=== PATIENT | female | born 1960 | race Caucasian/White ===

== ENCOUNTER → 2018-04-17 11:04 | Outpatient (CLI) | payer OTHER, SELFPAY ==
--- NOTE | 2018-04-17 | DI.MG.S_ITS ---
BILATERAL DIGITAL SCREENING MAMMOGRAM 3D/2D WITH CAD: 04/17/2018 CLINICAL: Routine screening. Family history of breast cancer. Comparison is made to exams dated: 03/29/2016 mammogram, 02/22/2014 mammogram, and 02/20/2009 mammogram - [facility]. The tissue of both breasts is heterogeneously dense. This may lower the sensitivity of mammography. Current study was also evaluated with a Computer Aided Detection (CAD) system. No significant masses, calcifications, or other findings are seen in either breast. There has been no significant interval change. IMPRESSION: NEGATIVE There is no mammographic evidence of malignancy. A 1 year screening mammogram is recommended. This exam was interpreted at Station ID: [id number]. NOTE: For mammograms, a report in lay terms will be sent to the patient. Approximately 15% of breast malignancies will not be visualized mammographically. In the management of a palpable breast mass, a negative mammogram must not discourage biopsy of a clinically suspicious lesion. Electronically Signed By: Anders rosales/rosalee:04/17/2018 18:34:04 copy to: Justin Tavera letter sent: Normal Exam ACR BI-RADS Category 1: Negative [id number]
== END ==
PROVIDERS: Family Provider Family Medicine; PCP Family Medicine; Visit Provider Family Medicine
DX: Z12.31 Encounter for screening mammogram for malignant neoplasm of breast (principal); Z80.3 Family history of malignant neoplasm of breast
CPT/HCPCS: 77063; 77067

== ENCOUNTER → 2019-02-12 08:51 | Outpatient (CLI) | payer OTHER, SELFPAY ==
--- NOTE | 2019-02-12 | DI.US.S_ITS ---
LIMITED ULTRASOUND OF RIGHT BREAST AND AXILLA: 02/12/2019 CLINICAL: Palpable right axilla lump. Retroareolar mass seen on mammography. Comparison is made to exams dated: 02/12/2019 mammogram, 04/17/2018 mammogram, 03/29/2016 mammogram, 02/22/2014 mammogram, 02/20/2009 mammogram, and 04/08/2007 mammogram - [facility]. Color flow and real-time ultrasound of the right breast retroareolar and axilla regions were performed. [place] scale images of the real-time examination were reviewed. There is a 1.7 cm x 1.4 cm x 1.2 cm irregular hypoechoic mass with indistinct margin in the right breast central to the nipple retroareolar depth near 6:00 position relative to the nipple. This demonstrates internal calcifications and internal vacularity on Doppler ultrasound. There are multiple abnormal right axillary lymph nodes demonstrating cortical thickening and effacement of the fatty ki. The largest right axillary lymph node measures 2.7 cm x 1.8 cm x 2.5 cm with cortical thickening up to 1.2 cm, and internal calcifications. This largest axillary lymph node correlates with the site of patient's reported focal palpable abnormality. IMPRESSION: HIGHLY SUGGESTIVE OF MALIGNANCY 1) 1.7 cm x 1.4 cm x 1.2 cm irregular calcified vascular hypoechoic mass with indistinct margin in the right breast central to the nipple retroareolar depth near 6:00 position relative to the nipple. This is highly suggestive of malignancy and an ultrasound guided biopsy is recommended. 2) Right axillary lymphadenopathy with the largest right axillary lymph node measuring 2.7 cm x 1.8 cm x 2.5 cm with cortical thickening up to 1.2 cm. This correlates with the site of patient's reported focal palpable abnormality. This is highly suggestive of malignancy and an ultrasound guided biopsy is recommended. These results and recommendations were discussed with the patient at the time of the exam by the [facility] Radiologist Dr. Willian Salmon in person. This exam was interpreted at Station ID: [id number]. Electronically Signed By: Anders Morataya M.D. ecl/:02/12/2019 10:32:09 copy to: Justin Tavera letter sent: Biopsy Required Ultrasound BI-RADS: 5 Highly suggestive of malignancy
--- NOTE | 2019-02-12 | DI.MG.S_ITS ---
BILATERAL DIGITAL DIAGNOSTIC MAMMOGRAM 3D/2D: 02/12/2019 CLINICAL: Right axillary mass and pain. Comparison is made to exams dated: 04/17/2018 mammogram, 03/29/2016 mammogram, and 02/22/2014 mammogram - [facility]. The tissue of both breasts is heterogeneously dense. This may lower the sensitivity of mammography. There is a triangular marker overlying the skin of the right axilla at the site of the patient's reported palpable abnormality. There are multiple axillary lymph nodes which appear enlarged and demonstrate adajcent punctate calcifications adjacent the marker. These are new from prior comparison exams. There is an irregular indistinct focal asymmetry with associated pleomorphic calcifications in the right breast central to the nipple retroareolar depth. This is new from prior comparison exams. IMPRESSION: INCOMPLETE: NEEDS ADDITIONAL IMAGING EVALUATION 1) Multiple enlarged axillary lymph nodes with adjacent punctate calcifications, near the marker indicating the site of patient's palpable concern. These are new from prior comparison exams. Targeted diagnostic ultrasound recommended for further evaluation, which will be performed immediately following this exam. 2) Irregular indistinct focal asymmetry with associated pleomorphic calcifications in the right breast central to the nipple retroareolar depth. This is new from prior comparison exams. Targeted diagnostic ultrasound recommended for further evaluation, which will be performed immediately following this exam. This exam was interpreted at Station ID: [id number]. NOTE: For mammograms, a report in lay terms will be sent to the patient. Approximately 15% of breast malignancies will not be visualized mammographically. In the management of a palpable breast mass, a negative mammogram must not discourage biopsy of a clinically suspicious lesion. Electronically Signed By: Anders Morataya M.D. ecl/:02/12/2019 10:22:54 copy to: Justin Tavera [facility] BI-RADS Category 0: Incomplete 3340F
== END ==
PROVIDERS: PCP Family Medicine; Visit Provider Nurse Practitioner Family
DX: R92.8 Other abnormal and inconclusive findings on diagnostic imaging of breast (principal); R92.1 Mammographic calcification found on diagnostic imaging of breast; N63.15 Unspecified lump in the right breast, overlapping quadrants; N64.4 Mastodynia; R59.0 Localized enlarged lymph nodes; N64.89 Other specified disorders of breast
CPT/HCPCS: 76642; 77066; G0279

== ENCOUNTER 2019-02-15 23:14 | Emergency (ER) | payer OTHER, SELFPAY ==
[2019-02-15 23:28] VITALS: BP 148/77; PULSE 79; RESP 16; TEMP 36.9; O2SAT 97; BMI 23.2
--- NOTE | 2019-02-15 23:54 | PC.NURSE ---
Pt has an area just below elbow going up her upper arm that is red,warm and swollen.
--- NOTE | 2019-02-16 00:29 | DI.RAD.S_ITS ---
PROCEDURE: XR CHEST 1V INDICATIONS: suspected sepsis TECHNIQUE: One view of the chest was acquired. COMPARISON: None. FINDINGS: Surgical changes and devices: None. Lungs and pleura: Lungs are clear. No pleural effusions or pneumothorax. Mediastinum: Mediastinal contours appear normal. Heart size is normal. Bones and chest wall: No suspicious bony lesions. Overlying soft tissues appear unremarkable. IMPRESSION: No acute cardiopulmonary disease. Dictated by: Ar Dawson M.D. on 02/16/2019 at 9:11 Approved by: Ar Dawson M.D. on 02/16/2019 at 9:12
--- NOTE | 2019-02-16 00:32 | DI.CT.S_ITS ---
PROCEDURE: CT CHEST W CON INDICATIONS: breast mass, right arm swelling TECHNIQUE: After the administration of intravenous contrast, 5 mm thick sections acquired from the pulmonary apices to the posterior costophrenic angles. 1 mm axial lung, 5 mm thick coronal and sagittal reformats and 7 mm axial MIP were acquired. For radiation dose reduction, the following was used: automated exposure control, adjustment of mA and/or kV according to patient size. COMPARISON: [facility], , BREAST RT LIMITED, 02/12/2019, 10:02. [facility], MM DIAGNOSTIC MAMMO BI, 02/12/2019, 9:21. [facility], MM SCREENING MAMMO BI, 04/17/2018, 11:51. FINDINGS: Image quality: Excellent. Lungs and pleura: No acute air space opacities. There is a splenium and nodule in the left upper lobe just in front of the left major fissure (series 7 image 22). No pleural effusions or pneumothorax. Central and peripheral airways are patent and normal in caliber. Mediastinum: Heart size is normal. No pericardial effusion. No mediastinal or hilar adenopathy by size criteria. Thoracic aorta and central pulmonary arteries are normal in size. Esophagus is normal in caliber. No hiatal hernia. Bones and chest wall: There is a 1.4 cm enhancing mass in the retroareolar area of the right breast. There are axillary lymphadenopathy bilaterally. The largest lymph node in the right axilla measures 2.3 cm. Mildly enlarged left axillary lymph node measures up to 1 cm in short axis. No suspicious bony lesions. No vertebral body compression fractures. Thyroid gland is normal. Note is made of prominent right jugular vein and subclavian vein. Abdomen: This is 3.1 x 2.9 cm enhancing mass in the anterior right hepatic lobe. Upper abdominal bowel loops are normal in caliber. IMPRESSION: 1. A 1.4 cm mass in the retroareolar area of the right breast, highly suspicious for breast cancer. 2. Right axillary lymphadenopathy consistent with metastases. Mildly enlarged left axillary lymph nodes are also noted, which could represent reactive lymph nodes or metastasis. 3. A 3 mm nodule in the left upper lobe. 4. A 3.1 x 2.9 cm enhancing mass in the anterior right hepatic lobe. Differential diagnoses include focal nodular hypoplasia, hepatoma and metastasis. Liver protocol MRI suggested for followup. 5. Prominent right jugular vein and subclavian vein. Fleischner Society criteria for SOLID lung nodule followup. Nodule size (mm)Low-risk patientHigh-risk patient?4No follow-up neededFollow-up at 12 mo; if no change, no further follow-up>[id number] CT at 12 mo; if no change, no further follow-up needed.Initial follow-up CT at 6-12 mo, then 18-24 mo if no change. >6-8Initial follow-up CT at 6-12 mo, then 18-24 mo if no change. Initial follow-up CT at 3-6 mo, then 9-12 mo and 24 mo if no change. >8Follow-up CT at 3, 9, 24 mo. Or PET and/or biopsy.Same as for low-risk pts. Fleischner Society criteria for SUB-SOLID lung nodule followup. Solitary pure ground-glass nodules5 mm or lessNo followup needed. >5 mm3 mo follow-up CT to confirm persistence. Then annual CT for 3 years. Part-solid nodules3 mo follow-up CT to confirm persistence. If persistent with solid component <5 mm, annual CT for at least 3 years. If solid component is 5 mm or more, biopsy or surgical resection. Consider PET-CT for lesions > 10 mm. Multiple sub-solid nodulesPure ground glass nodules [address] at 2 and 4 years. Pure ground glass nodules >5 mm without dominant lesion. [address] to confirm persistence, then annual followup CT for at least 3 years. Dominant nodule(s) with part-solid or solid component. [address] to confirm persistence. If persistent, consider biopsy or surgical resection, rachael if lesions have >5 mm solid component. Dictated by: Ar Dawson M.D. on 02/16/2019 at 7:54 Approved by: Ar Dawson M.D. on 02/16/2019 at 8:12
[2019-02-16 00:39] LABS: Add Manual Diff / Slide Review NO; Basophils Absolute Auto 100 /uL (0-100); Basophils Percent Auto 1.1 % (0-2); Eosinophils Absolute Auto 400 /uL (0-450); Eosinophils Percent Auto 4.4 % (2-4); Hematocrit 42.4 % (36-46); Hemoglobin 14.5 g/dL (12.0-16.0); Lymphocytes Absolute Auto 2600 /uL (1100-4500); Lymphocytes Percent Auto 28.1 % (25-40); Mean Corpuscular HGB Conc 34.2 % (30-36); Mean Corpuscular Hemoglobin 31.1 PG (26-34); Mean Corpuscular Volume 90.7 fL (80-100); Monocytes Absolute Auto 700 /uL (0-900); Monocytes Percent Auto 7.3 % (3-14); Neutrophils Absolute Auto 5500 /uL (1500-7000); Neutrophils Percent Auto 59.1 % (50-75); Platelet Count 263 X10^3/uL (150-400); Prothrombin Time 11.1 SECONDS (10.1-12.7); Red Blood Cell Count 4.68 X10^6/uL (4.0-5.2); Red Cell Distribution Width 14.2 % (11.6-14.8); White Blood Cell Count 9.4 X10^3/uL (4.5-11.0)
[2019-02-16 00:42] LABS: PTT Partial Thromboplastin Tim 37 SECONDS (26.4-36.2)
[2019-02-16 00:44] LABS: Lactate (Lactic Acid) 0.9 mmol/L (0.7-2.1)
[2019-02-16 00:49] LABS: Alanine Aminotransferase 11 IU/L (9-52); Albumin 4.3 g/dL (3.5-5.0); Albumin Globulin Ratio 1.3 (1.0-2.8); Alkaline Phosphatase 67 U/L (38-126); Aspartate Aminotransferase 31 IU/L (14-36); BUN Creatinine Ratio 25.7 (6-22); Bilirubin Total 0.4 mg/dL (0.2-1.3); Blood Urea Nitrogen 18 mg/dL (7-17); Calcium 9.3 mg/dL (8.4-10.2); Carbon Dioxide 24 mmol/L (22-32); Chloride 108 mmol/L (98-107); Estimated Glomerular Filt Rate > 60.0 mL/min (>60); Globulin 3.3 g/dL (1.7-4.1); Glucose 136 mg/dL (80-110); HEMOLYSIS < 15 (0-50); Lipase 68 U/L (23-300); Potassium 3.3 mmol/L (3.4-5.1); Sodium 140 mmol/L (137-145); Total Protein 7.6 g/dL (6.3-8.2)
[2019-02-16] MEDS: SODIUM CHLORIDE 0.9% 1,000 ML 1000 ML IV (00:57)
[2019-02-16 01:05] LABS: Procalcitonin < 0.05 ng/mL (<0.5)
--- NOTE | 2019-02-16 01:22 | ED.EXTPRO ---
HPI - Extremity Problem General Chief complaint: Extremity Problem,Nontraumatic Stated complaint: right arm really sore/red line going down arm Time Seen by Provider: 02/16/19 00:10 Source: patient Mode of arrival: Family Vehicle Limitations: no limitations History of Present Illness HPI Narrative: Patient is 59-year-old female who presents with erythema streaking on her right arm. She is currently being worked up for a mass in her breast. She felt a lump underneath her in her axilla area. She had mammogram done on 02/12/2019 which did reveal multiple enlarged axillary lymph nodes with punctate calcifications. His she also had an ultrasound which showed similar. Today she started noticing increased pain in her axilla area and she had streaking of redness all the way down her arm. She denies any fevers or sweats no unintentional significant weight loss. She denies any chest pain or shortness of breath. She does have a history of smoking. MD Complaint: extremity pain and extremity swelling Quality: aching Related Data Allergies Allergy/AdvReac Type Severity Reaction Status Date / Time No Known Drug Allergies Allergy Verified 02/16/19 00:28 Review of Systems Review of Systems ROS Unobtainable: All systems reviewed & are unremarkable except as noted in HPI and below Constitutional Constitutional: Denies chills, Denies fever(s), Denies lethargy and Denies weakness Eyes Eyes: Denies change in vision, Denies eye discharge, Denies irritation and Denies loss of vision ENT Ears, Nose, Mouth, and Throat: Denies change in voice, Denies neck pain and Denies sore throat Cardiovascular Cardiovascular: Denies chest pain, Denies irregular heart rhythm, Denies lightheadedness, Denies palpitations, Denies dyspnea, Denies dyspnea on exertion and Denies orthopnea Respiratory Respiratory: Denies cough, Denies dyspnea, Denies dyspnea on exertion and Denies wheezing Genitourinary Genitourinary: Denies hematuria, Denies flank pain, Denies urinary incontinence and Denies urinary urgency Musculoskeletal Musculoskeletal: Reports as per HPI and Denies neck pain Integumentary/Breasts Skin/Breast: Reports as per HPI Neurologic Neurologic: Denies loss of vision and Denies weakness Endocrine Endocrine: Denies palpitations Allergic/Immunologic Allergic/Immunologic: Denies wheezing Patient History Medical History Hypothyroid (Acute) Social History Smoking Status: Current every day smoker tobacco type: cigarettes alcohol intake frequency: holidays/special occasions only Substance Use Type: does not use Exam Initial Vital Signs Initial Vital Signs: Vital Signs Temperature 98.5 F 02/15/19 23:28 Pulse Rate 79 02/15/19 23:28 Respiratory Rate 16 02/15/19 23:28 Blood Pressure 148/77 H 02/15/19 23:28 Pulse Oximetry 97 02/15/19 23:28 GENERAL: Well-appearing, well-nourished and in no acute distress. HEENT: Head atraumatic,EOMI, pupils reactive, face symmetric, moist mucous membranes CARDIOVASCULAR: Regular rate and rhythm without murmurs, rubs or gallops. RESPIRATORY: Breath sounds equal bilaterally, no wheezes rales or rhonchi. ABDOMEN: Soft, nontender. Normoactive bowel sounds all 4 quadrants. No guarding or rebound. EXTREMITIES: Normal range of motion, no clubbing or edema. Neurovascularly intact NEUROLOGICAL: Alert and oriented x4.Normal gait and speech. Cranial nerves II through XII grossly intact. SKIN: Significant redness starting in axilla and going all way down arrest. It is palpable and inflamed and seems to follow vein. Mild mass and palpable area and axilla no abscess no induration no gross pus Course Orders Ordered: ED Orders 02/16/19 00:05 Complete Blood Count AUTO DIFF Stat Comprehensive Metabolic Panel Stat Lactate (Lactic Acid) Stat Lipase Stat Partial Thromboplastin Time Stat Procalcitonin Stat Prothrombin Time INR Stat Thyroid Stimulating Hormone Stat 02/16/19 00:29 XR chest 1V Stat RT Consult Eval and Treat Now 02/16/19 00:32 CT chest w con Stat 02/16/19 00:55 Blood Culture Stat 02/16/19 01:57 US periph venous up extrem rt Stat Discontinued Medications Sodium Chloride (Normal Saline 0.9%) 1,000 mls @ 1,000 mls/hr IV BOLUS ONE Stop: 02/16/19 01:27 Last Infusion: 02/16/19 04:06 Dose: 0 mls/hr Documented by: Admin: 02/16/19 00:57 Dose: 1,000 mls/hr Documented by: BHAVANI Ketorolac Tromethamine (Toradol) 30 mg IV NOW ONE Stop: 02/16/19 03:42 Last Admin: 02/16/19 03:56 Dose: 30 mg Documented by: GRICELDA Vital Signs Vital signs: Vital Signs - 8 hr 02/15/19 23:28 02/16/19 01:50 02/16/19 03:00 Temperature 98.5 F Pulse Rate 79 67 56 L Respiratory Rate 16 16 18 Blood Pressure 148/77 H Blood Pressure [Left Arm] 128/87 143/80 H Pulse Oximetry 97 97 97 02/16/19 04:21 Temperature Pulse Rate 86 Respiratory Rate 16 Blood Pressure 120/68 Blood Pressure [Left Arm] Pulse Oximetry 96 MDM - Extremity (Nontraumatic) Lab Data Attestation: I reviewed the patient's lab results. Result diagrams: 02/16/19 00:05 02/16/19 00:05 Labs: Lab Results 02/16/19 02/16/19 02/16/19 Range/Units 00:05 00:05 00:05 WBC 9.4 (4.5-11.0) X10^3/uL RBC 4.68 (4.0-5.2) X10^6/uL Hgb 14.5 (12.0-16.0) g/dL Hct 42.4 (36-46) % MCV 90.7 (80-100) fL MCH 31.1 (26-34) PG MCHC 34.2 (30-36) % RDW 14.2 (11.6-14.8) % Plt Count 263 (150-400) X10^3/uL Neut % (Auto) 59.1 (50-75) % Lymph % (Auto) 28.1 (25-40) % [place] % (Auto) 7.3 (3-14) % Eos % (Auto) 4.4 H (2-4) % Baso % (Auto) 1.1 (0-2) % Neut # (Auto) 5500 (6998-6695) /uL Lymph # (Auto) 2600 (0350-8760) /uL [place] # (Auto) 700 (0-900) /uL Eos # (Auto) 400 (0-450) /uL Baso # (Auto) 100 (0-100) /uL PT 11.1 (10.1-12.7) SECONDS INR 1.0 (0.9-1.3) APTT 37 H (26.4-36.2) SECONDS Sodium (137-145) mmol/L Potassium (3.4-5.1) mmol/L Chloride (98-107) mmol/L Carbon Dioxide (22-32) mmol/L BUN (7-17) mg/dL Creatinine (0.52-1.04) mg/dL Estimated GFR (>60) mL/min BUN/Creatinine Ratio (6-22) Glucose (80-110) mg/dL Lactate (0.7-2.1) mmol/L Calcium (8.4-10.2) mg/dL Total Bilirubin (0.2-1.3) mg/dL AST (14-36) IU/L ALT (9-52) IU/L Alkaline Phosphatase (38-126) U/L Total Protein (6.3-8.2) g/dL Albumin (3.5-5.0) g/dL Globulin (1.7-4.1) g/dL Albumin/Globulin Ratio (1.0-2.8) Lipase (23-300) U/L Procalcitonin < 0.05 (<0.5) ng/mL TSH (0.47-4.68) uIU/mL 02/16/19 02/16/19 02/16/19 Range/Units 00:05 00:05 00:05 WBC (4.5-11.0) X10^3/uL RBC (4.0-5.2) X10^6/uL Hgb (12.0-16.0) g/dL Hct (36-46) % MCV (80-100) fL MCH (26-34) PG MCHC (30-36) % RDW (11.6-14.8) % Plt Count (150-400) X10^3/uL Neut % (Auto) (50-75) % Lymph % (Auto) (25-40) % [place] % (Auto) (3-14) % Eos % (Auto) (2-4) % Baso % (Auto) (0-2) % Neut # (Auto) (3337-5989) /uL Lymph # (Auto) (7505-4055) /uL [place] # (Auto) (0-900) /uL Eos # (Auto) (0-450) /uL Baso # (Auto) (0-100) /uL PT (10.1-12.7) SECONDS INR (0.9-1.3) APTT (26.4-36.2) SECONDS Sodium 140 (137-145) mmol/L Potassium 3.3 L (3.4-5.1) mmol/L Chloride 108 H (98-107) mmol/L Carbon Dioxide 24 (22-32) mmol/L BUN 18 H (7-17) mg/dL Creatinine 0.70 (0.52-1.04) mg/dL Estimated GFR > 60.0 (>60) mL/min BUN/Creatinine Ratio 25.7 H (6-22) Glucose 136 H (80-110) mg/dL Lactate 0.9 (0.7-2.1) mmol/L Calcium 9.3 (8.4-10.2) mg/dL Total Bilirubin 0.4 (0.2-1.3) mg/dL AST 31 (14-36) IU/L ALT 11 (9-52) IU/L Alkaline Phosphatase 67 (38-126) U/L Total Protein 7.6 (6.3-8.2) g/dL Albumin 4.3 (3.5-5.0) g/dL Globulin 3.3 (1.7-4.1) g/dL Albumin/Globulin Ratio 1.3 (1.0-2.8) Lipase 68 (23-300) U/L Procalcitonin (<0.5) ng/mL TSH 2.13 (0.47-4.68) uIU/mL Imaging Data Chest x-ray: Attestation: I personally reviewed and interpreted this imaging study as follows: My impression: no acute process CT scan - chest: Radiologist's impression: Preliminary report: Probable 1.1 cm right subareolar breast mass recommended breast workup. Bilateral axillary adenopathy most prominent in the right. Dilated right axillary and subclavian veins, recommended vascular ultrasound to assess for thrombus. 3 cm enhancing lesion right anterior lobe of liver finding is nonspecific Venous US: Radiologist's impression: Preliminary report of right upper extremity: Negative for deep vein thrombosis MDM Narrative Medical decision making narrative: Patient's arm is erythematous she is afebrile no leukocytosis negative procalcitonin her lactate. She does not have infectious like symptoms unclear cellulitis versus thrombophlebitis. Patient does not want to stay in the hospital. I discussed case with Dr. Tavera her PCP who is happy to see her in the office tomorrow and recommend anti-inflammatory. Discharge Plan Departure Patient Disposition: Home Clinical Impression: Thrombophlebitis Discharge Date/Time: 02/16/19 04:21 Instructions: DI for Superficial Thrombophlebitis Activity Restrictions/Additional Instructions: *You have been diagnosed with thrombophlebitis *What to do: Recommend anti-inflammatory medication. *Continue to take medications as directed Ibuprofen 800 mg every 8 hours with food *Follow up with your primary care provider today02/16/19. I have spoken with Dr. Tavera was happy to see you in the office *Return to ER if you should have fever, increasing pain, swelling or any new, worsening or concerning symptoms Referrals: Justin Tavera MD [Primary Care Provider] -
[2019-02-16 01:50] VITALS: BP 128/87; PULSE 67; RESP 16; O2SAT 97
--- NOTE | 2019-02-16 01:57 | DI.US.S_ITS ---
PROCEDURE: US PERIPH VENOUS UP EXTREM RT INDICATIONS: REDNESS; DILATED VEINS ON CT TECHNIQUE: Real-time imaging, as well as color and pulse Doppler interrogation, was performed of the right upper extremity deep veins from the inferior neck to the antecubital fossa. COMPARISON: [facility], CT, CT CHEST W CON, 02/16/2019, 0:58. FINDINGS: The internal jugular vein, visualized portions of the subclavian vein, axillary, and brachial veins are free of intraluminal thrombus. Where physically possible, the veins are normally compressible. Color and pulse Doppler demonstrate normal intraluminal flow, with expected phasicity and pulsatility. Additional scanning of the cephalic and basilic veins of the superficial system demonstrate normal compressibility, without thrombus. IMPRESSION: No deep venous thrombosis in the right upper extremity. No significant discrepancy with the pottery striper radiology preliminary report. Dictated by: Ar Dawson M.D. on 02/16/2019 at 9:24 Approved by: Ar Dawson M.D. on 02/16/2019 at 9:24
[2019-02-16 02:07] LABS: Thyroid Stimulating Hormone 2.13 uIU/mL (0.47-4.68)
[2019-02-16 03:00] VITALS: BP 143/80; PULSE 56; RESP 18; O2SAT 97
[2019-02-16] MEDS: KETOROLAC 60 MG/2 ML VIAL 30 MG IV (03:56)
[2019-02-16 04:21] VITALS: BP 120/68; PULSE 86; RESP 16; O2SAT 96
== END 2019-02-16 04:21 | disposition home or self-care (01) ==
PROVIDERS: Emergency Provider Emergency Medicine; PCP Family Medicine
DX: I80.8 Phlebitis and thrombophlebitis of other sites (principal)
CPT/HCPCS: 36415; 71045; 71260; 80053; 83605; 83690; 84145; 84443; 85025; 85610; 85730; 87040; 93971; 96361; 96374; 99283; 99284; J1885; Q9967

== ENCOUNTER → 2019-02-27 12:52 | Outpatient (CLI) | payer OTHER, SELFPAY ==
--- NOTE | 2019-02-27 | DI.US.S_ITS ---
ULTRASOUND GUIDED BIOPSY RIGHT BREAST WITH MARKING DEVICE INSERTED AND POST DIGITAL MAMMOGRAPHIC IMAGIN02/27/2019 CLINICAL: Right axillary node biopsy. PATIENT CONSENT: Risks (minor bleeding, infection, vasovagal reaction and repeat procedure), benefits and alternatives were explained to the patient and written informed consent was obtained. Correlation is made to exams dated: 02/27/2019 mammogram, 02/12/2019 ultrasound, 02/12/2019 mammogram, 04/17/2018 mammogram, and 02/27/2019 ultrasound biopsy - [facility]. An ultrasound guided biopsy using real-time ultrasound was performed for the palpable circumscribed oval lymph node with calcifications located in the right axillary tail. This was described on the previous mammography and ultrasound reports. The skin was prepped in the usual manner. Local anesthetic was administered to the access site. A skin jenny was made in the breast. The abnormality was approached from the lateral aspect. An 18 gauge Temno biopsy needle was placed adjacent to the abnormality through an introducer device under ultrasound guidance. Once the needle was documented to be in the correct location, four specimens were obtained. The patient received additional local anesthetic during the procedure. A Celero clip was inserted into the biopsy cavity. A skin adhesive was applied to the access site. Post procedure digital mammographic imaging demonstrates the location device at the targeted area. The specimens were sent to the laboratory for pathological analysis. IMPRESSION: ULTRASOUND GUIDED BIOPSY MALIGNANT Ultrasound guided biopsy of the lymph node in the right axillary tail was successful with no apparent post procedure complications. 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 Pathology results are concordant with imaging findings. Surgical and oncologic consultation is recommended. This exam was interpreted at Station ID: [id number]. Farhad Salmon M.D. [facility] [place]/:03/07/2019 09:39:35
--- NOTE | 2019-02-27 | DI.MG.S_ITS ---
UNILATERAL RIGHT DIGITAL DIAGNOSTIC MAMMOGRAM POST-EXCISIONAL BIOPSY: 02/27/2019 CLINICAL: Right breast abnormal mammogram. Post clip. Comparison is made to exams dated: 02/12/2019 mammogram, 04/17/2018 mammogram, 02/27/2019 ultrasound biopsy, 02/27/2019 ultrasound biopsy, and 02/12/2019 [facility], [place]. The tissue of right breast is heterogeneously dense. This may lower the sensitivity of mammography. There is a marker clip in the appropriate position in the right breast at 6 o'clock retroareolar. This marker clip placement is at the biopsy site. This correlates with ultrasound findings. There also is a marker clip in the appropriate position in the right breast axillary tail mass seen on the mediolateral oblique view only. This marker clip placement is at the biopsy site. This correlates with ultrasound findings. IMPRESSION: POST PROCEDURE MAMMOGRAM FOR MARKER PLACEMENT Expected location of the post biospy marker clips in the right breast retroareolar and right axillary lymph node. Exam findings were conveyed to the patient by Dr. Farhad Williamson. This exam was interpreted at Station ID: [id number]. NOTE: For mammograms, a report in lay terms will be sent to the patient. Approximately 15% of breast malignancies will not be visualized mammographically. In the management of a palpable breast mass, a negative mammogram must not discourage biopsy of a clinically suspicious lesion. Electronically Signed By: Farhad Williamson M.D. slc/:02/27/2019 15:41:55 ACR BI-RADS Category Post-procedure mammogram for marker placement
--- NOTE | 2019-02-27 | PATH_ITS ---
[facility] Accession Number: [id number] . 01 Material submitted: . PART A: axilla - RIGHT AXILLA PALPABLE PART B: breast - RIGHT BREAST RETRONIPPLE . 01 Diagnosis: A. Right Axilla Palpable, Biopsy: High-grade invasive carcinoma involving fibroconnective tissue with associated lymphoid aggregates; see comment. . B. Right Breast, Retronipple, Biopsy: Invasive (ductal) carcinoma, grade 3/3, ([place] combined histologic grade, total score 8/9), with the following features: 1. Tubular differentiation: Little or none. (3/3) 2. Nuclear pleomorphism: High. (3/3) 3. Mitotic grade: Intermediate. (2/3). 4. Size of invasive carcinoma: Present on 2 cores, single largest dimension at least 9 mm on this sample. 5. Ductal carcinoma in situ: Not definitively identified. 6. Calcifications: Absent. 7. Lymphovascular space invasion: Present. 8. Prognostic markers: a. Estrogen receptor status: Positive (1% tumor cells staining; staining intensity: Weak). b. Progesterone receptor status: Negative (<1% tumor cells staining; staining intensity: Weak). c. HER-2 status: Positive for protein overexpression by immunohistochemistry (3+). [facility] 03/05/2019 0920 Local . 01 Comment: In the right palpable axilla (part A), invasive carcinoma is present in association with fibroconnective tissue. Detached fragments of lymphoid aggregates are present. Radiographic correlation is necessary to determine whether this represents metastasis to a lymph node. . Dr. Tavera is notified of the preliminary findings on this case on 03/02/2019 at 4:00 pm. . 01 Electronically signed: . Cheyenne Arzola MD, Pathologist NPI- [id number] . 01 Gross description: . This is a two part case. Each container is labeled with the patient's information. . A. Received in a formalin-filled container labeled right axilla palpable and consists of four weinberg cylindrical needle cores, 0.4 cm up to 1.2 cm, each with an average diameter of 0.1 cm. The cores are filtered through a mesh bag, inked blue and entirely submitted in A1. B. Received in a formalin-filled container labeled right breast retronipple cores and consists of four weinberg hemorrhagic cylindrical needle cores, 1.0 cm up to 1.6 cm with diameters ranging from 0.2 cm up to 0.3 cm. The cores are inked orange and entirely submitted within B1 through B2, along with smaller associated tissue fragments (two cores per cassette). . Per containers, presumed formalin time is 1402 for A and 1433 for B, both on 02/27/2019. Gross time is 12:30 p.m. on 02/28/2019. ([id number]) /[facility] 02/28/2019 1706 Local . 01 Microscopic: . B2. D2-40, CD34, p63, and smooth muscle myosin immunostains with appropriately staining external controls, are performed on block B2 in order to assess for lymphovascular space invasion versus ductal carcinoma in situ. Several nests of atypical epithelioid cell clusters are present within spaces highlighted by D2-40 and CD34, with negative smooth muscle myosin and negative p63, in support of lymphovascular space invasion. Although focal faint reactivity for p63 and smooth muscle myosin is seen, there is not definitive evidence for ductal carcinoma in situ. . The invasive carcinoma invades stroma of the nipple areolar complex; it is high-grade, demonstrates areas of single cells and filing, and is evaluated with E-cadherin and Beta-catenin; the carcinoma retains its membranous staining pattern, in support of ductal phenotype. . Predictive marker immunohistochemical studies are performed on block B2 with the invasive carcinoma showing the following results: . Estrogen receptor (SP1): Positive (1%, Weak intensity). Progesterone receptor (1E2): Negative (<1%, Weak intensity). Her2 (4B5): Positive for overexpression (3+) by immunohistochmistry. . Internal controls for [place] and [place] are positive. Cold ischemic time is <5 minutes. The scoring criteria for breast biomarkers by immunohistochemistry is based on the ASCO/CAP guidelines (Caleb AC et al, J Clin Oncol: 2018 Oct 10;36(20):0279-5741 and Theodore ME et al, Arch Pathol Lab Med: 2009;134(6):907-22). Deparaffinized sections of formalin fixed tissue (along with appropriate positive controls) are incubated with the above antibody(s). Using the automated [place] stainer, tissue is incubated with the designated antibody which is then localized by a non-biotin, dual polymer detection system. The external controls are reviewed for appropriate reactivity and found to be adequate. Results on the target cell population are indicated above. These tests have not been validated on decalcified tissue. This test was developed and its performance characteristics determined by [employer]. It has not been cleared or approved by the U.S. Food and Drug Administration. The FDA has determined that such clearance or approval is not necessary. This test is used for clinical purposes. It should not be regarded as investigational or for research. . 01 Pathologist provided ICD-10: C50.111 . 01 CPT . 050406, 053879, W79210, D98414, 915854, 670883, 364899 Performed at: 01 [facility] [address], [place], [place] [id number] MD Doug Mckeon MD Phone: [phone]
--- NOTE | 2019-02-27 | DI.US.S_ITS ---
MULTIPLE ULTRASOUND GUIDED BIOPSIES RIGHT BREAST USING VACUUM DEVICE WITH MARKING DEVICES INSERTED AND POST DIGITAL MAMMOGRAPHIC IMAGIN02/27/2019 CLINICAL: Right breast mass. PATIENT CONSENT: Risks (minor bleeding, infection, vasovagal reaction and repeat procedure), benefits and alternatives were explained to the patient and written informed consent was obtained. Correlation is made to exams dated: 02/27/2019 mammogram, 02/12/2019 ultrasound, 02/12/2019 mammogram, and 04/17/2018 mammogram - [facility]. An ultrasound guided biopsy using real-time ultrasound was performed for the abnormality located in the right breast central to the nipple in the retroareolar region. The skin was prepped in the usual manner. A biopsy needle was placed adjacent to the abnormality under ultrasound guidance. Once the needle was documented to be in the correct location, a specimen was obtained using an automated biopsy gun. A Visioin clip was inserted into the biopsy cavity. The specimen was sent to the laboratory for pathological analysis. A second ultrasound guided biopsy using real-time ultrasound was performed for the spiculated irregular shaped solid mass with calcifications located in the right breast central to the nipple in the retroareolar region. This was described on the previous mammography and ultrasound reports. The skin was prepped in the usual manner. Local anesthetic was administered to the access site. A skin jenny was made in the breast. The abnormality was approached from the lateral aspect. A 13 gauge biopsy needle was placed adjacent to the abnormality under ultrasound guidance. Once the needle was documented to be in the correct location, four specimens were obtained using the Mammotome biopsy system. The patient received additional local anesthetic during the procedure. A Visioin clip was inserted into the biopsy cavity. A sterile dressing was applied to the access site. Post procedure digital mammographic imaging demonstrates the location device at the targeted area. The specimens were sent to the laboratory for pathological analysis. IMPRESSION: ULTRASOUND GUIDED BIOPSY MALIGNANT Ultrasound guided biopsy of the solid mass in the right breast central to the nipple in the retroareolar region was successful. Pathology indicates malignant invasive ductal carcinoma (ID). Pathology results are concordant with imaging findings. A surgical/oncologic consultation is recommended. This exam was interpreted at Station ID: [id number]. Farhad Salmon M.D. [facility] [place]/:03/07/2019 09:41:17
== END ==
PROVIDERS: PCP Family Medicine; Visit Provider Family Medicine
DX: C50.111 Malignant neoplasm of central portion of right female breast (principal); C77.3 Secondary and unspecified malignant neoplasm of axilla and upper limb lymph nodes; Z17.0 Estrogen receptor positive status [ER+]
CPT/HCPCS: 19083; 38505; 76942; 77065

== ENCOUNTER → 2019-03-21 11:11 | Outpatient (CLI) | payer OTHER, SELFPAY ==
--- NOTE | 2019-03-21 11:16 | DI.CT.S_ITS ---
PROCEDURE: CT ABDOMEN PELVIS W CON INDICATIONS: breast cancer TECHNIQUE: After the administration of oral and intravenous contrast, 5 mm thick sections acquired from the diaphragms to the symphysis. 5 mm thick coronal and sagittal reformats were performed. For radiation dose reduction, the following was used: automated exposure control, adjustment of mA and/or kV according to patient size. COMPARISON: [facility], CT, CT CHEST W CON, 02/16/2019, 0:58. FINDINGS: Image quality: Excellent. ABDOMEN: Lung bases: Lung bases are clear except for mild linear scarring posterior right lung base. There also is stable appearance of a partially visualized solid mass within the retroareolar breast parenchyma on the right, previously documented on CT scanning . This is seen at the first image that includes the lower chest for this abdomen/pelvis CT scanning. Heart size is normal. Solid organs: Liver is normal in size and generally normal in enhancement, but there is a stable appearing previously present mass lesion at the right anterior hepatic segment. Gallbladder is normal. Biliary system is non-dilated. Pancreas enhances normally. Spleen is normal in size and enhancement. No adrenal nodules. Kidneys are normal in size and enhancement, without hydronephrosis. Peritoneum and bowel: Stomach, small bowel, and colon loops are normal in caliber and wall thickness. No free fluid or air. Nodes and vessels: No retroperitoneal or mesenteric adenopathy. Aorta and inferior vena cava are normal in caliber. Miscellaneous: No ventral hernias. PELVIS: Genitourinary: Bladder wall thickness is normal. Miscellaneous: No inguinal hernias or adenopathy. Bones: No suspicious bony lesions. No vertebral body compression fractures. IMPRESSION: Hepatic metastatic disease is the likely cause for the hyperenhancing stable size right anterior hepatic mass, and through the remainder of the abdomen and pelvis no additional metastatic disease is found. Right subareolar breast mass previously seen 02/16/[address] scanning is partially included at the upper margin of this study and has not enlarged in the area visualized. Dictated by: Gabo Ruggiero M.D. on 03/21/2019 at 16:41 Approved by: Gabo Ruggiero M.D. on 03/21/2019 at 16:50
--- NOTE | 2019-03-21 11:16 | DI.NM.S_ITS ---
PROCEDURE: NM BONE SCAN WHOLE BODY RADIOPHARMACEUTICAL: 19.4 mCi Tc-99m MDP IV. INDICATIONS: breast cancer TECHNIQUE: Delayed whole-body scintigrams were obtained approximately 3-4 hours after intravenous injection of radiotracer. Anterior and posterior views were acquired from vertex to feet. Additional left and right oblique views of the ribs and skull were obtained. COMPARISON: [facility], CT, CT ABDOMEN PELVIS W CON, 03/21/2019, 13:15. FINDINGS: At the posterior right paramedian occipital parietal junction of the calvarium there is a small rounded focus of elevated isotope deposition, and no comparison prior study includes this area. The finding is suspicious for metastatic disease in the setting of history of breast carcinoma additionally, at the proximal aspect of the right 11th rib and knee lateral aspect of the right 10th rib there is abnormal isotope uptake focally, also suspicious for representing osseous metastatic disease. Each of these areas is included on prior recent CT scan in from same day, but no definite osteolytic or blastic lesion in those areas is found. 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 These foci involving the chest cannot be identified as abnormal on CT scanning same day. The calvarial abnormality on the right has not been been included on any prior examination available for review. Dictated by: Gabo Ruggiero M.D. on 03/21/2019 at 16:27 Approved by: Gabo Ruggiero M.D. on 03/21/2019 at 16:32
== END ==
PROVIDERS: PCP Family Medicine; Visit Provider Internal Medicine Hematology & Oncology
DX: C50.911 Malignant neoplasm of unspecified site of right female breast (principal); R16.0 Hepatomegaly, not elsewhere classified; M89.9 Disorder of bone, unspecified
CPT/HCPCS: 74177; 78306; A9503; Q9967

== ENCOUNTER → 2019-03-29 14:50 | Outpatient (CLI) | payer OTHER, SELFPAY ==
--- NOTE | 2019-03-29 14:51 | DI.ECHO.S_ITS ---
[facility] +---------+ : : [address] : [place] : : : : [id number] : : : : Phone: [phone]+ Echocardiogram Report + + :Name: GERALDINE BANUELOS Study Date: 03/29/2019 Height: 63 in : :[employer] Weight: 130 lb : : Gender: Female BSA: 1.6 m2 : :: 1960 Age: 59 yrs BP: 138/82 mmHg: :Reason For Study: Pre Chemo : : Performed By: [facility] Staff : :Referring: FERNANDO GOSS : + + Interpretation Summary The left ventricle is normal in size. The ejection fraction is estimated to be 50-55%. The right ventricle is normal in size and function. No significant valvular pathology seen. Procedure: A two-dimensional transthoracic echocardiogram with color flow and Doppler was performed. The study quality was technically adequate. There is no prior echocardiogram noted for this patient. The patient was in sinus bradycardia with heart rates between 45-57 bpm during the exam. Left Ventricle: The left ventricle is normal in size. There is normal left ventricular wall thickness. There is no thrombus. The ejection fraction is estimated to be 50-55%. There are no focal wall motion abnormalities. MV E/A: 1.0 Med Peak E' Giovani: 5.9 cm/sec E/E' med: 10.9. Right Ventricle: The right ventricle is normal in size and function. Atria: The left atrium is mildly dilated. Right atrial size is normal. The interatrial septum is intact with no evidence for an atrial septal defect. Mitral Valve: The mitral valve leaflets are slightly calcified. There is mild mitral regurgitation. Aortic Valve: The aortic valve is trileaflet. The aortic valve opens well. There is no aortic valve stenosis. No aortic regurgitation is present. Tricuspid Valve: The tricuspid valve is normal. There is mild tricuspid regurgitation. Pulmonary artery pressures cannot be estimated because of the lack of a measurable TR jet velocity. Pulmonic Valve: The pulmonic valve is not well visualized. There is trace pulmonic regurgitation. Great Vessels: The aortic root is normal size. The dimensions of the ascending aorta are normal. The pulmonary artery is normal size. The inferior vena cava was not visualized. Pericardium/ Pleura There is no pericardial effusion. There is no pleural effusion. MMode/2D Measurements & Calculations LVIDd: 4.4 cm LVOT diam: 2.0 cm LVIDs: 2.9 cm Ao root diam: 3.0 cm FS: 33.1 % Aortic Jxn: 2.4 cm EPSS: 0.60 cm IVSd: 0.86 cm LVPWd: 0.84 cm LV spaulding. diameter/BSA (cm/m^2): 2.7 LV sys. diameter/BSA (cm/m^2): 1.8 LA A2 area: 19.8 cm2 RA long axis: 3.7 cm LA A4 area: 18.1 cm2 RA area: 12.7 cm2 LA length (vol): 4.6 cm RA vol: 37.2 ml LA vol: 65.7 ml RA : 23.1 ml/m2 LA vol index: 40.8 ml/m2 TAPSE: 2.3 cm Doppler Measurements & Calculations Ao V2 max: 111.3 cm/sec LVOT Max Giovani: 101.3 cm/sec Ao V2 mean: 69.3 cm/sec LV V1 max P.1 mmHg Ao max P.0 mmHg LV V1 VTI: 24.2 cm Ao mean P.3 mmHg GENIA(I,D): 3.3 cm2 Ao V2 VTI: 23.4 cm GENIA(V,D): 2.9 cm2 sev ratio: 1.0 GENIA indexed to BSA (cm^2/m^2): 2.1 MV E max giovani: 64.3 cm/sec TR max giovani: 156.2 cm/sec MV A max giovani: 64.3 cm/sec TR max P.8 mmHg MV E/A: 1.0 PA V2 max: 43.1 cm/sec Med Peak E' Giovani: 5.9 cm/sec PA V2 mean: 31.6 cm/sec E/E' med: 10.9 PA mean P.46 mmHg Lat Peak E' Giovani: 6.2 cm/sec PA Accel Time: 0.11 sec E/E' lat: 10.4 E/e' average: 10.7 MV dec time: 0.25 sec SV(LVOT): 77.4 ml Reading Physician:06:07 PM
== END ==
PROVIDERS: Family Provider Family Medicine; PCP Family Medicine; Visit Provider Internal Medicine Hematology & Oncology
DX: Z01.818 Encounter for other preprocedural examination (principal); C50.911 Malignant neoplasm of unspecified site of right female breast; I08.1 Rheumatic disorders of both mitral and tricuspid valves
CPT/HCPCS: 77080; 93306

== ENCOUNTER → 2019-04-05 11:13 | Outpatient (CLI) | payer OTHER, SELFPAY ==
--- NOTE | 2019-04-05 11:16 | DI.CT.S_ITS ---
PROCEDURE: CT HEAD/BRAIN WO CON INDICATIONS: right breast cancer, abnormal bone scan of right occitus TECHNIQUE: Noncontrast 4.5 mm thick angled axial sections acquired from the foramen magnum to the vertex, with coronal and sagittal reformats. For radiation dose reduction, the following was used: automated exposure control, adjustment of mA and/or kV according to patient size. COMPARISON: [place], [place], [place] BONE SCAN WHOLE BODY, 03/21/2019, 15:13. FINDINGS: Image quality: Excellent. CSF spaces: Basal cisterns are patent. No extra-axial fluid collections. The ventricles are symmetric in size and shape. Brain: No intracranial bleeds or masses. Nolasco-white interface is normal. There is intracranial internal carotid artery atherosclerosis. Skull and face: There is a lytic lesion in the right parietal bone. Calvarium and visualized facial bones appear intact. Sinuses: Visualized sinuses and mastoids are clear. IMPRESSION: 1. A lytic lesion in the right parietal bone correlating with increased uptake on bone scan, suspicious for metastasis. 2. No acute intracranial abnormalities. Dictated by: Ar Dawson M.D. on 04/05/2019 at 13:58 Approved by: Ar Dawson M.D. on 04/05/2019 at 14:03
--- NOTE | 2019-04-05 11:16 | DI.CT.S_ITS ---
PROCEDURE: CT ABDOMEN WO/W CON INDICATIONS: breast cancer, liver lesion on CT scan, not PET positive TECHNIQUE: 4 phase scanning was performed. Non-contrast 5 mm axial sections acquired from the diaphragm to the iliac crests. Following the administration of intravenous contrast, 5 mm thick arterial-phase, portal venous-phase, and 5-minute delayed phase images were acquired through the liver. 5 mm thick coronal and sagittal reformats were performed. For radiation dose reduction, the following was used: automated exposure control, adjustment of mA and/or kV according to patient size. COMPARISON: [facility], [place], [place] PET CT FUSION SKULL 2 THIGH, 03/28/2019, 14:55. [facility], CT, CT ABDOMEN PELVIS W CON, 03/21/2019, 13:15. FINDINGS: Image quality: Excellent. Lung bases: Lung bases are clear. Heart size is normal. Liver: There is a 2.9 x 3.0 cm mass in the lateral segment of the left hepatic lobe, which demonstrates subtle hyperdensity on precontrast images. The mass demonstrates hyperenhancement on arterial phase images compared to the liver parenchyma, and isointensity on portal venous phase and delayed phase images. On the comparison CT PET, there is no hypermetabolism within the mass. 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 Other solid organs: Gallbladder is normal. Biliary system is non dilated. Pancreas is normal in morphology. Spleen is normal in size and enhancement. No adrenal nodules. Both kidneys demonstrate normal size and enhancement. Bilateral renal calculi. No hydronephrosis. There is a 2.1 x 2.8 cm cyst in the inferior pole the left kidney. Nodes and vessels: No retroperitoneal or mesenteric adenopathy by size criteria. Aorta and inferior vena cava are normal in size. Bowel and peritoneum: Unenhanced bowel loops are normal in caliber. No free fluid or air. Bones: No suspicious bony lesions. No vertebral body compression fractures. Degenerative changes in lumbar spine. Miscellaneous: No ventral hernias. IMPRESSION: 1. A 2.9 x 3.0 cm liver mass is seen within the left hepatic lobe. The CT characteristics suggest an atypical hemangioma. On the comparison FDG PET, the mass demonstrate no hypermetabolism. In this patient with breast cancer, ultrasound would helpful for further evaluation. 2. Nephrolithiasis bilaterally. No hydronephrosis. 3. A 2.1 x 2.8 cm cyst in the inferior pole of the left kidney. Dictated by: Ar Dawson M.D. on 04/05/2019 at 15:51 Approved by: Ar Dawson M.D. on 04/05/2019 at 18:19
[2019-04-05 11:44] LABS: Add Manual Diff / Slide Review NO; Basophils Absolute Auto 200 /uL (0-100); Basophils Percent Auto 3.2 % (0-2); Eosinophils Absolute Auto 400 /uL (0-450); Eosinophils Percent Auto 5.7 % (2-4); Hematocrit 44.4 % (36-46); Hemoglobin 15.1 g/dL (12.0-16.0); Lymphocytes Absolute Auto 2500 /uL (1100-4500); Lymphocytes Percent Auto 36.1 % (25-40); Mean Corpuscular HGB Conc 33.9 % (30-36); Mean Corpuscular Hemoglobin 30.8 PG (26-34); Mean Corpuscular Volume 90.8 fL (80-100); Monocytes Absolute Auto 600 /uL (0-900); Monocytes Percent Auto 8.3 % (3-14); Neutrophils Absolute Auto 3200 /uL (1500-7000); Neutrophils Percent Auto 46.7 % (50-75); Platelet Count 285 X10^3/uL (150-400); Red Blood Cell Count 4.89 X10^6/uL (4.0-5.2); Red Cell Distribution Width 14.6 % (11.6-14.8); White Blood Cell Count 6.8 X10^3/uL (4.5-11.0)
[2019-04-05 11:54] LABS: Alanine Aminotransferase 15 IU/L (<35); Albumin 4.4 g/dL (3.5-5.0); Albumin Globulin Ratio 1.5 (1.0-2.8); Alkaline Phosphatase 67 U/L (38-126); Aspartate Aminotransferase 27 IU/L (14-36); BUN Creatinine Ratio 22.2 (6-22); Bilirubin Total 0.5 mg/dL (0.2-1.3); Blood Urea Nitrogen 20 mg/dL (7-17); Calcium 9.4 mg/dL (8.4-10.2); Carbon Dioxide 27 mmol/L (22-32); Chloride 106 mmol/L (98-107); Estimated Glomerular Filt Rate > 60.0 mL/min (>60); Glucose 95 mg/dL (80-110); HEMOLYSIS < 15 (0-50); Sodium 140 mmol/L (137-145); Total Protein 7.4 g/dL (6.3-8.2)
== END ==
PROVIDERS: Family Provider Family Medicine; PCP Family Medicine; Visit Provider Internal Medicine Hematology & Oncology
DX: C50.911 Malignant neoplasm of unspecified site of right female breast (principal); R94.8 Abnormal results of function studies of other organs and systems; M89.9 Disorder of bone, unspecified; K76.9 Liver disease, unspecified; I65.21 Occlusion and stenosis of right carotid artery; N28.1 Cyst of kidney, acquired; N20.0 Calculus of kidney; M47.816 Spondylosis without myelopathy or radiculopathy, lumbar region
CPT/HCPCS: 36415; 70450; 74170; 80053; 85025; Q9967

== ENCOUNTER 2019-04-09 10:55 | Day surgery (SDC) | payer OTHER, SELFPAY ==
[2019-04-04 10:44] VITALS: BMI 22.9
[2019-04-09] VITALS (7 sets, daily range): BP systolic 109–140; BP diastolic 63–85; PULSE 55–64; RESP 11–18; TEMP 35.7–36.7; O2SAT 95–100; BMI 22.9
[2019-04-09] MEDS: LACTATED RINGERS 1,000 ML 42 ML IV (11:33)
--- NOTE | 2019-04-09 12:08 | PM.HP.1 ---
History of Present Illness History of Present Illness Date Patient Seen: 04/09/19 Time Patient Seen: 12:08 Chief complaint: [id number] Narrative: Patient is woman with breast cancer metastatic it at least to her lymph nodes and possibly to ribs or the occiput who presents for Port-A-Cath placement. She has HER2 Vonnie positive and there is a plan to give her pre operative chemotherapy. Patient History Medical History Arthritis (Acute) Bowel obstruction (Acute) Breast cancer (Acute) Current every day smoker (Acute) Eczema (Acute) Hypothyroidism (Acute) Sinus drainage (Acute) Surgical History H/O: hysterectomy (Acute 1985) History of breast biopsy (Acute) History of colonoscopy (Acute 2017) History of tonsillectomy (Acute) Hx of oral surgery (Acute 02/24/19) Family & Social History Family History Father Leukemia Family/Other Breast cancer Social History: household members family Tobacco & Substance use: Smoking Status Current every day smoker alcohol intake current alcohol intake frequency holiday/special occasion Substance Use Type does not use Meds Home Medications and Allergies Home Medications Medication Instructions Recorded Confirmed Type clobetasol 1 applic TOPICAL DAILY 03/08/19 04/09/19 History hydrocortisone 1 applic TOPICAL BID 03/08/19 04/09/19 History levothyroxine 50 mcg PO DAILY 03/08/19 04/09/19 History Allergies Allergy/AdvReac Type Severity Reaction Status Date / Time No Known Drug Allergies Allergy Verified 04/09/19 11:32 Review of Systems Review of Systems Narrative: No chest pains some chronicity of lung symptoms. She found the palpable lump in her breast. No seizures or blackouts. She is a bit anxious. Exam Vital Signs (past 8 hours): - 04/09/19 11:15 Temperature 98.0 F Pulse Rate 60 Respiratory Rate 16 Blood Pressure 131/74 Pulse Oximetry 97 Oxygen Delivery Method Room Air Narrative Exam Narrative: Cooperative very thin woman in no apparent distress. Her eyes are nonicteric. Lungs are clear to auscultation without rales or rhonchi. Heart regular rate and rhythm without murmur gallop. No rashes on the chest wall and no bony abnormalities of the clavicle. Alert and oriented x3. Speech rate and content are appropriate. Assessment & Plan Assessment & Plan narrative: Patient's breast cancers on the right. There is a plan for chemo operation radiation therefore will place the catheter on the left side so that it does not limit any options of surgical treatment on the right involve side. I have discussed this with the patient including risks of bleeding, infection, pneumothorax DVT arm swelling pulmonary embolism. She appears to understand wishes to proceed
--- NOTE | 2019-04-09 12:25 | PM.PREOP ---
Pre-operative Note Interval Note History & Physical reviewed/Exam performed by Physician: Yes Changes to H&P: No
--- NOTE | 2019-04-09 12:26 | PM.OP.1 ---
Operative Date/Time/Diagnoses Date of procedure: 04/09/19 Time of procedure: 12:00 Pre-op diagnosis: Intermittent draining of a perianal abscess per his history Post-op diagnosis: same (No detectable chronic abscess found in area indicated by patient) Procedure & Clinicians Procedure: Anoscopy exam under anesthesia and exploration. Same procedure as scheduled: Yes Indications: Chronic intermittent drainage for the last 2 years per patient history with tenderness intermittently in the left side of his anus Surgeon: Chandra Rodriguez Click Yes if Unassisted: Yes Anesthesia Type: General Operative Notes Findings: No obvious chronic infectious process Closure Type: non-primary Specimen(s): none sent Prosthetic devices, grafts, tissues, transplants, or devices: None Estimated Blood Loss (mL): 5 Blood products transfused: none Procedure in detail: The patient is placed dominick-knife prone on the operating room table after undergoing general endotracheal anesthesia. He was prepped and draped in the usual fashion. Digital exam of the entire perianal buttock and skin was entirely normal I really could not feel any induration whatsoever. I inserted a finger and again could not feel any induration at all. Because I just seen in the office and recalled the location of the problem I made a small incision in the intersphincteric groove and dissected under direct vision down and could identify no evidence of a chronic inflammatory process whatsoever I inserted a probe and gently probed directly in into the posterior midline and could not identify any internal opening in any of these areas either. After careful search IA packed the incision in the intersphincteric groove with a dry gauze and applied gauze to the remainder of the anus and completed the procedure. Patient appeared to tolerate the procedure well. Complications: none Post-operative Condition: stable Disposition: PACU
[2019-04-09] MEDS: CEFAZOLIN 1 GM/50 ML FROZ.PIGGY IV (12:40)
--- NOTE | 2019-04-09 12:55 | SUR.OPER ---
Supine on padded OR bed, head on pillow, right arm padded and tucked at side, legs uncrossed, safety belt at thigh, tape over blanket over lower legs .
[2019-04-09] MEDS: LIDOCAINE 1% 30 ML INJ (13:04)
[2019-04-09] MEDS: HEPARIN 5,000 UNIT, SODIUM CHLORIDE 0.9% 50 ML IV (13:07)
--- NOTE | 2019-04-09 13:33 | PM.OP.1 ---
Operative Date/Time/Diagnoses Date of procedure: 04/09/19 Time of procedure: 13:33 Pre-op diagnosis: Right-sided breast cancer with metastatic disease Post-op diagnosis: same Procedure & Clinicians Procedure: Placement of left subclavian Port-A-Cath Same procedure as scheduled: Yes Indications: Patient about to receive neoadjuvant chemotherapy Surgeon: Chandra Rodriguez Click Yes if Unassisted: Yes Anesthesia Type: General Operative Notes Findings: Tip of the catheter in the distal SVC. Closure Type: primary Specimen(s): none sent Prosthetic devices, grafts, tissues, transplants, or devices: Low-profile Port-A-Cath Applied: catheter Estimated Blood Loss (mL): 10 Blood products transfused: none Procedure in detail: Patient is placed supine on the operating room table and underwent general LMA anesthesia. Roll was placed between her shoulders and she was prepped and draped in the usual fashion. Local anesthetic was infiltrated field block fashion beneath the left clavicle. Transverse incision was made and carried down into the subcu. Pocket was created inferior to the incision and a needle inserted on 1st attempt into the subclavian vein. Guidewire was passed the needle removed. The guidewire appeared to be going in appropriate direction. The port was connected to the catheter and placed in the pocket. The catheter length was and tapered to what appeared to be in appropriate length. The dilator and introducer were passed over the guidewire under fluoroscopic visualization. The guidewire and dilator removed leaving the introducer in place. The catheter was passed through the introducer and the introducer was peeled away leaving the catheter tip in the distal SVC. The port was aspirated and then flushed with heparinized saline. The port was secured to the chest wall with 2 0 silk suture. The subcu was closed with interrupted 3 0 Vicryl. The skin was closed with a running 4 0 Vicryl subcuticular stitch and Steri-Strips. Dressing was applied the patient was awakened extubated taken recovery area in good condition. There was no evidence of pneumothorax on postprocedure film Complications: none Post-operative Condition: stable Disposition: PACU
--- NOTE | 2019-04-09 13:42 | DI.RAD.S_ITS ---
PROCEDURE: XR CHEST 1V INDICATIONS: PORT A CATH PLACEMENT TECHNIQUE: One view of the chest was acquired. COMPARISON: [facility], CR, XR CHEST 1V, 02/16/2019, 0:33. FINDINGS: Surgical changes and devices: None. Lungs and pleura: Lungs are clear. No pleural effusions or pneumothorax. Mediastinum: Mediastinal contours appear normal. Heart size is normal. Bones and chest wall: No suspicious bony lesions. Overlying soft tissues appear unremarkable. IMPRESSION: Port-A-Cath from left sided approach extends into the distal SVC, no pneumothorax. Dictated by: Gabo Ruggiero M.D. on 04/09/2019 at 14:14 Approved by: Gabo Ruggiero M.D. on 04/09/2019 at 14:14
--- NOTE | 2019-04-09 14:44 | SUR.PHASEII ---
dressed when ready and left when ready in stable condition.
== END 2019-04-09 14:44 | disposition home or self-care (01) ==
PROVIDERS: PCP Family Medicine; Visit Provider Specialist
PROC: (CPT 36561; principal; 2019-04-09 12:15)
DX: C50.911 Malignant neoplasm of unspecified site of right female breast (principal); Z45.2 Encounter for adjustment and management of vascular access device; F17.210 Nicotine dependence, cigarettes, uncomplicated; E03.9 Hypothyroidism, unspecified
CPT/HCPCS: 36561; 71045; 76000; C1788; J1100; J1644; J2250; J2405; J2704; J3010

== ENCOUNTER → 2019-04-20 13:01 | Outpatient (CLI) | payer OTHER, SELFPAY ==
--- NOTE | 2019-04-20 13:06 | DI.MRI.S_ITS ---
BREAST MRI OF BOTH BREASTS: 04/20/2019 CLINICAL: Malignant neoplasm right breast. TECHNIQUE: The patient was placed prone in a dedicated breast imaging coil. Precontrast axial STIR and 3D FLASH without fat saturation sequences were obtained. Both before and after bolus injection of contrast, sequential 1-minute axial 3D FLASH with fat saturation sequences for 3 time points, with subtraction images and maximum intensity projections (MIP's) generated. Delayed sagittal FLASH images with fat saturation were also obtained. Computer-aided detection, including computer algorithm analysis of MRI image data for lesion detection and characterization, pharmacokinetic analysis, with further physician review for interpretation, was performed. Comparison is made to exams dated: 02/27/2019 ultrasound biopsy, 02/27/2019 ultrasound biopsy, 02/27/2019 mammogram, 02/12/2019 mammogram, and 04/17/2018 mammogram - [facility]. FINDINGS: Image quality: Excellent. There is minimal background parenchymal enhancement. There is heterogeneous fibroglandular breast tissue in the bilateral breasts. Right breast: There is an irregular enhancing mass with spiculated margins noted in the subareolar right breast which immediately abuts the undersurface of the right nipple measuring approximately 1.4 x 1.5 cm in transverse dimension and 1.8 cm in craniocaudal dimension. This is relatively stable in size compared to measurements from previous ultrasound. There is internal susceptibility artifact compatible with biopsy marker. This is consistent with biopsy-proven malignancy. There is Type III /washout delayed enhancement kinetics. There is no abnormal skin thickening or skin enhancement adjacent to the mass. No abnormal nipple enhancement. There is no other suspicious mass lesions identified in the right breast. No non-mass enhancement. Multiple abnormally enlarged right axillary lymph nodes with eccentric and abnormal thickening of the cortices are identified. The largest measures approximately 2.3 x 1.3 cm in transverse dimension and contains an internal biopsy marker. This is compatible with biopsy-proven metastatic disease to the right axilla. No right sided internal mammary chain adenopathy. Left breast: No suspicious mass, architectural distortion, or non-mass enhancement. No left axillary or internal mammary chain adenopathy. No areas of abnormal enhancement. No skin or nipple abnormalities identified. Miscellaneous: Visualized anterior chest and upper abdominal structures appear unremarkable. Normal bone marrow signal intensity. IMPRESSION: KNOWN BIOPSY PROVEN MALIGNANCY 1. Irregular right subareolar mass compatible with biopsy-proven malignancy with associated biopsy proven right axillary metastatic disease. 2. Left breast without MRI evidence for malignancy. This exam was interpreted at Station ID: [id number]. Electronically Signed By: Willian Salmon M.D. aty/:04/20/2019 17:11:28 ACR BI-RADS Category 6: Known biopsy proven malignancy [id number]
--- NOTE | 2019-04-20 15:39 | PC.NURSE ---
Accessed port using sterile technique for MRI, blood return noted and flushed. De-accessed port post imaging, flushed with heparin, gauze and tegaderm in place, CDI. Pt tolerated well.
== END ==
PROVIDERS: PCP Family Medicine; Visit Provider Internal Medicine Hematology & Oncology
DX: C50.011 Malignant neoplasm of nipple and areola, right female breast (principal); C77.3 Secondary and unspecified malignant neoplasm of axilla and upper limb lymph nodes
CPT/HCPCS: 77049

== ENCOUNTER → 2019-05-07 12:11 | Outpatient (CLI) | payer OTHER, SELFPAY ==
--- NOTE | 2019-05-07 12:12 | DI.US.S_ITS ---
PROCEDURE: US ABDOMEN LIMITED INDICATIONS: breast cancer, liver lesion on CT scan TECHNIQUE: Real-time focused scanning was performed of the abdomen, with image documentation. COMPARISON: [facility], CT, CT ABDOMEN PELVIS W CON, 03/21/2019, 13:15. [facility], CT, CT ABDOMEN WO/W CON, 04/05/2019, 12:15. [facility], MR, MR BREAST BI WO/W CON, 04/20/2019, 13:38. FINDINGS: The liver no mass seen by recent CT scanning is not identifiable by current ultrasound scanning. Please note that this mass has been clearly visible by CT scanning, and also on review of the breast MRI scanning can be seen in the same area of the anterior liver on that MR study with reference to the prior CT scanning. IMPRESSION: The documented mass lesion within the liver can be seen definitively by both CT scanning and MR scanning (breast MR study). It cannot be clearly visualized by ultrasound. Dictated by: Gabo Ruggiero M.D. on 05/07/2019 at 13:24 Approved by: Gabo Ruggiero M.D. on 05/07/2019 at 13:28
== END ==
PROVIDERS: PCP Family Medicine; Visit Provider Internal Medicine Hematology & Oncology
DX: C50.911 Malignant neoplasm of unspecified site of right female breast (principal); K76.9 Liver disease, unspecified
CPT/HCPCS: 76705

== ENCOUNTER 2019-07-08 06:49 | Emergency (ER) | payer OTHER, SELFPAY ==
[2019-07-08 06:55] VITALS: BP 139/61; PULSE 80; RESP 18; TEMP 36.4; O2SAT 95; BMI 25.7
--- NOTE | 2019-07-08 07:36 | DI.RAD.S_ITS ---
PROCEDURE: XR FINGER RT MIN 2V INDICATIONS: cellulitis: ? FB middle radial phalanx R mid finger TECHNIQUE: AP hand, 2 views of the 3rd finger(s) acquired. COMPARISON: None. FINDINGS: Bones: No fractures or dislocations. No suspicious bony lesions. Mild, age-appropriate bony degenerative changes are seen. Soft tissues: No radiopaque foreign bodies are seen. No suspicious soft tissue calcifications. IMPRESSION: No radiopaque foreign bodies are seen. Dictated by: Morales Chamorro M.D. on 07/08/2019 at 7:04 Approved by: Morales Chamorro M.D. on 07/08/2019 at 7:05
--- NOTE | 2019-07-08 07:42 | ED.EXTPRO ---
HPI - Extremity Problem General Chief complaint: Extremity Problem,Nontraumatic Stated complaint: red line going up right arm from hand Time Seen by Provider: 07/08/19 07:03 Source: patient Mode of arrival: Ambulatory History of Present Illness HPI Narrative: CC: Mildly painful right arm with a red streak up her arm from her fingers and hand. HPI: The patient is a 59-year-old female with a history of breast cancer that was diagnosed in February 2019. She started chemotherapy in March. She has been receiving chemotherapy every 3 weeks. On of this past week she received her 5th treatment. During the night the patient had difficulty sleeping kept waking up in developing some discomfort in her right arm. She decided to check her arm out and noticed that she had a red streak streaking up her arm from her hand. She stated that she had a lesion on her right middle finger. She does not know how she injured her caught her right middle finger. She admits to being a smoker but does not drink alcohol or use any drugs. She denies a history of diabetes mellitus hypertension COPD or asthma. She has had no fever chills sweats headache shortness of breath cough chest pain palpitations dizziness lightheadedness abdominal pain nausea vomiting diarrhea or any urinary symptoms. Her oncologist is Dr. Coppola who provides treatment through the [facility]. Related Data Home Medications Medication Instructions Recorded Confirmed clobetasol 1 applic TOPICAL DAILY 03/08/19 05/03/19 hydrocortisone 1 applic TOPICAL BID 03/08/19 05/03/19 levothyroxine 50 mcg PO DAILY 03/08/19 05/03/19 ondansetron 8 mg PO Q8H PRN 04/16/19 05/03/19 citalopram 10 mg PO DAILY 06/14/19 06/14/19 loratadine [Claritin] 10 mg PO DAILY 07/05/19 07/05/19 Previous Rx's Medication Instructions Recorded dexamethasone [Decadron] 8 mg PO BID #72 tab 05/03/19 hydrocodone-acetaminophen [[place]] 1 tab PO Q6H PRN #30 tab 06/14/19 lorazepam [Ativan] 0.5 mg PO Q6H PRN #60 tab 06/14/19 cephalexin [Keflex] 500 mg PO QID #28 cap 07/08/19 ibuprofen 600 mg PO QID #20 tab 07/08/19 sulfamethoxazole-trimethoprim 1 tab PO Q12H #14 tab 07/08/19 [Bactrim DS] Allergies Allergy/AdvReac Type Severity Reaction Status Date / Time No Known Drug Allergies Allergy Verified 04/26/19 16:11 Review of Systems Review of Systems Narrative: Her review of systems were all negative except for those mentioned in the history of present illness. Patient History Medical History Arthritis (Acute) Bowel obstruction (Acute) Breast cancer (Acute) Current every day smoker (Acute) Eczema (Acute) Hypothyroidism (Acute) Sinus drainage (Acute) Surgical History H/O: hysterectomy (Acute 1985) History of breast biopsy (Acute) History of colonoscopy (Acute 2017) History of tonsillectomy (Acute) Hx of oral surgery (Acute 02/24/19) Family History Father Leukemia Family/Other Breast cancer Social History household members: family Smoking Status: Current every day smoker alcohol intake: current substance use type: does not use Smoking Status: Current every day smoker tobacco type: cigarettes alcohol intake frequency: holidays/special occasions only Substance Use Type: does not use Exam Narrative Exam Narrative: PHYSICAL EXAM: CONSTITUTIONAL: Awake, Alert, Oriented, Coherent, Cooperative in NAD. Does not appear toxic or ill. HEAD: AT/NC EENT: PERRL, FROM of eyes, no discharge, n Oral mucosa is moist and pink, posterior pharynx is without erythema or exudate. NECK: Supple, no obvious JVD, Trachea is midline without stridor, no palpable LN. SPINE: No gross deformity, no palpable tenderness of the cervical, thoracic, lumbar or sacral spine. No CVA tenderness. THORAX: No deformity, retractions, chest wall tenderness, the patient has a IV port access in her left chest LUNGS: Clear with symmetrical breath sounds without respiratory distress HEART: Normal heart tones, regular rhythm and rate without murmur. ABDOMEN: Soft, non-tender, normal bowel sounds without guarding, rebound, rigidity or palpable mass LYMPHATIC: The patient has a red streak up her right arm extending from her hand and middle finger consistent with lymphangitis EXTREMITIES: No edema, cyanosis, deformity . The patient has some mild erythema in the right antecubital fossa as well as the dorsum of her right hand. The radial aspect of the middle phalanx of the right middle finger is erythematous and has a small linear abrasion laceration that is scabbed over in slightly elevated. The 5th phalanxes erythematous mildly swollen and tender. This appears to be the source of her infection and lymphangitis. SKIN: No rash, bruising, petechiae or purpura. NEURO: Awake, alert, oriented, conversive, cranial nerves II-XII are symmetrical and normal, moves all 4 extremities and is ambulatory Initial Vital Signs Initial Vital Signs: Vital Signs Temperature 97.6 F 07/08/19 06:55 Pulse Rate 80 07/08/19 06:55 Respiratory Rate 18 07/08/19 06:55 Blood Pressure 139/61 07/08/19 06:55 Pulse Oximetry 95 07/08/19 06:55 Course Course Course Narrative: 08: The patient's laboratory chemistries including white blood count and CBC remain pending. This has been ordered to assess her immunosuppression since she received chemotherapy recently 0940: We have tried calling Dr. Coppola. We have tried calling his answering service. We have called to answering services and have been on hold for over 20 minutes and unable to contact to discuss the patient with Dr. Coppola. At this time 5 days after his last dose of chemotherapy the patient is not imminent though suppressed or leukopenic. The patient will be discharged home to be seen in follow-up by Dr. Coppola's office or service tomorrow. She will be prescribed Keflex 500 mg Q 6 hours and Bactrim double strength 1 tablet b.i.d.. If she develops fever worsening pain she needs to return to the emergency department. Orders Ordered: ED Orders 07/08/19 07:36 XR finger RT min 2V Stat 07/08/19 08:20 Complete Blood Count AUTO DIFF Stat Comprehensive Metabolic Panel Stat Discontinued Medications Heparin Sodium (Porcine) (Heparin Flush (Port)) 500 unit IV PRN PRN PRN Reason: Flush Last Admin: 07/08/19 10:42 Dose: 500 unit Documented by: SOCORRO Cefazolin Sodium/Dextrose (Ancef) 2 gm in 100 mls @ 200 mls/hr IV NOW ONE Stop: 07/08/19 08:44 Last Infusion: 07/08/19 09:35 Dose: 0 mls/hr Documented by: Admin: 07/08/19 08:49 Dose: 200 mls/hr Documented by: SOCORRO Ketorolac Tromethamine (Toradol) 30 mg IV NOW ONE Stop: 07/08/19 07:24 Last Admin: 07/08/19 08:48 Dose: 30 mg Documented by: SOCORRO Trimethoprim/Sulfamethoxazole (Bactrim Ds) 1 tab PO NOW ONE Stop: 07/08/19 09:46 Last Admin: 07/08/19 10:41 Dose: 1 tab Documented by: SOCORRO Vital Signs Vital signs: Vital Signs - 8 hr 07/08/19 08:53 07/08/19 10:45 Pulse Rate 63 77 Respiratory Rate 18 Blood Pressure [Left Arm] 126/75 116/57 L Pulse Oximetry 99 98 MDM - Extremity (Nontraumatic) Lab Data Result diagrams: 07/08/19 08:20 07/08/19 08:20 Labs: Lab Results 07/08/19 07/08/19 Range/Units 08:20 08:20 WBC 5.3 (4.5-11.0) X10^3/uL RBC 3.59 L (4.0-5.2) X10^6/uL Hgb 11.8 L (12.0-16.0) g/dL Hct 35.3 L (36-46) % MCV 98.5 (80-100) fL MCH 33.0 (26-34) PG MCHC 33.5 (30-36) % RDW 20.6 H (11.6-14.8) % Plt Count 234 (150-400) X10^3/uL Neut % (Auto) 73.4 (50-75) % Lymph % (Auto) 24.2 L (25-40) % [place] % (Auto) 0.9 L (3-14) % Eos % (Auto) 0.5 L (2-4) % Baso % (Auto) 1.0 (0-2) % Neut # (Auto) 3900 (3185-0944) /uL Lymph # (Auto) 1300 (6021-3966) /uL [place] # (Auto) 0 (0-900) /uL Eos # (Auto) 0 (0-450) /uL Baso # (Auto) 100 (0-100) /uL Nucleated RBCs Cancelled Hypersegmented Neuts Cancelled Hypogranular Neuts Cancelled Reactive Lymphocytes Cancelled Smudge Cells Cancelled Other Cell Type Cancelled Toxic Granulation Cancelled Toxic Vacuolation Cancelled Dohle Bodies Cancelled Halie Rods Cancelled WBC Morphology Comment Cancelled Platelet Estimate Cancelled Clumped Platelets Cancelled Plt Morphology Comment Cancelled RBC Morphology Cancelled Dimorphic RBCs Cancelled Polychromasia Cancelled Hypochromasia Cancelled Poikilocytosis Cancelled Basophilic Stippling Cancelled Anisocytosis Cancelled Microcytosis Cancelled Macrocytosis Cancelled Spherocytes Cancelled Pappenheimer Bodies Cancelled Sickle Cells Cancelled Target Cells Cancelled Tear Drop Cells Cancelled Ovalocytes Cancelled Stomatocytes Cancelled Helmet Cells Cancelled Gilbert-Dawson Bodies Cancelled [place] Rings Cancelled Joe Cells Cancelled Acanthocytes (Spur) Cancelled Rouleaux Cancelled Schistocytes Cancelled Sodium 137 (137-145) mmol/L Potassium 3.7 (3.4-5.1) mmol/L Chloride 108 H (98-107) mmol/L Carbon Dioxide 26 (22-32) mmol/L BUN 22 H (7-17) mg/dL Creatinine 0.59 (0.52-1.04) mg/dL Estimated GFR > 60.0 (>60) mL/min BUN/Creatinine Ratio 37.3 H (6-22) Glucose 79 L (80-110) mg/dL Calcium 8.3 L (8.4-10.2) mg/dL Total Bilirubin 0.4 (0.2-1.3) mg/dL AST 42 H (14-36) IU/L ALT 36 H (<35) IU/L Alkaline Phosphatase 46 (38-126) U/L Total Protein 6.2 L (6.3-8.2) g/dL Albumin 3.4 L (3.5-5.0) g/dL Globulin 2.8 (1.7-4.1) g/dL Albumin/Globulin Ratio 1.2 (1.0-2.8) Discharge Plan Departure Patient Disposition: Home Clinical Impression: H/O malignant neoplasm of breast, Cellulitis of finger, right, Acute lymphangitis Abrasion of finger, right Qualifiers: Encounter type: initial encounter Qualified Code(s): S60.419A - Abrasion of unspecified finger, initial encounter Discharge Date/Time: 07/08/19 10:57 Instructions: DI for Cellulitis -- Adult, DI for Lymphangitis-Adult Activity Restrictions/Additional Instructions: 1. Tomorrow follow-up with or his office staff to check her infection and lymphangitis 2. Use ibuprofen 600 mg every 6 hours as needed for pain and discomfort. 3. Take the antibiotics as ordered: Keflex 500 mg 4 times a day and Bactrim double strength 1 tablet twice a day. 4. Return to the emergency department if you develop fever, difficulty in breathing, worsening pain and discomfort in your arm and hand. Prescriptions: New sulfamethoxazole-trimethoprim [Bactrim DS] 800-160 mg tablet 1 tab PO Q12H Qty: 14 RF: 0 cephalexin [Keflex] 500 mg capsule 500 mg PO QID Qty: 28 RF: 0 ibuprofen 600 mg tablet 600 mg PO QID Qty: 20 RF: 0 No Action levothyroxine 50 mcg Tablet 50 mcg PO DAILY RF: 0 hydrocortisone 2.5 % Cream 1 applic TOPICAL BID RF: 0 clobetasol 0.05 % Cream 1 applic TOPICAL DAILY RF: 0 ondansetron 8 mg Tablet,Disintegrating 8 mg PO Q8H PRN (Reason: nauseau) RF: 0 dexamethasone [Decadron] 4 mg Tablet 8 mg PO BID Qty: 72 RF: 0 citalopram 10 mg Tablet 10 mg PO DAILY RF: 0 hydrocodone-acetaminophen [[place]] 5-325 mg Tablet 1 tab PO Q6H PRN (Reason: pain control) Qty: 30 RF: 0 lorazepam [Ativan] 0.5 mg Tablet 0.5 mg PO Q6H PRN (Reason: nausea, chemo) Qty: 60 RF: 0 loratadine [Claritin] 10 mg Tablet 10 mg PO DAILY RF: 0 Referrals: Justin Tavera MD [Primary Care Provider] - Torsten Coppola MD [Physician] - (call and follow up tomorrow in his office )
[2019-07-08 08:29] LABS: Add Manual Diff / Slide Review NO; Basophils Absolute Auto 100 /uL (0-100); Eosinophils Absolute Auto 0 /uL (0-450); Eosinophils Percent Auto 0.5 % (2-4); Hematocrit 35.3 % (36-46); Hemoglobin 11.8 g/dL (12.0-16.0); Lymphocytes Absolute Auto 1300 /uL (1100-4500); Lymphocytes Percent Auto 24.2 % (25-40); Mean Corpuscular HGB Conc 33.5 % (30-36); Mean Corpuscular Volume 98.5 fL (80-100); Monocytes Absolute Auto 0 /uL (0-900); Monocytes Percent Auto 0.9 % (3-14); Neutrophils Absolute Auto 3900 /uL (1500-7000); Neutrophils Percent Auto 73.4 % (50-75); Platelet Count 234 X10^3/uL (150-400); Red Blood Cell Count 3.59 X10^6/uL (4.0-5.2); Red Cell Distribution Width 20.6 % (11.6-14.8); White Blood Cell Count 5.3 X10^3/uL (4.5-11.0)
[2019-07-08 08:40] LABS: Alanine Aminotransferase 36 IU/L (<35); Albumin 3.4 g/dL (3.5-5.0); Albumin Globulin Ratio 1.2 (1.0-2.8); Alkaline Phosphatase 46 U/L (38-126); Aspartate Aminotransferase 42 IU/L (14-36); BUN Creatinine Ratio 37.3 (6-22); Bilirubin Total 0.4 mg/dL (0.2-1.3); Blood Urea Nitrogen 22 mg/dL (7-17); Calcium 8.3 mg/dL (8.4-10.2); Carbon Dioxide 26 mmol/L (22-32); Chloride 108 mmol/L (98-107); Estimated Glomerular Filt Rate > 60.0 mL/min (>60); Globulin 2.8 g/dL (1.7-4.1); Glucose 79 mg/dL (80-110); HEMOLYSIS < 15 (0-50); Potassium 3.7 mmol/L (3.4-5.1); Sodium 137 mmol/L (137-145); Total Protein 6.2 g/dL (6.3-8.2)
[2019-07-08] MEDS: KETOROLAC 60 MG/2 ML VIAL 30 MG IV (08:48)
[2019-07-08] MEDS: CEFAZOLIN 2 GM/100 ML FROZ.PIGGY IV (08:49)
[2019-07-08 08:53] VITALS: BP 126/75; PULSE 63; RESP 18; O2SAT 99
--- NOTE | 2019-07-08 10:33 | PC.NURSE ---
right arm is red with a streak extending down her arm and into her knuckles
[2019-07-08] MEDS: TRIMETH/SULFA 160/800 (DS) TABLET 1 TAB PO (10:41)
[2019-07-08 10:45] VITALS: BP 116/57; PULSE 77; O2SAT 98
== END 2019-07-08 10:57 | disposition home or self-care (01) ==
PROVIDERS: Emergency Provider Emergency Medicine; PCP Family Medicine
DX: L03.011 Cellulitis of right finger (principal); L03.91 Acute lymphangitis, unspecified; S60.419A Abrasion of unspecified finger, initial encounter; C50.911 Malignant neoplasm of unspecified site of right female breast
CPT/HCPCS: 36415; 73140; 80053; 85025; 96365; 96375; 99284; J0690; J1642; J1885

== ENCOUNTER → 2019-08-09 09:07 | Outpatient (CLI) | payer OTHER, SELFPAY ==
--- NOTE | 2019-08-09 09:09 | DI.MRI.S_ITS ---
BREAST MRI OF BOTH BREASTS- WITH CAD: 08/09/2019 CLINICAL: Breast cancer. Comparison is made to exams dated: 04/20/2019 breast MRI, 02/27/2019 mammogram, 02/12/2019 mammogram, 04/17/2018 mammogram, and 03/29/2016 mammogram - [facility]. Interpretation of this MRI was correlated with available mammograms, ultrasounds, and previous MRI scans. Informed consent was obtained from the patient. 20 cc of ProHance (Gadoteridol) nonionic contrast was injected. Axial T1, T2, sagittal T1, and pre and post contrast T1 images were obtained with a dedicated breast coil. Post processing was performed including computer aided calculations of any tumor volumes and dimensions. There is minimal background parenchymal enhancement. Right breast: There is interval decrease in size of the subareolar mass corresponding to patient's biopsy proven malignancy. There has been interval resolution of abnormal enhancement within the mass. A focus of magnetic susceptibility artifact corresponding to the biopsy marker is redemonstrated. There is persistent mild skin thickening in the anterior right breast without associated enhancement. Elsewhere in the right breast, no discrete mass or suspicious enhancement to suggest additional foci of disease. Left breast: No discrete mass or suspicious enhancement to suggest malignancy in the left breast. Miscellaneous: There is marked interval decrease in size of 3 right axillary lymph node seen on the prior study. A resources representative residual node in the right axilla measures up to 0.6 cm in short axis compared to 1.2 cm previously. There are a few persistent nonspecific lymph nodes in the left axilla measuring up to 0.5 cm which appear similar in size compared to the prior study. The findings are likely reactive. There is an indistinct mass partially visualized within the anterior right hepatic lobe with adjacent ill-defined enhancement. IMPRESSION: KNOWN BIOPSY PROVEN MALIGNANCY 1. Interval decrease in size of the right subareolar mass or for a solution of abnormal enhancement. Findings are consistent with response to therapy of patient's known biopsy proven cancer. 2. Marked decrease in size of right axillary lymphadenopathy consistent with response to therapy of amish metastatic disease. 3. Anterior right hepatic lobe mass with indistinct enhancement redemonstrated. The finding is nonspecific but given its persistence following therapy and absence of abnormal uptake on the prior PET/CT study, metasatatic disease is considered less likely. This exam was interpreted at Station ID: [id number]. Electronically Signed By: Doug Montes M.D. ddp/:08/09/2019 16:28:36 ACR BI-RADS Category 6: Known biopsy proven malignancy [id number]
== END ==
PROVIDERS: PCP Family Medicine; Referring Provider Internal Medicine Hematology & Oncology; Visit Provider Internal Medicine Hematology & Oncology
DX: C50.011 Malignant neoplasm of nipple and areola, right female breast (principal); C77.3 Secondary and unspecified malignant neoplasm of axilla and upper limb lymph nodes; R16.0 Hepatomegaly, not elsewhere classified
CPT/HCPCS: 77049; A9579

== ENCOUNTER → 2019-08-30 10:06 | Outpatient (CLI) | payer OTHER, SELFPAY ==
[2019-08-31 02:34] LABS: COVID19 Sendout Not Detected (Not Detect)
== END ==
PROVIDERS: PCP Family Medicine; Visit Provider Family Medicine
DX: Z01.818 Encounter for other preprocedural examination (principal)
CPT/HCPCS: 87635

== ENCOUNTER 2019-09-03 06:46 | Day surgery (SDC) | payer OTHER, MEDICAID, SELFPAY ==
[2019-09-03] VITALS (13 sets, daily range): BP systolic 95–148; BP diastolic 52–86; PULSE 70–85; RESP 12–19; TEMP 36.6–37.7; O2SAT 92–98; BMI 22.9
--- NOTE | 2019-09-03 | PATH_ITS ---
[facility] Accession Number: [id number] . 01 Material submitted: . PART A: breast - RIGHT BREAST, STITCH AT TAIL OF LOPEZ PART B: lymph node - RIGHT AXILLARY CONTENT PART C: breast - LEFT BREAST, STITCH GOMEZ TAIL OF LOPEZ . 01 Diagnosis: A. Right Breast, Stitch at Tail of Lopez, Skin-Sparing Modified Radical Mastectomy: 1. No residual invasive carcinoma is present in the breast after presurgical therapy. 2. Tumor size: No tumor identified. 3. Ductal carcinoma in situ: Absent. 4. Calcifications: Present in association with benign breast tissue. 5. Lymphatic space invasion: Not identified. 6. Resection margins: Negative. 7. Prognostic markers performed on prior biopsy ([facility] case #[id number], 02/28/2019) and reported as follows: a. Estrogen receptor status: Positive (1%, Weak). b. Progesterone receptor status: Negative (less than 1%, Weak). c. HER-2 status: Positive (3+, by IHC). 8. Regional lymph node status (all lymph nodes identified from part B, see below): a. Eleven lymph nodes, negative for carcinoma (0/11). b. Two lymph nodes with fibrous scarring consistent with treatment effect, one of which shows changes consistent prior biopsy site. 9. Additional findings: a. Skin with focal fibrosis/scarring, mild inflammation and histiocytic reaction; no evidence of ulceration. b. Nipple with small epidermal inclusion cyst; no evidence of Paget disease. c. Skeletal muscle and/or chest wall are not present. d. Background breast with focal fibroadenomatoid change, focal columnar cell change/columnar cell hyperplasia, focal usual ductal hyperplasia, microcysts, and a microscopic incidental intraductal papilloma. e. One biopsy clip is identified within breast parenchyma. 10. Pathologic stage: ypT0 ypN0 . B. Right Axillary Content, Dissection: a. Eleven lymph nodes, negative for carcinoma (0/11). b. Two lymph nodes with fibrous scarring consistent with treatment effect, one of which shows changes consistent prior biopsy site. . C. Left Breast, Stitch Gomez Tail of Lopez, Skin-Sparing Mastectomy: Benign breast tissue with mild stromal fibrosis/hyalinization, focal usual ductal hyperplasia, and focal apocrine metaplasia. Microcalcifications associated with benign breast tissue. Negative for atypia, carcinoma in situ, and invasive malignancy. V 09/07/2019 1345 Local . 01 Comment: Within the right breast, a thorough examination and adequate sampling of a putative tumor bed area are performed. Associated stromal changes (hemosiderin-laden macrophages and fibrosis/hyalinization) are present and are consistent with treatment effect. No residual carcinoma is identified. . For the calculation of Residual Cancer [place], the following paramaters are included as follows: (1) Primary Tumor Bed - Primary Tumor Bed Area: 19 mm X 18 mm (measured on glass slide) - Overall Cancer Cellularity (as percentage of area): 0% - Percentage of Cancer That Is in situ Disease: 0% (2) Lymph Nodes - Number of Positive Lymph Nodes: 0 - Diameter of Largest Metastasis: 0 mm . 01 Electronically signed: Tavon Arzola MD, Pathologist NPI- [id number] . 01 Gross description: . (A) Received: In formalin, labeled right breast, stitch at tail of Lopez. Specimen: Right skin-sparing modified radical mastectomy. Weight: 202 grams. Measurement: 3.5 cm anterior to posterior, 14.5 cm medial to lateral, and 12.5 cm superior to inferior. Skin Ellipse: Present, weinberg-pink, smooth and shiny, 7.2 x 2.5 cm. Nipple/Areola: 1.3 x 1.0 cm diameter everted nipple within a 3.0 x 2.3 cm diameter areola. There is an apparent 2.5 cm linear scar located 0.9 cm to the nipple and 0.4 cm from the nearest inferior skin margin. Axillary Tail: Attached, nonoriented, measures 3.5 x 3.2 x 1.0 cm; this was dissected and no clip or lymph nodes were identified. Margins: The specimen is oriented by surgeon with a suture at the tail of Lopez. The posterior surface is covered by fascia and is inked black. The anterior soft tissue margins are unremarkable, adjacent to the skin, are inked blue for anterior superior and green for anterior inferior. Slices: Serially sectioned lateral to medial into 27 slices. Lesion: No discrete nodules, masses, or lesions are identified. A putative tumor bed area consisting of fibrous tissue measures approximately 2.7 x 2.1 cm. Other: The breast parenchyma is diffusely fibrofatty. A biopsy clip is identified within slice 19 within fibrous tissue. No lymph nodes or clips are identified in the axillary tail. Fixation: Total fixation time is calculated to be approximately 53 hours 30 minutes. Sections: A1: Nipple, bisected and entirely submitted. A2: Skin with and without scar, manufacturer's service representative. A3: Slice 10, fibrous tissue, manufacturer's service representative. A4: Slice 11, fibrous tissue, manufacturer's service representative. A5-A6: Slice 12, fibrous tissue, manufacturer's service representative. A7-A10: Slice 13, fibrous tissue, manufacturer's service representative. A11: Slice 14, fibrous tissue, manufacturer's service representative. A12: Slice 15, fibrous tissue, manufacturer's service representative. A13: Slice 16, fibrous tissue, manufacturer's service representative. A14: Slice 17, fibrous tissue, manufacturer's service representative. A15-A17: Slice 18, fibrous tissue, slice adjacent/directly lateral to slice with biopsy clip. A18-A20: Slice 19, location of biopsy clip, densely fibrous tissue, manufacturer's service representative. A21-A23: Slice 20, tissue adjacent/directly medial to slice containing biopsy clip, fibrous tissue, manufacturer's service representative. A24-A26: Slice 21, fibrous tissue, manufacturer's service representative. A27-A28: Slice 22, fibrous tissue, manufacturer's service representative. A29-A30: Slice 23, fibrous tissue, manufacturer's service representative. Note: After serially sectioning, the specimen was reviewed by Dr. Tian Hartmann. (:[id number]) Additional sections: A31: Slice 16, manufacturer's service representative. A32: Slice 17, manufacturer's service representative. A33: Slice 18, manufacturer's service representative. A34: Slice 19, manufacturer's service representative. (:[id number]) Dr. Arzola reviewed this case on 09/07/2019. . (B) Received in formalin, labeled right axillary content, are multiple pieces of weinberg-yellow rubbery adipose tissue (9.5 x 6.0 x 1.8 cm in aggregate) containing multiple possible lymph nodes (0.1 cm-1.5 x 1.2 x 0.5 cm). Multiple intact lymph nodes are submitted in cassettes B1-B3, and two bisected lymph nodes are submitted separately in cassettes B4 and B5. ([id number]) . (C) Received: In formalin, labeled left breast, stitch gomez tail of Lopez. Specimen: Left skin-sparing prophylactic mastectomy. Weight: 130 grams. Measurement: 3.0 cm anterior to posterior, 11 cm medial to lateral, and 14.5 cm superior to inferior. Skin Ellipse: Present, weinberg-white, smooth and shiny, measuring 4.7 x 3.0 cm. Nipple/Areola: 1.5 x 0.8 cm diameter everted nipple within a 2.7 x 2.2 cm diameter areola. No scar is identified. Axillary Tail: The axillary tail does not appear to be attached and the suture indicating the tail of Lopez is for orientation purposes only. Margins: The specimen is oriented by surgeon with a suture marking the tail of Lopez. The posterior surface is covered by fascia and is inked black. The anterior soft tissue margins are unremarkable, adjacent to the skin, are inked blue for anterior superior and green for anterior inferior. Slices: Serially sectioned medial to lateral into 20 slices. Lesions: No lesions are identified. Other: The breast parenchyma is diffusely fibrofatty. Fixation: The specimen was placed in formalin on 09/03/2019 with no time given. Total fixation time is calculated to be approximately 53 hours 30 minutes. Sections: C1: Nipple, bisected and entirely submitted. C2: Skin, manufacturer's service representative. C3, C4: Upper outer quadrant. C5, C6: Upper inner quadrant. C7, C8: Lower outer quadrant. C9, C10: Lower inner quadrant. (JM:[id number]) (MT:[id number]) /MRV 09/07/2019 1319 Local . 01 Pathologist provided ICD-10: C50.911 . 01 CPT . 975516, 317141, 907386 Performed at: [address], [place], [place] [id number] MD Doug Mckeon MD Phone: [phone]
[2019-09-03] MEDS: LACTATED RINGERS 1,000 ML 42 ML IV ×2 (07:40→10:32)
--- NOTE | 2019-09-03 07:47 | PM.PREOP ---
Pre-operative Note COVID-19 COVID-19 status: Negative Result date/Date tested (Pos, Neg/Pending): 09/01/19 Interval Note History & Physical reviewed/Exam performed by Physician: Yes Changes to H&P: Yes H&P completed within 30 days and has changed as indicated here:: BRCA testing was negative. Even so patient would desire left mastectomy. I have talked her about that. She does have a strong family history and therefore I think it reasonable to proceed. I told her that if the 1st operation on the right side goes well that we will take the left side afterward. There is a small risk to the Port-A-Cath on the left which is still necessary postop. I discussed the risks of bleeding infection permanent numbness to her chest wall numbness or pain on the inside of her arm injury to nerves that control muscles, fluid collections and skin slough. She appears to understand wishes to proceed.
[2019-09-03] MEDS: CEFAZOLIN 2 GM/100 ML FROZ.PIGGY IV ×2 (08:03→12:12)
--- NOTE | 2019-09-03 08:31 | SUR.OPER ---
Supine on padded OR bed, head on pillow, arms secured on padded arm boards at <90 degrees abduction, legs uncrossed, safety belt at thigh, tape over blanket over lower legs.
--- NOTE | 2019-09-03 13:00 | PM.OP.1 ---
Operative Date/Time/Diagnoses Date of procedure: 09/03/19 Time of procedure: 13:28 Pre-op diagnosis: Right-sided breast cancer in a patient with a long family history of breast cancer Post-op diagnosis: same Procedure & Clinicians Procedure: Right-sided modified radical mastectomy. Left-sided simple mastectomy. Same procedure as scheduled: Yes Indications: Patient with a strong family history breast cancer who has undergone neoadjuvant chemotherapy. She is here for surgical treatment of her right-sided cancer and she desired removal of the left side due to her family history and her concern over recurrences in that side. Surgeon: Chandra Rodriguez Click Yes if Unassisted: Yes Anesthesia Type: General Operative Notes Findings: Breast and axillary contents remove separately on the right. Please see details below. Area where the Port-A-Cath was on the left was carefully avoided. Closure Type: primary Specimen(s): other (Bilateral breasts and right axillary contents) Applied: drain(s) (Nineteen [place] Jonathan drains 1 on each side) Estimated Blood Loss (mL): 200 Blood products transfused: none Procedure in detail: The patient was placed supine on the operating room table and underwent general LMA anesthesia. She was prepped and draped in the usual fashion. Elliptical incision was made transversely to encompass the nipple on the right. The incision was carried down through the skin and subcutaneous to the level the breast tissue. Flaps were raised superiorly to the clavicle medially to midline inferiorly to rectus in the inframammary fold lateral to the latissimus I scored the fascia along the inferior and superior medial edges. The began to peel the breast away Ng occluding the fascia of pectoralis major with the specimen. I then entered the axilla and identified the axillary vein. The soft tissues were swept away inferior to it carefully preserving the nerve to the serratus and the latissimus. Clips were placed on some vessels and tied others which was clipped. I dissected out what appeared to be intercostal brachial nerve and in doing so it caused me to separate the axillary contents from the specimen. I took the breast off the chest wall and submitted it. The axillary contents were then dissected out and removed and placed in a separate container. There was 1 point where I appeared to dissect a sclerosis nerve and I dissected the remaining portion and submitted it with the axillary contents. Hemostasis was achieved in meticulous fashion. A drain was placed inferior and lateral to the mastectomy site and placed into the axilla and under the flap. The subcu was closed with interrupted 3 0 Vicryl. The skin was closed running 4 0 Vicryl subcuticular stitch and Steri-Strips. The drain was secured with a 3 0 nylon. Attention was turned to the opposite side. An elliptical incision was made around the nipple areolar complex. Flaps were raised superiorly to just inferior to the Port-A-Cath location. This essentially encompassed all of the superior breast tissue. It was raised medially to the midline inferiorly to the in from mammary fold and rectus and lateral to latissimus. The breast was taken off the chest wall leaving the fascia for the most part intact on the muscle since this was a prophylactic procedure. Meticulous hemostasis was achieved. The subcu was closed with interrupted 3 0 Vicryl. Skin was closed running 4 0 Vicryl subcuticular stitch. Steri-Strips and Mastisol were then placed on both sides. Dressing was applied and Tegaderm was used to secured to the chest wall. An Álvaro was placed over that. Of note, a different instruments gown and gloves were used for each procedure. Complications: none Post-operative Condition: stable Disposition: PACU
--- NOTE | 2019-09-03 13:42 | SUR.PHASEI ---
Report given and patient taken upstairs to room 225 in stable condition with all belongings.
--- NOTE | 2019-09-03 14:08 | PC.NURSE ---
Addendum entered by Rubén Camarena R.N. 09/03/19 14:56: Patient able to ambulate with standby assistance to bathroom and void, missed hat (unmeasured). Patient tolerating clear liquids and reported increased pain now to right chest area incision. medicated with tylenol and oxycodone as ordered prn (see MAR). Educated on IS use and given IS, patient wants to wait until pain medication has helped more before trying, but reports understanding of need to us to prevent post op complications. Left at bedside. Call light remains within reach, bed alarm active for safety. Original Note: patient arrived from PACU at 1335, oriented to room and call light. VSS. Denies pain at this time, sleepy but awakes easily and holds conversation. Bilateral chest/breast bulb drains in place, compressed and intact. Dressing to chest gauze with tegaderm in place remains CDI with KALIA bandage in place over. Call light within reach, and patient agrees to call for assistance.
[2019-09-03] MEDS: LACTATED RINGERS 1,000 ML 100 ML IV (14:19)
[2019-09-03] MEDS: ACETAMINOPHEN 325 MG TABLET 650 MG PO ×2 (14:23→21:19)
[2019-09-03] MEDS: OXYCODONE IR 10 MG TABLET PO ×2 (14:23→21:19)
[2019-09-03] MEDS: MORPHINE 4 MG/ML INJ IV (18:47)
[2019-09-03] MEDS: ONDANSETRON 4 MG ODT 8 MG PO (18:48)
[2019-09-03] MEDS: GABAPENTIN 300 MG CAPSULE PO (21:19)
--- NOTE | 2019-09-03 21:31 | PC.NURSE ---
2130 - Pt awake. Reports good rest following Morphine administration from breakthrough pain. Reports nausea as currently controlled. Able to ambulate to bathroom. Drsg, wrap to chest, CDI. Reinforced safety and call light use. Call light in reach.
[2019-09-04] VITALS: BP 121/64; PULSE 69; RESP 18; TEMP 36.4; O2SAT 95
[2019-09-04] MEDS: LACTATED RINGERS 1,000 ML 100 ML IV (00:03)
[2019-09-04] MEDS: ONDANSETRON 4 MG ODT 8 MG PO ×2 (02:29→12:57)
[2019-09-04] MEDS: OXYCODONE IR 10 MG TABLET PO ×3 (02:32→12:57)
[2019-09-04 05:21] VITALS: BP 106/66; PULSE 76; RESP 16; TEMP 36.5; O2SAT 96
[2019-09-04] MEDS: LEVOTHYROXINE 50 MCG TABLET PO (05:44)
--- NOTE | 2019-09-04 08:11 | P.DS_ITS ---
History of Present Illness History of Present Illness Date Patient Seen: 09/04/19 Time Patient Seen: 08:11 Chief complaint: [id number] *OPB* Narrative: The patient is a woman brought in for surgical treatment of her breast cancer. She underwent neoadjuvant chemotherapy due to the nature of her tumor and the fact there was spread into the axillary lymph nodes Discharge Providers Provider Discharge Date: 09/04/19 Primary care physician: Justin Tavera MD Consults: 09/03/19 07:28 Consult to Respiratory Therapy Evaluate & Treat Comment: Physician Instructions: Evaluate and treat 09/03/19 13:34 Consult to Discharge Planning Routine Comment: 09/03/19 14:48 Consult to Dietitian, Adult Routine Comment: Reason For Exam: mini nutrition assessment protocol Discharge provider: Chandra Rodriguez MD Summary Hospital Course Discharge Diagnosis: 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 Due to the lymph node involvement on the right she had a right modified radical mastectomy. On the left she had a simple mastectomy due to her strong family history of breast cancer and her desire to reduce her risk of subsequent cancer in the opposite side. Her postoperative course was smooth. Her drainage was serous at the time of discharge. She is to follow up in the office. She was given instructions to care for drain and to exercise her shoulders. Status at Discharge Cognitive/behavioral status at discharge: oriented Functional status at discharge: independent ambulation Overall status at discharge: patient is progressing back to baseline Exam Vital Signs (past 8 hours): - 09/04/19 05:21 Temperature 97.7 F Pulse Rate 76 Respiratory Rate 16 Blood Pressure 106/66 Pulse Oximetry 96 Oxygen Delivery Method Room Air Oxygen Flow Rate 0 Discharge Plan Discharge Plan Patient Disposition: Home Discharge Med Rec/Prescriptions Prescriptions: New hydrocodone-acetaminophen [[place]] 7.5-325 mg tablet 1 tab PO Q4-6H PRN (Reason: painful procedure) Qty: 14 RF: 0 Continued levothyroxine 50 mcg Tablet 50 mcg PO DAILY RF: 0 citalopram 10 mg Tablet 10 mg PO DAILY RF: 0 loratadine [Claritin] 10 mg Tablet 10 mg PO DAILY RF: 0 Discontinued clobetasol 0.05 % Cream 1 applic TOPICAL DAILY RF: 0 ondansetron 8 mg Tablet,Disintegrating 8 mg PO Q8H PRN (Reason: nauseau) RF: 0 lorazepam [Ativan] 0.5 mg Tablet 0.5 mg PO Q6H PRN (Reason: nausea, chemo) Qty: 60 RF: 0 Follow up/Referrals: Chandra Rodriguez MD [Physician] - 09/11/19 10:30 am (If you need to reach a doctor please call our office. If it is closed please listen to the entire message and at the end you will be connected with the page starting sheet tank operator who will page the doctor on-call.) Discharge Orders: Discharge (Order); Ordered 09/04/19 Ordered By: Chandra Rodriguez Provider Discharge Instructions Diet: Diet as Tolerated Activity: Exercise shoulders as instructed by her at doctor. Other treatments: Empty and record the drainage at least twice a day. When it is less than 30 cc over 24 hours let our office know. Skin/Wound/Dressing Care Dressing: You may remove the dressings on and shower. Please keep gauze around the drain sites after you shower. Do not use a pool or tub. Do not remove the tape under the gauze. Let it fall off on its own. Discharge Data Primary Care Provider: Justin Tavera Attending Provider: Chandra Rodriguez
[2019-09-04 08:20] VITALS: BP 122/59; PULSE 66; RESP 16; TEMP 37.1; O2SAT 94
[2019-09-04] MEDS: GABAPENTIN 300 MG CAPSULE PO (09:03)
[2019-09-04] MEDS: CITALOPRAM 10 MG TABLET PO (09:03)
[2019-09-04] MEDS: LORATADINE 10 MG TABLET PO (09:03)
--- NOTE | 2019-09-04 10:43 | CM.DANOTE ---
Discharge Planning/Care Management DCP: assessment: case received, EMR reviewed, dc order noted. Conferred with EMY Mcneil who reported pt was doing well and she would be doing drain teach prior to d/c. Met now with pt and introduced self and role. Pt is a 59 year old female who admitted yesterday for a scheduled surgery: R modified mastectomy and L simple mastectomy as part of her ongoing oncology treatment plan. Surgeon: Dr. Rodriguez Payer: listed as [facility] and [facility]. Admission Counselor team is helping her sort this out. Oncology team: at oncology center. [facility] stockroom worker Gayle Damon is updated re pt's d/c for today and will be calling her at home to offer support. Pt reports she has applied for SSI and this will start October 16. Pt's daughter Ruth will be picking her up today and will stay with her to help. Her other children are all very close by and supportive and will be in and out checking on me a lot. Pt says she has worked for years at [employer] and it is odd to be the one now who needs help. Pt says she does feel comfortable with her d/c plan for today. Her next step she says will be radiation treatments for 8 weeks. CM Discharge Assessment Start: 09/04/19 10:40 Freq: Status: Active Protocol: Document 09/04/19 10:40 ITV (Rec: 09/04/19 10:43 ITV [id number]) Discharge Planning Assessment Advance Directives? No History Provided By Patient,Medical Record Prior Living Arrangements House Household Members none Comment pt has 4 adult children who all live within 6 minutes of her house and she feels very well supported by them. Independent with ADL's Yes Is patient alert and oriented? Yes Review Status In Process Pre-Anesthesia Assessment Start: 08/20/19 09:53 Freq: Status: Active Protocol: Document 08/20/19 09:53 CAB (Rec: 08/20/19 10:09 CAB [id number]) Pre-Anesthesia Assessment PAC Comment Unable to reach pt by phone for PAC assess, chart review only Patient Information Reviewed Via Chart Review Comment COVID-19 not detected 07/12/19 Seen Specialist in Last 12 Months Yes Specialist Seen General surgeon,Oncologist Primary Language [employer] Consultant Required No Barriers to Learning None Other Aids No Hx Anesthesia Reactions No Hx Family Anesthesia Reaction No Hx Malignant Hyperthermia No Hx Blood Transfusion Reaction No Anesthesia Review Requested No Poly Operator No alcohol intake current alcohol intake frequency holidays/special occasions only Smoking Status Current every day smoker Substance Use Type does not use Pain Present Pain Reported History of Falling (Recent or History of No ) Patient is completely paralyzed or No completely immobile Mental Status Oriented to own ability Is patient on oxygen? No Does patient have GALARZA/SOB No Hx Sleep Apnea No CPAP/BIPAP use not prescribed Currently Taking a Beta Vicenta No Hx Chest Pain No Hx SOB No Hx Syncope or Dizziness No Anti-Coagulant Therapy No Has a Head Of Commission Department No Cardiac Testing No: Echo @ 03/29/19-Pre Chemo EF 50-55% Hx Pacemaker/ICD No Pacemaker Rep Required? No Cardiac Clearance Received Not Applicable Urinary Catheter Present No Hx Urinary Self Catheterization No Diabetes No Patient No Lactating No Presence of External or Internal Medical Yes: Port-a-cath Devices Have you had any close contact with Unknown, chart review only someone diagnosed with COVID-19? Evaluation/Screening for possible COVID- No 19 infection completed? Marital Status Unknown Lives With family Patient Discharge Plan Description Return Home Advance Directives? No
[2019-09-04 11:50] VITALS: BP 108/49; PULSE 74; RESP 16; TEMP 36.7; O2SAT 93
[2019-09-04] MEDS: ACETAMINOPHEN 325 MG TABLET 650 MG PO (12:58)
--- NOTE | 2019-09-04 13:41 | DIET.PN ---
Dietary Progress Note Assessment: Ms. Ruiz is a 59 yof brought in for surgical treatment of her breast cancer. She underwent neoadjuvant chemotherapy and bilateral mastectomies. She reports improved appetite over the last several days. She is cheerful with no issues to report regarding feeding/appetite issues. She reports weight fluctuations related to chemotherapy and steroids stating her usual body weight is 120's however she was at 145# at one point. HT: 160.02cm WT: 62.2kg UBW: 55kg (per pt report) BMI:24.3 Labs: na MNA: 9 Bao: 19 Nutrition Diagnosis: Inadequate energy intake r/t increased nutrient needs, decreased ability to consume sufficient energy aeb lack of interest in food/poor appetite/change in taste due to chemotherapy treatment. Interventions: 1. Provided education on high pro; calorie dense nutrition therapy for weight maintenance. 2. Recommended ONS ensure enlive or high protein smoothie if unable to tolerate normal nutrition. 3. Recommended patient incorporate physical activity into daily routine once permitted to do so. Diet Order: General EER: 1700 misty @28cal/kg ; 80g pro @ 1.3g/kg Monitoring/Evaluations: weight, PO's, need for ONS
--- NOTE | 2019-09-04 13:55 | PC.NURSE ---
Discharge: Tolerated general diet without issue. Pain well-managed with PO meds. D/C home per this morning's order. IV dc'd intact. Emptied both drains and went over drain teaching with patient and daughter. Given appropriate supplies, including gauze and tape for around the drain sites after she showers. Reviewed all of Dr Rodriguez's instructions thoroughly w/ patient and daughter. Given education info on mastectomy, drain care, Vicodin and constipation. Reviewed wound care info. Instructed to call MD office for doctor contact center professional if questions come up after hours, or with any s/s/sx infection or concern as discussed. All personal belongings sent with patient. Verbalized understanding of all d/c instructions and stated no further questions. Wheeled out to private vehicle by this bond underwriter.
== END 2019-09-04 13:59 | disposition home or self-care (01) ==
LOC: OR 06:48 → AC 13:21
PROVIDERS: PCP Family Medicine; Referring Provider Internal Medicine Hematology & Oncology; Visit Provider Specialist
PROC: 0HTV0ZZ Resection of Bilateral Breast, Open Approach (ICD-10-PCS; CPT 19307; principal; 2019-09-03 07:45)
DX: C50.911 Malignant neoplasm of unspecified site of right female breast (principal); C77.9 Secondary and unspecified malignant neoplasm of lymph node, unspecified; E03.9 Hypothyroidism, unspecified; F32.9 Major depressive disorder, single episode, unspecified; F17.210 Nicotine dependence, cigarettes, uncomplicated
CPT/HCPCS: 19307; 19303; J0690; J1100; J1170; J2250; J2270; J2405; J2704; J3010

== ENCOUNTER 2019-09-18 13:34 | Inpatient (IN) | payer OTHER, MEDICAID, SELFPAY ==
[2019-09-13 13:12] VITALS: BMI 22.9
[2019-09-18 13:41] VITALS: BMI 22.4
[2019-09-18 14:00] VITALS: BP 144/84; PULSE 88; RESP 18; TEMP 36.4; O2SAT 97
[2019-09-18] MEDS: LACTATED RINGERS 1,000 ML 42 ML IV (14:37)
--- NOTE | 2019-09-18 15:28 | PC.NURSE ---
Admit Note Pt arrived to room 225 at 1340, ambulated to room, steady on feet. Oriented to room and call light/bed/tv controls. Declines to lock up any valuables. Portacath accessed without issues and labs drawn and sent. Call light within reach.
[2019-09-18 15:33] LABS: Add Manual Diff / Slide Review NO; Basophils Absolute Auto 100 /uL (0-100); Basophils Percent Auto 0.8 % (0-2); Eosinophils Absolute Auto 300 /uL (0-450); Hematocrit 35.2 % (36-46); Hemoglobin 11.9 g/dL (12.0-16.0); Lymphocytes Absolute Auto 2100 /uL (1100-4500); Lymphocytes Percent Auto 25.2 % (25-40); Mean Corpuscular HGB Conc 33.7 % (30-36); Mean Corpuscular Hemoglobin 32.9 PG (26-34); Mean Corpuscular Volume 97.6 fL (80-100); Monocytes Absolute Auto 700 /uL (0-900); Monocytes Percent Auto 8.1 % (3-14); Neutrophils Absolute Auto 5300 /uL (1500-7000); Neutrophils Percent Auto 61.9 % (50-75); Platelet Count 386 X10^3/uL (150-400); Red Blood Cell Count 3.61 X10^6/uL (4.0-5.2); Red Cell Distribution Width 15.1 % (11.6-14.8); White Blood Cell Count 8.5 X10^3/uL (4.5-11.0)
[2019-09-18 15:47] LABS: BUN Creatinine Ratio 24.7 (6-22); Blood Urea Nitrogen 18 mg/dL (7-17); Calcium 9.1 mg/dL (8.4-10.2); Carbon Dioxide 28 mmol/L (22-32); Chloride 104 mmol/L (98-107); Estimated Glomerular Filt Rate > 60.0 mL/min (>60); Glucose 88 mg/dL (80-110); HEMOLYSIS < 15 (0-50); Potassium 4.1 mmol/L (3.4-5.1); Sodium 137 mmol/L (137-145)
[2019-09-18 15:50] VITALS: BP 136/90; PULSE 73; RESP 17; TEMP 36.9; O2SAT 96
[2019-09-18] MEDS: CEFAZOLIN 1 GM/50 ML FROZ.PIGGY IV (16:18)
--- NOTE | 2019-09-18 17:59 | PM.HP.1 ---
History of Present Illness History of Present Illness Date Patient Seen: 09/18/19 Time Patient Seen: 16:00 Chief complaint: Right Breast Cellulitis Narrative: The patient is a woman who had a bilateral mastectomy on 09/03/2019. She had drains placed in each side. The left was removed with the right was still draining significantly when she developed cellulitis around the site of the drain insertion. The drain was removed because of that and she was placed on oral antibiotics. There was improvement in her pain and the site where the drain inserted but the remainder of the chest wall became tender red and swollen and she was running a fever until yesterday. She contacted the surgeon on-call late last night I called early this morning saw her in the office. She has an obvious infection in her right chest wall and she is brought in for IV antibiotics and drain placement on her chest wall. Patient History Medical History Arthritis (Acute) Bowel obstruction (Acute) Breast cancer (Acute) Current every day smoker (Acute) Eczema (Acute) Hypothyroidism (Acute) Sinus drainage (Acute) Surgical History H/O: hysterectomy (Acute 1985) History of breast biopsy (Acute) History of colonoscopy (Acute 2017) History of tonsillectomy (Acute) Hx of oral surgery (Acute 02/24/19) S/P mastectomy, bilateral (Acute) Family & Social History Family History Father Leukemia Family/Other Breast cancer Social History: household members none Prior Living Arrangements House Safety & Behavioral: Feels Safe in Current Yes Environment Been Physically Hurt or No Threatened By a Person Suicidal Ideation Description None Suicide Plan Description No Plan Tobacco & Substance use: Tobacco type cigarettes Smoking Status Current every day smoker Smoking packs per day 1 alcohol intake current alcohol intake frequency holiday/special occasion Substance Use Type does not use Meds Home Medications and Allergies Home Medications Medication Instructions Recorded Confirmed Type levothyroxine 50 mcg PO DAILY 03/08/19 09/18/19 History citalopram 10 mg PO DAILY 06/14/19 09/18/19 History loratadine [Claritin] 10 mg PO DAILY 07/05/19 09/18/19 History cephalexin 500 mg capsule 500 mg PO QID #30 cap 09/13/19 09/18/19 Rx docusate sodium 100 mg PO BID 09/18/19 09/18/19 History hydrocodone-acetaminophen [[place]] 1 tab PO Q4H PRN 09/18/19 09/18/19 History lactobacillus comb no.10 20,000 mmu cells PO DAILY 09/18/19 09/18/19 History [Probiotic] lorazepam 0.5 mg PO DAILY PRN 09/18/19 09/18/19 History Allergies Allergy/AdvReac Type Severity Reaction Status Date / Time chlorhexidine Allergy Mild Rash Verified 09/13/19 13:53 Review of Systems Review of Systems Narrative: Patient denies any cough or cold. No chest pain. No black or bloody bowel movements. No seizures or blackouts. She has increased pain when she extends her right arm above her head. Exam Vital Signs (past 8 hours): - 09/18/19 14:00 09/18/19 15:50 Temperature 97.5 F L 98.4 F Pulse Rate 88 73 Respiratory Rate 18 17 Blood Pressure 144/84 H 136/90 Pulse Oximetry 97 96 Oxygen Flow Rate 0 Narrative Exam Narrative: Cooperative thin woman in no apparent distress. Her eyes are nonicteric. Lungs are clear to auscultation. No rales or rhonchi. Heart regular rate and rhythm without murmur gallop. Left side of her chest wall looks fine. Everything is well healed. On the right there is an obviously would collection with mild inflammation of the overlying skin. The drain and sedation insert has cleared completely. There is no cellulitis and it is closed. She has mild what appears to be wound separation under a Steri-Strips lateral aspect of her transverse the incision for the mastectomy. Objective Labs Result Diagrams: 09/18/19 15:23 09/18/19 15:23 Labs: Laboratory Results - last 24 hr 09/18/19 09/18/19 15:23 15:23 WBC 8.5 RBC 3.61 L Hgb 11.9 L Hct 35.2 L MCV 97.6 MCH 32.9 MCHC 33.7 RDW 15.1 H Plt Count 386 Neut % (Auto) 61.9 Lymph % (Auto) 25.2 Toombs % (Auto) 8.1 Eos % (Auto) 4.0 Baso % (Auto) 0.8 Neut # (Auto) 5300 Lymph # (Auto) 2100 [place] # (Auto) 700 Eos # (Auto) 300 Baso # (Auto) 100 Sodium 137 Potassium 4.1 Chloride 104 Carbon Dioxide 28 BUN 18 H Creatinine 0.73 Estimated GFR > 60.0 BUN/Creatinine Ratio 24.7 H Glucose 88 Calcium 9.1 Assessment & Plan Assessment & Plan narrative: Infection of her chest wall in the mastectomy site. I prepped the skin with antiseptic and inserted a 22 gauge needle and obtained cloudy fluid. At this point I decided to open the wound rather than just place a drain. I removed lateral Steri-Strips and cut the running suture line of Vicryl and opened into an obvious pocket of pus. I drained it and irrigated it copiously and packed it with gauze. Cultures were sent for aerobe pick and anaerobic organisms. Will begin broad-spectrum antibiotics with Ancef and vancomycin pending culture results. Skin floor as the most likely source. Will continue her thyroid medication and continue to treat her hypothyroidism. This is a chronic condition for the patient. Will continue her allergy medicine/and histamine. Will prescribed lorazepam for anxiety which she takes as needed at home. Quality VTE Deep Vein Thrombosis/Pulmonary Embolism Present on Admission: No
[2019-09-18] MEDS: HYDROCODONE/ACET 5/325 TABLET 1 TAB PO ×2 (18:46→23:11)
[2019-09-18] MEDS: VANCOMYCIN 1,000 MG/200 ML PIGGYBACK 200 MG IV (18:46)
[2019-09-18 19:55] VITALS: BP 118/69; PULSE 84; RESP 17; TEMP 36.8; O2SAT 97
[2019-09-18 21:14] VITALS: O2SAT 97
--- NOTE | 2019-09-18 21:38 | PC.NURSE ---
1800 Received report on pt, A/Ox3, IV fluids infusing LR @42 mL/hr, Left chest portacath, bilateral mastectomy, right side had purulent drainage. Admitted to hospital for IV ABX.
[2019-09-18 23:00] VITALS: BP 115/58; PULSE 75; RESP 16; TEMP 36.9; O2SAT 98
[2019-09-19] MEDS: CEFAZOLIN 1 GM/50 ML FROZ.PIGGY IV ×4 (00:17→23:58)
--- NOTE | 2019-09-19 00:20 | PC.NURSE ---
Special Events Assistant Note: 0015: Resting in bed with HOB elevated 35 degrees. Pt states the pain medicine helped resolve her pain. Vital signs stable. Portacath needle intact, with dressing cdi and no redness, drainage or swelling at site. Dressing over rt mastectomy incision remains clean and dry on surface. Dressing over lt mastectomy incision cdi. Pt asking for something to help her sleep.
[2019-09-19] MEDS: LORazepam 0.5 MG TABLET PO ×2 (00:34→22:00)
[2019-09-19 05:00] VITALS: BP 123/61; PULSE 70; RESP 16; TEMP 36.2; O2SAT 95
[2019-09-19] MEDS: LEVOTHYROXINE 50 MCG TABLET PO (06:44)
[2019-09-19] MEDS: VANCOMYCIN 1,000 MG/200 ML PIGGYBACK 200 MG IV ×2 (06:46→18:50)
[2019-09-19 09:00] VITALS: BP 108/61; PULSE 71; RESP 18; TEMP 36.9; O2SAT 97
--- NOTE | 2019-09-19 09:03 | PC.NURSE ---
Patient in bed beginning of the shift sleeping. Left chest mendel cath intact, no s/sx of infection. IV Cefazoline infused per orders at 0800. Patient woke up around 0815 ate 80% of her breakfast with HOB elevated. Lungs CTA, Abdomen soft and non tender BT present x4. Right chest dressing CDI. Patient denies any pain or any discomfort. Call light within reach with bed low, advised patient to use call light if she needs any help. Patient verbalized understanding.
[2019-09-19 11:00] VITALS: BP 101/57; PULSE 76; RESP 18; TEMP 36.7; O2SAT 97
--- NOTE | 2019-09-19 11:52 | DIET.PN ---
Dietary Progress Note Assessment: 59y F admitted for R breast cellulitis s/p double mastectomy on 09/03/2019 for new dx breast ca. Pt referred to nutrition for being at risk for malnutrition. Pt reports difficulty c POs over past 6mo r/t nausea and taste changes secondary to chemotherapy tx. Pt felt her appetite and tastes were coming back until this infection began where fever and fatigue again reduced POs. Pt reports UBW 58.5kg through adult life, had some weight gain in past 6mo related to steroid tx. Pt consumed 80% breakfast this am of [place] toast. Pt loves beans, vegetables, not big fruit eater. Milkshakes were a food which she tolerated during chemo, and pt has been drinking 2 Ensure ONS/d at home. Pt's daughter purchases Ensures and provides some meals. HT: 160cm WT: 57.4kg UBW: 58.5kg BMI: 22.4 MNA: 10 @ risk for malnutrition Bao: 22 Nutrition Diagnosis: inadequate protein energy intake r/t poor appetite secondary to breast tissue infection in context of recent double mastectomy for br ca aeb pt 1kg below UBW, pt reporting irregular, low POs for past 6mo supplementing c 2 Ensures/d c associated taste changes from chemo. Interventions: 1. To support adequate PRO intake for healing and to preserve LBM, recc ONS Ensure bid and high PRO chocolate milkshake c dinner for HS snack. Diet Order: General EER: 1700kcal, 70g PRO (1.2g/kg per healing) Monitoring/Evaluations: ONS tolerance, POs
--- NOTE | 2019-09-19 12:26 | CM.DANOTE ---
DCP: Case received, EMR reviewed and met with patient. Introduced self and role. Was able to meet with patient to obtain information regarding baseline activity level, health history, and living situation. DCP assessment completed with information currently available. Patient is a 59 year old female who admitted yesterday afternoon to the care of the surgical team. PCP: Dr. Tavera. Payer: confirmed: [facility]. Patient came to the hospital via family vehicle, admitted by Dr. Duran. She had seen him in his office, secondary to her right breast drain noting some tenderness and redness. She was diagnosed with cellulitis. Patient had her drain removed to her right breast. Patient has history of bilateral mastectomy, and was here on 09/02. At the time, she went home with two drains. The one to the left had been removed, and then, she began having difficulties with the right. Met with patient. She is pleasant, alert and oriented. Patient mentioned that she had completed her chemo already,and had lost her hair. Stated that she is expecting to have radiation soon. She has always been active. She used to work at the [employer], and performed other jobs as well. She has 4 children, and was twice. She is originally from [place], and moved here in 1992. She has a daughter, and other family members that live near her, and stated, her daughter, pao, has been very supportive. Patient is now on IV antibiotics with culture pending. Prior to hospitalization, she had been on oral. Patient indicated that surgeon anticipates that she will be here for a few more days. P: DCP to continue to follow closely, and see if patient will be able to go home with oral antibiotics versus IV. Luna Helton RN/Sap Pi Developer.
[2019-09-19 16:14] VITALS: BP 119/66; PULSE 66; RESP 17; TEMP 36.4; O2SAT 97
[2019-09-19] MEDS: LACTATED RINGERS 1,000 ML 42 ML IV (17:53)
[2019-09-19 19:41] VITALS: BP 121/71; PULSE 71; RESP 20; TEMP 36.4
[2019-09-19] MEDS: HYDROCODONE/ACET 5/325 TABLET 1 TAB PO (22:01)
[2019-09-19 23:55] VITALS: BP 129/69; PULSE 66; RESP 16; TEMP 36.2; O2SAT 99
[2019-09-20] MEDS: LEVOTHYROXINE 50 MCG TABLET PO (06:22)
[2019-09-20 07:00] VITALS: BP 119/72; PULSE 54; RESP 18; TEMP 36.6; O2SAT 96
[2019-09-20 07:04] LABS: Vancomycin Trough 11.2 ug/mL (10-20)
[2019-09-20] MEDS: HYDROCODONE/ACET 5/325 TABLET 1 TAB PO ×3 (08:55→22:19)
[2019-09-20] MEDS: LORazepam 0.5 MG TABLET PO (08:55)
[2019-09-20] MEDS: VANCOMYCIN TROUGH 1 REQUEST MISC (08:57)
[2019-09-20] MEDS: VANCOMYCIN 1,000 MG/200 ML PIGGYBACK 200 MG IV ×2 (08:58→19:01)
[2019-09-20] MEDS: CEFAZOLIN 1 GM/50 ML FROZ.PIGGY IV ×2 (09:22→17:04)
[2019-09-20 12:00] VITALS: BP 104/77; PULSE 73; RESP 18; TEMP 36.4; O2SAT 97
--- NOTE | 2019-09-20 14:25 | PC.NURSE ---
DRESSING CHANGED TO RIGHT BREAST AREA- PT TOLERATED WELL-
[2019-09-20 17:53] VITALS: BP 110/75; PULSE 61; RESP 20; TEMP 36.5; O2SAT 97
--- NOTE | 2019-09-20 19:26 | PM.PNPO.1 ---
Subjective Subjective Date Patient Seen: 09/20/19 Time Patient Seen: 19:26 Interval history: The patient is feeling better. No pain except when she extends or arm. Exam Vital Signs (past 8 hours): - 09/20/19 12:00 09/20/19 17:53 Temperature 97.6 F 97.7 F Pulse Rate 73 61 Respiratory Rate 18 20 Blood Pressure 104/77 110/75 Pulse Oximetry 97 97 Oxygen Delivery Method Room Air Oxygen Flow Rate 0 Narrative Exam Narrative: Looks well. No cellulitis of her chest wall or axilla. Wound actually looks pretty clean. Drainage is decreased. Objective Labs Result Diagrams: 09/18/19 15:23 09/18/19 15:23 Labs: Laboratory Results - last 24 hr 09/20/19 06:30 Vancomycin Trough 11.2 Assessment & Plan Post-op Postoperative Postoperative status narrative: Doing well post drainage. Postoperative plan narrative: Awaiting the sensitivities on the staff. She is on isolation for now. Will add a multiple vitamin to her meds and have Physical therapy see her regarding movement of her right arm and shoulder. Possible discharge tomorrow. She does have help with any dressing changes she might need. Quality VTE Deep Vein Thrombosis/Pulmonary Embolism Present on Admission: No
[2019-09-20 21:22] VITALS: BP 111/70; PULSE 66; RESP 18; TEMP 36.4
[2019-09-20] MEDS: LACTATED RINGERS 1,000 ML 42 ML IV (21:45)
[2019-09-20 23:15] VITALS: BP 136/84; PULSE 60; RESP 18; TEMP 36.3; O2SAT 97
[2019-09-21] MEDS: CEFAZOLIN 1 GM/50 ML FROZ.PIGGY IV ×3 (00:07→15:52)
[2019-09-21] MEDS: LORazepam 0.5 MG TABLET PO (00:12)
[2019-09-21 04:43] VITALS: BP 110/55; PULSE 56; RESP 18; TEMP 36.9; O2SAT 97
[2019-09-21] MEDS: LEVOTHYROXINE 50 MCG TABLET PO (06:09)
[2019-09-21] MEDS: VANCOMYCIN 1,000 MG/200 ML PIGGYBACK 200 MG IV (06:51)
[2019-09-21 07:00] VITALS: BP 116/60; PULSE 60; RESP 16; TEMP 36.4; O2SAT 97
[2019-09-21] MEDS: HYDROCODONE/ACET 5/325 TABLET 1 TAB PO (08:44)
--- NOTE | 2019-09-21 11:23 | PT.IIE ---
Current Diagnoses Infection following a procedure, other surgical site, initial encounter (09/18/19) Surgical History (Last Reviewed 09/18/19 @ 18:02 by Chandra Rodriguez MD) H/O: hysterectomy (Acute 1985) History of breast biopsy (Acute) History of colonoscopy (Acute 2017) History of tonsillectomy (Acute) Hx of oral surgery (Acute 02/24/19) S/P mastectomy, bilateral (Acute) Medical History (Last Reviewed 09/18/19 @ 18:02 by Chandra Rodriguez MD) Arthritis (Acute) Bowel obstruction (Acute) Breast cancer (Acute) Current every day smoker (Acute) Eczema (Acute) Hypothyroidism (Acute) Sinus drainage (Acute) Physical Therapy Inpatient Evaluation/Re-Eval M1 PT/OT-IP Prior Functional Status Start: 09/21/19 13:20 Freq: NEEDED Status: Active Protocol: Document 09/21/19 11:23 AB (Rec: 09/21/19 13:34 [id number]) Medical Review Prior Functional Status Medical History Reviewed Yes Communication able to make needs known Mobility and Gait pt stated that she is independent with all mobilities and ambulation without AD Social History Household Members none Living Arrangements House Number of Floors (Floors) Two Floors Number of Stairs To Enter/Railing? pt stays on main level of the house has 2 steps to enter with R rail ascending Home Environment Standard Height Toilet,Walk in Shower,Tub/Shower Home Equipment Grab Bars In Shower M2 PT-IP Current Condition Start: 09/21/19 13:20 Freq: NEEDED Status: Active Protocol: Document 09/21/19 11:23 AB (Rec: 09/21/19 13:34 [id number]) Physical Therapy Current Condition Current Condition Evaluation Date 09/21/19 Treatment Diagnosis R breast cellulitis; pain on R shoulder w/ decrease ROM Onset Date 09/18/19 M3 PT-IP Subjective Start: 09/21/19 13:20 Freq: NEEDED Status: Active Protocol: Document 09/21/19 11:23 AB (Rec: 09/21/19 13:34 [id number]) Subjective Physical Therapy Visit Type Type Initial Evaluation Visit Start Time 11:23 Visit Stop Time 12:10 Total Visit Minutes 47 Number of INTERNET DEVELOPER Visits 0 Therapy Pain Assessment Pain When Pain Assessed At Rest Pain Present Pain Present Pain Reported Location Right chest Intensity 4 Scale Used increases with R shoulder movement Description Sharp Pain Management Techniques Modification of Treatment,Re- positioning,Timing of Activity with Medications M4 PT-IP Mobility and Gait Start: 09/21/19 13:20 Freq: NEEDED Status: Active Protocol: Document 09/21/19 11:23 AB (Rec: 09/21/19 13:34 AB [id number]) PT-Bed Mobility Assessment Supine to Sit Supine to Sit Independent Sit to Supine Sit to Supine Independent Scooting Scooting to Edge of Bed Independent PT-Transfer Assessment Sit to and From Stand Sit to and from Stand Independent Equipment Transfer Assistive Device None Orthotic/Prosthetic Devices or Brace: No Transfers Transfer Destination Toilet Transfer Technique ambulated without AD Transfer Ability Level of Assist Independent Gait Assessment Gait Gait Assistance Required: Independent Distance (Feet) 40 Able to Maintain Weight Bearing Status Yes During Gait Assistive Devices Assistive Device None Stair Climbing Assessment Evaluation Level of Assist On Stairs Standby Assistance Devices Stair Climbing Assistive Devices None Technique/Endurance Stair Climbing Direction Ascend and Descend Stair Climbing Technique Step to Step Number of Steps Climbed 1 Query Text: Stair Climbing Set # Repetitions (reps) 2 Comments Stair Climbing Comments up/down step stool without AD SBA PT-Balance Assessment Sitting Balance and Reactions Static Sitting Balance Ability Normal Dynamic Sitting Balance Ability Normal Standing Balance and Reactions Static Standing Balance Ability Good Dynamic Standing Balance Ability Good Device Used no AD M5 PT-IP Objective Assessments Start: 09/21/19 13:20 Freq: NEEDED Status: Active Protocol: Document 09/21/19 11:23 AB (Rec: 09/21/19 13:34 [id number]) Orientation Orientation/Cognition Level of Alertness Alert Orientation Name,Age,Birthday,Month,Date, Year,Day of Week,Place, Situation Language Function Ability No Deficits Noted Safety Awareness Understands Safety Issues Memory Description No Deficits Noted Gross Range of Motion Upper Extremity ROM Assessment Right Impaired Impairments R Shoulder flexion AROM: 0- 100 abduction AROM: 0-70 deg scaption AROM: 0-120 ER/IR: WFL Lower Extremity ROM Assessment Within Functional Limits Strength Lower Extremity Strength Assessment Within Functional Limits Coordination Assessment Gross Coordination Gross Coordination WNL Sensation Assessment Sensation Gross Sensation WNL Muscle Tone Muscle Tone WNL Yes M6 PT-IP Treatment Start: 09/21/19 13:20 Freq: NEEDED Status: Active Protocol: Document 09/21/19 11:23 AB (Rec: 09/21/19 13:34 [id number]) Physical Therapy Treatment Exercises Exercises Shoulder Pendulums,Shoulder Flexion Education Education Provided Precautions,Safety Other Treatments Other Treatment Performed R shoulder exercises conducted and provided HEP. M7 PT-IP Assessment and Plan Start: 09/21/19 13:20 Freq: NEEDED Status: Active Protocol: Document 09/21/19 11:23 AB (Rec: 09/21/19 13:34 [id number]) PT Summary Assessment and Plan Potential Rehabilitation Potential Excellent Status of Condition at Evaluation Stable Summary Impairments Pain,ROM,Strength Assessment Summary PT eval received for R shoulder ROM. Pt s/p mastectomy 09/03/19 and developed R breast cellulitis and c/o limited range and pain with shoulder movement. Pt completed R shoulder exercises and HEP copy provided. Pt able to perform exercises and has no further questions. reviewed precautions with pt and also recommendation for outpt PT intervention upon d/c . pt understood and agreed. No further PT intervention indicated at this time. Goals Other Goals to be able to perform R UE exercises independently Days to Meet Goals 1 Frequency of Treatment Frequency Of Treatment Discharge Treatment Plan Physical Therapy Treatment Plan Therapeutic Exercise,Post Op Education,Manual Therapy Recommendations To Nursing Amount of Assist Needed Independent Discharge Recommendations PT Discharge Recommendations Home,Outpatient PT Transportation Needs at Discharge Private Vehicle
[2019-09-21 12:50] VITALS: BP 121/73; PULSE 65; RESP 18; TEMP 36.6; O2SAT 97
--- NOTE | 2019-09-21 14:59 | PM.DDS.1 ---
Discharge Summary History of Illness Narrative: The patient is a woman who had a bilateral mastectomy on 09/03/2019. She had drains placed in each side. The left was removed with the right was still draining significantly when she developed cellulitis around the site of the drain insertion. The drain was removed because of that and she was placed on oral antibiotics. There was improvement in her pain and the site where the drain inserted but the remainder of the chest wall became tender red and swollen and she was running a fever until yesterday. She contacted the surgeon on-call late last night I called early this morning saw her in the office. She has an obvious infection in her right chest wall and she is brought in for IV antibiotics and drain placement on her chest wall. Hospital Course Date of Admission: 09/18/19 13:34 Primary care provider: Justin Tavera MD Consults: 09/18/19 14:10 Consult to Dietitian, Adult Routine Comment: Reason For Exam: assessed at risk Consult to Respiratory Therapy Evaluate & Treat Comment: Physician Instructions: Evaluate and treat 09/18/19 14:24 Consult to Discharge Planning Routine Comment: 09/20/19 13:02 Consult to Discharge Planning Routine Comment: will need wound care when d/c ed.Expect d/c in 2d 09/20/19 19:29 Consult to Physical Therapy Evaluate & Treat Comment: post mastectomy. improve arm/shoulder movement Physician Instructions: Evaluate and Treat Discharge Diagnosis: Acute Wound abscess post mastectomy. Organisms Staph aureus (non MRSA) History of Right-sided Breast cancer with metastatic disease to the lymph nodes post neoadjuvant chemotherapy and mastectomy acute Hypothyroidism chronic Objective Labs Result Diagrams: 09/18/19 15:23 09/18/19 15:23
--- NOTE | 2019-09-21 15:05 | PM.DS.1 ---
History of Present Illness History of Present Illness Chief complaint: Right Breast Cellulitis Narrative: The patient is a woman who had a bilateral mastectomy on 09/03/2019. She had drains placed in each side. The left was removed with the right was still draining significantly when she developed cellulitis around the site of the drain insertion. The drain was removed because of that and she was placed on oral antibiotics. There was improvement in her pain and the site where the drain inserted but the remainder of the chest wall became tender red and swollen and she was running a fever until yesterday. She contacted the surgeon on-call late last night I called early this morning saw her in the office. She has an obvious infection in her right chest wall and she is brought in for IV antibiotics and drain placement on her chest wall. Discharge Providers Provider Date of admission: 09/18/19 13:34 Discharge Date: 09/21/19 Primary care physician: Justin Tavera MD Consults: 09/18/19 14:10 Consult to Dietitian, Adult Routine Comment: Reason For Exam: assessed at risk Consult to Respiratory Therapy Evaluate & Treat Comment: Physician Instructions: Evaluate and treat 09/18/19 14:24 Consult to Discharge Planning Routine Comment: 09/20/19 13:02 Consult to Discharge Planning Routine Comment: will need wound care when d/c ed.Expect d/c in 2d 09/20/19 19:29 Consult to Physical Therapy Evaluate & Treat Comment: post mastectomy. improve arm/shoulder movement Physician Instructions: Evaluate and Treat Discharge provider: Chandra Rodriguez MD Summary Hospital Course Discharge Diagnosis: Acute Wound abscess post mastectomy. Organisms Staph aureus (non MRSA) History of Right-sided Breast cancer with metastatic disease to the lymph nodes post neoadjuvant chemotherapy and mastectomy acute Hypothyroidism chronic Limited use of her right shoulder acute secondary to operation and postoperative infection. Anemia mild subacute. Hospital Course: The patient was admitted and an abscess drained at the bedside. It was irrigated and packed. She was begun on Ancef and vancomycin. Cultures ultimately grew a routine staff non MRSA. With sensitive to oxacillin. She was placed on Ancef alone and she is discharged on oral Keflex to follow up in the office this Tuesday. Her daughter will be instructed on wound care prior discharge. She may shower daily after removing the packing and then repack the wound. Status at Discharge Cognitive/behavioral status at discharge: oriented Functional status at discharge: independent ambulation Overall status at discharge: patient is back to baseline Exam Vital Signs (past 8 hours): - 09/21/19 12:50 Temperature 97.9 F Pulse Rate 65 Respiratory Rate 18 Blood Pressure 121/73 Pulse Oximetry 97 Oxygen Delivery Method Room Air Oxygen Flow Rate 0 Objective Labs Result Diagrams: 09/18/19 15:23 09/18/19 15:23 Discharge Plan Discharge Plan Patient Disposition: Home Discharge comment: There are 2 prescriptions for you at [facility]. One is antibiotics and 1 is saline solution to rinse out the wound a little and 2 placed on the gauze. Discharge orders & Medications Prescriptions: New cephalexin [Keflex] 500 mg capsule 500 mg PO QID Qty: 14 RF: 0 sodium chloride 0.9 % solution See Rx Instructions .ROUTE .COMPLEX PRN (Reason: wound care) Qty: 500 RF: 0 Continued cephalexin [Keflex] 500 mg capsule 500 mg PO QID Qty: 30 RF: 0 levothyroxine 50 mcg Tablet 50 mcg PO DAILY RF: 0 citalopram 10 mg Tablet 10 mg PO DAILY RF: 0 loratadine [Claritin] 10 mg Tablet 10 mg PO DAILY RF: 0 docusate sodium 100 mg Capsule 100 mg PO BID RF: 0 Probiotic 20 billion cell Capsule 20,000 mmu cells PO DAILY RF: 0 hydrocodone-acetaminophen [[place]] 7.5-325 mg tablet 1 tab PO Q4H PRN (Reason: post surgical pain) RF: 0 lorazepam 0.5 mg Tablet 0.5 mg PO DAILY PRN (Reason: Anxiety) RF: 0 Follow up/Referrals: Justin Tavera MD [Primary Care Provider] - Discharge Health Status Multidrug resistant organism: No MDRO Diet/Activity/Treatments Diet: Diet as Tolerated Activity: As tolerated. Skin/Wound/Dressing Care Dressing: Saline wet to dry dressing daily. Remove packing, shower, pat dry, and then replace gauze. Discharge Data Primary Care Provider: Justin Tavera Quality VTE Deep Vein Thrombosis/Pulmonary Embolism Present on Admission: No
--- NOTE | 2019-09-21 16:44 | PC.NURSE ---
Pt states she understands her medications and dressing change instructions. She is going home by private car, with her daughter. Her port was de accessed and her wound dressing changed. She is A and O x 4, independent, denies N, and excessive pain.
== END 2019-09-21 16:56 | disposition home or self-care (01) | DRG 863 ==
PROVIDERS: Admitting Provider Specialist; PCP Family Medicine; Referring Provider Specialist; Visit Provider Specialist
DX: T81.41XA Infection following a procedure, superficial incisional surgical site, initial encounter (principal); L03.313 Cellulitis of chest wall; E03.9 Hypothyroidism, unspecified; F17.210 Nicotine dependence, cigarettes, uncomplicated; B95.61 Methicillin susceptible Staphylococcus aureus infection as the cause of diseases classified elsewhere; C50.911 Malignant neoplasm of unspecified site of right female breast
CPT/HCPCS: 36415; 36591; 80048; 80202; 85025; 87070; 87075; 87077; 87147; 87186; 87205; 94760; 97110; 97161; J1642

== ENCOUNTER → 2020-02-27 08:05 | Outpatient (CLI) | payer OTHER, MEDICAID, SELFPAY ==
[2019-09-24 08:51] VITALS: BMI 22.4
--- NOTE | 2020-02-27 08:10 | DI.ECHO.S_ITS ---
[place] [facility]---------+ [facility] +---------+ : : [address] : [place] [address] : : : : [id number] : : : : Phone: [phone]+ Echocardiogram Report + + :Name: GERALDINE BANUELOS Study Date: 02/27/2020 Height: 63 in : :[facility] Weight: 133 lb : : Gender: Female BSA: 1.6 m2 : :: 1960 Age: 60 yrs BP: 138/83 mmHg: :Reason For Study: MONITORING DURING THE X FOR BREAST CANCER : :Ordering Physician: WOLFGANG, : :FERNANDO Performed By: Marion Buitrago : :Referring: FERNANDO GOSS : + + Interpretation Summary The ejection fraction is estimated to be 55-60%. Left ventricular global longitudinal strain average is 22.5%. There is mild mitral regurgitation. Procedure: A two-dimensional transthoracic echocardiogram with color flow and Doppler was performed. The study quality was technically adequate. Comparison is made with the echocardiogram of 03/29/2019. The patient was in sinus rhythm with heart rates between 59-67 bpm during the exam. Left Ventricle: The left ventricle is normal in size and wall thickness. The ejection fraction is estimated to be 55-60%. Left ventricular global longitudinal strain average is 22.5%. Left ventricular wall motion is normal. Right Ventricle: The right ventricle is normal in size and function. Atria: The left atrium is borderline dilated. Right atrial size is normal. There is no Doppler evidence for an interatrial shunt. Mitral Valve: The mitral valve is normal in structure and function. There is mild mitral regurgitation. Aortic Valve: The aortic valve is trileaflet. The aortic valve opens well. There is no aortic valve stenosis. No aortic regurgitation is present. Tricuspid Valve: The tricuspid valve is normal in structure and function. The right ventricular systolic pressure is estimated to be at least 20 mmHg based on an estimated right atrial pressure of 3 mm Hg. There is mild tricuspid regurgitation. Pulmonic Valve: The pulmonic valve is not well seen, but is grossly normal. There is no pulmonic valvular regurgitation. Great Vessels: The aortic root is normal size. The dimensions of the ascending aorta are normal. The inferior vena cava appeared normal. Pericardium/ Pleura There is no pericardial effusion. There is no pleural effusion. MMode/2D Measurements & Calculations LVIDd: 4.5 cm LVOT diam: 2.0 cm LVIDs: 3.4 cm Ao root diam: 3.0 cm FS: 25.0 % asc Aorta Diam: 2.8 cm EPSS: 0.71 cm Ao Arch Diam (Prox Trans): 2.4 cm IVSd: 0.84 cm LVPWd: 0.86 cm LV spaulding. diameter/BSA (cm/m^2): 2.8 LV sys. diameter/BSA (cm/m^2): 2.1 LA A2 area: 17.6 cm2 RA long axis: 4.2 cm LA A4 area: 16.3 cm2 RA area: 16.1 cm2 LA length (vol): 4.4 cm RA vol: 52.7 ml LA vol: 55.0 ml RA : 32.4 ml/m2 LA vol index: 33.8 ml/m2 IVC diam: 2.0 cm RVD1 (basal): 3.4 cm TAPSE: 1.8 cm Doppler Measurements & Calculations Ao V2 max: 133.0 cm/sec LVOT Max Giovani: 120.3 cm/sec Ao V2 mean: 90.5 cm/sec LV V1 max P.8 mmHg Ao max P.1 mmHg LV V1 VTI: 25.1 cm Ao mean P.7 mmHg GENIA(I,D): 2.7 cm2 Ao V2 VTI: 29.4 cm GENIA(V,D): 2.9 cm2 sev ratio: 0.85 GENIA indexed to BSA (cm^2/m^2): 1.7 MV E max giovani: 61.1 cm/sec TR max giovani: 208.4 cm/sec MV A max giovani: 61.1 cm/sec TR max P.4 mmHg MV E/A: 1.0 PA V2 max: 58.7 cm/sec Med Peak E' Giovani: 4.8 cm/sec PA V2 mean: 37.5 cm/sec E/E' med: 12.6 PA mean P.66 mmHg Lat Peak E' Giovani: 9.7 cm/sec PA pr(Accel): 25.9 mmHg E/E' lat: 6.3 E/e' average: 9.5 MV dec time: 0.17 sec SV([facility]): 79.3 ml Reading Physician:01:11 PM
== END ==
PROVIDERS: PCP Family Medicine; Referring Provider Internal Medicine Hematology & Oncology; Visit Provider Internal Medicine Hematology & Oncology
DX: I08.1 Rheumatic disorders of both mitral and tricuspid valves (principal); C50.911 Malignant neoplasm of unspecified site of right female breast
CPT/HCPCS: 93306

== ENCOUNTER → 2020-04-09 10:14 | Outpatient (CLI) | payer OTHER, MEDICAID, SELFPAY ==
[2019-09-24 08:51] VITALS: BMI 22.4
--- NOTE | 2020-04-09 10:16 | DI.US.S_ITS ---
ULTRASOUND OF RIGHT AXILLA: 04/09/2020 CLINICAL: Palpable right axillary lump and diffuse axilla pain. Comparison is made to exams dated: 08/09/2019 breast MRI, 04/20/2019 breast MRI, 02/27/2019 ultrasound biopsy, 02/27/2019 ultrasound biopsy, 02/27/2019 mammogram, and 02/12/2019 [facility]. Color flow and real-time ultrasound of the right axilla were performed on the areas of interest. There is an oval subcutaneous mass with a circumscribed margin in the right axillary tail. This oval mass is hypoechoic with a well-defined boundary. This correlates as palpated. Color flow imaging demonstrates that there is no vascularity present. IMPRESSION: PROBABLY BENIGN The oval mass resembles a sebaceous cyst or an infectious or inflammatory process. Findings are probably benign. A follow-up ultrasound in 3 months is recommended. A follow-up ultrasound in 3 months is recommended to demonstrate resolution. This exam was interpreted at Station ID: [id number]. Electronically Signed By: Doug vigil/:04/09/2020 11:07:39 letter sent: Followup Recommended Ultrasound BI-RADS: 3 Probably benign
== END ==
PROVIDERS: PCP Student in an Organized Health Care Education/Training Program; Referring Provider Internal Medicine Hematology & Oncology; Visit Provider Internal Medicine Hematology & Oncology
DX: C50.011 Malignant neoplasm of nipple and areola, right female breast; N64.4 Mastodynia; N63.31 Unspecified lump in axillary tail of the right breast; Z17.0 Estrogen receptor positive status [ER+]
CPT/HCPCS: 76882

== ENCOUNTER → 2020-06-25 10:19 | Outpatient (CLI) | payer OTHER, MEDICAID, SELFPAY ==
[2019-09-24 08:51] VITALS: BMI 22.4
--- NOTE | 2020-06-25 10:20 | DI.US.S_ITS ---
ULTRASOUND OF RIGHT AXILLA: 06/25/2020 CLINICAL: Right axillary pain. Comparison is made to exams dated: 04/09/2020 ultrasound, 08/09/2019 breast MRI, 04/20/2019 breast MRI, 02/27/2019 ultrasound biopsy, 02/27/2019 ultrasound biopsy, and 02/27/2019 mammogram [facility]. Color flow ultrasound of the right axilla was performed. Nolasco scale images of the real-time examination were reviewed. There is a stable 0.2 cm x 0.3 cm x 0.4 cm oval complicated cyst in the right axillary tail. This oval complicated cyst is in the immediate subdermal tissue, is hypoechoic with a well-defined boundary. This correlates as palpated. Color flow imaging demonstrates that there is no vascularity present. IMPRESSION: PROBABLY BENIGN The stable 0.4 cm complicated cyst resembles a sebaceous cyst and is probably benign. A follow-up right ultrasound in 6 months is recommended to demonstrate stability. Findings and recommendations were conveyed to the patient at time of exam. This exam was interpreted at Station ID: [id number]. Electronically Signed By: Jessica ochoa/:06/25/2020 11:32:33 letter sent: Followup Recommended Ultrasound BI-RADS: 3 Probably benign
== END ==
PROVIDERS: Family Provider Student in an Organized Health Care Education/Training Program; PCP Student in an Organized Health Care Education/Training Program; Referring Provider Internal Medicine Hematology & Oncology; Visit Provider Internal Medicine Hematology & Oncology
DX: C50.911 Malignant neoplasm of unspecified site of right female breast (principal); N60.01 Solitary cyst of right breast; M79.621 Pain in right upper arm; M79.89 Other specified soft tissue disorders
CPT/HCPCS: 76882

== ENCOUNTER → 2020-06-26 08:02 | Outpatient (CLI) | payer OTHER, MEDICAID, SELFPAY ==
[2019-09-24 08:51] VITALS: BMI 22.4
--- NOTE | 2020-06-26 08:06 | DI.ECHO.S_ITS ---
[place] +---------+ [facility] +---------+ : : [address] : [place] [address] : : : : [id number] : : : : Phone: [phone]---------+ Echocardiogram Report + + :Name: GERALDINE BANUELOS Study Date: 06/26/2020 Height: 62 in : :[facility] ReadingLocation: Weight: 135 lb: : Gender: Female BSA: 1.6 m2 : :: 1960 Age: 60 yrs : :Reason For Study: BREAST CANCER, HERCEPTIN : :Ordering Physician: WOLFGANG, : :FERNANDO Performed By: Marion Buitrago : :Referring: FERNANDO GOSS : + + Interpretation Summary 1) Normal left ventricular thickness and size with normal systolic function (EF 55-60%). 2) Left ventricular global longitudinal strain average is -20.4%. 3) Normal right ventricular size and function. 4) No significant valvular abnormalities. 5) Compared to the Echo done 02/27/2020, left ventricular global longitudinal strain average has changed from -22% to -20.4% (suggesting slight drop in LV function but still within normal limits). Procedure: A two-dimensional transthoracic echocardiogram with color flow and Doppler was performed. The study quality was technically adequate. Best from apical and subcostal views. Comparison is made with the echocardiogram of 02/27/2020. The patient was in sinus rhythm with heart rates between 60-70 bpm during the exam. Left Ventricle: The left ventricle is normal in size and wall thickness. Left ventricular global longitudinal strain average is -20.4%. Previous global average strain of -22.5 on 02/27/2020. The ejection fraction is estimated to be 55-60%. Diastolic parameters suggest probable normal left ventricular diastolic function and normal filling pressures. Right Ventricle: The right ventricle is normal in size and function. Atria: The left atrial size is normal. Right atrial size is normal. There is no Doppler evidence for an interatrial shunt. Mitral Valve: The mitral valve is normal in structure and function. There is mild mitral regurgitation. Aortic Valve: The aortic valve is trileaflet. The aortic valve opens well. There is no aortic valve stenosis. No aortic regurgitation is present. Tricuspid Valve: The tricuspid valve is normal in structure and function. Pulmonary artery pressures cannot be estimated because of the lack of a measurable TR jet velocity but the IVC suggests a CVP of around 8 mmHg. There is mild tricuspid regurgitation. Pulmonic Valve: The pulmonic valve is not well visualized. Great Vessels: The aortic root is normal size. The dimensions of the ascending aorta are normal. The IVC is dilated (diameter is greater than 2.1 cm) yet it collapses greater than 50% with a sniff. This suggests a right atrial pressure of 8 mm Hg. Pericardium/ Pleura There is no pericardial effusion. There is no pleural effusion. MMode/2D Measurements & Calculations LVIDd: 4.5 cm LVOT diam: 2.0 cm LVIDs: 3.3 cm Ao root diam: 3.0 cm FS: 26.6 % asc Aorta Diam: 3.0 cm IVSd: 0.87 cm Ao Arch Diam (Prox Trans): 2.3 cm LVPWd: 0.78 cm LV spaulding. diameter/BSA (cm/m^2): 2.8 LV sys. diameter/BSA (cm/m^2): 2.1 LA A2 area: 18.9 cm2 RA long axis: 4.6 cm LA A4 area: 16.0 cm2 RA area: 16.0 cm2 LA length (vol): 4.8 cm RA vol: 46.9 ml LA vol: 52.8 ml RA : 29.0 ml/m2 LA vol index: 32.7 ml/m2 IVC diam: 2.1 cm RVD1 (basal): 2.7 cm TAPSE: 1.9 cm Doppler Measurements & Calculations Ao V2 max: 124.5 cm/sec LVOT Max Giovani: 113.5 cm/sec Ao V2 mean: 82.0 cm/sec LV V1 max P.2 mmHg Ao max P.2 mmHg LV V1 VTI: 22.6 cm Ao mean P.0 mmHg GENIA(I,D): 2.7 cm2 Ao V2 VTI: 26.8 cm GENIA(V,D): 2.9 cm2 sev ratio: 0.84 GENIA indexed to BSA (cm^2/m^2): 1.7 MV E max giovani: 71.0 cm/sec PA V2 max: 53.9 cm/sec MV A max giovani: 51.6 cm/sec PA V2 mean: 37.0 cm/sec MV E/A: 1.4 PA mean P.63 mmHg Med Peak E' Giovani: 7.4 cm/sec PA pr(Accel): 19.1 mmHg E/E' med: 9.6 Lat Peak E' Giovani: 9.9 cm/sec E/E' lat: 7.1 E/e' average: 8.4 MV dec time: 0.23 sec [facility] 72.4 ml Reading Physician:02:19 PM
== END ==
PROVIDERS: Family Provider Student in an Organized Health Care Education/Training Program; PCP Student in an Organized Health Care Education/Training Program; Referring Provider Student in an Organized Health Care Education/Training Program; Visit Provider Internal Medicine Hematology & Oncology
DX: I08.1 Rheumatic disorders of both mitral and tricuspid valves (principal); C50.911 Malignant neoplasm of unspecified site of right female breast; Z92.21 Personal history of antineoplastic chemotherapy
CPT/HCPCS: 93306

== ENCOUNTER → 2020-07-17 09:05 | Outpatient (CLI) | payer OTHER, MEDICAID, SELFPAY ==
[2019-09-24 08:51] VITALS: BMI 22.4
--- NOTE | 2020-07-17 10:34 | DI.CT.S_ITS ---
PROCEDURE: CT ABDOMEN PELVIS W CON INDICATIONS: Generalized intra-abdominal and pelvic swelling TECHNIQUE: After the administration of oral and intravenous contrast, 5 mm thick sections acquired from the diaphragms to the symphysis. 5 mm thick coronal and sagittal reformats were performed. For radiation dose reduction, the following was used: automated exposure control, adjustment of mA and/or kV according to patient size. COMPARISON: [place], [place], [place] CT FUSION SKULL 2 THIGH, 11/21/2019, 16:09. [facility], CT, CT ABDOMEN WO/W CON, 04/05/2019, 12:15. [place], [place], [place] CT FUSION SKULL 2 THIGH, 03/28/2019, 14:55. [facility], CT, CT CHEST W CON, 02/16/2019, 0:58. [facility], CT, CT ABDOMEN PELVIS W CON, 03/21/2019, 13:15. FINDINGS: Image quality: Excellent. ABDOMEN: Lung bases: Lung bases are clear. Heart size is normal. Solid organs: Liver is normal in size and enhancement it except at the margin of the anterior right hepatic lobe and the anterior left medial hepatic segment, a chronic area of increased enhancement has been identified over multiple prior studies without PET-CT scan abnormality in this region that would indicate presence of malignancy as the underlying cause. 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 Gallbladder appears normal. Biliary system is non-dilated. Pancreas enhances normally. Spleen is normal in size and enhancement. No adrenal nodules. Kidneys are normal in size and enhancement, without hydronephrosis. Peritoneum and bowel: Stomach, small bowel, and colon loops are normal in caliber and wall thickness. No free fluid or air. Nodes and vessels: No retroperitoneal or mesenteric adenopathy. Aorta and inferior vena cava are normal in caliber. Miscellaneous: No ventral hernias. PELVIS: Genitourinary: Bladder wall thickness is normal. Miscellaneous: No inguinal hernias or adenopathy. Bones: No suspicious bony lesions. No vertebral body compression fractures. IMPRESSION: Stable appearing 3.4 cm diameter hyperenhancing focus within the anterior liver near the border of the right and left hepatic lobes. 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 No adenopathy is seen, no osseous metastatic disease is found. Dictated by: Gabo Ruggiero M.D. on 07/17/2020 at 13:19 Approved by: Gabo Ruggiero M.D. on 07/17/2020 at 13:23
== END ==
PROVIDERS: Family Provider Student in an Organized Health Care Education/Training Program; PCP Student in an Organized Health Care Education/Training Program; Referring Provider Student in an Organized Health Care Education/Training Program; Visit Provider Student in an Organized Health Care Education/Training Program
DX: R19.07 Generalized intra-abdominal and pelvic swelling, mass and lump (principal)
CPT/HCPCS: 74177

== ENCOUNTER 2020-11-27 23:37 | Emergency (ER) | payer OTHER, MEDICAID, SELFPAY ==
[2020-07-29 16:39] VITALS: BMI 22.4
[2020-11-27 23:40] VITALS: BP 125/70; PULSE 72; RESP 18; TEMP 37.2; O2SAT 97
[2020-11-28 00:03] LABS: Add Manual Diff / Slide Review NO; Basophils Absolute Auto 100 /uL (0-100); Basophils Percent Auto 0.5 % (0-2); Eosinophils Absolute Auto 0 /uL (0-450); Hematocrit 44.8 % (36-46); Hemoglobin 15.2 g/dL (12.0-16.0); Lymphocytes Absolute Auto 1500 /uL (1100-4500); Lymphocytes Percent Auto 9.9 % (25-40); Mean Corpuscular HGB Conc 33.9 % (30-36); Mean Corpuscular Hemoglobin 31.2 PG (26-34); Mean Corpuscular Volume 92.1 fL (80-100); Monocytes Absolute Auto 1300 /uL (0-900); Monocytes Percent Auto 8.4 % (3-14); Neutrophils Absolute Auto 12500 /uL (1500-7000); Neutrophils Percent Auto 81.2 % (50-75); Platelet Count 220 X10^3/uL (150-400); Red Blood Cell Count 4.86 X10^6/uL (4.0-5.2); Red Cell Distribution Width 14.7 % (11.6-14.8); White Blood Cell Count 15.5 X10^3/uL (4.5-11.0)
[2020-11-28 00:14] LABS: Alanine Aminotransferase 15 IU/L (<35); Albumin 4.3 g/dL (3.5-5.0); Albumin Globulin Ratio 1.2 (1.0-2.8); Alkaline Phosphatase 72 U/L (38-126); Aspartate Aminotransferase 30 IU/L (14-36); BUN Creatinine Ratio 14.5 (6-22); Bilirubin Total 0.6 mg/dL (0.2-1.3); Blood Urea Nitrogen 19 mg/dL (7-17); Calcium 9.8 mg/dL (8.4-10.2); Carbon Dioxide 23 mmol/L (22-32); Chloride 108 mmol/L (98-107); Estimated Glomerular Filt Rate 41.1 mL/min (>60); Globulin 3.5 g/dL (1.7-4.1); Glucose 131 mg/dL (80-110); HEMOLYSIS < 15 (0-50); Lipase 44 U/L (23-300); Sodium 141 mmol/L (137-145); Total Protein 7.8 g/dL (6.3-8.2)
--- NOTE | 2020-11-28 00:34 | DI.CT.S_ITS ---
PROCEDURE: CT ABDOMEN PELVIS W CON INDICATIONS: Left lower quadrant abdominal pain TECHNIQUE: After the administration of oral and IV contrast, axial sections were acquired from the lung bases to the pubic symphysis. Coronal and sagittal reformats were performed. For radiation dose reduction, the following was used: automated exposure control, adjustment of mA and/or kV according to patient size. COMPARISON: [facility], [place], [place] PET CT FUSION SKULL 2 THIGH, 03/28/2019, 14:55. [facility], [place], CT ABDOMEN PELVIS W CON, 03/21/2019, 13:15. [facility], CT, CT ABDOMEN PELVIS W CON, 07/17/2020, 10:02. FINDINGS: Image quality: Excellent. Lung bases: Unremarkable. Heart: No significant findings. ABDOMEN: Liver: Segment 4A/8 enhancing lesion measures approximately 2.8 x 2.7 cm, (2/14), previously 2.9 x 2.8 cm, and more remotely 2.9 x 2.7 cm on 03/21/2019. There may be an additional enhancing focus in the left lobe of the liver segment 3 measuring 0.7 cm, (2/23), previously 0.5 cm. Not felt to be significantly changed. Gallbladder: Not significantly distended. No calcified gallstones. Biliary ducts: Unremarkable. Pancreas: Unremarkable. Spleen: Small splenule. Adrenal Glands: No nodule. Kidneys and Ureters: Obstructing calculus in the proximal left ureter measuring 0.6 x 0.5 cm, (2/35). There is moderate left hydroureteronephrosis. Mild stranding surrounding the left kidney. Left renal simple cyst. No additional left Kidney stones identified. There are nonobstructing punctate right kidney stones x3. No hydronephrosis on the right. Right renal cortical hypodensity which is too small to further characterize but likely a benign cyst. Stomach and Bowel: Stomach, small bowel loops, and colon are unremarkable. Normal appendix. Peritoneum: No abnormal intraperitoneal fluid. No free air. Ventral Wall: No hernia. Abdominal Nodes: No retroperitoneal or mesenteric adenopathy by size criteria. Vessels: Aorta and inferior vena cava are normal in size. Mild calcified plaque. PELVIS: Pelvic Organs: Unremarkable. Bladder: No bladder stones. Pelvic Nodes: No enlarged lymph nodes. Miscellaneous: No inguinal hernias are seen. Bones: Minimal undulation of the right posterior lateral 10th rib, (2/15), unchanged. Multilevel DDD. T11 Schmorl's node, similar. Small intramuscular lipoma anterior to the right hip. IMPRESSION: 1. Obstructing calculus in the proximal left ureter measuring 0.6 x 0.5 cm. Moderate left hydroureteronephrosis. 2. Additional small nonobstructing right kidney stones. 3. Enhancing lesions in the liver are not significantly changed in size since at least 03/21/2019. No significant discrepancy with the overnight preliminary interpretation. Additional details provided. Dictated by: Farhad Williamson M.D. on 11/28/2020 at 9:22 Approved by: Farhad Williamson M.D. on 11/28/2020 at 9:44
--- NOTE | 2020-11-28 00:34 | ED_ITS ---
HPI - General Adult General Chief complaint: Abdominal Pain Stated complaint: STATES SINUS INFECTION/NAUSEA/L SIDE PAIN Time Seen by Provider: 11/27/20 23:51 Source: patient Mode of arrival: Ambulatory Limitations: no limitations History of Present Illness HPI narrative: Patient is a 60-year-old female who is here for evaluation of left-sided abdominal discomfort that is been going on for the past couple days and also concerns for potential sinus infection. She states she has had discomfort on the right side of her face for the past couple days as well. Discomfort with touching her right cheek and also pain in her mouth and in her right ear. She has not tried anything for the symptoms. She is not on any decongestants. She is also here for evaluation of left-sided abdominal discomfort. No urinary symptoms. No change in bowel habits. No vaginal bleeding. Has had some nausea but no vomiting. No rashes over the area. Has not tried anything for the symptoms prior to arrival. Related Data Home Medications Medication Instructions Recorded Confirmed levothyroxine 50 mcg tablet 50 mcg PO DAILY 03/08/19 11/03/20 lactobacillus comb no.10 20 20,000 mmu cells PO DAILY 09/18/19 11/03/20 billion cell capsule (Probiotic) dexamethasone 4 mg tablet 4 mg PO BID 08/01/20 11/03/20 Previous Rx's Medication Instructions Recorded hydrocodone 7.5 mg-acetaminophen 1 tab PO Q4H PRN #60 tab 09/24/19 325 mg tablet ([place]) lorazepam 0.5 mg tablet 0.5 mg PO DAILY PRN #30 tab 04/07/20 omeprazole 20 mg capsule,delayed 20 mg PO DAILY #30 cap 04/21/20 release gabapentin 300 mg capsule 300 mg PO BID #60 cap 06/02/20 citalopram 20 mg tablet 20 mg PO DAILY #30 tab 07/14/20 hydrocodone 5 mg-acetaminophen 325 1 tab PO Q4-6H PRN #7 tab 11/28/20 mg tablet ondansetron 4 mg disintegrating 4 mg PO Q6H PRN #10 tab 11/28/20 tablet Allergies Allergy/AdvReac Type Severity Reaction Status Date / Time chlorhexidine Allergy Mild Rash Verified 08/01/20 13:38 Review of Systems Constitutional Constitutional: Reports system reviewed and no additional complaints, except as documented ENT Ears, Nose, Mouth, and Throat: Reports as per HPI Cardiovascular Cardiovascular: Reports system reviewed and no additional complaints, except as documented Respiratory Respiratory: Reports system reviewed and no additional complaints, except as documented Gastrointestinal Gastrointestinal: Reports as per HPI Genitourinary Genitourinary: Reports system reviewed and no additional complaints, except as documented Musculoskeletal Musculoskeletal: Reports system reviewed and no additional complaints, except as documented Integumentary/Breasts Skin/Breast: Reports system reviewed and no additional complaints, except as documented Neurologic Neurologic: Reports system reviewed and no additional complaints, except as documented Hematologic/Lymphatic On Anticoagulants: No Allergic/Immunologic Allergic/Immunologic: Reports system reviewed and no additional complaints, except as documented Patient History Medical History Arthritis Bowel obstruction Breast cancer Current every day smoker Eczema Hypothyroidism Sinus drainage Surgical History H/O: hysterectomy (1985) History of breast biopsy History of colonoscopy (2017) History of tonsillectomy Hx of oral surgery (02/24/19) S/P mastectomy, bilateral Family History Father Leukemia Family/Other Breast cancer Mother Uterine cancer Grandmother Diabetes mellitus Daughter Diabetes mellitus Sister Breast cancer Social History household members: none Smoking Status: Current every day smoker alcohol intake: current substance use type: does not use Smoking Status: Current every day smoker tobacco type: cigarettes alcohol intake frequency: holidays/special occasions only Substance Use Type: does not use Exam Initial Vital Signs Initial Vital Signs: Vital Signs Temperature 98.9 F 11/27/20 23:40 Pulse Rate 72 11/27/20 23:40 Respiratory Rate 18 11/27/20 23:40 Blood Pressure 125/70 11/27/20 23:40 Pulse Oximetry 97 11/27/20 23:40 Const General: cooperative, healthy appearing and comfortable HENMT Head: normal to inspection and normocephalic Ears: TM's normal bilaterally Nose: external nose normal Face and sinus: tenderness on the right maxilla Eyes General: appearance normal, both eyes and all related structures Resp Effort & Inspection: normal respiratory effort Auscultation: clear to auscultation bilaterally Cardio Rate: regular rate Rhythm: regular rhythm GI Inspection: normal to inspection Palpation: soft and tender (Left-sided abdomen) Skin General: no rashes or lesions noted Neuro General: patient alert, patient awake, patient oriented x3 and moves all extremities Extrem General: normal to inspection and capillary refill normal Psych Appearance: grossly normal and well kempt Course Orders Ordered: ED Orders 11/27/20 23:55 Complete Blood Count AUTO DIFF Stat Comprehensive Metabolic Panel Stat Lipase Stat 11/28/20 00:22 COVID19 -Nasal swab/Pre-Proc Stat 11/28/20 00:34 CT abdomen pelvis w con Stat Discontinued Medications Hydrocodone Bitart/Acetaminophen (Hydrocodone/Acet 5/325 Prepack) 1 bottle MISC SEEINSTR ONE Stop: 11/28/20 03:21 Last Admin: 11/28/20 03:40 Dose: 1 bottle Documented by: REBECCA Sodium Chloride (Normal Saline 0.9%) 1,000 mls @ 1,000 mls/hr IV BOLUS ONE Stop: 11/28/20 01:33 Last Infusion: 11/28/20 02:01 Dose: 0 mls/hr Documented by: Admin: 11/28/20 00:51 Dose: 1,000 mls/hr Documented by: REBECCA Ketorolac Tromethamine (Ketorolac 30 Mg/Ml Vial) 30 mg IV NOW ONE Stop: 11/28/20 02:31 Last Admin: 11/28/20 02:37 Dose: 30 mg Documented by: JAD Ondansetron HCl (Ondansetron 4 Mg Odt Prepack) 1 bottle MISC SEEINSTR ONE Stop: 11/28/20 03:21 Last Admin: 11/28/20 03:40 Dose: 1 bottle Documented by: REBECCA Vital Signs Vital signs: Vital Signs - 8 hr 11/27/20 23:40 11/28/20 03:40 Temperature 98.9 F Pulse Rate 72 63 Respiratory Rate 18 Blood Pressure 125/70 124/72 Pulse Oximetry 97 94 Medical Decision Making Lab Data Lab results reviewed: Yes I reviewed the patient's lab results. Result diagrams: 11/27/20 23:55 11/27/20 23:55 Labs: Lab Results 11/27/20 11/27/20 11/27/20 Range/Units 23:55 23:55 23:55 WBC 15.5 H (4.5-11.0) X10^3/uL RBC 4.86 (4.0-5.2) X10^6/uL Hgb 15.2 (12.0-16.0) g/dL Hct 44.8 (36-46) % MCV 92.1 (80-100) fL MCH 31.2 (26-34) PG MCHC 33.9 (30-36) % RDW 14.7 (11.6-14.8) % Plt Count 220 (150-400) X10^3/uL Neut % (Auto) 81.2 H (50-75) % Lymph % (Auto) 9.9 L (25-40) % [place] % (Auto) 8.4 (3-14) % Eos % (Auto) 0.0 L (2-4) % Baso % (Auto) 0.5 (0-2) % Neut # (Auto) 23029 H (1663-3349) /uL Lymph # (Auto) 1500 (6016-3686) /uL [place] # (Auto) 1300 H (0-900) /uL Eos # (Auto) 0 (0-450) /uL Baso # (Auto) 100 (0-100) /uL Sodium 141 (137-145) mmol/L Potassium 4.0 (3.4-5.1) mmol/L Chloride 108 H (98-107) mmol/L Carbon Dioxide 23 (22-32) mmol/L BUN 19 H (7-17) mg/dL Creatinine 1.31 H (0.52-1.04) mg/dL Estimated GFR 41.1 L (>60) mL/min BUN/Creatinine Ratio 14.5 (6-22) Glucose 131 H (80-110) mg/dL Calcium 9.8 (8.4-10.2) mg/dL Total Bilirubin 0.6 (0.2-1.3) mg/dL AST 30 (14-36) IU/L ALT 15 (<35) IU/L Alkaline Phosphatase 72 (38-126) U/L Total Protein 7.8 (6.3-8.2) g/dL Albumin 4.3 (3.5-5.0) g/dL Globulin 3.5 (1.7-4.1) g/dL Albumin/Globulin Ratio 1.2 (1.0-2.8) Lipase 44 (23-300) U/L SARS-CoV-2 (PCR) Negative (Negative) Urine Dip Bedside Urine Glucose Negative Bedside Urine Bilirubin - Negative Bedside Urine Ketone - Negative Urine Specific [place] 1.015 Bedside Urine Occult Blood +++ Bedside Urine pH 6.0 Bedside Urine Protein - Negative Bedside Urine Urobilinogen - Negative Bedside Urine Nitrite - Negative Bedside Urine Leukocytes - Negative Esterase Point of care testing: Urine Dip Bedside Urine Glucose Negative Bedside Urine Bilirubin - Negative Bedside Urine Ketone - Negative Urine Specific [place] 1.015 Bedside Urine Occult Blood +++ Bedside Urine pH 6.0 Bedside Urine Protein - Negative Bedside Urine Urobilinogen - Negative Bedside Urine Nitrite - Negative Bedside Urine Leukocytes - Negative Esterase Imaging Data CT scan - abdomen/pelvis: Radiologist's Impression: Partially obstructing 7 mm calculus in the left ureteropelvic junction MDM Narrative Medical decision making narrative: Patient does have CT scan findings consistent with a 7 mm left-sided ureteral stone. This does explain the abdominal symptoms that brought her into the emergency department today. Her urinalysis has blood but no other signs of infection. She does have a slight elevation in her creatinine and decrease in her GFR today however on the CT scan it does not show any signs of hydronephrosis nor signs of pyelonephritis. She does have a leukocytosis. Unsure the exact etiology of this. Could be stress reaction given the discomfort that she is having with the stone. This also could be the result of a sinus infection. She is having tenderness over the right maxillary sinus. The rest of her HEENT exam is unremarkable. She has not been on any decongestants nor antihistamines. There is no indication for antibiotics today. Had a discussion with her regarding her symptoms and the finding of the CT scan. She was given follow-up information for Urology. She was sent home with symptom treatment. Was given strict return precautions. She expressed understanding and agreement. Discharge Plan Departure Patient Disposition: Home Clinical Impression: Left ureteral calculus Instructions: DI for Kidney Stones Activity Restrictions/Additional Instructions: The CT scan today does show a 7 mm stone in the left ureter. It is almost into the bladder. Your urine did not show any signs of an infection. Use the pain medicine and nausea medicine as needed. I recommend that when the office is open later today you contact the urologist at the number provided below. The size of the stone that was found today could potentially require intervention by Urology. To the emergency department for any new or worsening symptoms like discussed Prescriptions: New ondansetron 4 mg tablet,disintegrating 4 mg PO Q6H PRN (Reason: nausea and vomiting) Qty: 10 RF: 0 hydrocodone-acetaminophen 5-325 mg tablet 1 tab PO Q4-6H PRN (Reason: pain) Qty: 7 RF: 0 No Action dexamethasone 4 mg tablet 4 mg PO BID RF: 0 levothyroxine 50 mcg Tablet 50 mcg PO DAILY RF: 0 hydrocodone-acetaminophen [[place]] 7.5-325 mg tablet 1 tab PO Q4H PRN (Reason: post surgical pain) Qty: 60 RF: 0 lorazepam 0.5 mg Tablet 0.5 mg PO DAILY PRN (Reason: Anxiety) Qty: 30 RF: 0 omeprazole 20 mg Capsule,Delayed Release(Dr/Ec) 20 mg PO DAILY Qty: 30 RF: 0 gabapentin 300 mg Capsule 300 mg PO BID Qty: 60 RF: 1 citalopram 20 mg Tablet 20 mg PO DAILY Qty: 30 RF: 11 Probiotic 20 billion cell Capsule 20,000 mmu cells PO DAILY RF: 0 Referrals: Angelica Best MD [Primary Care Provider] - Femi Lake MD [Physician] -
[2020-11-28 00:41] LABS: COVID19 -Nasal RAPID Negative (Negative)
[2020-11-28] MEDS: SODIUM CHLORIDE 0.9% 1,000 ML 1000 ML IV (00:51)
[2020-11-28] MEDS: KETOROLAC 30 MG/ML VIAL IV (02:37)
[2020-11-28 03:40] VITALS: BP 124/72; PULSE 63; O2SAT 94
[2020-11-28] MEDS: ONDANSETRON 4 MG ODT PREPACK 1 BOTTLE MISC (03:40)
[2020-11-28] MEDS: HYDROCODONE/ACET 5/325 PREPACK 1 BOTTLE MISC (03:40)
== END 2020-11-28 03:51 | disposition home or self-care (01) ==
PROVIDERS: Emergency Provider Emergency Medicine; Family Provider Student in an Organized Health Care Education/Training Program; PCP Student in an Organized Health Care Education/Training Program
DX: N20.1 Calculus of ureter (principal); R79.89 Other specified abnormal findings of blood chemistry; R51.9 Headache, unspecified; Z20.822 Contact with and (suspected) exposure to COVID-19
CPT/HCPCS: 36415; 74177; 80053; 81003; 83690; 85025; 87635; 96361; 96374; 99284; C9803; J1885; Q9967

== ENCOUNTER → 2020-12-15 12:58 | Outpatient (CLI) | payer OTHER, MEDICAID, SELFPAY ==
[2020-07-29 16:39] VITALS: BMI 22.4
--- NOTE | 2020-12-15 13:01 | DI.ECHO.S_ITS ---
[facility] +---------+ : : [address] : [place] : : : : [id number] : : : : Phone: [phone]---------+ Echocardiogram Report + + :Name: GERALDINE BANUELOS Study Date: 12/15/2020 Height: 63 in : :[facility] ReadingLocation: Weight: 138 lb : : Gender: Female BSA: 1.7 m2 : :: 1960 Age: 60 yrs BP: 121/85 mmHg: :Reason For Study: CARDIOTOXIC CHEMOTHERAPY : :Ordering Physician: WOLFGANG, : :FERNANDO Performed By: Marion Buitrago : :Referring: FERNANDO GOSS : + + Interpretation Summary The ejection fraction is estimated to be 60-65%. Left ventricular global longitudinal strain average is -22.4%. Left ventricular wall motion is normal. There is mild mitral regurgitation. There is trace aortic regurgitation. Procedure: A two-dimensional transthoracic echocardiogram with color flow and Doppler was performed. The study quality was technically adequate. There is no prior echocardiogram noted for this patient. The patient was in sinus bradycardia with heart rates between 50-60 bpm during the exam. Left Ventricle: The left ventricle is normal in size and wall thickness. The ejection fraction is estimated to be 60-65%. Left ventricular global longitudinal strain average is -22.4%. Previous global longitudinal strain average was -20.4% on 06/26/2020. Left ventricular wall motion is normal. Right Ventricle: The right ventricle is normal in size and function. Atria: The left atrial size is normal. Right atrial size is normal. There is no Doppler evidence for an interatrial shunt. Mitral Valve: The mitral valve is normal in structure and function. There is mild mitral regurgitation. Aortic Valve: The aortic valve is trileaflet. The aortic valve opens well. There is no aortic valve stenosis. There is trace aortic regurgitation. Tricuspid Valve: The tricuspid valve is normal in structure and function. There is trace tricuspid regurgitation. Pulmonary artery pressures cannot be estimated because of the lack of a measurable TR jet velocity but the IVC suggests a CVP of around 3 mmHg. Pulmonic Valve: The pulmonic valve leaflets are thin and pliable; valve motion is normal. There is trace pulmonic regurgitation. Great Vessels: The aortic root is normal size. The dimensions of the ascending aorta are normal. The IVC is of normal diameter and collapses greater than 50% with a sniff. This suggests a low right atrial pressure of 3 mm Hg. Pericardium/ Pleura There is no pericardial effusion. There is no pleural effusion. MMode/2D Measurements & Calculations LVIDd: 4.4 cm LVOT diam: 2.0 cm LVIDs: 3.0 cm Ao root diam: 3.1 cm FS: 32.6 % asc Aorta Diam: 2.9 cm EPSS: 1.2 cm Ao Arch Diam (Prox Trans): 3.0 cm IVSd: 0.84 cm LVPWd: 0.79 cm LV spaulding. diameter/BSA (cm/m^2): 2.7 LV sys. diameter/BSA (cm/m^2): 1.8 LA A2 area: 11.8 cm2 RA long axis: 4.4 cm LA A4 area: 13.2 cm2 RA area: 13.5 cm2 LA length (vol): 4.6 cm RA vol: 35.1 ml LA vol: 28.7 ml RA : 21.3 ml/m2 LA vol index: 17.4 ml/m2 IVC diam: 1.7 cm RVD1 (basal): 2.8 cm TAPSE: 1.6 cm Doppler Measurements & Calculations Ao V2 max: 120.9 cm/sec LVOT Max Giovani: 108.5 cm/sec Ao V2 mean: 75.0 cm/sec LV V1 max P.7 mmHg Ao max P.8 mmHg LV V1 VTI: 20.2 cm Ao mean P.6 mmHg GENIA(I,D): 2.8 cm2 Ao V2 VTI: 21.7 cm GENIA(V,D): 2.7 cm2 sev ratio: 0.93 GENIA indexed to BSA (cm^2/m^2): 1.7 MV E max giovani: 46.4 cm/sec PA V2 max: 70.3 cm/sec MV A max giovani: 58.5 cm/sec PA V2 mean: 44.8 cm/sec MV E/A: 0.79 PA mean P.96 mmHg Med Peak E' Giovani: 7.5 cm/sec PA pr(Accel): 10.5 mmHg E/E' med: 6.2 Lat Peak E' Giovani: 9.4 cm/sec E/E' lat: 4.9 E/e' average: 5.6 MV dec time: 0.35 sec SVLVOT): 61.1 ml Reading Physician:03:30 PM
--- NOTE | 2020-12-15 13:01 | DI.MRI.S_ITS ---
BREAST MRI OF BOTH BREASTS- POST MASTECTOMY: 12/15/2020 CLINICAL: Follow up breast cancer. INDICATIONS: breast cancer TECHNIQUE: The patient was placed prone in a dedicated breast imaging coil. Precontrast axial STIR and 3D FLASH without fat saturation sequences were obtained. Both before and after bolus injection of contrast, sequential 1-minute axial 3D FLASH with fat saturation sequences for 3 time points, with subtraction images and maximum intensity projections (MIP's) generated. Delayed sagittal FLASH images with fat saturation were also obtained. 20 cc ProHance gadolinium based IV contrast was administered without complication. Computer-aided detection, including computer algorithm analysis of MRI image data for lesion detection and characterization, pharmacokinetic analysis, with further physician review for interpretation, was performed. COMPARISON: [facility], US, US AXILLARY ONLY RT, 06/25/2020, 11:06. [facility], MR, MR BREAST BI WO/W CON, 08/09/2019, 9:37. FINDINGS: Image quality: Adequate. There is motion artifact on a few sequences.. Right breast: Surgically absent. No suspicious chest wall enhancement. Left breast: Surgically absent. No suspicious chest wall enhancement. Miscellaneous: No right axillary lymph nodes are visible. Micro metallic artifact of prior axillary dissection is seen. There are a few left axillary lymph nodes, the largest measuring five and 6 mm in short axis. There is minor enhancement along the right anterior pleural surface suggesting radiation fibrosis. palpable abnormality IMPRESSION: NEGATIVE 1. Status post bilateral mastectomy and right axillary dissection. 2. No evidence of residual or recurrent disease. 3. Benign appearing left axillary lymph nodes. 4. Expected right pleural enhancement consistent with radiation change. BIRADS one, negative COMMENT: The imaging literature indicates that a negative contrast breast MRI examination has a high sensitivity and a moderate specificity for detecting and excluding invasive carcinomas to a detection threshold of 3-5 mm; nonetheless, appropriate clinical and mammographic follow-up are recommended. MRI is not sensitive for detecting DCIS (ductal carcinoma in situ) and may not detect large invasive neoplasms that show only minimal enhancement such as mucinous carcinoma. If there are suspicious calcifications or clinically worrisome palpable masses, then biopsy should still be considered. Invasive neoplasms can be hidden by co-existent and benign enhancement caused by mastitis, hormone therapy effects, radiation therapy, , and recent biopsy or surgery. False positive examinations can occur in a number of circumstances, including breasts that have recently been subject to invasive procedures and those that contain atypical ductal hyperplasia, hormonally stimulated glandular tissue, fat necrosis, or radial scars. This exam was interpreted at Station ID: [id number]. Electronically Signed By: Jessica ochoa/:12/15/2020 16:37:13 Entry: - 12/16/2020 05:48:23 ACR BI-RADS Category 1: Negative [id number]
== END ==
PROVIDERS: Family Provider Student in an Organized Health Care Education/Training Program; PCP Student in an Organized Health Care Education/Training Program; Referring Provider Internal Medicine Hematology & Oncology; Visit Provider Internal Medicine Hematology & Oncology
DX: C50.911 Malignant neoplasm of unspecified site of right female breast (principal); I34.0 Nonrheumatic mitral (valve) insufficiency; Z92.21 Personal history of antineoplastic chemotherapy; Z90.13 Acquired absence of bilateral breasts and nipples
CPT/HCPCS: 77049; 93306; A9579

== ENCOUNTER → 2021-01-27 07:45 | Outpatient (CLI) | payer OTHER, MEDICAID, SELFPAY ==
[2020-07-29 16:39] VITALS: BMI 22.4
--- NOTE | 2021-01-27 07:46 | DI.MRI.S_ITS ---
PROCEDURE: MR HEAD/BRAIN WO/W CON INDICATIONS: Change in mental status, breast cancer TECHNIQUE: Noncontrast axial T1 spin echo, axial T2 fast spin echo, sagittal and axial FLAIR, coronal T2 fast spin echo, axial gradient echo, axial diffusion and ADC through the brain. After the administration of contrast, axial and coronal 3D VIBE or T1 spin echo with fat saturation through the brain. COMPARISON: [facility], CT, CT HEAD/BRAIN WO CON, 04/05/2019, 12:15. FINDINGS: These images demonstrate multiple enhancing brain intraparenchymal masses, highly consistent for metastatic disease in this patient with a history of breast cancer. The largest mass in the right frontal lobe measuring approximately 5.1 x 3.6 x 4.4 centimeters AP LR CC dimension. There is another mass in the left frontal lobe which measures approximately 2.7 x 2.3 x 2.3 centimeters AP LR C dimension. This mass is mostly intraparenchymal however there is extension into the extra-axial space along the superior and lateral aspects, with p.o. All/subarachnoid as well as probable probable dural involvement. In the anterior left temporal lobe there is a small enhancing mass measuring 1.1 centimeters. All of the masses are associated with adjacent vasogenic edema, which is generally proportional to the size of the mass. The vasogenic edema is most pronounced in the right frontal lobe, producing right to left midline/subfalcine shift in addition to complete effacement of the right frontal horn lateral ventricle and near complete effacement of the left frontal horn lateral ventricle. Third ventricle is slit like and almost entirely effaced due to mass effect from the vasogenic edema on the right basal ganglia structures. Mild right uncal herniation with trace effacement of the right ambient and perimesencephalic cisterns. There is a small amount of susceptibility artifact within the enhancing regions of the frontal lobe metastases likely representing punctate hemorrhages. There is no restricted diffusion to indicate recent ischemia. Mild chronic microvascular ischemic changes are present. The major intracranial vascular flow-related signal voids are maintained. IMPRESSION: Three enhancing intraparenchymal masses consistent with metastatic lesions in this patient with a history of breast cancer. All lesions associated with adjacent vasogenic edema, severe in the right frontal lobe mass , producing subfalcine and uncal herniation with near complete effacement of 3rd ventricle. Emergent neuro surgical consultation recommended. Findings were discussed with Dr. Cornelius at 9:10 a.m. on 01/27/2021. Dictated by: Israel Holloway M.D. on 01/27/2021 at 9:06 Approved by: Israel Holloway M.D. on 01/27/2021 at 9:17
== END ==
PROVIDERS: Family Provider Student in an Organized Health Care Education/Training Program; PCP Student in an Organized Health Care Education/Training Program; Referring Provider Internal Medicine Hematology & Oncology; Visit Provider Internal Medicine Hematology & Oncology
DX: C50.911 Malignant neoplasm of unspecified site of right female breast (principal); R41.82 Altered mental status, unspecified; G93.9 Disorder of brain, unspecified; G93.6 Cerebral edema
CPT/HCPCS: 70553

== ENCOUNTER 2021-01-27 09:38 | Emergency (ER) | payer OTHER, MEDICAID, SELFPAY ==
[2020-07-29 16:39] VITALS: BMI 22.4
[2021-01-27] VITALS (10 sets, daily range): BP systolic 125–158; BP diastolic 63–75; PULSE 47–53; RESP 18; O2SAT 95–97; BMI 24.3
--- NOTE | 2021-01-27 09:59 | ED.NEUROSD ---
HPI - Neuro Symptoms/Deficit General Chief Complaint: Neuro Symptoms/Deficit Stated Complaint: MRI results suggest an issue Time Seen by Provider: 01/27/21 09:41 Source: patient and family Mode of arrival: Ambulatory Limitations: altered mental status History of Present Illness HPI Narrative: 61-year-old female smoker with history of breast cancer most recently treated by chemotherapy earlier in the year presents from diagnostic imaging for evaluation of abnormal findings on her brain MRI. For the past week or so she has become increasingly confused and has had issues with balance, speech and frontal headaches. She had an outpatient MRI ordered this morning and radiologist sent her here after finding enhancing intraparenchymal masses consistent with metastatic lesions. On Anticoagulants: No Related Data Home Medications Medication Instructions Recorded Confirmed levothyroxine 50 mcg tablet 50 mcg PO DAILY 03/08/19 11/03/20 lactobacillus comb no.10 20 20,000 mmu cells PO DAILY 09/18/19 11/03/20 billion cell capsule (Probiotic) dexamethasone 4 mg tablet 4 mg PO BID 08/01/20 11/03/20 Previous Rx's Medication Instructions Recorded hydrocodone 7.5 mg-acetaminophen 1 tab PO Q4H PRN #60 tab 09/24/19 325 mg tablet ([place]) omeprazole 20 mg capsule,delayed 20 mg PO DAILY #30 cap 04/21/20 release citalopram 20 mg tablet 20 mg PO DAILY #30 tab 07/14/20 hydrocodone 5 mg-acetaminophen 325 1 tab PO Q4-6H PRN #7 tab 11/28/20 mg tablet lorazepam 0.5 mg tablet 0.5 mg PO DAILY PRN #30 tab 01/19/21 gabapentin 300 mg capsule 300 mg PO BID #60 cap 01/22/21 Allergies Allergy/AdvReac Type Severity Reaction Status Date / Time chlorhexidine Allergy Mild Rash Verified 08/01/20 13:38 Review of Systems Review of Systems Narrative: GENERAL: Denies chills, fatigue, malaise, fever, sweats. HEENT: Denies sinus pain, ear pain, sore throat, difficulty swallowing, dizziness. RESPIRATORY: Denies dyspnea, cough, wheezing, hemoptysis, sputum. CARDIOVASCULAR: Denies chest pain, palpitations, orthopnea, edema, GASTROINTESTINAL: Denies nausea, vomiting, abdominal pain, diarrhea, constipation, melena. : Denies dysuria, frequency, incontinence, hematuria, urinary retention. MUSCULOSKELETAL: denies weakness, joint pain, or bony pain SKIN: Denies rash, skin lesions, or other NEUROLOGIC: See HPI PSYCHIATRIC: No concerning psychosocial issues. 12 point review of systems is negative except for those stated above Hematologic/Lymphatic On Anticoagulants: No Patient History Medical History (Updated 01/27/21 @ 10:58 by Abisai Medley DO) Arthritis Bowel obstruction Breast cancer Current every day smoker Eczema Hypothyroidism Sinus drainage Surgical History H/O: hysterectomy (1985) History of breast biopsy History of colonoscopy (2017) History of tonsillectomy Hx of oral surgery (02/24/19) S/P mastectomy, bilateral Family History Father Leukemia Family/Other Breast cancer Mother Uterine cancer Grandmother Diabetes mellitus Daughter Diabetes mellitus Sister Breast cancer Social History household members: none Smoking Status: Current every day smoker alcohol intake: current substance use type: does not use Smoking Status: Current every day smoker tobacco type: cigarettes alcohol intake frequency: holidays/special occasions only Substance Use Type: does not use Exam Narrative Exam Narrative: GENERAL: [61] year old patient appears stated age. Well-developed patient, in mild distress. Flat affect, GCS 15 HEAD: Atraumatic. Normocephalic. EYES: Pupils equal round and reactive. Extraocular motions intact. No scleral icterus. No injection or drainage. ENT: Nose without bleeding, purulent drainage. Throat without erythema, tonsillar hypertrophy or exudate. Airway patent. NECK: Trachea midline. Non tender CARDIOVASCULAR: Regular rate and rhythm without murmurs, gallops, or rubs. RESPIRATORY: Clear to auscultation. Breath sounds equal bilaterally. No wheezes, rales, or rhonchi. GASTROINTESTINAL: Abdomen soft, non-tender, nondistended. EXTREMITIES: No edema or joint tenderness. BACK: Nontender without deformity or crepitance. No flank tenderness. NEURO: AOx3. SKIN: No rash or erythema of visible areas Initial Vital Signs Initial Vital Signs: Vital Signs Pulse Rate 49 L 01/27/21 09:48 Pulse Oximetry 97 01/27/21 09:48 Course Orders Ordered: Discontinued Medications Dexamethasone (Dexamethasone 10 Mg/Ml Vial) 8 mg IV NOW ONE Stop: 01/27/21 10:30 Last Admin: 01/27/21 11:04 Dose: 8 mg Documented by: CLOVIS Consultations Consultation #1: call to Dr. Coppola (Med Onc) recommends Decadron 8mg IVP, call to [facility] [place] Consultation #2: call to [facility] regarding transfer given masses with swelling and early herniation. Dr. Contreras accepts in ED. ALNW activated. Images have been pushed, face sheet sent. ALNW necessity form sent Vital Signs Vital signs: Vital Signs - 8 hr 01/27/21 11:30 01/27/21 11:31 01/27/21 11:52 Pulse Rate 53 L 53 L 51 L Blood Pressure 135/63 145/66 H Pulse Oximetry 97 96 96 01/27/21 12:00 Pulse Rate 53 L Blood Pressure 152/63 H Pulse Oximetry 95 MDM - Neuro Symptoms/Deficit Lab Data Result diagrams: 01/27/21 10:15 01/27/21 10:15 Labs: Lab Results 01/27/21 01/27/21 01/27/21 Range/Units 10:15 10:15 10:15 WBC 9.6 (4.5-11.0) X10^3/uL RBC 4.31 (4.0-5.2) X10^6/uL Hgb 13.0 (12.0-16.0) g/dL Hct 39.9 (36-46) % MCV 92.6 (80-100) fL MCH 30.3 (26-34) PG MCHC 32.7 (30-36) % RDW 15.0 H (11.6-14.8) % Plt Count 216 (150-400) X10^3/uL Neut % (Auto) 72.8 (50-75) % Lymph % (Auto) 15.3 L (25-40) % [place] % (Auto) 7.9 (3-14) % Eos % (Auto) 3.1 (2-4) % Baso % (Auto) 0.9 (0-2) % Neut # (Auto) 7000 (9317-8981) /uL Lymph # (Auto) 1500 (3916-5987) /uL [place] # (Auto) 800 (0-900) /uL Eos # (Auto) 300 (0-450) /uL Baso # (Auto) 100 (0-100) /uL Sodium 141 (137-145) mmol/L Potassium 4.1 (3.4-5.1) mmol/L Chloride 108 H (98-107) mmol/L Carbon Dioxide 30 (22-32) mmol/L BUN 18 H (7-17) mg/dL Creatinine 0.76 (0.52-1.04) mg/dL Estimated GFR > 60.0 (>60) mL/min BUN/Creatinine Ratio 23.7 H (6-22) Glucose 92 (80-110) mg/dL Calcium 9.1 (8.4-10.2) mg/dL Magnesium 1.8 (1.6-2.3) mg/dL Total Bilirubin 0.4 (0.2-1.3) mg/dL AST 33 (14-36) IU/L ALT 19 (<35) IU/L Alkaline Phosphatase 57 (38-126) U/L Total Protein 6.7 (6.3-8.2) g/dL Albumin 3.8 (3.5-5.0) g/dL Globulin 2.9 (1.7-4.1) g/dL Albumin/Globulin Ratio 1.3 (1.0-2.8) SARS-CoV-2 (PCR) Negative (Negative) Imaging Data Brain MRI: Radiologist's Impression: Chelo Ruiz??61??F??1960 ? Allergy/Adv: chlorhexidine Close Brain MRI (Addendum) Israel Holloway - 01/27/21 Echocardiogram Ultrasound (Signed) Tapan Roche - 12/15/20 Breast MRI (Signed) Jessica Livingston - 12/15/20 Abdomen/Pelvis CT (Signed) Farhad Williamson - 11/28/20 Abdomen/Pelvis CT (Signed) Gabo Ruggiero - 07/17/20 Echocardiogram Ultrasound (Signed) David Zurita - 06/26/20 Axilla US (Signed) Jessica Livingston - 06/25/20 Axilla US (Signed) Doug Montes - 04/09/20 Echocardiogram Ultrasound (Signed) Tapan Roche - 02/27/20 PET, Tumor Imaging Skull-Mid Thigh (Signed) Vinnie Dawson - 11/21/19 Breast MRI (Signed) Doug Montes - 08/09/19 Finger X-Ray (Signed) Asia Chamorroe - 07/08/19 Abdomen Ultrasound (Signed) Gabo Ruggiero - 05/07/19 Breast MRI (Signed) Willian Salmon - 04/20/19 Chest X-Ray (Signed) Gabo Ruggiero - 04/09/[address] (Signed) Vinnie Dawson - 04/05/[address] (Signed) Vinnie Dawson - 04/05/19 Echocardiogram Ultrasound (Signed) Yuko Tucker - 03/29/19 Bone Densitometry 03/29/19 DEXA Result 03/29/19 PET, Tumor Imaging Skull-Mid Thigh (Addendum) Vinnie Dawson - 03/28/19 Bone Scan Nuclear Medicine (Signed) Gabo Ruggiero - 03/21/19 Abdomen/Pelvis CT (Signed) Gabo Ruggiero - 03/21/19 Mammogram Diagnostic (Signed) Call,Farhad - 02/27/19 Breast Biopsy Ultrasound (Signed) Call,Farhad - 02/27/19 Breast Axilla Core Biopsy US (Signed) Call,Farhad - 02/27/19 Peripheral Vascular Ultrasound (Signed) Vinnie Dawson - 02/16/[address] (Signed) Vinnie Dawson - 02/16/19 Chest X-Ray (Signed) Vinnie Dawson - 02/16/19 Breast Ultrasound (Signed) Anders Morataya - 02/12/19 Launch?[place] [address] Magnetic Resonance Report Addendum Patient: Chelo Ruiz MR#: [id number] : 1960 Acct:[id number] Age/Sex: 61 / F Date of Service: 01/27/21 Loc: MRI Accession Number: [id number] ?? Procedure: MR head/brain wo/w con Ordering Provider: Torsten Coppola MD ADDENDUMThis report includes an Addendum and supersedes previous reports for this exam. ? ? ? PROCEDURE:? MR HEAD/BRAIN WO/W CON ? INDICATIONS:? Change in mental status, breast cancer ? TECHNIQUE:? Noncontrast axial T1 spin echo, axial T2 fast spin echo, sagittal and axial FLAIR, coronal T2 fast spin echo, axial gradient echo, axial diffusion and ADC through the brain.? After the administration of contrast, axial and coronal 3D VIBE or T1 spin echo with fat saturation through the brain.? ? COMPARISON:? [facility], CT, CT HEAD/BRAIN WO CON, 04/05/2019, 12:15. ? FINDINGS:? These images demonstrate multiple enhancing brain intraparenchymal masses, highly consistent for metastatic disease in this patient with a history of breast cancer. ? The largest mass in the right frontal lobe measuring approximately 5.1 x 3.6 x 4.4 centimeters AP LR CC dimension. ? There is another mass in the left frontal lobe which measures approximately 2.7 x 2.3 x 2.3 centimeters AP LR C dimension.? This mass is mostly intraparenchymal however there is extension into the extra-axial space along the superior and lateral aspects, with p.o. All/subarachnoid as well as probable probable dural involvement. ? In the anterior left temporal lobe there is a small enhancing mass measuring 1.1 centimeters. ? All of the masses are associated with adjacent vasogenic edema, which is generally proportional to the size of the mass.? The vasogenic edema is most pronounced in the right frontal lobe, producing right to left midline/subfalcine shift in addition to complete effacement of the right frontal horn lateral ventricle and near complete effacement of the left frontal horn lateral ventricle.? Third ventricle is slit like and almost entirely effaced due to mass effect from the vasogenic edema on the right basal ganglia structures. ? Mild right uncal herniation with trace effacement of the right ambient and perimesencephalic cisterns. ? There is a small amount of susceptibility artifact within the enhancing regions of the frontal lobe metastases likely representing punctate hemorrhages. ? There is no restricted diffusion to indicate recent ischemia.? Mild chronic microvascular ischemic changes are present.? The major intracranial vascular flow-related signal voids are maintained. ? IMPRESSION: ? Three enhancing intraparenchymal masses consistent with metastatic lesions in this patient with a history of breast cancer.? All lesions associated with adjacent vasogenic edema, severe in the right frontal lobe mass , producing subfalcine and uncal herniation with near complete effacement of 3rd ventricle.? Emergent neuro surgical consultation recommended.? Findings were discussed with Dr. Cornelius at 9:10 a.m. on 01/27/2021.? ? ? Dictated by: Israel Holloway M.D. on 01/27/2021 at 9:06 ? ? Approved by: Israel Holloway M.D. on 01/27/2021 at 9:17 ? ? ? ADDENDUM: ? Findings are also personally communicated to Dr. Coppola at the time of the study.? The patient was immediately transferred to the emergency department for further workup and treatment.? Findings were personally telephoned and discussed with in the emergency department at the time of the study on 01/27/21. ? ? ? Dictated by: Norberto Etienne M.D. on 01/27/2021 at 9:35 ? ? Approved by: Norberto Etienne M.D. on 01/27/2021 at 9:38 ? Addendum Dictated By: Norberto Etienne MD Addendum Signed By: Addendum Cosigned By: DD/ /12/937 TD/TT: 01/27/2109/12/937 PROCEDURE:? MR HEAD/BRAIN WO/W CON ? INDICATIONS:? Change in mental status, breast cancer ? TECHNIQUE:? Noncontrast axial T1 spin echo, axial T2 fast spin echo, sagittal and axial FLAIR, coronal T2 fast spin echo, axial gradient echo, axial diffusion and ADC through the brain.? After the administration of contrast, axial and coronal 3D VIBE or T1 spin echo with fat saturation through the brain.? ? COMPARISON:? [facility], CT, CT HEAD/BRAIN WO CON, 04/05/2019, 12:15. ? FINDINGS:? These images demonstrate multiple enhancing brain intraparenchymal masses, highly consistent for metastatic disease in this patient with a history of breast cancer. ? The largest mass in the right frontal lobe measuring approximately 5.1 x 3.6 x 4.4 centimeters AP LR CC dimension. ? There is another mass in the left frontal lobe which measures approximately 2.7 x 2.3 x 2.3 centimeters AP LR C dimension.? This mass is mostly intraparenchymal however there is extension into the extra-axial space along the superior and lateral aspects, with p.o. All/subarachnoid as well as probable probable dural involvement. ? In the anterior left temporal lobe there is a small enhancing mass measuring 1.1 centimeters. ? All of the masses are associated with adjacent vasogenic edema, which is generally proportional to the size of the mass.? The vasogenic edema is most pronounced in the right frontal lobe, producing right to left midline/subfalcine shift in addition to complete effacement of the right frontal horn lateral ventricle and near complete effacement of the left frontal horn lateral ventricle.? Third ventricle is slit like and almost entirely effaced due to mass effect from the vasogenic edema on the right basal ganglia structures. ? Mild right uncal herniation with trace effacement of the right ambient and perimesencephalic cisterns. ? There is a small amount of susceptibility artifact within the enhancing regions of the frontal lobe metastases likely representing punctate hemorrhages. ? There is no restricted diffusion to indicate recent ischemia.? Mild chronic microvascular ischemic changes are present.? The major intracranial vascular flow-related signal voids are maintained. ? IMPRESSION: ? Three enhancing intraparenchymal masses consistent with metastatic lesions in this patient with a history of breast cancer.? All lesions associated with adjacent vasogenic edema, severe in the right frontal lobe mass , producing subfalcine and uncal herniation with near complete effacement of 3rd ventricle.? Emergent neuro surgical consultation recommended.? Findings were discussed with Dr. Cornelius at 9:10 a.m. on 01/27/2021.? ? ? Dictated by: Israel Holloway M.D. on 01/27/2021 at 9:06 ? ? Approved by: Israel Holloway M.D. on 01/27/2021 at 9:17 ? Critical Care Time Critical Care Time Critical Care Time: Yes Total Critical Care Time: 30 Attestation: The high probability of a clinically significant, sudden or life threatening deterioration of the [Neuro] system(s) required my full and direct attention, intervention and personal management. The aggregate critical care time was [30] minutes. This time is in addition to time spent performing reported procedures but includes the following: [x] Data Review and interpretation [x] Patient assessment and monitoring of vital signs [x] Documentation [x] Medication orders and management Discharge Plan Departure Patient Disposition: [facility] Clinical Impression: Frontal mass of brain, Herniation of the brain Prescriptions: No Action dexamethasone 4 mg tablet 4 mg PO BID RF: 0 hydrocodone-acetaminophen 5-325 mg tablet 1 tab PO Q4-6H PRN (Reason: pain) Qty: 7 RF: 0 levothyroxine 50 mcg Tablet 50 mcg PO DAILY RF: 0 hydrocodone-acetaminophen [[place]] 7.5-325 mg tablet 1 tab PO Q4H PRN (Reason: post surgical pain) Qty: 60 RF: 0 omeprazole 20 mg Capsule,Delayed Release(Dr/Ec) 20 mg PO DAILY Qty: 30 RF: 0 citalopram 20 mg Tablet 20 mg PO DAILY Qty: 30 RF: 11 lorazepam 0.5 mg Tablet 0.5 mg PO DAILY PRN (Reason: Anxiety) Qty: 30 RF: 0 gabapentin 300 mg Capsule 300 mg PO BID Qty: 60 RF: 1 Probiotic 20 billion cell Capsule 20,000 mmu cells PO DAILY RF: 0 Referrals: Angelica Best MD [Primary Care Provider] -
[2021-01-27 10:26] LABS: Add Manual Diff / Slide Review NO; Basophils Absolute Auto 100 /uL (0-100); Basophils Percent Auto 0.9 % (0-2); Eosinophils Absolute Auto 300 /uL (0-450); Eosinophils Percent Auto 3.1 % (2-4); Hematocrit 39.9 % (36-46); Lymphocytes Absolute Auto 1500 /uL (1100-4500); Lymphocytes Percent Auto 15.3 % (25-40); Mean Corpuscular HGB Conc 32.7 % (30-36); Mean Corpuscular Hemoglobin 30.3 PG (26-34); Mean Corpuscular Volume 92.6 fL (80-100); Monocytes Absolute Auto 800 /uL (0-900); Monocytes Percent Auto 7.9 % (3-14); Neutrophils Absolute Auto 7000 /uL (1500-7000); Neutrophils Percent Auto 72.8 % (50-75); Platelet Count 216 X10^3/uL (150-400); Red Blood Cell Count 4.31 X10^6/uL (4.0-5.2); White Blood Cell Count 9.6 X10^3/uL (4.5-11.0)
[2021-01-27 10:43] LABS: Alanine Aminotransferase 19 IU/L (<35); Albumin 3.8 g/dL (3.5-5.0); Albumin Globulin Ratio 1.3 (1.0-2.8); Alkaline Phosphatase 57 U/L (38-126); Aspartate Aminotransferase 33 IU/L (14-36); BUN Creatinine Ratio 23.7 (6-22); Bilirubin Total 0.4 mg/dL (0.2-1.3); Blood Urea Nitrogen 18 mg/dL (7-17); Calcium 9.1 mg/dL (8.4-10.2); Carbon Dioxide 30 mmol/L (22-32); Chloride 108 mmol/L (98-107); Estimated Glomerular Filt Rate > 60.0 mL/min (>60); Globulin 2.9 g/dL (1.7-4.1); Glucose 92 mg/dL (80-110); HEMOLYSIS < 15 (0-50); Magnesium 1.8 mg/dL (1.6-2.3); Potassium 4.1 mmol/L (3.4-5.1); Sodium 141 mmol/L (137-145); Total Protein 6.7 g/dL (6.3-8.2)
[2021-01-27] MEDS: DEXAMETHASONE 10 MG/ML VIAL 8 MG IV (11:04)
[2021-01-27 11:22] LABS: COVID19 - ADMIT (NP swab/PCR) Negative (Negative)
== END 2021-01-27 12:25 | disposition short-term general hospital (02) ==
PROVIDERS: Emergency Provider Emergency Medicine; Family Provider Student in an Organized Health Care Education/Training Program; PCP Student in an Organized Health Care Education/Training Program
DX: G93.5 Compression of brain (principal); G93.89 Other specified disorders of brain; R41.82 Altered mental status, unspecified; C50.911 Malignant neoplasm of unspecified site of right female breast; Z20.822 Contact with and (suspected) exposure to COVID-19
CPT/HCPCS: 36415; 70553; 80053; 83735; 85025; 87635; 96374; 99284; C9803; J1100

== ENCOUNTER → 2021-02-17 15:45 | Outpatient (CLI) | payer OTHER, MEDICAID, SELFPAY ==
[2020-07-29 16:39] VITALS: BMI 22.4
--- NOTE | 2021-02-17 15:47 | DI.MRI.S_ITS ---
PROCEDURE: MR HEAD/BRAIN WO/W CON INDICATIONS: Metastatic breast cancer TECHNIQUE: Noncontrast axial T1 spin echo, axial T2 fast spin echo, sagittal and axial FLAIR, coronal T2 fast spin echo, axial gradient echo, axial diffusion and ADC through the brain. After the administration of contrast, axial and coronal T1 spin echo with fat saturation through the brain. COMPARISON: [facility], CT, CT HEAD/BRAIN WO CON, 04/05/2019, 12:15. [facility], MR, MR HEAD/BRAIN WO/W CON, 01/27/2021, 8:10. FINDINGS: Image quality: Excellent. CSF spaces: Basal cisterns are patent. Ventricles are normal in size and shape. Brain: Several rim enhancing masses are seen. Within the right frontal lobe, there is a mass now seen measuring 2.3 x 1 9 cm. There is mild surrounding edema. This mass has been partially resected since the prior examination and is improved, but not resolved. Within the region of the left frontal lobe, there is an extra-axial mass seen, with a broad dural tail that measures 2.8 x 2.4 cm in greatest axial dimension. This mass demonstrates relatively prominent surrounding edema. This mass is similar to the prior examination. Within the lateral left temporal lobe, there is an additional mass seen measuring 13 x 11 mm in greatest axial dimension, with moderate surrounding edema. This mass is also similar to the prior examination. A small amount extra-axial fluid can be seen overlying the right frontal lobe, which is attributed to a normal amount of postoperative fluid. No midline shift. There is cerebral volume loss for age. There is periventricular white matter chronic small vessel ischemic change. The brainstem appears normal. Diffusion-weighted images demonstrate no acute ischemic insults. No chronic ischemic insults. Normal intravascular flow voids are present. Skull and face: Right-sided craniotomy changes are seen. Calvarial marrow is normal in signal. Orbits appear normal. Sinuses: Sinuses and mastoids appear clear. A left-sided sharon bullosa is incidentally noted. IMPRESSION: Interval partial resection of the previously seen right frontal lobe mass, with a residual focus of enhancing tumor that measures 2.3 x 1.9 cm in greatest axial dimension. The previously seen mass effect and midline shift have resolved. There is a stable extra-axial mass involving the left frontal lobe, with moderate adjacent edema. A stable left lateral temporal lobe lesion is also seen. Dictated by: Morales Chamorro M.D. on 02/17/2021 at 16:44 Approved by: Morales Chamorro M.D. on 02/17/2021 at 16:50
== END ==
PROVIDERS: Family Provider Student in an Organized Health Care Education/Training Program; PCP Student in an Organized Health Care Education/Training Program; Referring Provider Internal Medicine Hematology & Oncology; Visit Provider Internal Medicine Hematology & Oncology
DX: C50.011 Malignant neoplasm of nipple and areola, right female breast (principal); C79.31 Secondary malignant neoplasm of brain; C77.3 Secondary and unspecified malignant neoplasm of axilla and upper limb lymph nodes; G93.6 Cerebral edema
CPT/HCPCS: 70553; A9579

== ENCOUNTER → 2021-05-26 09:09 | Outpatient (CLI) | payer OTHER, MEDICAID, SELFPAY ==
[2020-07-29 16:39] VITALS: BMI 22.4
--- NOTE | 2021-05-26 09:11 | DI.MRI.S_ITS ---
PROCEDURE: MR HEAD/BRAIN WO/W CON INDICATIONS: metastatic breast cancer TECHNIQUE: Noncontrast axial T1 spin echo, axial T2 fast spin echo, sagittal and axial FLAIR, coronal T2 fast spin echo, axial gradient echo, axial diffusion and ADC through the brain. After the administration of contrast, axial and coronal 3D VIBE or T1 spin echo with fat saturation through the brain. COMPARISON: [facility], MR, MR HEAD/BRAIN WO/W CON, 02/17/2021, 16:04. FINDINGS: Cerebrum, Cerebellum and Brainstem: Within the right full lobe, there is a ring-enhancing lesion now measuring 1.6 by 1.2 cm, previously 2.3 x 1.9 cm. Mild associated vasogenic edema. Persistent dural thickening and enhancement over the anterior right frontal lobe measures up to 4 mm in thickness extends into the interhemispheric fissure. Within the left frontal lobe, there is an extra-axial dural-based mass lesion measuring 1.2 x 1.9 cm, previously 2.8 x 2.4 cm. Dural thickening and enhancement associated with this lesion measures up to 3 mm. Vigorous surrounding vasogenic edema present, improved from the prior exam. Third left temporal parenchymal enhancing nodule measures 0.9 x 0.8 cm, previously 1.3 x 1.1 cm. Persistent but improved surrounding vasogenic edema noted. Otherwise, no evidence of parenchymal hemorrhage or midline shift. Diffusion sequence unremarkable without acute infarct. Mild atrophy and multifocal white matter chronic ischemic change noted. Ventricles: Appropriate in size and position. No hydrocephalus. Skull Base: The bony sella, pituitary gland and infundibulum are unremarkable. Clivus and craniovertebral relationships are appropriate. Visualized portions of the seventh and eighth cranial nerve complexes and internal auditory canals are within normal limits. Scalp and Calvarium: Right frontal craniotomy secured by 2 round plates. Remainder of the calvarium unremarkable. Paranasal Sinuses: Visualized sinuses are clear. Mastoids: Unremarkable as visualized. No mastoid effusion present. Orbits: The orbits, globes and ocular muscles are unremarkable. IMPRESSION: Three intracranial metastatic lesions all show improvement in size and surrounding vasogenic edema. No acute infarct, hemorrhage or midline shift. Approved by: Chaparro Schafer M.D. on 05/26/2021 at 13:51
--- NOTE | 2021-05-26 09:11 | DI.CT.S_ITS ---
PROCEDURE: CT CHEST ABD PEL W CON INDICATIONS: metastatic breast cancer TECHNIQUE: After the administration of oral and intravenous contrast, axial sections acquired from the supraclavicular neck to the pubic symphysis. Coronal and sagittal reformats were performed. For radiation dose reduction, the following was used: automated exposure control, adjustment of mA and/or kV according to patient size. COMPARISON:[place], [place] PET CT FUSION SKULL 2 THIGH, 11/21/2019, 16:09. [facility], MR, MR HEAD/BRAIN WO/W CON, 02/17/2021, 16:04. [place], [place], CT PET CT FUSION SKULL 2 THIGH, 02/18/2021, 10:31. [facility], CT, CT ABDOMEN PELVIS W CON, 11/28/2020, 0:50. [facility], CT, CT ABDOMEN PELVIS W CON, 07/17/2020, 10:02. FINDINGS: Image quality: Excellent. CHEST: Lower Neck: No enlarged lymph nodes. Thyroid: Within normal limits. Axillae: No enlarged lymph nodes. Chest Wall: Bilateral mastectomies. No recurrent mass in chest wall. Lungs and Airways: There are small nodules or nodular infiltrates in upper lobes bilaterally. Mild subpleural septal thickening in anterior right upper lobe. Pleura: No pneumothorax or pleural effusions. Heart: Heart size is normal. No pericardial effusion. Thoracic Vessels: The aorta and pulmonary arteries demonstrate normal size. Mediastinum and Martha: No enlarged lymph nodes. Esophagus: No wall thickening. No small hiatal hernia. ABDOMEN: Liver: Unremarkable. Gallbladder: Unremarkable. Biliary ducts: Unremarkable. Pancreas: Unremarkable. Spleen: Normal in size. There is a small splenule adjacent to the inferior aspect of the spleen. Adrenal Glands: Unremarkable. Kidneys and Ureters: Normal size and enhancement. There is a 2.6 x 3.4 cm cyst in left kidney. No hydronephrosis. Stomach and Bowel: Stomach, small bowel loops, and colon are normal in caliber. Mild wall thickening in descending and sigmoid colon Peritoneum: No abnormal intraperitoneal fluid. No free air. Ventral Wall: No hernia. Abdominal Nodes: No retroperitoneal or mesenteric adenopathy by size criteria. Vessels: Aorta and inferior vena cava are normal in size. PELVIS: Pelvic Organs: Unremarkable. Bladder: Unremarkable. Pelvic Nodes: No enlarged lymph nodes. Miscellaneous: No inguinal hernias are seen. Bones: Scoliosis. Degenerative changes in thoracic and lumbar spine IMPRESSION: 1. No recurrent or metastatic disease in thorax, abdomen or pelvis. 2. Small nodules or nodular infiltrates in upper lobes bilaterally, most likely infectious or inflammatory etiology. 3. Subpleural septal thickening in anterior right upper lobe, most likely sequelae of prior post radiation change. Dictated by: Ar Dawson M.D. on 05/26/2021 at 11:56 Approved by: Ar Dawson M.D. on 05/26/2021 at 12:48
== END ==
PROVIDERS: Family Provider Student in an Organized Health Care Education/Training Program; PCP Student in an Organized Health Care Education/Training Program; Referring Provider Internal Medicine Hematology & Oncology; Visit Provider Internal Medicine Hematology & Oncology
DX: C50.011 Malignant neoplasm of nipple and areola, right female breast (principal); C79.31 Secondary malignant neoplasm of brain; R91.8 Other nonspecific abnormal finding of lung field; G93.6 Cerebral edema; Z17.0 Estrogen receptor positive status [ER+]
CPT/HCPCS: 70553; 71260; 74177; A9579; Q9967

== ENCOUNTER → 2021-06-05 09:37 | Outpatient (CLI) | payer OTHER, MEDICAID, SELFPAY ==
[2020-07-29 16:39] VITALS: BMI 22.4
--- NOTE | 2021-06-05 09:39 | DI.US.S_ITS ---
PROCEDURE: US SOFT TISSUE HEAD AND NECK INDICATIONS: large swollen area on left side of neck TECHNIQUE: Real-time scanning was performed of the neck region of interest, with image documentation. COMPARISON: None. FINDINGS: 4.4 x 1.2 x 1.4 cm soft tissue mass present within the left lateral posterior neck corresponding to the palpable abnormality. Mild amount of internal vascularity present. IMPRESSION: Nonspecific complex, predominantly solid mass corresponding to the palpable abnormality. Underlying neoplasm cannot be excluded. If indicated, contrast enhance soft tissue neck CT scan could be performed or alternatively sonographically directed percutaneous biopsy. Dictated by: Damaso FAULKNER Interpreted: Israel Holloway MD on 06/05/2021 at 14:40 Transcribed by: TAE on 06/05/2021 at 14:42 Approved by: Israel Holloway M.D. on 06/05/2021 at 16:48
== END ==
PROVIDERS: Family Provider Student in an Organized Health Care Education/Training Program; PCP Student in an Organized Health Care Education/Training Program; Referring Provider Internal Medicine Hematology & Oncology; Visit Provider Internal Medicine Hematology & Oncology
DX: C50.011 Malignant neoplasm of nipple and areola, right female breast (principal); C79.31 Secondary malignant neoplasm of brain; M79.89 Other specified soft tissue disorders; Z90.13 Acquired absence of bilateral breasts and nipples
CPT/HCPCS: 76536

== ENCOUNTER → 2021-06-18 12:59 | Outpatient (CLI) | payer OTHER, MEDICAID, SELFPAY ==
[2020-07-29 16:39] VITALS: BMI 22.4
--- NOTE | 2021-06-18 13:01 | DI.CT.S_ITS ---
PROCEDURE: CT SOFT TISSUE NECK W CON INDICATIONS: mass in neck TECHNIQUE: After the administration of intravenous contrast, 3.0 mm axial sections acquired from the sella to the aortic arch. Additional oblique axial 3.0 mm sections acquired through the pharynx. 3 mm thick coronal and sagittal reformats were generated. For radiation dose reduction, the following was used: automated exposure control. COMPARISON: [facility], US, US SOFT TISSUE HEAD AND NECK, 06/05/2021, 10:14. [facility], MR, MR HEAD/BRAIN WO/W CON, 05/26/2021, 9:24. FINDINGS: Image quality: Excellent. Lymph nodes: No enlarged lymph nodes seen throughout the neck. Vessels: Visualized vasculature appears patent. Neck spaces: The oropharynx, nasopharynx, and pharynx demonstrate no mucosal lesions. The vocal cords, false vocal cords, pyriform sinuses, epiglottis, vallecula, and tongue base all appear normal. Extramucosal spaces appear unremarkable. No abnormal mass, abnormal fluid collections, soft tissue inflammation or abnormal postcontrast enhancement identified deep to metallic BB localizer placed over the anterior, superior and medial margin of the left trapezius muscle. Glands: The parotid and submandibular glands appear normal. Thyroid gland is normal. Miscellaneous: Partially visualized enhancing mass in the right frontal lobe is not significantly changed compared to prior MRI. Visualized orbits appear normal. Lung apices appear clear. Port-A-Cath noted in the left chest wall. Superficial soft tissues appear normal. Bones: Partially visualized postsurgical changes compatible with prior right pterional craniotomy. No suspicious bony lesions. Spine degenerative disc disease and facet arthropathy. Visualized sinuses and mastoids appear unremarkable. IMPRESSION: 1. No discrete mass identified in the region of localizer placed over reported clinically palpable mass at the anterior, superior medial margin of the left trapezius muscle. No abnormal mass identified by CT imaging that would correspond to sonographic abnormality. Recommend MRI of the neck with and without contrast for additional evaluation. 2. No lymphadenopathy based on size criteria. 3. No mucosal-based mass. Dictated by: Gely Horton MD, PhD on 06/18/2021 at 16:29 Approved by: Gely Horton MD, PhD on 06/18/2021 at 16:39
== END ==
PROVIDERS: Family Provider Student in an Organized Health Care Education/Training Program; PCP Student in an Organized Health Care Education/Training Program; Referring Provider Internal Medicine Hematology & Oncology; Visit Provider Internal Medicine Hematology & Oncology
DX: C50.911 Malignant neoplasm of unspecified site of right female breast (principal); R22.1 Localized swelling, mass and lump, neck
CPT/HCPCS: 70491; Q9967

== ENCOUNTER → 2021-06-30 17:28 | Outpatient (CLI) | payer OTHER, MEDICAID, SELFPAY ==
[2020-07-29 16:39] VITALS: BMI 22.4
--- NOTE | 2021-06-30 17:35 | DI.MRI.S_ITS ---
PROCEDURE: MR ORBITS FACE NECK WO/W CON INDICATIONS: left supraclavicular soft tissue mass with mild tenderness TECHNIQUE: Sagittal/axial/coronal T1 spin echo and STIR. After the administration of contrast, axial/coronal/sagittal T1 fast spin echo with fat saturation through the neck. COMPARISON: [facility], NM, NM PET CT FUSION SKULL 2 THIGH, 02/18/2021, 10:31. [facility], US, US SOFT TISSUE HEAD AND NECK, 06/05/2021, 10:14. [facility], CT, CT SOFT TISSUE NECK W CON, 06/18/2021, 13:09. FINDINGS: Image quality: Excellent. Lymph nodes: No enlarged nodes are seen throughout the neck. Vessels: Visualized vasculature appears normal, with normal flow voids and enhancement. Neck spaces: The oropharynx, nasopharynx and pharynx are unremarkable, without mucosal lesions seen. Vocal cords, false vocal cords, pyriform sinuses, epiglottis, vallecula, and tongue base all appear normal. Extramucosal spaces of the neck also appear unremarkable. No abnormal mass or postcontrast enhancement identified in the region of marker placed over clinically palpable lesion in the left supraclavicular fossa . Glands: The parotid and submandibular glands appear normal. Thyroid gland is within normal limits. Miscellaneous: Visualized brain and orbits appear normal. Lung apices appear clear. Superficial soft tissues appear normal. Visualized sinuses and mastoids appear clear. Port-A-Cath noted in the left chest wall. Bones: Marrow has normal overall signal. Spine degenerative disc disease and facet arthropathy. IMPRESSION: 1. No abnormal mass or suspicious postcontrast enhancement identified deep to localizer placed over clinically palpable mass in the medial margin of the left supraclavicular fossa. Decision to biopsy clinically palpable lesion should be based on clinical assessment. 2. No lymphadenopathy based on size criteria. 3. No mucosal based mass. Dictated by: Gely Horton MD, PhD on 07/01/2021 at 10:58 Approved by: Gely Horton MD, PhD on 07/01/2021 at 11:13
== END ==
PROVIDERS: Family Provider Student in an Organized Health Care Education/Training Program; PCP Student in an Organized Health Care Education/Training Program; Referring Provider Internal Medicine Hematology & Oncology; Visit Provider Internal Medicine Hematology & Oncology
DX: C50.911 Malignant neoplasm of unspecified site of right female breast (principal); R22.1 Localized swelling, mass and lump, neck
CPT/HCPCS: 70543; A9579

== ENCOUNTER → 2021-07-30 11:11 | Outpatient (CLI) | payer OTHER, MEDICAID, SELFPAY ==
[2020-07-29 16:39] VITALS: BMI 22.4
--- NOTE | 2021-07-30 11:19 | DI.CT.S_ITS ---
PROCEDURE: CT SINUS SCREEN WO CON INDICATIONS: Chronic pansinusitis TECHNIQUE: Noncontrast 3.0 mm axial images acquired from the frontal sinuses to the mid-sella, with coronal and sagittal reformats. For radiation dose reduction, the following was used: automated exposure control, adjustment of mA and/or kV according to patient size. COMPARISON: None. FINDINGS: Image quality: Excellent. Sinuses: Mild scattered mucosal thickening is present within the frontal sinuses as well as ethmoid air cells and left sphenoid sinus. No fluid levels, mucous retention cysts or polyps. Ostiomeatal Complexes: Ostiomeatal complexes are patent. Mild mucosal thickening is noted on the left. Miscellaneous: Visualized intra-orbital contents are normal. There is a left sharon bullosa without paradoxical turbinate curvature. Minimal rightward nasal septal deviation. IMPRESSION: Minimal scattered mucosal thickening as above. Ostiomeatal complexes are patent with mild mucosal thickening on the left. Dictated by: Romina Villanueva M.D. on 07/30/2021 at 16:02 Approved by: Romina Villanueva M.D. on 07/30/2021 at 16:37
== END ==
PROVIDERS: Family Provider Student in an Organized Health Care Education/Training Program; PCP Student in an Organized Health Care Education/Training Program; Referring Provider Otolaryngology; Visit Provider Otolaryngology
DX: C50.919 Malignant neoplasm of unspecified site of unspecified female breast (principal); J32.4 Chronic pansinusitis; J34.89 Other specified disorders of nose and nasal sinuses
CPT/HCPCS: 70486

== ENCOUNTER → 2021-08-17 14:07 | Outpatient (CLI) | payer OTHER, MEDICAID, SELFPAY ==
[2020-07-29 16:39] VITALS: BMI 22.4
--- NOTE | 2021-08-17 14:08 | DI.MRI.S_ITS ---
PROCEDURE: MR HEAD/BRAIN WO/W CON INDICATIONS: breast cancer with brain metastasis. TECHNIQUE: Noncontrast axial T1 spin echo, axial T2 fast spin echo, sagittal and axial FLAIR, coronal T2 fast spin echo, axial gradient echo, axial diffusion and ADC through the brain. After the administration of contrast, axial and coronal 3D VIBE or T1 spin echo with fat saturation through the brain. COMPARISON: , CT, CT SINUS SCREEN WO CON, 07/30/2021, 11:18. , MR, MR ORBITS FACE NECK WO/W CON, 06/30/2021, 17:56. , CT, CT SOFT TISSUE NECK W CON, 06/18/2021, 13:09. , US, US SOFT TISSUE HEAD AND NECK, 06/05/2021, 10:14. , CT, CT CHEST ABD PEL W CON, 05/26/2021, 11:03. , MR, MR HEAD/BRAIN WO/W CON, 05/26/2021, 9:24. FINDINGS: Image quality: Excellent. CSF Spaces: Basal cisterns are patent. No extra-axial fluid collections. Ventricles are normal in size and shape. Brain: As identified on prior exam, there is a rim enhancing right frontal lobe lesion seen on series 13, image 94. It measures 1.2 x 0.8 cm compared to 1.6 x 1.2 cm. There is associated vasogenic edema and dural thickening. Vasogenic edema has increased measuring 4.7 cm x 3.5 cm compared to 3.7 cm x 2.2 cm. Dural thickening has decreased in size measuring approximately 3 mm compared to 4 mm. Within the left frontal lobe on series 13, image 115, there is an extra-axial dural-based mass measuring 3.1 x 1.8 cm compared to 1.9 x 1.3 cm. There is persistent appearance of dural thickening and enhancement measuring approximately 1-2 mm compared to 3 mm on prior exam. Vasogenic edema is also present, which has markedly increased compared to prior exam measuring approximately a 6.7 x 4.0 cm compared to 4.5 x 2.2 cm.. A left temporal lesion is present on series 13, image 66 measuring 1.4 x 1.4 cm compared to 1.0 x 0.8 cm. Vasogenic edema is also present, appearing slightly more prominent measuring approximately 0.9 x 0.9 cm compared to 0.4 x 0.3 cm. No new areas of abnormal enhancement are identified. Skull and face: Right frontal craniotomy changes are noted. Orbits appear normal. Sinuses: Sinuses and mastoids appear clear. IMPRESSION: Left frontal enhancing lesion increased in size as well as vasogenic edema compared to prior exam concerning for disease progression. Right frontal enhancing lesion slightly decreased in size. However, there is increased vasogenic edema. While this could be treatment related, close interval follow-up is recommended as cannot exclude early appearance of progression prior to increased size of mass lesion. Left temporal lesion is present increased in size as well as vasogenic edema, concerning for disease progression. Dictated by: Romina Villanueva M.D. on 08/17/2021 at 16:13 Approved by: Romina Villanueva M.D. on 08/17/2021 at 16:22
== END ==
PROVIDERS: Family Provider Student in an Organized Health Care Education/Training Program; PCP Student in an Organized Health Care Education/Training Program; Referring Provider Internal Medicine Hematology & Oncology; Visit Provider Internal Medicine Hematology & Oncology
DX: C50.911 Malignant neoplasm of unspecified site of right female breast (principal); C79.31 Secondary malignant neoplasm of brain; G93.6 Cerebral edema
CPT/HCPCS: 70553; A9579

== ENCOUNTER → 2021-12-15 11:21 | Outpatient (CLI) | payer MEDICARE, MEDICAID, SELFPAY ==
[2020-07-29 16:39] VITALS: BMI 22.4
== END ==
PROVIDERS: Family Provider Family Medicine; PCP Family Medicine; Referring Provider Internal Medicine Hematology & Oncology; Visit Provider Family Medicine
DX: S01.00XA Unspecified open wound of scalp, initial encounter (principal); L13.1 Subcorneal pustular dermatitis; C50.919 Malignant neoplasm of unspecified site of unspecified female breast; C79.31 Secondary malignant neoplasm of brain; L08.89 Other specified local infections of the skin and subcutaneous tissue; Z92.3 Personal history of irradiation
CPT/HCPCS: 87070; 87075; 87077; 87147; 87186; 87205; 97597; 97598; 99204; 99213

== ENCOUNTER → 2021-12-26 10:34 | Outpatient (CLI) | payer MEDICARE, MEDICAID, SELFPAY ==
[2020-07-29 16:39] VITALS: BMI 22.4
--- NOTE | 2021-12-26 10:36 | DI.MRI.S_ITS ---
PROCEDURE: MR HEAD/BRAIN WO/W CON INDICATIONS: 61-year-old female with metastatic breast cancer TECHNIQUE: Noncontrast axial T1 spin echo, axial T2 fast spin echo, sagittal and axial FLAIR, coronal T2 fast spin echo, axial gradient echo, axial diffusion and ADC through the brain. After the administration of contrast, axial and coronal and sagittal 3D VIBE or T1 spin echo with fat saturation through the brain. COMPARISON: [facility], MR, MR BRAIN WITH/WITHOUT CONTRAST, 01/29/2021, 22:11. [facility], MR, MR BRAIN WITH/WITHOUT CONTRAST, 11/20/2021, 15:48. [facility], MR, MR HEAD/BRAIN WO/W CON, 08/17/2021, 14:13. FINDINGS: Image quality: Excellent. CSF Spaces: Basal cisterns are patent. No extra-axial fluid collections. Ventricles are normal in size and shape. Brain: Within the right frontal lobe, there is a ring-enhancing metastatic lesion with surrounding vasogenic edema measuring 1.5 x 1.7 cm, previously 1.7 x 1.4 cm. Second left frontal lesion is predominantly extra-axial but also associated with left frontal edema measures 2.1 x 1.0 x 2.7 cm, previously 2.1 x 1.1 cm by similar measurements excluding dural involvement. Additionally, there is dural thickening over the right frontal lobe measuring up to 3.5 mm, similar prior exam. Left temporal lesion now measures 1.1 cm, similar prior Moderate atrophy and multifocal white matter chronic ischemic change noted. Diffusion sequence is normal. Skull and face: Right frontal craniotomy remains unchanged. Right posterior parietal 5 mm enhancing nodule in the diploic space probably reflects a venous Huerta, stable from priors Sinuses: Fluid in the right mastoid may be inflammatory or postinflammatory. IMPRESSION: 1. Stable intracranial metastatic lesions. Right frontal and left temporal parenchymal lesions as well as left frontal extra-axial lesion with surrounding vasogenic edema all remain stable in size and mass effect compared to the most recent prior exam 11/20/2021 Approved by: Chaparro Schafer M.D. on 12/29/2021 at 10:25
== END ==
PROVIDERS: Family Provider Family Medicine; PCP Family Medicine; Referring Provider Internal Medicine Hematology & Oncology; Visit Provider Internal Medicine Hematology & Oncology
DX: C79.31 Secondary malignant neoplasm of brain (principal); C50.911 Malignant neoplasm of unspecified site of right female breast
CPT/HCPCS: 70553; A9579

== ENCOUNTER → 2021-12-29 09:41 | Outpatient (CLI) | payer MEDICARE, MEDICAID, SELFPAY ==
[2020-07-29 16:39] VITALS: BMI 22.4
== END ==
PROVIDERS: Family Provider Family Medicine; PCP Family Medicine; Referring Provider Family Medicine; Visit Provider Family Medicine
DX: S01.00XA Unspecified open wound of scalp, initial encounter (principal); L13.1 Subcorneal pustular dermatitis; C50.919 Malignant neoplasm of unspecified site of unspecified female breast; C79.31 Secondary malignant neoplasm of brain; B95.61 Methicillin susceptible Staphylococcus aureus infection as the cause of diseases classified elsewhere; Z92.3 Personal history of irradiation
CPT/HCPCS: 97597; 99214

== ENCOUNTER → 2022-01-07 14:55 | Outpatient (CLI) | payer MEDICARE, MEDICAID, SELFPAY ==
[2020-07-29 16:39] VITALS: BMI 22.4
--- NOTE | 2022-01-07 14:58 | DI.ECHO.S_ITS ---
[place] [facility]---------+ [facility] +---------+ : : [address] : : : : [id number] : : : : Phone: [phone]+ Echocardiogram Report + + :Name: GERALDINE BANUELOS Study Date: 01/07/2022 Height: 63 in : :[facility] ReadingLocation: Weight: 138 lb : : Gender: Female BSA: 1.7 m2 : :: 1960 Age: 61 yrs BP: 116/83 mmHg: :Reason For Study: HERCEPTIN USE : :Ordering Physician: WOLFGANG, : :FERNANDO Performed By: Marion Buitrago : :Referring: FERNANDO GOSS : + + Interpretation Summary The left ventricle is normal in size and wall thickness. The ejection fraction is estimated to be 55-60%. Left ventricular global longitudinal strain average is -18.9%. 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 There are no focal wall motion abnormalities. Diastolic parameters suggest probable normal left ventricular diastolic function and normal filling pressures. The right ventricle is normal size. Right ventricular systolic function is at the lower limits of normal. The right ventricular systolic pressure is estimated to be at least 27 mmHg based on an estimated right atrial pressure of 8 mm Hg. The left atrial size is normal. Right atrial size is normal. There is no significant valvular heart disease. The aortic root is normal size. Procedure: A two-dimensional transthoracic echocardiogram with color flow and Doppler was performed. The study quality was technically adequate. Comparison is made with the echocardiogram of 12/15/2020. The patient was in sinus rhythm with heart rates between 66-78 bpm during the exam. Left Ventricle: The left ventricle is normal in size and wall thickness. The ejection fraction is estimated to be 55-60%. Left ventricular global longitudinal strain average is -18.9%. 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 There are no focal wall motion abnormalities. Diastolic parameters suggest probable normal left ventricular diastolic function and normal filling pressures. Right Ventricle: The right ventricle is normal size. Right ventricular systolic function is at the lower limits of normal. Atria: The left atrial size is normal. Right atrial size is normal. There is no Doppler evidence for an interatrial shunt. Mitral Valve: The mitral valve leaflets appear borderline thickened, but open well. There is trace mitral regurgitation. Aortic Valve: The aortic valve is trileaflet. The aortic valve opens well. There is no aortic valve stenosis. No aortic regurgitation is present. Tricuspid Valve: The tricuspid valve is normal in structure and function. There is mild tricuspid regurgitation. The right ventricular systolic pressure is estimated to be at least 27 mmHg based on an estimated right atrial pressure of 8 mm Hg. Pulmonic Valve: The pulmonic valve is not well visualized. There is no pulmonic valvular regurgitation. There is no significant valvular heart disease. Great Vessels: The aortic root is normal size. The dimensions of the ascending aorta are normal. The IVC is dilated (diameter is greater than 2.1 cm) yet it collapses greater than 50% with a sniff. This suggests a right atrial pressure of 8 mm Hg. Pericardium/ Pleura There is no pericardial effusion. There is no pleural effusion. MMode/2D Measurements & Calculations LVIDd: 4.3 cm LVOT diam: 2.0 cm LVIDs: 3.0 cm Ao root diam: 2.9 cm FS: 30.4 % asc Aorta Diam: 2.9 cm IVSd: 0.75 cm Ao Arch Diam (Prox Trans): 2.3 cm LVPWd: 0.75 cm LV spaulding. diameter/BSA (cm/m^2): 2.6 LV sys. diameter/BSA (cm/m^2): 1.8 LA A2 area: 16.3 cm2 RA long axis: 4.6 cm LA A4 area: 13.5 cm2 RA area: 13.8 cm2 LA length (vol): 4.7 cm RA vol: 35.1 ml LA vol: 39.5 ml RA : 21.3 ml/m2 LA vol index: 23.9 ml/m2 IVC diam: 2.1 cm RVD1 (basal): 3.0 cm RVD2 (mid): 2.5 cm TAPSE: 1.6 cm Doppler Measurements & Calculations Ao V2 max: 120.4 cm/sec LVOT Max Giovani: 78.0 cm/sec Ao V2 mean: 81.7 cm/sec LV V1 max P.4 mmHg Ao max P.8 mmHg LV V1 VTI: 15.7 cm Ao mean P.0 mmHg GENIA(I,D): 2.1 cm2 Ao V2 VTI: 23.3 cm GENIA(V,D): 2.0 cm2 sev ratio: 0.67 GENIA indexed to BSA (cm^2/m^2): 1.2 MV E max giovani: 55.0 cm/sec TR max giovani: 223.1 cm/sec MV A max giovani: 53.4 cm/sec TR max P.9 mmHg MV E/A: 1.0 PA V2 max: 76.2 cm/sec Med Peak E' Giovani: 6.8 cm/sec PA V2 mean: 54.8 cm/sec E/E' med: 8.1 PA mean P.3 mmHg Lat Peak E' Giovani: 8.6 cm/sec PA pr(Accel): 17.3 mmHg E/E' lat: 6.4 E/e' average: 7.2 MV dec time: 0.31 sec SV(LVOT): 47.9 ml Reading Physician:08:34 AM
== END ==
PROVIDERS: Family Provider Family Medicine; PCP Family Medicine; Referring Provider Internal Medicine Hematology & Oncology; Visit Provider Internal Medicine Hematology & Oncology
DX: C50.911 Malignant neoplasm of unspecified site of right female breast (principal); Z92.21 Personal history of antineoplastic chemotherapy
CPT/HCPCS: 93306; 93356

== ENCOUNTER → 2022-01-12 10:55 | Outpatient (CLI) | payer MEDICARE, MEDICAID, SELFPAY ==
[2020-07-29 16:39] VITALS: BMI 22.4
== END ==
PROVIDERS: Family Provider Family Medicine; PCP Family Medicine; Referring Provider Family Medicine; Visit Provider Family Medicine
DX: L13.1 Subcorneal pustular dermatitis (principal); Z92.3 Personal history of irradiation; C50.919 Malignant neoplasm of unspecified site of unspecified female breast; C79.31 Secondary malignant neoplasm of brain
CPT/HCPCS: 99212

== ENCOUNTER → 2022-02-01 15:31 | Outpatient (CLI) | payer MEDICARE, MEDICAID, SELFPAY ==
[2020-07-29 16:39] VITALS: BMI 22.4
--- NOTE | 2022-02-01 15:33 | DI.CT.S_ITS ---
PROCEDURE: CT HEAD/BRAIN WO CON INDICATIONS: VENEGAS x1 week; r/o bleed TECHNIQUE: Noncontrast 4.5 mm thick angled axial sections acquired from the foramen magnum to the vertex, with coronal and sagittal reformats. For radiation dose reduction, the following was used: automated exposure control, adjustment of mA and/or kV according to patient size. COMPARISON: [facility], MR, MR HEAD/BRAIN WO/W CON, 12/26/2021, 11:16. [facility], MR, MR BRAIN WITH/WITHOUT CONTRAST, 11/20/2021, 15:48. [facility], CT, CT HEAD WITHOUT CONTRAST, 01/30/2021, 3:34. FINDINGS: Right frontal lobe metastatic lesion seen on the previous examination is redemonstrated. This is not significantly changed in size, currently measuring 2.0 x 1.8 centimeters maximum axial dimension, similar to the prior study when measured using a similar technique. A small focus of high density within the mass could represent intralesional hemorrhage. Vasogenic edema surrounding the lesion has slightly increased. There are numerous areas of increased subarachnoid density suspicious for possible hemorrhage, for example in the left parietal and temporal regions on series 2, images 14 and 15. Partially calcified metastatic lesion in the left frontal lobe with adjacent vasogenic edema is redemonstrated. There is no midline shift or significant mass effect upon the ventricular system. The basilar cisterns remain patent. No herniation identified. No significant orbital abnormality. Clear paranasal sinuses and mastoid air cells. IMPRESSION: Small volume left parietotemporal subarachnoid hemorrhage. Small focus of increased density in the right frontal lobe metastasis is suspicious for intralesional hemorrhage. Enhancing frontal lobe metastatic lesions are not significantly changed in size. Adjacent vasogenic edema has slightly increased in the right frontal lobe. Results discussed with Dr. Torsten Coppola at 1600 on 02/01/2022. Dictated by: Israel Holloway M.D. on 02/01/2022 at 16:05 Approved by: Israel Holloway M.D. on 02/04/2022 at 15:21
== END ==
PROVIDERS: Family Provider Family Medicine; PCP Family Medicine; Referring Provider Internal Medicine Hematology & Oncology; Visit Provider Internal Medicine Hematology & Oncology
DX: R51.9 Headache, unspecified (principal); C79.31 Secondary malignant neoplasm of brain; C50.011 Malignant neoplasm of nipple and areola, right female breast
CPT/HCPCS: 70450

== ENCOUNTER → 2022-02-03 15:17 | Outpatient (CLI) | payer MEDICARE, MEDICAID, SELFPAY ==
[2020-07-29 16:39] VITALS: BMI 22.4
--- NOTE | 2022-02-03 16:04 | DI.MRI.S_ITS ---
PROCEDURE: MR HEAD/BRAIN WO/W CON INDICATIONS: VENEGAS x1 week; h/o brain mets TECHNIQUE: Noncontrast axial T1 spin echo, axial T2 fast spin echo, sagittal and axial FLAIR, coronal T2 fast spin echo, axial gradient echo, axial diffusion and ADC through the brain. After the administration of contrast, axial and coronal and sagittal 3D VIBE or T1 spin echo with fat saturation through the brain. COMPARISON: [facility], , MR HEAD/BRAIN WO/W CON, 12/26/2021, 11:16. FINDINGS: Image quality: Excellent. CSF Spaces: Basal cisterns are patent. No extra-axial fluid collections. Ventricles are normal in size and shape. Brain: Right frontal mass lesion shows increasing size and enhancement, now measuring 2.3 x 1.5 cm, previously 1.7 x 1.5 cm. Old blood products within the lesion noted, stable. Left frontal extra-axial mass lesion has also enlarged at 2.0 x 1.3 cm, previously is 1.5 x 0.8 cm in similar location. Dural based thickening noted. Both lesions show associated vasogenic edema, similar prior. Left temporal 1.1 cm lesion is similar to the prior. Otherwise, no acute infarct or acute hemorrhage. No midline shift Skull and face: Right frontal craniotomy stable. Right posterior parietal enhancing nodule is also stable Sinuses: Persistent but improved right mastoid fluid noted IMPRESSION: Bifrontal metastatic masses have slightly increased in size compared to the prior. Associated vasogenic edema stable. No midline shift Approved by: Chaparro Schafer M.D. on 02/03/2022 at 17:49
== END ==
PROVIDERS: Family Provider Family Medicine; PCP Family Medicine; Referring Provider Internal Medicine Hematology & Oncology; Visit Provider Internal Medicine Hematology & Oncology
DX: C50.011 Malignant neoplasm of nipple and areola, right female breast (principal); C79.31 Secondary malignant neoplasm of brain; R51.9 Headache, unspecified; G93.89 Other specified disorders of brain; G93.6 Cerebral edema; Z17.0 Estrogen receptor positive status [ER+]
CPT/HCPCS: 70553; A9579

== ENCOUNTER → 2022-03-11 11:48 | Outpatient (CLI) | payer MEDICARE, MEDICAID, SELFPAY ==
[2020-07-29 16:39] VITALS: BMI 22.4
--- NOTE | 2022-03-11 11:49 | DI.MRI.S_ITS ---
PROCEDURE: MR HEAD/BRAIN WO/W CON INDICATIONS: metastatic breast cancer TECHNIQUE: Noncontrast axial T1 spin echo, axial T2 fast spin echo, sagittal and axial FLAIR, coronal T2 fast spin echo, axial gradient echo, axial diffusion and ADC through the brain. After the administration of contrast, axial and coronal and sagittal T1 spin echo with fat saturation through the brain. COMPARISON: [facility], MR, MR HEAD/BRAIN WO/W CON, 08/17/2021, 14:13. [facility], MR, MR HEAD/BRAIN WO/W CON, 02/03/2022, 15:54. [facility], MR, MR HEAD/BRAIN WO/W CON, 12/26/2021, 11:16. [facility], MR, MR BRAIN WITH/WITHOUT CONTRAST, 11/20/2021, 15:48. FINDINGS: Image quality: Excellent. CSF spaces: Basal cisterns are patent. No extra-axial fluid collections. Ventricles are normal in size and shape. Brain: Within the anterior right frontal lobe, there is a lobulated enhancing mass seen that measures 2.5 by 2.4 cm in greatest axial dimension (previously measuring 2.3 x 1.5 cm). There is moderate surrounding edema seen. Hemosiderin deposition can be seen associated with this mass. Extra-axial adjacent to the left frontal lobe, there is a mass seen, with a broad attachment to the dura that measures 3.4 by 1.9 cm in greatest axial dimension (previously measuring 2 x 1.3 cm), with moderate surrounding vasogenic edema. Along the lateral aspect of the left temporal lobe, there is an additional enhancing mass that measures 1.3 x 1.4 cm in greatest axial dimension (previously measuring 1.1 cm), with mild to moderate surrounding edema. No definite new masses are seen. No midline shift. There is cerebral volume loss for age. There is periventricular white matter chronic small vessel ischemic change. The brainstem appears normal. Diffusion-weighted images demonstrate no acute ischemic insults. No chronic ischemic insults. Normal intravascular flow voids are present. Skull and face: Right frontal craniotomy changes are seen. Calvarial marrow is normal in signal. Orbits appear normal. Sinuses: The paranasal sinuses are unremarkable. There is [id number] right mastoid air cell fluid seen, which is similar to the prior. IMPRESSION: 3 intracranial masses are seen, each of which are mildly enlarged compared to the 02/03/2022 MRI examination. Each of these lesions demonstrates surrounding vasogenic edema. Additional findings: Right frontal craniotomy [id number] right mastoid air cell fluid Dictated by: Morales Chamorro M.D. on 03/11/2022 at 12:38 Approved by: Morales Chamorro M.D. on 03/11/2022 at 12:42
== END ==
PROVIDERS: Family Provider Family Medicine; PCP Family Medicine; Referring Provider Internal Medicine Hematology & Oncology; Visit Provider Internal Medicine Hematology & Oncology
DX: C79.31 Secondary malignant neoplasm of brain; C50.011 Malignant neoplasm of nipple and areola, right female breast; G93.6 Cerebral edema; Z17.0 Estrogen receptor positive status [ER+]
CPT/HCPCS: 70553

== ENCOUNTER → 2022-04-06 10:26 | Outpatient (CLI) | payer MEDICARE, MEDICAID, SELFPAY ==
[2020-07-29 16:39] VITALS: BMI 22.4
--- NOTE | 2022-04-06 10:28 | DI.MRI.S_ITS ---
PROCEDURE: MR HEAD/BRAIN WO/W CON INDICATIONS: breast ca brain met TECHNIQUE: Noncontrast axial T1 spin echo, axial T2 fast spin echo, sagittal and axial FLAIR, coronal T2 fast spin echo, axial gradient echo, axial diffusion and ADC through the brain. After the administration of contrast, axial and coronal and sagittal 3D VIBE or T1 spin echo with fat saturation through the brain. COMPARISON: [facility], CT, CT HEAD/BRAIN WO CON, 02/01/2022, 15:57. [facility], MR, MR HEAD/BRAIN WO/W CON, 03/11/2022, 12:02. FINDINGS: Image quality: Excellent. CSF Spaces: Basal cisterns are patent. No extra-axial fluid collections. Ventricles are normal in size and shape. Brain: Dural placed metastatic mass lesions again noted. Right frontal inferior mass measures 2.7 by 2.7 cm, previously 2.0 x 2.3 cm. Left frontal anterior mass measures 2.1 x 2.9 cm, previously 1.8 by 2.8 cm. Left temporal dural-based mass now measures 1.5 cm, previously 1.3 cm. Surrounding vasogenic edema is also slightly increased. No midline shift present. No evidence of acute infarct hemorrhage. The brainstem appears normal. Normal intravascular flow voids are present. Skull and face: Right pterional craniotomy with associated round plates and cranioplasty mesh. Sinuses: Sinuses and mastoids appear clear. IMPRESSION: Enlarging dural-based metastatic mass lesions show increasing vasogenic edema without midline shift Approved by: Chaparro Schafer M.D. on 04/06/2022 at 17:12
--- NOTE | 2022-04-06 10:28 | DI.CT.S_ITS ---
PROCEDURE: CT CHEST ABD PEL W CON INDICATIONS: breast ca met TECHNIQUE: After the administration of oral and intravenous contrast, axial sections acquired from the supraclavicular neck to the pubic symphysis. Coronal and sagittal reformats were performed. For radiation dose reduction, the following was used: automated exposure control, adjustment of mA and/or kV according to patient size. COMPARISON: [facility], CT, CT CHEST ABD PEL W CON, 05/26/2021, 11:03. FINDINGS: Image quality: Excellent. CHEST: Lower Neck: No enlarged lymph nodes. Thyroid: Within normal limits. Axillae: No enlarged lymph nodes. Chest Wall: Left chest wall Port-A-Cath tip is in SVC. Lungs and Airways: Moderate centrilobular emphysema is again seen. Patient's known tiny bilateral upper lobe nodules near apices are all unchanged in size and appearance. Reference nodule in posterior lateral right apex measures 3 mm in size series 5, image 65 and anterolateral left upper lobe series 5, image 66. No new pulmonary nodule is seen. Central and peripheral airway is patent. Scattered scarring/atelectasis in periphery of bilateral lower lung rose are seen. Pleura: No pneumothorax or pleural effusions. Heart: Heart size is normal. No pericardial effusion. Thoracic Vessels: The aorta and pulmonary arteries demonstrate normal size. Mediastinum and Martha: No enlarged lymph nodes. Esophagus: No wall thickening. No hiatal hernia. ABDOMEN: Liver: Unremarkable. Gallbladder: Within normal limits. Biliary ducts: Unremarkable. Pancreas: Unremarkable. Spleen: Unremarkable. Adrenal Glands: Unremarkable. Kidneys and Ureters: Normal size and enhancement. Nonobstructing stone in midpole of right kidney is seen measures 5 mm in size. Left renal cyst is again seen unchanged from prior study. No hydronephrosis or hydroureter. Stomach and Bowel: Stomach, small bowel loops, and colon are unremarkable. No abscess collection. Peritoneum: No abnormal intraperitoneal fluid. No free air. Ventral Wall: No hernia. Abdominal Nodes: No retroperitoneal or mesenteric adenopathy by size criteria. Vessels: Aorta and inferior vena cava are normal in size. PELVIS: Pelvic Organs: Unremarkable. Bladder: Unremarkable. Pelvic Nodes: No enlarged lymph nodes. Miscellaneous: No inguinal hernias are seen. 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 No acute vertebral body compression fractures. No suspicious bony lesions. IMPRESSION: 1. Stable bilateral upper lobe tiny nodules unchanged from prior studies. No new pulmonary nodule is seen. 2. Biapical scarring. Scarring/atelectasis also seen in bilateral lower lung rose. No pleural effusion or pneumothorax. Airway is patent. 3. No evidence of recurrent or metastatic disease is seen in chest, abdomen or pelvis. Dictated by: Jemal Mclean M.D. on 04/06/2022 at 16:41 Approved by: Jemal Mclean M.D. on 04/06/2022 at 16:58
== END ==
PROVIDERS: Family Provider Family Medicine; PCP Family Medicine; Referring Provider Internal Medicine Hematology & Oncology; Visit Provider Internal Medicine Hematology & Oncology
DX: C50.911 Malignant neoplasm of unspecified site of right female breast (principal); C79.31 Secondary malignant neoplasm of brain; G93.6 Cerebral edema; R51.9 Headache, unspecified; H53.2 Diplopia; R91.8 Other nonspecific abnormal finding of lung field
CPT/HCPCS: 70553; 71260; 74177; A9579; Q9967

== ENCOUNTER 2022-04-14 15:05 | Emergency (ER) | payer MEDICARE, MEDICAID, SELFPAY ==
[2020-07-29 16:39] VITALS: BMI 22.4
[2022-04-14] VITALS (7 sets, daily range): BP systolic 109–122; BP diastolic 62–71; PULSE 57–65; RESP 13–23; TEMP 36.4; O2SAT 96–99; BMI 24.4
--- NOTE | 2022-04-14 16:11 | DI.RAD.S_ITS ---
PROCEDURE: XR CHEST 1V INDICATIONS: suspected sepsis TECHNIQUE: One view of the chest was acquired. COMPARISON: [facility], CT, CT CHEST ABD PEL W CON, 04/06/2022, 12:46. [facility], CR, XR CHEST 1V, 04/09/2019, 13:43. [facility], CR, XR CHEST 1V, 02/16/2019, 0:33. FINDINGS: Surgical changes and devices: Right axillary clips. Left-sided port with the catheter tip at the lower 3rd of the SVC. Lungs and pleura: Lungs appear clear. No consolidation. Emphysematous change. No pleural effusions or pneumothorax. Mediastinum: Mediastinal contours appear normal. Heart size is normal. Bones and chest wall: No suspicious bony lesions. Overlying soft tissues appear unremarkable. IMPRESSION: No acute cardiopulmonary abnormality. Dictated by: Farhad Williamson M.D. on 04/14/2022 at 16:32 Approved by: Farhad Williamson M.D. on 04/14/2022 at 16:34
--- NOTE | 2022-04-14 16:13 | DI.CT.S_ITS ---
PROCEDURE: CT HEAD/BRAIN WO CON INDICATIONS: Weakness TECHNIQUE: Noncontrast 4.5 mm thick angled axial sections acquired from the foramen magnum to the vertex, with coronal and sagittal reformats. For radiation dose reduction, the following was used: automated exposure control, adjustment of mA and/or kV according to patient size. COMPARISON: [facility], CT, CT HEAD/BRAIN WO CON, 02/01/2022, 15:57. [facility], MR, MR HEAD/BRAIN WO/W CON, 04/06/2022, 10:48. FINDINGS: Image quality: Excellent. CSF spaces: Basal cisterns are patent. No extra-axial fluid collections. There is no hydrocephalus. There is mass effect on the frontal horn of the lateral ventricles bilaterally, left greater than right. There is minimal midline shift. At the current time, the suprasellar cistern and ambient cisterns are patent. Brain: There is extensive bilateral frontal vasogenic edema and vasogenic edema in the left temporal lobe. Multiple dural-based malignant lesions are identified, better seen on the recent MRI. These include a dense partially calcified inferior right frontal lesion which measures 2.8 x 3.0 cm on current image 13/2, as well as a calcified dural-based anterior left frontal mass on current image 20/2 measuring 3.3 x 1.8 cm, as well as a hyperdense dural based anterior left temporal lesion on image 11/2 measuring 1.2 x 1.4 cm. Skull and face: Calvarium and visualized facial bones appear intact, without suspicious lesions. Sinuses: Visualized sinuses and mastoids are clear. IMPRESSION: 1. Extensive multifocal dural-based malignancy, with extensive vasogenic edema and mass effect on the ventricular system. Comment: Consider repeat brain MRI with without contrast to identify whether not there has been interval progression since the recent MRI. Dictated by: Miguelito Artis M.D. on 04/14/2022 at 16:30 Approved by: Miguelito Artis M.D. on 04/14/2022 at 16:36
[2022-04-14 16:29] LABS: INR 1.1 (0.9-1.3); Prothrombin Time 12.5 SECONDS (10.1-12.7)
[2022-04-14 16:31] LABS: PTT Partial Thromboplastin Tim 36 SECONDS (26-36)
[2022-04-14 16:35] LABS: Alanine Aminotransferase 26 IU/L (<35); Albumin 4.3 g/dL (3.5-5.0); Albumin Globulin Ratio 1.3 (1.0-2.8); Alkaline Phosphatase 64 U/L (38-126); Aspartate Aminotransferase 37 IU/L (14-36); BUN Creatinine Ratio 23.4 (6-22); Bilirubin Total 0.9 mg/dL (0.2-1.3); Blood Urea Nitrogen 18 mg/dL (7-17); Calcium 9.5 mg/dL (8.4-10.2); Carbon Dioxide 26 mmol/L (22-32); Chloride 107 mmol/L (98-107); Estimated Glomerular Filt Rate > 60 mL/min (>60); Globulin 3.3 g/dL (1.7-4.1); Glucose 91 mg/dL (80-110); HEMOLYSIS 15 (0-50); Lipase 31 U/L (23-300); Sodium 142 mmol/L (137-145); Total Protein 7.6 g/dL (6.3-8.2)
[2022-04-14 16:36] LABS: Lactate (Lactic Acid) 0.9 mmol/L (0.7-2.1)
--- NOTE | 2022-04-14 16:36 | ED_ITS ---
HPI - Neuro Symptoms/Deficit General Chief Complaint: Neuro Symptoms/Deficit Stated Complaint: LOSS OF BALANCE/DR. 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 She has had ongoing chemo radiation and surgery. However the last 2 weeks she is had increasing falls and today she fell again. No injury from her falls. She lives with family who reports a decline. She had outpatient MRI of the brain and CT chest abdomen pelvis done last week by Oncology. There does show to be enlarging brain masses. Patient denies any fever or chills. No chest pain dizziness or lightheadedness. She has had significant decreased intake over the last couple of days. She was previously on Decadron but not on Decadron now. Not on any anticoagulation. On Anticoagulants: No Related Data Home Medications Medication Instructions Recorded Confirmed levothyroxine 50 mcg tablet 50 mcg PO DAILY 03/08/19 02/11/22 citalopram 10 mg tablet 10 mg PO DAILY 02/12/21 02/11/22 levetiracetam 1,000 mg tablet 1,000 mg PO BID 02/12/21 02/11/22 (Keppra) sennosides 8.6 mg capsule (senna) 8.6 mg PO BID 02/12/21 02/11/22 loperamide 2 mg capsule 2 mg PO QID PRN Diarrhea 04/16/21 02/11/22 multivitamin 1 tab PO DAILY 04/16/21 02/11/22 vitamin B complex 1 cap DAILY 04/16/21 02/11/22 elderberry fruit 200 mg capsule 200 mg PO DAILY 01/21/22 02/11/22 vitamin B12 1 mg-folic acid 0.8 mg 1 tab PO DAILY 01/21/22 02/11/22 tablet Previous Rx's Medication Instructions Recorded citalopram 20 mg tablet 20 mg PO DAILY #30 tabs 07/14/20 gabapentin 300 mg capsule 300 mg PO BID #60 caps 01/22/21 lorazepam 0.5 mg tablet (Ativan) 0.5 mg PO Q6HR PRN Nausea And 03/05/21 Vomiting #60 tabs capecitabine 500 mg tablet 1,000 mg PO BID #84 tabs 08/31/21 memantine 5 mg tablet 10 mg PO BID whole brain radiation 10/15/21 #120 tabs tucatinib 150 mg tablet (Tukysa) 300 mg PO Q12H #120 tabs 10/29/21 dexamethasone 2 mg tablet 2 mg PO BID brain metastasis #30 02/04/22 tabs oxycodone-acetaminophen 5 mg-325 1 tab PO Q4H PRN cancer pain #60 02/04/22 mg tablet tabs dexamethasone 4 mg tablet 4 mg PO BID #30 tabs 04/14/22 Allergies Allergy/AdvReac Type Severity Reaction Status Date / Time chlorhexidine Allergy Mild Rash Verified 04/14/22 15:39 Review of Systems Review of Systems ROS Unobtainable: All systems reviewed & are unremarkable except as noted in HPI and below Hematologic/Lymphatic On Anticoagulants: No Patient History Medical History Arthritis Bowel obstruction Breast cancer Current every day smoker Eczema Hypothyroidism Sinus drainage Surgical History H/O: hysterectomy (1985) History of breast biopsy History of colonoscopy (2017) History of tonsillectomy Hx of oral surgery (02/24/19) S/P mastectomy, bilateral Family History Father Leukemia Family/Other Breast cancer Mother Uterine cancer Grandmother Diabetes mellitus Daughter Diabetes mellitus Sister Breast cancer Social History household members: none Smoking Status: Current every day smoker alcohol intake: current substance use type: does not use Smoking Status: Current every day smoker tobacco type: cigarettes alcohol intake frequency: holidays/special occasions only Substance Use Type: does not use Exam Initial Vital Signs Initial Vital Signs: Vital Signs Temperature 97.6 F 04/14/22 15:39 Pulse Rate 65 04/14/22 15:39 Respiratory Rate 18 04/14/22 15:39 Blood Pressure 109/67 04/14/22 15:39 Pulse Oximetry 96 04/14/22 15:39 Oxygen Delivery Method 04/14/22 15:39 GENERAL: [Alert thin 62-year-old female chronically HEENT: Head atraumatic,EOMI, pupils reactive, face symmetric, moist mucous membranes CARDIOVASCULAR: Regular rate and rhythm without murmurs, rubs or gallops. RESPIRATORY: Breath sounds equal bilaterally, no wheezes rales or rhonchi. ABDOMEN: Soft, nontender. Normoactive bowel sounds all 4 quadrants. No guarding or rebound. EXTREMITIES: Normal range of motion, no clubbing or edema. 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 Course Orders Ordered: ED Orders 04/14/22 15:55 Blood Culture Stat Complete Blood Count AUTO DIFF Stat Comprehensive Metabolic Panel Stat Lactate (Lactic Acid) Stat Lipase Stat Partial Thromboplastin Time Stat Procalcitonin Stat Prothrombin Time INR Stat 04/14/22 16:09 Covid-19 + FLU A/B + RSV - PCR Stat 04/14/22 16:11 XR chest 1V Stat EKG-12 Lead Stat RT Consult Eval and Treat NOW 04/14/22 16:13 CT head/brain wo con Stat Discontinued Medications Dexamethasone (Dexamethasone 10 Mg/Ml Vial) 10 mg IV NOW ONE Stop: 04/14/22 16:54 Last Admin: 04/14/22 17:08 Dose: 10 mg Documented By: VALENCIA Sodium Chloride (Normal Saline 0.9%) 1,000 mls @ 1,000 mls/hr IV BOLUS ONE Stop: 04/14/22 17:10 Last Infusion: 04/14/22 18:18 Dose: 0 mls/hr Documented By: Admin: 04/14/22 17:08 Dose: 1,000 mls/hr Documented By: VALENCIA Ondansetron HCl (Ondansetron 4 Mg/2 Ml Inj) 4 mg IV NOW PRN PRN Reason: Nausea And Vomiting Ondansetron HCl (Ondansetron 4 Mg Odt) 4 mg SL NOW PRN PRN Reason: Nausea And Vomiting Vital Signs Vital signs: Vital Signs - 8 hr 04/14/22 15:39 04/14/22 16:28 04/14/22 16:29 Temperature 97.6 F Pulse Rate 65 60 Respiratory Rate 18 15 Blood Pressure 109/67 122/67 Pulse Oximetry 96 Oxygen Delivery Method Room Air 04/14/22 16:29 04/14/22 16:30 04/14/22 16:30 Temperature Pulse Rate 57 L 59 L Respiratory Rate 17 13 Blood Pressure 117/62 Pulse Oximetry 98 98 Oxygen Delivery Method 04/14/22 17:00 04/14/22 17:00 04/14/22 17:30 Temperature Pulse Rate 58 L Respiratory Rate 20 Blood Pressure 120/66 109/71 Pulse Oximetry 98 Oxygen Delivery Method 04/14/22 17:30 04/14/22 18:00 04/14/22 18:00 Temperature Pulse Rate 57 L 61 Respiratory Rate 23 16 Blood Pressure 122/62 Pulse Oximetry 99 98 Oxygen Delivery Method MDM - Neuro Symptoms/Deficit Lab Data Result diagrams: 04/14/22 15:55 04/14/22 15:55 Labs: Lab Results 04/14/22 04/14/22 04/14/22 Range/Units 15:55 15:55 15:55 WBC 6.1 (4.5-11.0) X10^3/uL RBC 4.74 (4.0-5.2) X10^6/uL Hgb 15.2 (12.0-16.0) g/dL Hct 44.7 (36-46) % MCV 94.4 (80-100) fL MCH 32.1 (26-34) PG MCHC 34.0 (30-36) % RDW 14.7 (11.6-14.8) % Plt Count 212 (150-400) X10^3/uL Neut % (Auto) 65.5 (50-75) % Lymph % (Auto) 18.5 L (25-40) % [place] % (Auto) 10.6 (3-14) % Eos % (Auto) 4.2 H (2-4) % Baso % (Auto) 1.2 (0-2) % Neut # (Auto) 4000 (9592-6420) /uL Lymph # (Auto) 1100 (1992-4196) /uL [place] # (Auto) 600 (0-900) /uL Eos # (Auto) 300 (0-450) /uL Baso # (Auto) 100 (0-100) /uL PT 12.5 (10.1-12.7) SECONDS INR 1.1 (0.9-1.3) APTT 36 (26-36) SECONDS Sodium 142 (137-145) mmol/L Potassium 4.0 (3.4-5.1) mmol/L Chloride 107 (98-107) mmol/L Carbon Dioxide 26 (22-32) mmol/L BUN 18 H (7-17) mg/dL Creatinine 0.77 (0.52-1.04) mg/dL Estimated GFR > 60 (>60) mL/min BUN/Creatinine Ratio 23.4 H (6-22) Glucose 91 (80-110) mg/dL Lactate (0.7-2.1) mmol/L Calcium 9.5 (8.4-10.2) mg/dL Total Bilirubin 0.9 (0.2-1.3) mg/dL AST 37 H (14-36) IU/L ALT 26 (<35) IU/L Alkaline Phosphatase 64 (38-126) U/L Total Protein 7.6 (6.3-8.2) g/dL Albumin 4.3 (3.5-5.0) g/dL Globulin 3.3 (1.7-4.1) g/dL Albumin/Globulin Ratio 1.3 (1.0-2.8) Lipase 31 (23-300) U/L Procalcitonin 0.05 (<0.5) ng/mL SARS-CoV-2 (PCR) (Negative) Influenza A (RT-PCR) (NEGATIVE) Influenza B (RT-PCR) (NEGATIVE) RSV (PCR) (Negative) 04/14/22 04/14/22 Range/Units 15:55 16:09 WBC (4.5-11.0) X10^3/uL RBC (4.0-5.2) X10^6/uL Hgb (12.0-16.0) g/dL Hct (36-46) % MCV (80-100) fL MCH (26-34) PG MCHC (30-36) % RDW (11.6-14.8) % Plt Count (150-400) X10^3/uL Neut % (Auto) (50-75) % Lymph % (Auto) (25-40) % [place] % (Auto) (3-14) % Eos % (Auto) (2-4) % Baso % (Auto) (0-2) % Neut # (Auto) (6929-7945) /uL Lymph # (Auto) (6255-1068) /uL [place] # (Auto) (0-900) /uL Eos # (Auto) (0-450) /uL Baso # (Auto) (0-100) /uL PT (10.1-12.7) SECONDS INR (0.9-1.3) APTT (26-36) SECONDS Sodium (137-145) mmol/L Potassium (3.4-5.1) mmol/L Chloride (98-107) mmol/L Carbon Dioxide (22-32) mmol/L BUN (7-17) mg/dL Creatinine (0.52-1.04) mg/dL Estimated GFR (>60) mL/min BUN/Creatinine Ratio (6-22) Glucose (80-110) mg/dL Lactate 0.9 (0.7-2.1) mmol/L Calcium (8.4-10.2) mg/dL Total Bilirubin (0.2-1.3) mg/dL AST (14-36) IU/L ALT (<35) IU/L Alkaline Phosphatase (38-126) U/L Total Protein (6.3-8.2) g/dL Albumin (3.5-5.0) g/dL Globulin (1.7-4.1) g/dL Albumin/Globulin Ratio (1.0-2.8) Lipase (23-300) U/L Procalcitonin (<0.5) ng/mL SARS-CoV-2 (PCR) Negative (Negative) Influenza A (RT-PCR) Flu a negative (NEGATIVE) Influenza B (RT-PCR) Flu b negative (NEGATIVE) RSV (PCR) Negative (Negative) Imaging Data CT scan - head: Radiologist's Impression: CT Scan Report Signed Patient: Chelo Ruiz MR#: [id number] : 1960 Acct:[id number] Age/Sex: 62 / F Date of Service: 04/14/22 Loc: ED Accession Number: [id number] ?? Procedure: CT head/brain wo con Ordering Provider: Vicki Allen D.O. PROCEDURE:? CT HEAD/BRAIN WO CON ? INDICATIONS:? Weakness ? TECHNIQUE:? Noncontrast 4.5 mm thick angled axial sections acquired from the foramen magnum to the vertex, with coronal and sagittal reformats.? For radiation dose reduction, the following was used:? automated exposure control, adjustment of mA and/or kV according to patient size.? ? COMPARISON:? [facility], CT, CT HEAD/BRAIN WO CON, 02/01/2022, 15:57.? [facility], MR, MR HEAD/BRAIN WO/W CON, 04/06/2022, 10:48. ? FINDINGS:? Image quality:? Excellent.? ? CSF spaces:? Basal cisterns are patent.? No extra-axial fluid collections.? There is no hydrocephalus.? There is mass effect on the frontal horn of the lateral ventricles bilaterally, left greater than right.? There is minimal midline shift.? At the current time, the suprasellar cistern and ambient cisterns are patent. ? Brain:? There is extensive bilateral frontal vasogenic edema and vasogenic edema in the left temporal lobe.? Multiple dural-based malignant lesions are identified, better seen on the recent MRI.? These include a dense partially calcified inferior right frontal lesion which measures 2.8 x 3.0 cm on current image 13/2, as well as a calcified dural-based anterior left frontal mass on current image 20/2 measuring 3.3 x 1.8 cm, as well as a hyperdense dural based anterior left temporal lesion on image 11/2 measuring 1.2 x 1.4 cm. ? Skull and face:? Calvarium and visualized facial bones appear intact, without suspicious lesions.? ? Sinuses:? Visualized sinuses and mastoids are clear.? ? IMPRESSION:? ? 1. Extensive multifocal dural-based malignancy, with extensive vasogenic edema a nd mass effect on the ventricular system. ? Comment:? Consider repeat brain MRI with without contrast to identify whether not there has been interval progression since the recent MRI. ? ? Dictated by: Miguelito Artis M.D. on 04/14/2022 at 16:30 ? ? Approved by: Miguelito Artis M.D. on 04/14/2022 at 16:36 ? Chest x-ray: Radiologist's Impression: Signed Patient: Chelo Ruiz MR#: [id number] : 1960 Acct:[id number] Age/Sex: 62 / F Date of Service: 04/14/22 Loc: ED Accession Number: [id number] ?? Procedure: XR chest 1V Ordering Provider: Vicki Allen D.O. PROCEDURE:? XR CHEST 1V ? INDICATIONS:? suspected sepsis ? TECHNIQUE:? One view of the chest was acquired.? ? COMPARISON:? [facility], CT, CT CHEST ABD PEL W CON, 04/06/2022, 12:46.? [facility], CR, XR CHEST 1V, 04/09/2019, 13:43.? [facility], CR, XR CHEST 1V, 02/16/2019, 0:33. ? FINDINGS:? ? Surgical changes and devices:? Right axillary clips.? Left-sided port with the catheter tip at the lower 3rd of the SVC. ? Lungs and pleura:? Lungs appear clear.? No consolidation.? Emphysematous change.? No pleural effusions or pneumothorax.? ? Mediastinum:? Mediastinal contours appear normal.? Heart size is normal.? ? Bones and chest wall:? No suspicious bony lesions.? Overlying soft tissues appear unremarkable.? ? IMPRESSION:? No acute cardiopulmonary abnormality. ? ? ? Dictated by: Farhad Williamson M.D. on 04/14/2022 at 16:32 ? ? Approved by: Farhad Williamson M.D. on 04/14/2022 at 16:34 ? ECG Data Interpretation: Normal sinus rhythm rate 60 NM interval 138 QRS [address] changes mild artifact noted MDM Narrative Medical decision making narrative: Patient has enlarging masses despite ongoing chemotherapy. CT does show vasogenic edema with mass effect this is likely causing her falls. There is no evidence of infection. Discussion with Dr. Serrano her oncologist who states that there is another chemotherapy to try. He would like to meet with patient and have a full discussion about options. They actually have an appointment to see him tomorrow. There was discussion of possible hospitalization observation and he would see her in the hospital. However after further discussion with patient and family patient would like to go home. I think that this is reasonable. She did get 10 mg dexamethasone here in the ED to help with the vasogenic edema and a prescription for dexamethasone. She is taking Keppra for seizure prophylaxis as well. Discharge Plan Departure Patient Disposition: Home Clinical Impression: Breast cancer metastasized to brain Instructions: Brain Tumor and Brain Cancer -- Adult Activity Restrictions/Additional Instructions: At this time we will put you on dexamethasone to help the swelling in your brain. Please see Dr. Serrano tomorrow as scheduled. Please continue to take all her medication including her seizure medication. End of life [place] is a great website with lots of information that you may find helpful Dexamethasone 4 mg twice a day [facility] to [facility] Return to ER if you should have any new or worsening problems Prescriptions: New dexamethasone 4 mg tablet 4 mg PO BID Qty: 30 0RF No Action levothyroxine 50 mcg Tablet 50 mcg PO DAILY citalopram 20 mg Tablet 20 mg PO DAILY Qty: 30 11RF gabapentin 300 mg Capsule 300 mg PO BID Qty: 60 1RF citalopram 10 mg Tablet 10 mg PO DAILY senna 8.6 mg Capsule 8.6 mg PO BID levetiracetam [Keppra] 1,000 mg Tablet 1,000 mg PO BID lorazepam [Ativan] 0.5 mg Tablet 0.5 mg PO Q6HR PRN (Reason: Nausea And Vomiting) Qty: 60 0RF Rx Instructions: Take one tablet (0.5mg) every six hours as needed for nausea/vomiting. multivitamin Tablet 1 tab PO DAILY loperamide [Imodium] 2 mg Capsule 2 mg PO QID PRN (Reason: Diarrhea) vitamin B complex Capsule 1 cap DAILY capecitabine 500 mg Tablet 1,000 mg PO BID Qty: 84 1RF Rx Instructions: for 14 days per 21-day cycle; must administer with water 30 minutes after a meal memantine 5 mg Tablet 10 mg PO BID Qty: 120 5RF Tukysa 150 mg Tablet 300 mg PO Q12H Qty: 120 11RF Elderberry 200 mg Capsule 200 mg PO DAILY vitamin N31-[id number] acid 1-0.8 mg Tablet 1 tab PO DAILY dexamethasone 2 mg Tablet 2 mg PO BID Qty: 30 1RF oxycodone-acetaminophen 5-325 mg Tablet 1 tab PO Q4H PRN (Reason: cancer pain) Qty: 60 0RF Referrals: Vahe Mota MD [Primary Care Provider] - Torsten Coppola MD [Physician] - Visit Report Forms: Patient Portal/API
[2022-04-14 16:51] LABS: Procalcitonin 0.05 ng/mL (<0.5)
[2022-04-14 16:55] LABS: Add Manual Diff / Slide Review NO; Basophils Absolute Auto 100 /uL (0-100); Basophils Percent Auto 1.2 % (0-2); Eosinophils Absolute Auto 300 /uL (0-450); Eosinophils Percent Auto 4.2 % (2-4); Hematocrit 44.7 % (36-46); Hemoglobin 15.2 g/dL (12.0-16.0); Lymphocytes Absolute Auto 1100 /uL (1100-4500); Lymphocytes Percent Auto 18.5 % (25-40); Mean Corpuscular Hemoglobin 32.1 PG (26-34); Mean Corpuscular Volume 94.4 fL (80-100); Monocytes Absolute Auto 600 /uL (0-900); Monocytes Percent Auto 10.6 % (3-14); Neutrophils Absolute Auto 4000 /uL (1500-7000); Neutrophils Percent Auto 65.5 % (50-75); Platelet Count 212 X10^3/uL (150-400); Red Blood Cell Count 4.74 X10^6/uL (4.0-5.2); Red Cell Distribution Width 14.7 % (11.6-14.8); White Blood Cell Count 6.1 X10^3/uL (4.5-11.0)
[2022-04-14 16:57] LABS: Influenza A - CEPHEID Flu A NEGATIVE (NEGATIVE); Influenza B - CEPHEID Flu B NEGATIVE (NEGATIVE); Respiratory Syncytial Virus Negative (Negative)
[2022-04-14] MEDS: SODIUM CHLORIDE 0.9% 1,000 ML 1000 ML IV (17:08)
[2022-04-14] MEDS: DEXAMETHASONE 10 MG/ML VIAL IV (17:08)
[2022-04-14 17:11] LABS: COVID-19 CEPHEID 4-PLEX PCR Negative (Negative)
== END 2022-04-14 18:42 | disposition home or self-care (01) ==
PROVIDERS: Emergency Provider Emergency Medicine; Family Provider Family Medicine; PCP Family Medicine
DX: C50.911 Malignant neoplasm of unspecified site of right female breast (principal); C79.31 Secondary malignant neoplasm of brain; Z79.899 Other long term (current) drug therapy; Z20.822 Contact with and (suspected) exposure to COVID-19
CPT/HCPCS: 0241U; 36415; 70450; 71045; 80053; 83605; 83690; 84145; 85025; 85610; 85730; 87040; 93005; 96361; 96374; 99284; J1100

== ENCOUNTER → 2022-04-23 13:44 | Outpatient (CLI) | payer MEDICARE, MEDICAID, SELFPAY ==
[2020-07-29 16:39] VITALS: BMI 22.4
--- NOTE | 2022-04-23 13:50 | DI.ECHO.S_ITS ---
Interpretation Summary The ejection fraction is estimated to be 55-60%. Left ventricular global longitudinal strain average is -21.9%. Diastolic parameters suggest probable normal left ventricular diastolic function and normal filling pressures. The right ventricle is normal in size and function. Mild biatrial enlargement. There is mild tricuspid regurgitation. The right ventricular systolic pressure is estimated to be at least 24 mmHg based on an estimated right atrial pressure of 3 mm Hg. Compared to the prior study dated 01/07/2022, the average global longitudinal strain has normalized. Procedure: A two-dimensional transthoracic echocardiogram with color flow and Doppler was performed in limited views only to assess left ventricular function. The study quality was technically adequate. Comparison is made with the echocardiogram of 01/07/2022. The patient was in sinus bradycardia with heart rates between 46-50 bpm during the exam. Left Ventricle: The left ventricle is normal in size and wall thickness. The ejection fraction is estimated to be 55-60%. Left ventricular global longitudinal strain average is -21.9%. Original Global Longitudinal Strain on 02/27/2020 of -22.5%. Previous Global Longitudinal Strain on 01/07/2022 of - 18.9%. Diastolic parameters suggest probable normal left ventricular diastolic function and normal filling pressures. Right Ventricle: The right ventricle is normal in size and function. Atria: The left atrium is mildly dilated. The right atrium is mildly dilated. Mitral Valve: The mitral valve is normal. Aortic Valve: The aortic valve opens well. Tricuspid Valve: The tricuspid valve is normal in structure and function. There is mild tricuspid regurgitation. The right ventricular systolic pressure is estimated to be at least 24 mmHg based on an estimated right atrial pressure of 3 mm Hg. Great Vessels: The IVC is of normal diameter and collapses greater than 50% with a sniff. This suggests a low right atrial pressure of 3 mm Hg. Pericardium/ Pleura There is no pericardial effusion. There is no pleural effusion. MMode/2D Measurements & Calculations LVIDd: 4.6 cm LA A2 area: 21.1 cm2 LVIDs: 3.6 cm LA A4 area: 20.0 cm2 FS: 22.7 % LA length (vol): 5.4 cm EPSS: 0.98 cm LA vol: 66.3 ml IVSd: 0.73 cm LA vol index: 40.9 ml/m2 LVPWd: 0.91 cm LV spaulding. diameter/BSA (cm/m^2): 2.9 LV sys. diameter/BSA (cm/m^2): 2.2 RA long axis: 5.0 cm RVD1 (basal): 3.5 cm RA area: 18.2 cm2 RVD2 (mid): 2.7 cm RA vol: 56.2 ml TAPSE: 2.0 cm RA : 34.7 ml/m2 IVC diam: 1.6 cm Doppler Measurements & Calculations MV E max giovani: 68.5 cm/sec TR max giovani: 227.0 cm/sec MV A max giovani: 60.9 cm/sec TR max P.6 mmHg MV E/A: 1.1 Med Peak E' Giovani: 6.6 cm/sec E/E' med: 10.4 Lat Peak E' Giovani: 9.5 cm/sec E/E' lat: 7.2 E/e' average: 8.8 MV dec time: 0.25 sec Reading Physician:03:26 PM
== END ==
PROVIDERS: Family Provider Family Medicine; PCP Family Medicine; Referring Provider Internal Medicine Hematology & Oncology; Visit Provider Internal Medicine Hematology & Oncology
DX: I42.7 Cardiomyopathy due to drug and external agent (principal); C79.31 Secondary malignant neoplasm of brain; I07.1 Rheumatic tricuspid insufficiency; C50.011 Malignant neoplasm of nipple and areola, right female breast
CPT/HCPCS: 93307; 93356

== ENCOUNTER → 2022-05-03 12:58 | Outpatient (RCR) | payer OTHER, MEDICAID, SELFPAY ==
[2020-07-29 16:39] VITALS: BMI 22.4
--- NOTE | 2020-07-31 12:12 | PT.OPPOC ---
Physical, Occupational & Speech Therapy At [facility] Current Diagnoses Malignant neoplasm of unspecified site of right female breast (08/05/20) Visit Care Team Role Provider Type Angelica Best MD Family Provider Physician Primary Care Provider Specialty: Family Practice Address: [address] [place] [address], [facility] [place], [address] Email: [email or web address] Coppola MD Attending Provider Physician Referring Provider Specialty: Oncology Address: [address] [place] [address], [id number] Email: Plan Of Care PT-OP-T Assessment and Plan Start: 07/28/20 08:06 Freq: Status: Active Protocol: Document 07/31/20 11:15 SAK (Rec: 08/05/20 11:11 SAK [id number]) Physical Therapy Assessment Rehab Potential Rehabilitation Potential Good Evaluation Complexity Number of Personal Factors/Comorbidities 1-2 Number of Body Systems Impaired 3 Clinical Presentation at Evaluation Evolving Impairments Impairments Activity Tolerance,Posture,ROM ,Soft Tissue Mobility Goals Four Impairment decreased scar mobility Alf Goal (LTG) Normal scar mobility of bilateral mastectomy scars. LTG Duration 11/03/20 Three Impairment postural dysfunction s/p mastectomies Short Term Goal (STG) Patient to be instructed in neutral postural alignment with postural exercises to help align her body for improved right shoulder function STG Duration 08/23/20 Alf Goal (LTG) Patient to demonstrate improved postural alignment and ability to self-correct with minimal cues LTG Duration 11/03/20 Two Impairment Difficulty reaching overhead, behind her back, or across her body right UE Short Term Goal (STG) Patient to be independent in HEP for purposes of improving right UE ROM STG Duration 08/23/20 Insulation Blanket Maker Goal (LTG) Patient to demonstrate full active use of her right UE including reaching overhead, behind her back, and across her body LTG Duration 11/03/20 One Impairment Quickdash UE disability index score 46% Short Term Goal (STG) Decrease score to no greater than 30% STG Duration 09/06/20 Alf Goal (LTG) Decrease score to no greater than 10% as measure of improved right UE function LTG Duration 11/03/20 Assessment Summary Assessment Patient presents with right shoulder pain and limited ROM s/p modfied radical mastectomy 09/03/19. Patient reports gradual decrease in her ROM over the past few months. Reports very low activity level due to fatigue from chemo, hasn't resumed any sort of exercise program. Has soft tissue tightness throughout mastectomy scars right greater than left, decreased rib mobility, tightness subaxillary tissue right. Additionally postural dysfunction with forward head and rounded shoulders, increased thoracic kyphosis. Circumferential measurements are negative for significant difference bilateral UE's so does not appear to have lymphedema. Physical Therapy Plan Frequency and Duration Frequency of Treatment 2x/Week Duration of Treatment 12 weeks Plan of Care Start Date 07/31/20 Plan of Care End Date 11/03/20 Therapeutic Interventions Therapeutic Interventions Aquatic Therapy,Home Exercise Program,Joint Mobilizations, Lymphedema Management,Manual Therapy,Patient/Caregiver Education,Self-Care/Home Management,Soft Tissue Mobilization,Taping, Therapeutic Activities, Therapeutic Exercises Next Visit Focus/Plan Next Note Type Treatment Note Next Visit Plan Review HEP, progress with gentle ROM ex to include pulleys, postural correction exercises. Manual techniques to improve shoulder ROM. Plan of Care Dates Plan of Care Start Date 07/31/20 Plan of Care End Date 11/03/20 Electronically Signed by: Audrey Cook, PT 08/05/20 [id number] Please Sign and Return: I have reviewed this Plan of Care and certify that the skilled therapy services above are required to meet the patient?s needs. Physician Signature Date Printed Name and Credentials Clinical Instructor Signature Printed Name and Credentials
--- NOTE | 2020-07-31 12:12 | PT.OIE ---
Current Diagnoses Malignant neoplasm of unspecified site of right female breast (08/05/20) Past Medical History (Last Reviewed 08/02/20 @ 11:29 by Chandra Rodriguez MD) Arthritis Bowel obstruction Breast cancer Current every day smoker Eczema Hypothyroidism Sinus drainage Past Surgical History (Last Reviewed 08/02/20 @ 11:29 by Chandra Rodriguez MD) H/O: hysterectomy (1985) History of breast biopsy History of colonoscopy (2017) History of tonsillectomy Hx of oral surgery (02/24/19) S/P mastectomy, bilateral Visit Care Team Role Provider Type Angelica Best MD Family Provider Physician Primary Care Provider Specialty: Family Practice Address: [address] [place] [address], [facility] [place], [address] Email: [email or web address] Tortsen Coppola MD Attending Provider Physician Referring Provider Specialty: Oncology Address: [address] [place] [address], [id number] Email: Physical Therapy Initial Evaluation PT-OP-A Visit Information Start: 07/28/20 08:06 Freq: Status: Active Protocol: Document 07/31/20 11:15 [facility]AK (Rec: 08/05/20 10:54 [facility] [id number]) Out-Patient Physical Therapy Visit Information Visit Information Visit Type Initial Evaluation Visit Start Time 11:15 Visit Stop Time 12:00 Total Visit Minutes 45 Visit Number 1 Evaluation Information Evaluation Date 07/31/20 Precautions Precautions breast cancer, osteopenia and osteoporosis PT-OP-B Current Condition Start: 07/28/20 08:06 Freq: Status: Active Protocol: Document 07/31/20 11:15 SAK (Rec: 07/31/20 12:23 [facility] [id number]) Current Condition History of Current Condition Onset Date 09/03/19 Current Complaints decreased range of motion and tingling right UE. History of Current Condition modified radical mastectomy right, simple left mastectomy left 09/03/19. Hospitalized after due to infection in drain and into breast. End of November radiation x 5 weeks. Continues with chemotherapy at this time. Sees Dr. Duran tomorrow to look at lump in groin , has been on antibiotics; states lump decreased in size but persists . Finished the prescribed antibiotics. In March had full use of right UE, now limited motion and use plus constant tingling. Can't wear a bra with prosthesis because heavy and uncomfortable, has tender spots under arm and possibly swelling. 4 more sessions of chemo scheduled. States before diagnosis of cancer was noting weakness in arm. Has puppy 56 lbs, having difficulty in caring for him, he pulls so she isn't able to walk him. Prior Treatments and Tests On 09/03/2019, patient underwent right sided modified radical mastectomy and left sided simple mastectomy Treatment Goals Patient/Caregiver Goals Regain full use of her right UE Prior Functional Status Baseline Function- ADL's Independent Baseline Function- Mobility Independent Baseline Function- Recreation/Hobbies no limitations Current Functional Impairments (Reported) Functional Limitations- ADL's limited ability to reach overhead, behind her back, and across her body with her right UE PT-OP-C Subjective Start: 07/28/20 08:06 Freq: Status: Active Protocol: Document 07/31/20 11:15 [facility] (Rec: 08/05/20 10:54 [facility] [id number]) Patient Questionnaires Quick Dash- Upper Extremity Quick Dash UE Score 47 OP-PT Pain Assessment Pain Assessment Grid Paper Pain Assessment Grid Completed Yes Location Right chest Intensity 6 Description Aching,Burning,Pressure, Pulling,Tingling Frequency Frequent Pain Aggravating Factors ADL's,Activity Pain Alleviating Factors Inactivity PT-OP-F Manual Assessment Start: 07/28/20 08:06 Freq: Status: Active Protocol: Document 07/31/20 11:15 [facility] (Rec: 08/05/20 10:54 [facility] [id number]) Manual Assessments Soft Tissue Assessment Soft Tissue Mobility Assessment well healed mastectomy scars with moderate decreased mobility right scar and subaxillary tissue. Fair mobility left scar. Joint Mobility Assessment Joint Mobility Assessment decreased inferior and posterior glide bilateral shoulders right greater than left PT-OP-H Neuro Start: 07/28/20 08:06 Freq: Status: Active Protocol: Document 07/31/20 11:15 [facility] (Rec: 08/05/20 10:54 [facility] [id number]) Sensation Evaluation Gross Sensation Gross Sensation Right UE Impaired Sensation Description Tingling PT-OP-J Posture/Palpation/Skin Start: 07/28/20 08:06 Freq: Status: Active Protocol: Document 07/31/20 11:15 [facility]AK (Rec: 08/05/20 10:54 [facility] [id number]) Posture Evaluation Position Sitting Head/C-Spine Posture Forward Head T-Spine Posture Increased Kyphosis Shoulder Posture (L) Rounded,(R) Rounded Scapula Posture (L) Protracted,(R) Protracted Arm Posture (L) Internally Rotated,(R) Internally Rotated Palpation Assessment Location One Palpation Location mastectomy scars Palpation Details decreased mobility right greater than left PT-OP-K Range of Motion Start: 07/28/20 08:06 Freq: Status: Active Protocol: Document 07/31/20 11:15 [facility]AK (Rec: 08/05/20 11:11 [facility] [id number]) Cervical Spine Range of Motion Cervical Spine Active Comments WNL Shoulder Goniometric Range of Motion Shoulder Right Shoulder ROM WFL No Testing Position Sitting Flexion 145 Extension 15 Abduction 135 Horizontal Abduction 75 Horizontal Adduction 20 External Rotation at 45 degrees 45 Abduction Internal Rotation Behind Back (text) L5 Left Testing Position Sitting Flexion 155 Extension 15 Abduction 150 Horizontal Abduction 80 Horizontal Adduction 15 External Rotation at 45 degrees 55 Abduction Internal Rotation Behind Back (text) T8 PT-OP-M Strength Start: 07/28/20 08:06 Freq: Status: Active Protocol: Document 07/31/20 11:15 [facility] (Rec: 08/05/20 11:11 [facility] [id number]) Shoulder Strength Shoulder Manual Muscle Testing Right Flexion 4- Good- Extension 4- Good- Abduction (C5) 4- Good- Adduction 4- Good- External Rotation 4- Good- Internal Rotation 4- Good- Horizontal Abduction 4- Good- Horizontal Adduction 4- Good- Left Flexion 4 Good Extension 4 Good Abduction (C5) 4 Good Adduction 4 Good External Rotation 4 Good Internal Rotation 4 Good Horizontal Abduction 4 Good Horizontal Adduction 4 Good PT-OP-N Lymphedema Start: 07/28/20 08:06 Freq: Status: Active Protocol: Document 07/31/20 11:15 [facility] (Rec: 08/05/20 11:11 [facility] [id number]) Lymphedema Measurements Comments Lymphedema Comments no signs or symptoms of lymphedema via observation or measurement. PT-OP-Q Treatments Start: 07/28/20 08:06 Freq: Status: Active Protocol: Document 07/31/20 11:15 [facility] (Rec: 08/05/20 11:11 [facility] [id number]) Self-Care/Home Management Treatment Education Patient Education Home Exercise Program,Posture Other Education issued written HEP PT-OP-T Assessment and Plan Start: 07/28/20 08:06 Freq: Status: Active Protocol: Document 07/31/20 11:15 [facility] (Rec: 08/05/20 11:11 [facility] [id number]) Physical Therapy Assessment Rehab Potential Rehabilitation Potential Good Evaluation Complexity Number of Personal Factors/Comorbidities 1-2 Number of Body Systems Impaired 3 Clinical Presentation at Evaluation Evolving Impairments Impairments Activity Tolerance,Posture,ROM ,Soft Tissue Mobility Goals Four Impairment decreased scar mobility Rn Internal Medicine Goal (LTG) Normal scar mobility of bilateral mastectomy scars. LTG Duration 11/03/20 Three Impairment postural dysfunction s/p mastectomies Short Term Goal (STG) Patient to be instructed in neutral postural alignment with postural exercises to help align her body for improved right shoulder function STG Duration 08/23/20 Rn Internal Medicine Goal (LTG) Patient to demonstrate improved postural alignment and ability to self-correct with minimal cues LTG Duration 11/03/20 Two Impairment Difficulty reaching overhead, behind her back, or across her body right UE Short Term Goal (STG) Patient to be independent in HEP for purposes of improving right UE ROM STG Duration 08/23/20 Alf Goal (LTG) Patient to demonstrate full active use of her right UE including reaching overhead, behind her back, and across her body LTG Duration 11/03/20 One Impairment Quickdash UE disability index score 46% Short Term Goal (STG) Decrease score to no greater than 30% STG Duration 09/06/20 Alf Goal (LTG) Decrease score to no greater than 10% as measure of improved right UE function LTG Duration 11/03/20 Assessment Summary Assessment Patient presents with right shoulder pain and limited ROM s/p modfied radical mastectomy 09/03/19. Patient reports gradual decrease in her ROM over the past few months. Reports very low activity level due to fatigue from chemo, hasn't resumed any sort of exercise program. Has soft tissue tightness throughout mastectomy scars right greater than left, decreased rib mobility, tightness subaxillary tissue right. Additionally postural dysfunction with forward head and rounded shoulders, increased thoracic kyphosis. Circumferential measurements are negative for significant difference bilateral UE's so does not appear to have lymphedema. Physical Therapy Plan Frequency and Duration Frequency of Treatment 2x/Week Duration of Treatment 12 weeks Plan of Care Start Date 07/31/20 Plan of Care End Date 11/03/20 Therapeutic Interventions Therapeutic Interventions Aquatic Therapy,Home Exercise Program,Joint Mobilizations, Lymphedema Management,Manual Therapy,Patient/Caregiver Education,Self-Care/Home Management,Soft Tissue Mobilization,Taping, Therapeutic Activities, Therapeutic Exercises Next Visit Focus/Plan Next Note Type Treatment Note Next Visit Plan Review HEP, progress with gentle ROM ex to include pulleys, postural correction exercises. Manual techniques to improve shoulder ROM.
--- NOTE | 2020-08-05 12:22 | PT.OTN ---
Current Diagnoses Malignant neoplasm of unspecified site of right female breast (08/05/20) Physical Therapy Treatment Note PT-OP-A Visit Information Start: 07/28/20 08:06 Freq: Status: Active Protocol: Document 08/05/20 12:13 [facility]AK (Rec: 08/05/20 12:22 [facility] [id number]) Out-Patient Physical Therapy Visit Information Visit Information Visit Type Treatment Note Visit Note Patient reports shoulder sore, has been doing exercises. Hoping to start regular exercise program, but continues to sleep most of the day due to chemo treatment. Visit Start Time 11:15 Visit Stop Time 12:00 Total Visit Minutes 45 Visit Number 2 Evaluation Information Evaluation Date 07/31/20 Precautions Precautions breast cancer, osteopenia and osteoporosis PT-OP-B Current Condition Start: 07/28/20 08:06 Freq: Status: Active Protocol: Document 08/05/20 12:13 [facility] (Rec: 08/05/20 12:22 [facility] [id number]) Current Condition History of Current Condition Onset Date 09/03/19 Current Complaints decreased range of motion and tingling right UE. History of Current Condition modified radical mastectomy right, simple left mastectomy left 09/03/19. Hospitalized after due to infection in drain and into breast. End of November radiation x 5 weeks. Continues with chemotherapy at this time. Sees Dr. Duran tomorrow to look at lump in groin , has been on antibiotics; states lump decreased in size but persists . Finished the prescribed antibiotics. In March had full use of right UE, now limited motion and use plus constant tingling. Can't wear a bra with prosthesis because heavy and uncomfortable, has tender spots under arm and possibly swelling. 4 more sessions of chemo scheduled. States before diagnosis of cancer was noting weakness in arm. Has puppy 56 lbs, having difficulty in caring for him, he pulls so she isn't able to walk him. Prior Treatments and Tests On 09/03/2019, patient underwent right sided modified radical mastectomy and left sided simple mastectomy PT-OP-C Subjective Start: 07/28/20 08:06 Freq: Status: Active Protocol: Document 07/31/20 11:15 [facility]AK (Rec: 08/05/20 10:54 [facility] [id number]) Patient Questionnaires Quick Dash- Upper Extremity Quick Dash UE Score 47 OP-PT Pain Assessment Pain Assessment Grid Paper Pain Assessment Grid Completed Yes Location Right chest Intensity 6 Description Aching,Burning,Pressure, Pulling,Tingling Frequency Frequent Pain Aggravating Factors ADL's,Activity Pain Alleviating Factors Inactivity PT-OP-F Manual Assessment Start: 07/28/20 08:06 Freq: Status: Active Protocol: Document 07/31/20 11:15 [facility] (Rec: 08/05/20 10:54 [facility] [id number]) Manual Assessments Soft Tissue Assessment Soft Tissue Mobility Assessment well healed mastectomy scars with moderate decreased mobility right scar and subaxillary tissue. Fair mobility left scar. Joint Mobility Assessment Joint Mobility Assessment decreased inferior and posterior glide bilateral shoulders right greater than left PT-OP-H Neuro Start: 07/28/20 08:06 Freq: Status: Active Protocol: Document 07/31/20 11:15 [facility] (Rec: 08/05/20 10:54 [facility] [id number]) Sensation Evaluation Gross Sensation Gross Sensation Right UE Impaired Sensation Description Tingling PT-OP-J Posture/Palpation/Skin Start: 07/28/20 08:06 Freq: Status: Active Protocol: Document 07/31/20 11:15 [facility] (Rec: 08/05/20 10:54 [facility] [id number]) Posture Evaluation Position Sitting Head/C-Spine Posture Forward Head T-Spine Posture Increased Kyphosis Shoulder Posture (L) Rounded,(R) Rounded Scapula Posture (L) Protracted,(R) Protracted Arm Posture (L) Internally Rotated,(R) Internally Rotated Palpation Assessment Location One Palpation Location mastectomy scars Palpation Details decreased mobility right greater than left PT-OP-K Range of Motion Start: 07/28/20 08:06 Freq: Status: Active Protocol: Document 07/31/20 11:15 [facility] (Rec: 08/05/20 11:11 [facility] [id number]) Cervical Spine Range of Motion Cervical Spine Active Comments WNL Shoulder Goniometric Range of Motion Shoulder Right Shoulder ROM WFL No Testing Position Sitting Flexion 145 Extension 15 Abduction 135 Horizontal Abduction 75 Horizontal Adduction 20 External Rotation at 45 degrees 45 Abduction Internal Rotation Behind Back (text) L5 Left Testing Position Sitting Flexion 155 Extension 15 Abduction 150 Horizontal Abduction 80 Horizontal Adduction 15 External Rotation at 45 degrees 55 Abduction Internal Rotation Behind Back (text) T8 PT-OP-M Strength Start: 07/28/20 08:06 Freq: Status: Active Protocol: Document 07/31/20 11:15 [facility] (Rec: 08/05/20 11:11 [facility] [id number]) Shoulder Strength Shoulder Manual Muscle Testing Right Flexion 4- Good- Extension 4- Good- Abduction (C5) 4- Good- Adduction 4- Good- External Rotation 4- Good- Internal Rotation 4- Good- Horizontal Abduction 4- Good- Horizontal Adduction 4- Good- Left Flexion 4 Good Extension 4 Good Abduction (C5) 4 Good Adduction 4 Good External Rotation 4 Good Internal Rotation 4 Good Horizontal Abduction 4 Good Horizontal Adduction 4 Good PT-OP-N Lymphedema Start: 07/28/20 08:06 Freq: Status: Active Protocol: Document 07/31/20 11:15 [facility] (Rec: 08/05/20 11:11 [facility] [id number]) Lymphedema Measurements Comments Lymphedema Comments no signs or symptoms of lymphedema via observation or measurement. PT-OP-Q Treatments Start: 07/28/20 08:06 Freq: Status: Active Protocol: Document 08/05/20 12:13 [facility] (Rec: 08/05/20 12:22 [facility] [id number]) Cardio Equipment Recumbent Elliptical (BiodMD-IT) Duration (Minutes) 6 Resistance 1 Seat Position 6 Therapeutic Exercises Supine Exercises deep breathing Reps/Minutes 5x ea with manual cues Comments abdominal, thoracic, chest shoulder flex Equipment Used wand Reps/Minutes 5x serratus punch Equipment Used wand Reps/Minutes 5x lower trunk rotation Reps/Minutes 5x 10 Comments with Arms modified T position, end-range deep breathing Sitting Exercises shoulder flex Sitting Exercise Name table slide Reps/Minutes 10x UT stretch Reps/Minutes 3x shoulder blade squeeze Reps/Minutes 5x shoulder shrugs Reps/Minutes 5x pulleys Sitting Exercise Name shoulder flex and scaption Reps/Minutes 5x Comments end-range stretch and deep breathing Self-Care/Home Management Treatment Education Patient Education Home Exercise Program,Posture Other Education updated HEP; added lower trunk rotation, serratus punch, shoulder flexion with wand PT-OP-T Assessment and Plan Start: 07/28/20 08:06 Freq: Status: Active Protocol: Document 08/05/20 12:13 [facility] (Rec: 08/05/20 12:22 [facility] [id number]) Physical Therapy Assessment Goals Four Impairment decreased scar mobility Retirement Goal (LTG) Normal scar mobility of bilateral mastectomy scars. LTG Duration 11/03/20 Three Impairment postural dysfunction s/p mastectomies Short Term Goal (STG) Patient to be instructed in neutral postural alignment with postural exercises to help align her body for improved right shoulder function STG Duration 08/23/20 Retirement Goal (LTG) Patient to demonstrate improved postural alignment and ability to self-correct with minimal cues LTG Duration 11/03/20 Two Impairment Difficulty reaching overhead, behind her back, or across her body right UE Short Term Goal (STG) Patient to be independent in HEP for purposes of improving right UE ROM STG Duration 08/23/20 [employer] Goal (LTG) Patient to demonstrate full active use of her right UE including reaching overhead, behind her back, and across her body LTG Duration 11/03/20 One Impairment Quickdash UE disability index score 46% Short Term Goal (STG) Decrease score to no greater than 30% STG Duration 09/06/20 [employer] Goal (LTG) Decrease score to no greater than 10% as measure of improved right UE function LTG Duration 11/03/20 Assessment Summary Assessment Patient needs moderate cues for deep breathing and ex in pain-free ROM. Needed some correction of exercise form and postural correction. Did not tolerate child's pose. Supine T with lower trunk rotation modified to approx 60 deg abduction right UE. Physical Therapy Plan Frequency and Duration Frequency of Treatment 2x/Week Duration of Treatment 12 weeks Plan of Care Start Date 07/31/20 Plan of Care End Date 11/03/20 Therapeutic Interventions Therapeutic Interventions Aquatic Therapy,Home Exercise Program,Joint Mobilizations, Lymphedema Management,Manual Therapy,Patient/Caregiver Education,Self-Care/Home Management,Soft Tissue Mobilization,Taping, Therapeutic Activities, Therapeutic Exercises Next Visit Focus/Plan Next Note Type Treatment Note Next Visit Plan Start with [employer]. Add thoracic extension, wall posture ex. Continue deep breathing education
--- NOTE | 2020-08-07 15:47 | PT.OTN ---
Current Diagnoses Malignant neoplasm of unspecified site of right female breast (08/07/20) Physical Therapy Treatment Note PT-OP-A Visit Information Start: 07/28/20 08:06 Freq: Status: Active Protocol: Document 08/05/20 12:13 [facility] (Rec: 08/05/20 12:22 [facility] [id number]) Out-Patient Physical Therapy Visit Information Visit Information Visit Type Treatment Note Visit Note Patient reports shoulder sore, has been doing exercises. Hoping to start regular exercise program, but continues to sleep most of the day due to chemo treatment. Visit Start Time 11:15 Visit Stop Time 12:00 Total Visit Minutes 45 Visit Number 2 Evaluation Information Evaluation Date 07/31/20 Precautions Precautions breast cancer, osteopenia and osteoporosis PT-OP-B Current Condition Start: 07/28/20 08:06 Freq: Status: Active Protocol: Document 08/05/20 12:13 [facility] (Rec: 08/05/20 12:22 [facility] [id number]) Current Condition History of Current Condition Onset Date 09/03/19 Current Complaints decreased range of motion and tingling right UE. History of Current Condition modified radical mastectomy right, simple left mastectomy left 09/03/19. Hospitalized after due to infection in drain and into breast. End of November radiation x 5 weeks. Continues with chemotherapy at this time. Sees Dr. Duran tomorrow to look at lump in groin , has been on antibiotics; states lump decreased in size but persists . Finished the prescribed antibiotics. In March had full use of right UE, now limited motion and use plus constant tingling. Can't wear a bra with prosthesis because heavy and uncomfortable, has tender spots under arm and possibly swelling. 4 more sessions of chemo scheduled. States before diagnosis of cancer was noting weakness in arm. Has puppy 56 lbs, having difficulty in caring for him, he pulls so she isn't able to walk him. Prior Treatments and Tests On 09/03/2019, patient underwent right sided modified radical mastectomy and left sided simple mastectomy PT-OP-C Subjective Start: 07/28/20 08:06 Freq: Status: Active Protocol: Document 07/31/20 11:15 [facility] (Rec: 08/05/20 10:54 [facility] [id number]) Patient Questionnaires Quick Dash- Upper Extremity Quick Dash UE Score 47 OP-PT Pain Assessment Pain Assessment Grid Paper Pain Assessment Grid Completed Yes Location Right chest Intensity 6 Description Aching,Burning,Pressure, Pulling,Tingling Frequency Frequent Pain Aggravating Factors ADL's,Activity Pain Alleviating Factors Inactivity PT-OP-F Manual Assessment Start: 07/28/20 08:06 Freq: Status: Active Protocol: Document 07/31/20 11:15 [facility] (Rec: 08/05/20 10:54 [facility] [id number]) Manual Assessments Soft Tissue Assessment Soft Tissue Mobility Assessment well healed mastectomy scars with moderate decreased mobility right scar and subaxillary tissue. Fair mobility left scar. Joint Mobility Assessment Joint Mobility Assessment decreased inferior and posterior glide bilateral shoulders right greater than left PT-OP-H Neuro Start: 07/28/20 08:06 Freq: Status: Active Protocol: Document 07/31/20 11:15 [facility] (Rec: 08/05/20 10:54 [facility] [id number]) Sensation Evaluation Gross Sensation Gross Sensation Right UE Impaired Sensation Description Tingling PT-OP-J Posture/Palpation/Skin Start: 07/28/20 08:06 Freq: Status: Active Protocol: Document 07/31/20 11:15 [facility] (Rec: 08/05/20 10:54 [facility] [id number]) Posture Evaluation Position Sitting Head/C-Spine Posture Forward Head T-Spine Posture Increased Kyphosis Shoulder Posture (L) Rounded,(R) Rounded Scapula Posture (L) Protracted,(R) Protracted Arm Posture (L) Internally Rotated,(R) Internally Rotated Palpation Assessment Location One Palpation Location mastectomy scars Palpation Details decreased mobility right greater than left PT-OP-K Range of Motion Start: 07/28/20 08:06 Freq: Status: Active Protocol: Document 07/31/20 11:15 [facility] (Rec: 08/05/20 11:11 [facility] [id number]) Cervical Spine Range of Motion Cervical Spine Active Comments WNL Shoulder Goniometric Range of Motion Shoulder Right Shoulder ROM WFL No Testing Position Sitting Flexion 145 Extension 15 Abduction 135 Horizontal Abduction 75 Horizontal Adduction 20 External Rotation at 45 degrees 45 Abduction Internal Rotation Behind Back (text) L5 Left Testing Position Sitting Flexion 155 Extension 15 Abduction 150 Horizontal Abduction 80 Horizontal Adduction 15 External Rotation at 45 degrees 55 Abduction Internal Rotation Behind Back (text) T8 PT-OP-M Strength Start: 07/28/20 08:06 Freq: Status: Active Protocol: Document 07/31/20 11:15 [facility] (Rec: 08/05/20 11:11 [facility] [id number]) Shoulder Strength Shoulder Manual Muscle Testing Right Flexion 4- Good- Extension 4- Good- Abduction (C5) 4- Good- Adduction 4- Good- External Rotation 4- Good- Internal Rotation 4- Good- Horizontal Abduction 4- Good- Horizontal Adduction 4- Good- Left Flexion 4 Good Extension 4 Good Abduction (C5) 4 Good Adduction 4 Good External Rotation 4 Good Internal Rotation 4 Good Horizontal Abduction 4 Good Horizontal Adduction 4 Good PT-OP-N Lymphedema Start: 07/28/20 08:06 Freq: Status: Active Protocol: Document 07/31/20 11:15 [facility] (Rec: 08/05/20 11:11 [facility] [id number]) Lymphedema Measurements Comments Lymphedema Comments no signs or symptoms of lymphedema via observation or measurement. PT-OP-Q Treatments Start: 07/28/20 08:06 Freq: Status: Active Protocol: Document 08/07/20 11:21 [facility] (Rec: 08/07/20 12:04 [facility] [id number]) Cardio Equipment Recumbent Elliptical (Biodex) Duration (Minutes) 9 Resistance 1 Seat Position 6 Therapeutic Exercises Supine Exercises deep breathing Reps/Minutes 5x ea with manual cues Comments abdominal, thoracic, chest shoulder flex Equipment Used wand Reps/Minutes 5x serratus punch Equipment Used wand Reps/Minutes 5x lower trunk rotation Reps/Minutes 5x 10 Comments with Arms modified T position, end-range deep breathing Sitting Exercises shoulder flex Sitting Exercise Name table slide Reps/Minutes 10x UT stretch Reps/Minutes 3x shoulder blade squeeze Reps/Minutes 5x shoulder shrugs Reps/Minutes 5x pulleys Sitting Exercise Name shoulder flex and scaption Equipment Used purple ball at midthoracic spine to facilitate extension Reps/Minutes 10x Comments end-range stretch and deep breathing Standing Exercises wall posture Comments verbal instruction, start next session Manual Therapy Treatment Soft Tissue Mobilization right UT Mobilization Type Myofascial Release Intensity/Depth Moderate Body Position Supine Joint Mobilizations scapulothoracic Comments next session right shoulder Joint GH Direction posterior, inferior Grade II Body Position Supine Reps/Duration 5 min Self-Care/Home Management Treatment Education Patient Education Home Exercise Program,Posture Other Education updated HEP; added lower trunk rotation, serratus punch, shoulder flexion with wand PT-OP-T Assessment and Plan Start: 07/28/20 08:06 Freq: Status: Active Protocol: Document 08/07/20 11:21 [facility] (Rec: 08/07/20 12:04 [facility] [id number]) Physical Therapy Assessment Goals Four Impairment decreased scar mobility Prison Goal (LTG) Normal scar mobility of bilateral mastectomy scars. LTG Duration 11/03/20 Three Impairment postural dysfunction s/p mastectomies Short Term Goal (STG) Patient to be instructed in neutral postural alignment with postural exercises to help align her body for improved right shoulder function STG Duration 08/23/20 Prison Goal (LTG) Patient to demonstrate improved postural alignment and ability to self-correct with minimal cues LTG Duration 11/03/20 Two Impairment Difficulty reaching overhead, behind her back, or across her body right UE Short Term Goal (STG) Patient to be independent in HEP for purposes of improving right UE ROM STG Duration 08/23/20 Prison Goal (LTG) Patient to demonstrate full active use of her right UE including reaching overhead, behind her back, and across her body LTG Duration 11/03/20 One Impairment Quickdash UE disability index score 46% Short Term Goal (STG) Decrease score to no greater than 30% STG Duration 09/06/20 [employer] Machine Operator Goal (LTG) Decrease score to no greater than 10% as measure of improved right UE function LTG Duration 11/03/20 Assessment Summary Assessment Improved shoulder flexion noted today supine with wand. Added ball at mid-thoracic region for emilio exercises to facilitate increased extension. Patient reports unable to tolerate all 4's position. Tight shoulder capusule right. Physical Therapy Plan Frequency and Duration Frequency of Treatment 2x/Week Duration of Treatment 12 weeks Plan of Care Start Date 07/31/20 Plan of Care End Date 11/03/20 Therapeutic Interventions Therapeutic Interventions Aquatic Therapy,Home Exercise Program,Joint Mobilizations, Lymphedema Management,Manual Therapy,Patient/Caregiver Education,Self-Care/Home Management,Soft Tissue Mobilization,Taping, Therapeutic Activities, Therapeutic Exercises Next Visit Focus/Plan Next Note Type Treatment Note Next Visit Plan add sidelying scapular mobilization, continue ther ex , joint mobilization.
--- NOTE | 2020-08-11 17:48 | PT.OTN ---
Current Diagnoses Malignant neoplasm of unspecified site of right female breast (08/11/20) Physical Therapy Treatment Note PT-OP-A Visit Information Start: 07/28/20 08:06 Freq: Status: Active Protocol: Document 08/11/20 11:10 [facility] (Rec: 08/11/20 12:08 [facility] [id number]) Out-Patient Physical Therapy Visit Information Visit Information Visit Type Treatment Note Visit Note No new c/o. Visit Start Time 11:15 Visit Stop Time 12:05 Total Visit Minutes 50 Visit Number 4 Evaluation Information Evaluation Date 07/31/20 Precautions Precautions breast cancer, osteopenia and osteoporosis PT-OP-B Current Condition Start: 07/28/20 08:06 Freq: Status: Active Protocol: Document 08/11/20 11:10 [facility] (Rec: 08/11/20 12:08 [facility] [id number]) Current Condition History of Current Condition Onset Date 09/03/19 Current Complaints decreased range of motion and tingling right UE. History of Current Condition modified radical mastectomy right, simple left mastectomy left 09/03/19. Hospitalized after due to infection in drain and into breast. End of November radiation x 5 weeks. Continues with chemotherapy at this time. Sees Dr. Duran tomorrow to look at lump in groin , has been on antibiotics; states lump decreased in size but persists . Finished the prescribed antibiotics. In March had full use of right UE, now limited motion and use plus constant tingling. Can't wear a bra with prosthesis because heavy and uncomfortable, has tender spots under arm and possibly swelling. 4 more sessions of chemo scheduled. States before diagnosis of cancer was noting weakness in arm. Has puppy 56 lbs, having difficulty in caring for him, he pulls so she isn't able to walk him. Prior Treatments and Tests On 09/03/2019, patient underwent right sided modified radical mastectomy and left sided simple mastectomy PT-OP-C Subjective Start: 07/28/20 08:06 Freq: Status: Active Protocol: Document 07/31/20 11:15 [facility] (Rec: 08/05/20 10:54 [facility] [id number]) Patient Questionnaires Quick Dash- Upper Extremity Quick Dash UE Score 47 OP-PT Pain Assessment Pain Assessment Grid Paper Pain Assessment Grid Completed Yes Location Right chest Intensity 6 Description Aching,Burning,Pressure, Pulling,Tingling Frequency Frequent Pain Aggravating Factors ADL's,Activity Pain Alleviating Factors Inactivity PT-OP-F Manual Assessment Start: 07/28/20 08:06 Freq: Status: Active Protocol: Document 07/31/20 11:15 [facility] (Rec: 08/05/20 10:54 [facility] [id number]) Manual Assessments Soft Tissue Assessment Soft Tissue Mobility Assessment well healed mastectomy scars with moderate decreased mobility right scar and subaxillary tissue. Fair mobility left scar. Joint Mobility Assessment Joint Mobility Assessment decreased inferior and posterior glide bilateral shoulders right greater than left PT-OP-H Neuro Start: 07/28/20 08:06 Freq: Status: Active Protocol: Document 07/31/20 11:15 [facility] (Rec: 08/05/20 10:54 [facility] [id number]) Sensation Evaluation Gross Sensation Gross Sensation Right UE Impaired Sensation Description Tingling PT-OP-J Posture/Palpation/Skin Start: 07/28/20 08:06 Freq: Status: Active Protocol: Document 07/31/20 11:15 [facility] (Rec: 08/05/20 10:54 [facility] [id number]) Posture Evaluation Position Sitting Head/C-Spine Posture Forward Head T-Spine Posture Increased Kyphosis Shoulder Posture (L) Rounded,(R) Rounded Scapula Posture (L) Protracted,(R) Protracted Arm Posture (L) Internally Rotated,(R) Internally Rotated Palpation Assessment Location One Palpation Location mastectomy scars Palpation Details decreased mobility right greater than left PT-OP-K Range of Motion Start: 07/28/20 08:06 Freq: Status: Active Protocol: Document 07/31/20 11:15 [facility] (Rec: 08/05/20 11:11 [facility] [id number]) Cervical Spine Range of Motion Cervical Spine Active Comments WNL Shoulder Goniometric Range of Motion Shoulder Right Shoulder ROM WFL No Testing Position Sitting Flexion 145 Extension 15 Abduction 135 Horizontal Abduction 75 Horizontal Adduction 20 External Rotation at 45 degrees 45 Abduction Internal Rotation Behind Back (text) L5 Left Testing Position Sitting Flexion 155 Extension 15 Abduction 150 Horizontal Abduction 80 Horizontal Adduction 15 External Rotation at 45 degrees 55 Abduction Internal Rotation Behind Back (text) T8 PT-OP-M Strength Start: 07/28/20 08:06 Freq: Status: Active Protocol: Document 07/31/20 11:15 [facility] (Rec: 08/05/20 11:11 [facility] [id number]) Shoulder Strength Shoulder Manual Muscle Testing Right Flexion 4- Good- Extension 4- Good- Abduction (C5) 4- Good- Adduction 4- Good- External Rotation 4- Good- Internal Rotation 4- Good- Horizontal Abduction 4- Good- Horizontal Adduction 4- Good- Left Flexion 4 Good Extension 4 Good Abduction (C5) 4 Good Adduction 4 Good External Rotation 4 Good Internal Rotation 4 Good Horizontal Abduction 4 Good Horizontal Adduction 4 Good PT-OP-N Lymphedema Start: 07/28/20 08:06 Freq: Status: Active Protocol: Document 07/31/20 11:15 [facility] (Rec: 08/05/20 11:11 [facility] [id number]) Lymphedema Measurements Comments Lymphedema Comments no signs or symptoms of lymphedema via observation or measurement. PT-OP-Q Treatments Start: 07/28/20 08:06 Freq: Status: Active Protocol: Document 08/11/20 11:10 [facility] (Rec: 08/11/20 12:08 [facility] [id number]) Cardio Equipment Recumbent Elliptical (BiodMeetyl) Duration (Minutes) 10 Resistance 1 Seat Position 6 Gym Equipment Cable Column (Body Solid) shrug Details manual cues Reps/Time 10x lat pull Resistance 12.5 Reps/Time 10x Therapeutic Exercises Supine Exercises deep breathing Reps/Minutes 5x ea with manual cues Comments abdominal, thoracic, chest serratus punch Equipment Used wand Reps/Minutes 5x lower trunk rotation Reps/Minutes 5x 10 Comments with Arms modified T position, end-range deep breathing Sitting Exercises UT stretch Reps/Minutes 3x pulleys Sitting Exercise Name shoulder flex and scaption Equipment Used purple ball at midthoracic spine to facilitate extension Reps/Minutes 10x Comments end-range stretch and deep breathing Standing Exercises wall posture Reps/Minutes 5x Comments verbal and manual cues Manual Therapy Treatment Soft Tissue Mobilization right UT Mobilization Type Myofascial Release Intensity/Depth Moderate Body Position Supine Joint Mobilizations scapulothoracic Joint right Direction protraction, retraction, sup/ inf glide Grade III Body Position Sidelying right shoulder Joint GH Direction posterior, inferior Grade II Body Position Supine Reps/Duration 5 min Manual Techniques shoulder flex pin and stretch Reps/Duration 3 min Comments patient shown how to do self massage Self-Care/Home Management Treatment Education Patient Education Home Exercise Program,Posture Other Education added row with L1 TB stressed importance of HEP PT-OP-T Assessment and Plan Start: 07/28/20 08:06 Freq: Status: Active Protocol: Document 08/11/20 11:10 [facility] (Rec: 08/11/20 12:08 [facility] [id number]) Physical Therapy Assessment Goals Four Impairment decreased scar mobility International Flight Attendant Goal (LTG) Normal scar mobility of bilateral mastectomy scars. LTG Duration 11/03/20 Three Impairment postural dysfunction s/p mastectomies Short Term Goal (STG) Patient to be instructed in neutral postural alignment with postural exercises to help align her body for improved right shoulder function STG Duration 08/23/20 International Flight Attendant Goal (LTG) Patient to demonstrate improved postural alignment and ability to self-correct with minimal cues LTG Duration 11/03/20 Two Impairment Difficulty reaching overhead, behind her back, or across her body right UE Short Term Goal (STG) Patient to be independent in HEP for purposes of improving right UE ROM STG Duration 08/23/20 International Flight Attendant Goal (LTG) Patient to demonstrate full active use of her right UE including reaching overhead, behind her back, and across her body LTG Duration 11/03/20 One Impairment Quickdash UE disability index score 46% Short Term Goal (STG) Decrease score to no greater than 30% STG Duration 09/06/20 International Flight Attendant Goal (LTG) Decrease score to no greater than 10% as measure of improved right UE function LTG Duration 11/03/20 Assessment Summary Assessment Patient more restricted right shoulder today due to low HEP compliance since last seen, has difficulty relaxing for manual techniques. Instructed in self pin and stretch of subaxillary tissue with shoulder flexion. Physical Therapy Plan Frequency and Duration Frequency of Treatment 2x/Week Duration of Treatment 12 weeks Plan of Care Start Date 07/31/20 Plan of Care End Date 11/03/20 Therapeutic Interventions Therapeutic Interventions Aquatic Therapy,Home Exercise Program,Joint Mobilizations, Lymphedema Management,Manual Therapy,Patient/Caregiver Education,Self-Care/Home Management,Soft Tissue Mobilization,Taping, Therapeutic Activities, Therapeutic Exercises Next Visit Focus/Plan Next Note Type Treatment Note Next Visit Plan continue PT per POC, increase manual component of treatment due to tight subaxillary region and joint capsule. Try seated cat/cow for thoracic mobility
--- NOTE | 2020-08-18 12:55 | PT.OTN ---
Current Diagnoses Malignant neoplasm of unspecified site of right female breast (08/18/20) Physical Therapy Treatment Note PT-OP-A Visit Information Start: 07/28/20 08:06 Freq: Status: Active Protocol: Document 08/18/20 10:29 SAK (Rec: 08/18/20 11:11 SAK [id number]) Out-Patient Physical Therapy Visit Information Visit Information Visit Type Treatment Note Visit Start Time 10:30 Visit Stop Time 11:15 Total Visit Minutes 45 Visit Number 5 Evaluation Information Evaluation Date 07/31/20 Precautions Precautions breast cancer, osteopenia and osteoporosis PT-OP-B Current Condition Start: 07/28/20 08:06 Freq: Status: Active Protocol: Document 08/18/20 10:29 SAK (Rec: 08/18/20 11:11 SAK [id number]) Current Condition History of Current Condition Onset Date 09/03/19 Current Complaints decreased range of motion and tingling right UE. History of Current Condition modified radical mastectomy right, simple left mastectomy left 09/03/19. Hospitalized after due to infection in drain and into breast. End of November radiation x 5 weeks. Continues with chemotherapy at this time. Sees Dr. Duran tomorrow to look at lump in groin , has been on antibiotics; states lump decreased in size but persists . Finished the prescribed antibiotics. In March had full use of right UE, now limited motion and use plus constant tingling. Can't wear a bra with prosthesis because heavy and uncomfortable, has tender spots under arm and possibly swelling. 4 more sessions of chemo scheduled. States before diagnosis of cancer was noting weakness in arm. Has puppy 56 lbs, having difficulty in caring for him, he pulls so she isn't able to walk him. Prior Treatments and Tests On 09/03/2019, patient underwent right sided modified radical mastectomy and left sided simple mastectomy PT-OP-C Subjective Start: 07/28/20 08:06 Freq: Status: Active Protocol: Document 08/18/20 10:29 SAK (Rec: 08/18/20 11:11 SAK [id number]) OP-PT Subjective Patient Comments Patient Comments Had a hard week due to chemo, and the of a young family member; reports feeling poorly physically and emotionally. PT-OP-F Manual Assessment Start: 07/28/20 08:06 Freq: Status: Active Protocol: Document 07/31/20 11:15 [facility] (Rec: 08/05/20 10:54 [facility] [id number]) Manual Assessments Soft Tissue Assessment Soft Tissue Mobility Assessment well healed mastectomy scars with moderate decreased mobility right scar and subaxillary tissue. Fair mobility left scar. Joint Mobility Assessment Joint Mobility Assessment decreased inferior and posterior glide bilateral shoulders right greater than left PT-OP-H Neuro Start: 07/28/20 08:06 Freq: Status: Active Protocol: Document 07/31/20 11:15 [facility] (Rec: 08/05/20 10:54 [facility] [id number]) Sensation Evaluation Gross Sensation Gross Sensation Right UE Impaired Sensation Description Tingling PT-OP-J Posture/Palpation/Skin Start: 07/28/20 08:06 Freq: Status: Active Protocol: Document 07/31/20 11:15 [facility] (Rec: 08/05/20 10:54 [facility] [id number]) Posture Evaluation Position Sitting Head/C-Spine Posture Forward Head T-Spine Posture Increased Kyphosis Shoulder Posture (L) Rounded,(R) Rounded Scapula Posture (L) Protracted,(R) Protracted Arm Posture (L) Internally Rotated,(R) Internally Rotated Palpation Assessment Location One Palpation Location mastectomy scars Palpation Details decreased mobility right greater than left PT-OP-K Range of Motion Start: 07/28/20 08:06 Freq: Status: Active Protocol: Document 07/31/20 11:15 [facility] (Rec: 08/05/20 11:11 [facility] [id number]) Cervical Spine Range of Motion Cervical Spine Active Comments WNL Shoulder Goniometric Range of Motion Shoulder Right Shoulder ROM WFL No Testing Position Sitting Flexion 145 Extension 15 Abduction 135 Horizontal Abduction 75 Horizontal Adduction 20 External Rotation at 45 degrees 45 Abduction Internal Rotation Behind Back (text) L5 Left Testing Position Sitting Flexion 155 Extension 15 Abduction 150 Horizontal Abduction 80 Horizontal Adduction 15 External Rotation at 45 degrees 55 Abduction Internal Rotation Behind Back (text) T8 PT-OP-M Strength Start: 07/28/20 08:06 Freq: Status: Active Protocol: Document 07/31/20 11:15 [facility] (Rec: 08/05/20 11:11 [facility] [id number]) Shoulder Strength Shoulder Manual Muscle Testing Right Flexion 4- Good- Extension 4- Good- Abduction (C5) 4- Good- Adduction 4- Good- External Rotation 4- Good- Internal Rotation 4- Good- Horizontal Abduction 4- Good- Horizontal Adduction 4- Good- Left Flexion 4 Good Extension 4 Good Abduction (C5) 4 Good Adduction 4 Good External Rotation 4 Good Internal Rotation 4 Good Horizontal Abduction 4 Good Horizontal Adduction 4 Good PT-OP-N Lymphedema Start: 07/28/20 08:06 Freq: Status: Active Protocol: Document 07/31/20 11:15 [facility] (Rec: 08/05/20 11:11 [facility] [id number]) Lymphedema Measurements Comments Lymphedema Comments no signs or symptoms of lymphedema via observation or measurement. PT-OP-Q Treatments Start: 07/28/20 08:06 Freq: Status: Active Protocol: Document 08/18/20 10:29 [facility] (Rec: 08/18/20 11:11 [facility] [id number]) Cardio Equipment Recumbent Elliptical (Biodex) Duration (Minutes) 10 Resistance 1 Seat Position 6 Gym Equipment Cable Column (Body Solid) shrug Details manual cues Reps/Time 10x lat pull Resistance 12.5 Reps/Time 10x Therapeutic Exercises Supine Exercises deep breathing Reps/Minutes 5x ea with manual cues Comments abdominal, thoracic, chest serratus punch Equipment Used wand Reps/Minutes 5x lower trunk rotation Reps/Minutes 5x 10 Comments with Arms modified T position, end-range deep breathing Sidelying Exercises open book Reps/Minutes 5x ea Comments manual cues for segmental movement, deep breath at end range Sitting Exercises cat/cow Reps/Minutes 5x pulleys Sitting Exercise Name shoulder flex and scaption Equipment Used purple ball at midthoracic spine to facilitate extension Reps/Minutes 10x Comments end-range stretch and deep breathing Manual Therapy Treatment Soft Tissue Mobilization right UT Mobilization Type Myofascial Release Intensity/Depth Moderate Body Position Supine Joint Mobilizations scapulothoracic Joint right Direction protraction, retraction, sup/ inf glide Grade III Body Position Sidelying right shoulder Joint GH Direction posterior, inferior Grade II Body Position Supine Reps/Duration 5 min Manual Techniques shoulder flex pin and stretch Reps/Duration 3 min Comments patient shown how to do self massage Self-Care/Home Management Treatment Education Patient Education Home Exercise Program,Posture PT-OP-T Assessment and Plan Start: 07/28/20 08:06 Freq: Status: Active Protocol: Document 08/18/20 10:29 [facility] (Rec: 08/18/20 11:11 SAK [id number]) Physical Therapy Assessment Goals Four Impairment decreased scar mobility W[employer] Room Supervisor Goal (LTG) Normal scar mobility of bilateral mastectomy scars. LTG Duration 11/03/20 Three Impairment postural dysfunction s/p mastectomies Short Term Goal (STG) Patient to be instructed in neutral postural alignment with postural exercises to help align her body for improved right shoulder function STG Duration 08/23/20 W[employer] Room Supervisor Goal (LTG) Patient to demonstrate improved postural alignment and ability to self-correct with minimal cues LTG Duration 11/03/20 Two Impairment Difficulty reaching overhead, behind her back, or across her body right UE Short Term Goal (STG) Patient to be independent in HEP for purposes of improving right UE ROM STG Duration 08/23/20 W[employer] Room Supervisor Goal (LTG) Patient to demonstrate full active use of her right UE including reaching overhead, behind her back, and across her body LTG Duration 11/03/20 One Impairment Quickdash UE disability index score 46% Short Term Goal (STG) Decrease score to no greater than 30% STG Duration 09/06/20 Skilled Nursing Goal (LTG) Decrease score to no greater than 10% as measure of improved right UE function LTG Duration 11/03/20 Assessment Summary Assessment Difficulty complying to HEP due to not feeling well physically or emotionally Physical Therapy Plan Frequency and Duration Frequency of Treatment 2x/Week Duration of Treatment 12 weeks Plan of Care Start Date 07/31/20 Plan of Care End Date 11/03/20 Therapeutic Interventions Therapeutic Interventions Aquatic Therapy,Home Exercise Program,Joint Mobilizations, Lymphedema Management,Manual Therapy,Patient/Caregiver Education,Self-Care/Home Management,Soft Tissue Mobilization,Taping, Therapeutic Activities, Therapeutic Exercises Next Visit Focus/Plan Next Note Type Treatment Note Next Visit Plan Continue PT, manual therapy, ther ex, HEP progression.
--- NOTE | 2020-08-21 15:40 | PT.OTN ---
Current Diagnoses Malignant neoplasm of unspecified site of right female breast (08/21/20) Physical Therapy Treatment Note PT-OP-A Visit Information Start: 07/28/20 08:06 Freq: Status: Active Protocol: Document 08/21/20 10:35 SAK (Rec: 08/21/20 11:04 SAK [id number]) Out-Patient Physical Therapy Visit Information Visit Information Visit Type Treatment Note Visit Start Time 10:30 Visit Stop Time 11:15 Total Visit Minutes 45 Visit Number 6 Precautions Precautions breast cancer, osteopenia and osteoporosis PT-OP-B Current Condition Start: 07/28/20 08:06 Freq: Status: Active Protocol: Document 08/21/20 10:35 SAK (Rec: 08/21/20 11:04 SAK [id number]) Current Condition History of Current Condition Onset Date 09/03/19 Current Complaints decreased range of motion and tingling right UE. History of Current Condition modified radical mastectomy right, simple left mastectomy left 09/03/19. Hospitalized after due to infection in drain and into breast. End of November radiation x 5 weeks. Continues with chemotherapy at this time. Sees Dr. Duran tomorrow to look at lump in groin , has been on antibiotics; states lump decreased in size but persists . Finished the prescribed antibiotics. In March had full use of right UE, now limited motion and use plus constant tingling. Can't wear a bra with prosthesis because heavy and uncomfortable, has tender spots under arm and possibly swelling. 4 more sessions of chemo scheduled. States before diagnosis of cancer was noting weakness in arm. Has puppy 56 lbs, having difficulty in caring for him, he pulls so she isn't able to walk him. Prior Treatments and Tests On 09/03/2019, patient underwent right sided modified radical mastectomy and left sided simple mastectomy PT-OP-C Subjective Start: 07/28/20 08:06 Freq: Status: Active Protocol: Document 08/21/20 10:35 SAK (Rec: 08/21/20 11:04 SAK [id number]) OP-PT Subjective Patient Comments Patient Comments Patient states the exercises seem to be hard on her back; has history of right sided low back pain, but states worse especially with the floor exercises. PT-OP-F Manual Assessment Start: 07/28/20 08:06 Freq: Status: Active Protocol: Document 07/31/20 11:15 [facility] (Rec: 08/05/20 10:54 [facility] [id number]) Manual Assessments Soft Tissue Assessment Soft Tissue Mobility Assessment well healed mastectomy scars with moderate decreased mobility right scar and subaxillary tissue. Fair mobility left scar. Joint Mobility Assessment Joint Mobility Assessment decreased inferior and posterior glide bilateral shoulders right greater than left PT-OP-H Neuro Start: 07/28/20 08:06 Freq: Status: Active Protocol: Document 07/31/20 11:15 [facility] (Rec: 08/05/20 10:54 [facility] [id number]) Sensation Evaluation Gross Sensation Gross Sensation Right UE Impaired Sensation Description Tingling PT-OP-J Posture/Palpation/Skin Start: 07/28/20 08:06 Freq: Status: Active Protocol: Document 07/31/20 11:15 [facility] (Rec: 08/05/20 10:54 [facility] [id number]) Posture Evaluation Position Sitting Head/C-Spine Posture Forward Head T-Spine Posture Increased Kyphosis Shoulder Posture (L) Rounded,(R) Rounded Scapula Posture (L) Protracted,(R) Protracted Arm Posture (L) Internally Rotated,(R) Internally Rotated Palpation Assessment Location One Palpation Location mastectomy scars Palpation Details decreased mobility right greater than left PT-OP-K Range of Motion Start: 07/28/20 08:06 Freq: Status: Active Protocol: Document 07/31/20 11:15 [facility] (Rec: 08/05/20 11:11 [facility] [id number]) Cervical Spine Range of Motion Cervical Spine Active Comments WNL Shoulder Goniometric Range of Motion Shoulder Right Shoulder ROM WFL No Testing Position Sitting Flexion 145 Extension 15 Abduction 135 Horizontal Abduction 75 Horizontal Adduction 20 External Rotation at 45 degrees 45 Abduction Internal Rotation Behind Back (text) L5 Left Testing Position Sitting Flexion 155 Extension 15 Abduction 150 Horizontal Abduction 80 Horizontal Adduction 15 External Rotation at 45 degrees 55 Abduction Internal Rotation Behind Back (text) T8 PT-OP-M Strength Start: 07/28/20 08:06 Freq: Status: Active Protocol: Document 07/31/20 11:15 [facility] (Rec: 08/05/20 11:11 [facility] [id number]) Shoulder Strength Shoulder Manual Muscle Testing Right Flexion 4- Good- Extension 4- Good- Abduction (C5) 4- Good- Adduction 4- Good- External Rotation 4- Good- Internal Rotation 4- Good- Horizontal Abduction 4- Good- Horizontal Adduction 4- Good- Left Flexion 4 Good Extension 4 Good Abduction (C5) 4 Good Adduction 4 Good External Rotation 4 Good Internal Rotation 4 Good Horizontal Abduction 4 Good Horizontal Adduction 4 Good PT-OP-N Lymphedema Start: 07/28/20 08:06 Freq: Status: Active Protocol: Document 07/31/20 11:15 SAK (Rec: 08/05/20 11:11 [facility] [id number]) Lymphedema Measurements Comments Lymphedema Comments no signs or symptoms of lymphedema via observation or measurement. PT-OP-Q Treatments Start: 07/28/20 08:06 Freq: Status: Active Protocol: Document 08/21/20 10:35 SAK (Rec: 08/21/20 11:04 [facility] [id number]) Cardio Equipment Recumbent Stepper (Sci-Fit) Duration (Minutes) 10 Resistance 1 Seat Position 10 Gym Equipment Cable Column (Body Solid) shrug Details manual cues Resistance 12.5 Reps/Time 10x lat pull Resistance 12.5 Reps/Time 10x Therapeutic Exercises Supine Exercises deep breathing Reps/Minutes 5x ea with manual cues Comments abdominal, thoracic, chest shoulder flex Equipment Used wand Reps/Minutes 10x Comments end-range stretches (patient reports she hasn't been doing this exercise) serratus punch Equipment Used wand Reps/Minutes 510x Sidelying Exercises open book Comments discontinued due to pain in back Sitting Exercises seated trunk rotation stretch Reps/Minutes 3x Comments cues for alignment, deep breathing at end-range cat/cow Reps/Minutes 5x shoulder blade squeeze Reps/Minutes 5x pulleys Sitting Exercise Name shoulder flex and scaption Equipment Used purple ball at midthoracic spine to facilitate extension Reps/Minutes 10x Comments end-range stretch and deep breathing Manual Therapy Treatment Soft Tissue Mobilization right UT Mobilization Type Myofascial Release Intensity/Depth Moderate Body Position Supine Joint Mobilizations scapulothoracic Joint right Direction protraction, retraction, sup/ inf glide Grade III Body Position Sidelying right shoulder Joint GH Direction posterior, inferior Grade II Body Position Supine Reps/Duration 5 min PT-OP-T Assessment and Plan Start: 07/28/20 08:06 Freq: Status: Active Protocol: Document 08/21/20 10:35 [facility] (Rec: 08/21/20 11:04 SAK [id number]) Physical Therapy Assessment Goals Four Impairment decreased scar mobility O[employer] Culler Goal (LTG) Normal scar mobility of bilateral mastectomy scars. LTG Duration 11/03/20 Three Impairment postural dysfunction s/p mastectomies Short Term Goal (STG) Patient to be instructed in neutral postural alignment with postural exercises to help align her body for improved right shoulder function STG Duration 08/23/20 Oyster Culler Goal (LTG) Patient to demonstrate improved postural alignment and ability to self-correct with minimal cues LTG Duration 11/03/20 Two Impairment Difficulty reaching overhead, behind her back, or across her body right UE Short Term Goal (STG) Patient to be independent in HEP for purposes of improving right UE ROM STG Duration 08/23/20 M[facility] Goal (LTG) Patient to demonstrate full active use of her right UE including reaching overhead, behind her back, and across her body LTG Duration 11/03/20 One Impairment Quickdash UE disability index score 46% Short Term Goal (STG) Decrease score to no greater than 30% STG Duration 09/06/20 Oyster Culler Goal (LTG) Decrease score to no greater than 10% as measure of improved right UE function LTG Duration 11/03/20 Assessment Summary Assessment Improved shoulder ROM today, especially after seated cat/ cow and seated trunk rotation stretch. Mod cues for correct alignment and technique. Patient instructed to resume supine shoulder flexion with wand exercise as able to achieve good ROM and for some reason I haven't been doing. Patient reports good stretch and that she would resume. Demonstrated good understanding of modification of ther ex including activation of core to decrease back pain. Physical Therapy Plan Frequency and Duration Frequency of Treatment 2x/Week Duration of Treatment 12 weeks Plan of Care Start Date 07/31/20 Plan of Care End Date 11/03/20 Therapeutic Interventions Therapeutic Interventions Aquatic Therapy,Home Exercise Program,Joint Mobilizations, Lymphedema Management,Manual Therapy,Patient/Caregiver Education,Self-Care/Home Management,Soft Tissue Mobilization,Taping, Therapeutic Activities, Therapeutic Exercises Next Visit Focus/Plan Next Note Type Treatment Note Next Visit Plan Continue PT per POC
--- NOTE | 2020-08-25 08:39 | PT-OP ANOTE ---
cancelled due to conflicting doctor's appointment
--- NOTE | 2020-08-28 11:21 | PT.OTN ---
Current Diagnoses Malignant neoplasm of unspecified site of right female breast (08/28/20) Physical Therapy Treatment Note PT-OP-A Visit Information Start: 07/28/20 08:06 Freq: Status: Active Protocol: Document 08/28/20 10:33 SAK (Rec: 08/28/20 11:21 SAK [id number]) Out-Patient Physical Therapy Visit Information Visit Information Visit Type Treatment Note Visit Start Time 10:30 Visit Stop Time 11:15 Total Visit Minutes 45 Visit Number 7 Precautions Precautions breast cancer, osteopenia and osteoporosis PT-OP-B Current Condition Start: 07/28/20 08:06 Freq: Status: Active Protocol: Document 08/21/20 10:35 SAK (Rec: 08/21/20 11:04 SAK [id number]) Current Condition History of Current Condition Onset Date 09/03/19 Current Complaints decreased range of motion and tingling right UE. History of Current Condition modified radical mastectomy right, simple left mastectomy left 09/03/19. Hospitalized after due to infection in drain and into breast. End of November radiation x 5 weeks. Continues with chemotherapy at this time. Sees Dr. Duran tomorrow to look at lump in groin , has been on antibiotics; states lump decreased in size but persists . Finished the prescribed antibiotics. In March had full use of right UE, now limited motion and use plus constant tingling. Can't wear a bra with prosthesis because heavy and uncomfortable, has tender spots under arm and possibly swelling. 4 more sessions of chemo scheduled. States before diagnosis of cancer was noting weakness in arm. Has puppy 56 lbs, having difficulty in caring for him, he pulls so she isn't able to walk him. Prior Treatments and Tests On 09/03/2019, patient underwent right sided modified radical mastectomy and left sided simple mastectomy PT-OP-C Subjective Start: 07/28/20 08:06 Freq: Status: Active Protocol: Document 08/28/20 10:33 SAK (Rec: 08/28/20 11:21 SAK [id number]) OP-PT Subjective Patient Comments Patient Comments Has had a very hard week, chemo on Tuesday, and for 40 y/o family member. Hasn't done HEP. PT-OP-F Manual Assessment Start: 07/28/20 08:06 Freq: Status: Active Protocol: Document 07/31/20 11:15 [facility] (Rec: 08/05/20 10:54 [facility] [id number]) Manual Assessments Soft Tissue Assessment Soft Tissue Mobility Assessment well healed mastectomy scars with moderate decreased mobility right scar and subaxillary tissue. Fair mobility left scar. Joint Mobility Assessment Joint Mobility Assessment decreased inferior and posterior glide bilateral shoulders right greater than left PT-OP-H Neuro Start: 07/28/20 08:06 Freq: Status: Active Protocol: Document 07/31/20 11:15 [facility] (Rec: 08/05/20 10:54 [facility] [id number]) Sensation Evaluation Gross Sensation Gross Sensation Right UE Impaired Sensation Description Tingling PT-OP-J Posture/Palpation/Skin Start: 07/28/20 08:06 Freq: Status: Active Protocol: Document 07/31/20 11:15 [facility] (Rec: 08/05/20 10:54 [facility] [id number]) Posture Evaluation Position Sitting Head/C-Spine Posture Forward Head T-Spine Posture Increased Kyphosis Shoulder Posture (L) Rounded,(R) Rounded Scapula Posture (L) Protracted,(R) Protracted Arm Posture (L) Internally Rotated,(R) Internally Rotated Palpation Assessment Location One Palpation Location mastectomy scars Palpation Details decreased mobility right greater than left PT-OP-K Range of Motion Start: 07/28/20 08:06 Freq: Status: Active Protocol: Document 07/31/20 11:15 [facility] (Rec: 08/05/20 11:11 [facility] [id number]) Cervical Spine Range of Motion Cervical Spine Active Comments WNL Shoulder Goniometric Range of Motion Shoulder Right Shoulder ROM WFL No Testing Position Sitting Flexion 145 Extension 15 Abduction 135 Horizontal Abduction 75 Horizontal Adduction 20 External Rotation at 45 degrees 45 Abduction Internal Rotation Behind Back (text) L5 Left Testing Position Sitting Flexion 155 Extension 15 Abduction 150 Horizontal Abduction 80 Horizontal Adduction 15 External Rotation at 45 degrees 55 Abduction Internal Rotation Behind Back (text) T8 PT-OP-M Strength Start: 07/28/20 08:06 Freq: Status: Active Protocol: Document 07/31/20 11:15 [facility] (Rec: 08/05/20 11:11 [facility] [id number]) Shoulder Strength Shoulder Manual Muscle Testing Right Flexion 4- Good- Extension 4- Good- Abduction (C5) 4- Good- Adduction 4- Good- External Rotation 4- Good- Internal Rotation 4- Good- Horizontal Abduction 4- Good- Horizontal Adduction 4- Good- Left Flexion 4 Good Extension 4 Good Abduction (C5) 4 Good Adduction 4 Good External Rotation 4 Good Internal Rotation 4 Good Horizontal Abduction 4 Good Horizontal Adduction 4 Good PT-OP-N Lymphedema Start: 07/28/20 08:06 Freq: Status: Active Protocol: Document 07/31/20 11:15 [facility] (Rec: 08/05/20 11:11 [facility] [id number]) Lymphedema Measurements Comments Lymphedema Comments no signs or symptoms of lymphedema via observation or measurement. PT-OP-Q Treatments Start: 07/28/20 08:06 Freq: Status: Active Protocol: Document 08/28/20 10:33 [facility]AK (Rec: 08/28/20 11:21 [facility] [id number]) Therapeutic Exercises Supine Exercises shoulder flexion Equipment Used wand Reps/Minutes 10x Comments with pin and stretch shoulder ER Equipment Used wand Reps/Minutes 10x chest press Reps/Minutes 10x deep breathing Reps/Minutes 5x ea with manual cues Comments abdominal, thoracic, chest shoulder flex Equipment Used wand Reps/Minutes 10x Comments end-range stretches (patient reports she hasn't been doing this exercise) serratus punch Equipment Used wand Reps/Minutes 510x lower trunk rotation Reps/Minutes 5x 10 Comments with Arms modified T position, end-range deep breathing Sidelying Exercises open book Comments discontinued due to pain in back Sitting Exercises seated trunk rotation stretch Reps/Minutes 3x Comments cues for alignment, deep breathing at end-range cat/cow Reps/Minutes 5x shoulder blade squeeze Reps/Minutes 5x shoulder shrugs Reps/Minutes 5x pulleys Sitting Exercise Name shoulder flex and scaption Equipment Used purple ball at midthoracic spine to facilitate extension Reps/Minutes 10x Comments end-range stretch and deep breathing Manual Therapy Treatment Soft Tissue Mobilization right UT Mobilization Type Myofascial Release Intensity/Depth Moderate Body Position Supine Joint Mobilizations scapulothoracic Joint right Direction protraction, retraction, sup/ inf glide Grade III Body Position Sidelying PT-OP-T Assessment and Plan Start: 07/28/20 08:06 Freq: Status: Active Protocol: Document 08/28/20 10:33 [facility] (Rec: 08/28/20 11:21 [facility] [id number]) Physical Therapy Assessment Goals Four Impairment decreased scar mobility Custodial Goal (LTG) Normal scar mobility of bilateral mastectomy scars. 08/28/20: some goal progress LTG Duration 11/03/20 Three Impairment postural dysfunction s/p mastectomies Short Term Goal (STG) Patient to be instructed in neutral postural alignment with postural exercises to help align her body for improved right shoulder function STG Duration goal met Spinner Open End Goal (LTG) Patient to demonstrate improved postural alignment and ability to self-correct with minimal cues LTG Duration 11/03/20 Two Impairment Difficulty reaching overhead, behind her back, or across her body right UE Short Term Goal (STG) Patient to be independent in HEP for purposes of improving right UE ROM 08/28/20: goal mett STG Duration goal met Spinner Open End Goal (LTG) Patient to demonstrate full active use of her right UE including reaching overhead, behind her back, and across her body LTG Duration 11/03/20 One Impairment Quickdash UE disability index score 46% Short Term Goal (STG) Decrease score to no greater than 30% 08/28/20: goal progress STG Duration 09/06/20 Spinner Open End Goal (LTG) Decrease score to no greater than 10% as measure of improved right UE function LTG Duration 11/03/20 Progress Towards Goals Progress Towards Goals Progressing Toward Goals Assessment Summary Assessment By end of session improved ROM right shoulder, but very stiff to begin due to lack of compliance with HEP. Patient urged to increase compliance. Physical Therapy Plan Frequency and Duration Frequency of Treatment 2x/Week Duration of Treatment 12 weeks Plan of Care Start Date 07/31/20 Plan of Care End Date 11/03/20 Therapeutic Interventions Therapeutic Interventions Aquatic Therapy,Home Exercise Program,Joint Mobilizations, Lymphedema Management,Manual Therapy,Patient/Caregiver Education,Self-Care/Home Management,Soft Tissue Mobilization,Taping, Therapeutic Activities, Therapeutic Exercises Next Visit Focus/Plan Next Note Type Treatment Note Next Visit Plan scar mobilization
--- NOTE | 2020-09-29 13:34 | PT-OP ANOTE ---
DNS for PT appointment today
--- NOTE | 2020-10-01 17:09 | PT.OTRE ---
Current Diagnoses Malignant neoplasm of unspecified site of right female breast (10/01/20) Past Medical History (Last Reviewed 08/02/20 @ 11:29 by Chandra Rodriguez MD) Arthritis Bowel obstruction Breast cancer Current every day smoker Eczema Hypothyroidism Sinus drainage Surgical History (Last Reviewed 08/02/20 @ 11:29 by Chandra Rodriguez MD) H/O: hysterectomy (1985) History of breast biopsy History of colonoscopy (2017) History of tonsillectomy Hx of oral surgery (02/24/19) S/P mastectomy, bilateral Visit Care Team Role Provider Type Angelica Best MD Family Provider Physician Primary Care Provider Specialty: Family Practice Address: [address] [place] [address], [facility] [place], [address] Email: [email or web address] Torsten Coppola MD Attending Provider Physician Referring Provider Specialty: Oncology Address: [address] [place] [address], [id number] Email: Physical Therapy Re-Evaluation PT-OP-A Visit Information Start: 07/28/20 08:06 Freq: Status: Active Protocol: Document 10/01/20 08:20 [facility]AK (Rec: 10/01/20 09:04 [facility] [id number]) Out-Patient Physical Therapy Visit Information Visit Information Visit Type Treatment Note Visit Start Time 08:15 Visit Stop Time 09:00 Total Visit Minutes 45 Visit Number 8 Precautions Precautions breast cancer, osteopenia and osteoporosis PT-OP-B Current Condition Start: 07/28/20 08:06 Freq: Status: Active Protocol: Document 08/21/20 10:35 [facility]AK (Rec: 08/21/20 11:04 [facility]AK [id number]) Current Condition History of Current Condition Onset Date 09/03/19 Current Complaints decreased range of motion and tingling right UE. History of Current Condition modified radical mastectomy right, simple left mastectomy left 09/03/19. Hospitalized after due to infection in drain and into breast. End of November radiation x 5 weeks. Continues with chemotherapy at this time. Sees Dr. Duran tomorrow to look at lump in groin , has been on antibiotics; states lump decreased in size but persists . Finished the prescribed antibiotics. In March had full use of right UE, now limited motion and use plus constant tingling. Can't wear a bra with prosthesis because heavy and uncomfortable, has tender spots under arm and possibly swelling. 4 more sessions of chemo scheduled. States before diagnosis of cancer was noting weakness in arm. Has puppy 56 lbs, having difficulty in caring for him, he pulls so she isn't able to walk him. Prior Treatments and Tests On 09/03/2019, patient underwent right sided modified radical mastectomy and left sided simple mastectomy PT-OP-C Subjective Start: 07/28/20 08:06 Freq: Status: Active Protocol: Document 10/01/20 08:20 [facility]AK (Rec: 10/01/20 09:04 [facility] [id number]) OP-PT Subjective Patient Comments Patient Comments Reports has struggled recently , had bad exzema breakout especially hands, chest, and scalp. Has felt overwhelmed with cancer treatment, hasn't felt up to doing exercises, lots of anxiety. right arm feeling more firm. Bought a compression sleeve, thinks may have bought wrong size. Was treated for lymphedema previously, can't find prior compression sleeve. Doesn't want to be bandaged. Agreeable to use of loaner sleeve until she can order her own. PT-OP-F Manual Assessment Start: 07/28/20 08:06 Freq: Status: Active Protocol: Document 07/31/20 11:15 [facility] (Rec: 08/05/20 10:54 [facility] [id number]) Manual Assessments Soft Tissue Assessment Soft Tissue Mobility Assessment well healed mastectomy scars with moderate decreased mobility right scar and subaxillary tissue. Fair mobility left scar. Joint Mobility Assessment Joint Mobility Assessment decreased inferior and posterior glide bilateral shoulders right greater than left PT-OP-H Neuro Start: 07/28/20 08:06 Freq: Status: Active Protocol: Document 07/31/20 11:15 [facility] (Rec: 08/05/20 10:54 [facility] [id number]) Sensation Evaluation Gross Sensation Gross Sensation Right UE Impaired Sensation Description Tingling PT-OP-J Posture/Palpation/Skin Start: 07/28/20 08:06 Freq: Status: Active Protocol: Document 07/31/20 11:15 [facility] (Rec: 08/05/20 10:54 [facility] [id number]) Posture Evaluation Position Sitting Head/C-Spine Posture Forward Head T-Spine Posture Increased Kyphosis Shoulder Posture (L) Rounded,(R) Rounded Scapula Posture (L) Protracted,(R) Protracted Arm Posture (L) Internally Rotated,(R) Internally Rotated Palpation Assessment Location One Palpation Location mastectomy scars Palpation Details decreased mobility right greater than left PT-OP-K Range of Motion Start: 07/28/20 08:06 Freq: Status: Active Protocol: Document 10/01/20 08:20 [facility] (Rec: 10/01/20 09:04 [facility] [id number]) Shoulder Goniometric Range of Motion Shoulder Measured in Degrees Right Shoulder ROM WFL No Testing Position Sitting Flexion 150 Extension 15 Abduction 137 Horizontal Abduction 75 Horizontal Adduction 20 External Rotation at 45 degrees 45 Abduction Internal Rotation Behind Back (text) L5 PT-OP-M Strength Start: 07/28/20 08:06 Freq: Status: Active Protocol: Document 07/31/20 11:15 [facility] (Rec: 08/05/20 11:11 [facility] [id number]) Shoulder Strength Shoulder Manual Muscle Testing Right Flexion 4- Good- Extension 4- Good- Abduction (C5) 4- Good- Adduction 4- Good- External Rotation 4- Good- Internal Rotation 4- Good- Horizontal Abduction 4- Good- Horizontal Adduction 4- Good- Left Flexion 4 Good Extension 4 Good Abduction (C5) 4 Good Adduction 4 Good External Rotation 4 Good Internal Rotation 4 Good Horizontal Abduction 4 Good Horizontal Adduction 4 Good PT-OP-N Lymphedema Start: 07/28/20 08:06 Freq: Status: Active Protocol: Document 07/31/20 11:15 [facility] (Rec: 08/05/20 11:11 [facility] [id number]) Lymphedema Measurements Comments Lymphedema Comments no signs or symptoms of lymphedema via observation or measurement. PT-OP-Q Treatments Start: 07/28/20 08:06 Freq: Status: Active Protocol: Document 10/01/20 08:20 [facility] (Rec: 10/01/20 09:04 [facility] [id number]) Cardio Equipment Recumbent Elliptical (Biodex) Duration (Minutes) 6 Resistance 1 Seat Position 6 Therapeutic Exercises Supine Exercises deep breathing Reps/Minutes 5x ea with manual cues Comments abdominal, thoracic, chest Manual Therapy Treatment Other Other Manual Treatments circumferential measurements bilateral UE's Self-Care/Home Management Treatment Education Patient Education Home Exercise Program,Pain Management Other Education importance of HEP, now showing signs and symptoms of lymphedema, recommend obtain new compression sleeve, add lymphedema treatment to plan of care for PT. Activities Self-Care/Home Management Activities Increase compliance to HEP, wearing compression sleeve Lymphedema Treatment Compression Garment Assessment Compression Garment Assessment Details Looked at Krystyna size chart, patient size II. Given information on obtaining new compression sleeve online with 20-30 mm Hg Patient Education Lymphedema Prevention issued written handout Lymphedema Precautions issued written handout Compression Garments as above Self Manual Lymphatic Drainage to initiate next session Sequential Lymphedema Exercises to inititate next session PT-OP-T Assessment and Plan Start: 07/28/20 08:06 Freq: Status: Active Protocol: Document 10/01/20 08:20 JESSICA (Rec: 10/01/20 09:04 [facility] [id number]) Physical Therapy Assessment Impairments Impairments Activity Tolerance,Edema, Posture,ROM,Soft Tissue Mobility Goals Five Impairment lymphedema right UE Short Term Goal (STG) Patient to be instructed in all aspects of self-care for lymphedema to include skin care, self-manual lymphatic drainage, compression and ther ex. STG Duration 10/31/20 Fdc Goal (LTG) Reduce lymphedema to stable level (no increase or decrease greater than 1 cm over the course of 1 week) and assure patient is fit with appropriate compression garment, and demonstrate good understanding and compliance with all aspects of self-care for lymphedema. Four Impairment decreased scar mobility Fdc Goal (LTG) Normal scar mobility of bilateral mastectomy scars. 08/28/20: some goal progress LTG Duration 11/03/20 Three Impairment postural dysfunction s/p mastectomies Short Term Goal (STG) Patient to be instructed in neutral postural alignment with postural exercises to help align her body for improved right shoulder function STG Duration goal met Spray Booth Operator Goal (LTG) Patient to demonstrate improved postural alignment and ability to self-correct with minimal cues LTG Duration 11/03/20 Two Impairment Difficulty reaching overhead, behind her back, or across her body right UE Short Term Goal (STG) Patient to be independent in HEP for purposes of improving right UE ROM 08/28/20: goal mett STG Duration goal met Fdc Goal (LTG) Patient to demonstrate full active use of her right UE including reaching overhead, behind her back, and across her body LTG Duration 11/03/20 One Impairment Quickdash UE disability index score 46% Short Term Goal (STG) Decrease score to no greater than 30% 08/28/20: goal progress STG Duration 09/06/20 Fdc Goal (LTG) Decrease score to no greater than 10% as measure of improved right UE function LTG Duration 11/03/20 Assessment Summary Assessment Poor compliance to HEP, missed PT appointment last week due to feeling overwhelmed with cancer treatments. Limited progress toward goals due to lack of compliance. Patient showing signs and symptoms of lymphedema right UE today visually and circumferential measurements showed significant difference. Issued information on precautions and was given information on obtaining compression sleeve as she states she purchased one at drug [facility] last week and it is too small. Demonstrated good understanding of need to address lymphedema and resume her HEP and PT.Agreeable to adding lymphedema treatment to our PT POC if approved by physician. Physical Therapy Plan Frequency and Duration Frequency of Treatment 2x/Week Duration of Treatment 8 weeks Plan of Care Start Date 10/01/20 Plan of Care End Date 11/30/20 Therapeutic Interventions Therapeutic Interventions Aquatic Therapy,Home Exercise Program,Joint Mobilizations, Lymphedema Management,Manual Therapy,Patient/Caregiver Education,Self-Care/Home Management,Soft Tissue Mobilization,Taping, Therapeutic Activities, Therapeutic Exercises Next Visit Focus/Plan Next Note Type Treatment Note Next Visit Plan Lymphedema management, ROM, scar mobilization, progression of HEP as tolerated.
--- NOTE | 2020-10-01 17:09 | PT.OPPOC ---
Physical, Occupational & Speech Therapy At [facility] Current Diagnoses Malignant neoplasm of unspecified site of right female breast (10/01/20) Visit Care Team Role Provider Type Angelica Best MD Family Provider Physician Primary Care Provider Specialty: Family Practice Address: [address] [place] [address], [place], [address] Email: [email or web address] Torsten Coppola MD Attending Provider Physician Referring Provider Specialty: Oncology Address: [address] [place] [address], [id number] Email: Plan Of Care PT-OP-T Assessment and Plan Start: 07/28/20 08:06 Freq: Status: Active Protocol: Document 10/01/20 08:20 [facility] (Rec: 10/01/20 09:04 [facility] [id number]) Physical Therapy Assessment Impairments Impairments Activity Tolerance,Edema, Posture,ROM,Soft Tissue Mobility Goals Five Impairment lymphedema right UE Short Term Goal (STG) Patient to be instructed in all aspects of self-care for lymphedema to include skin care, self-manual lymphatic drainage, compression and ther ex. STG Duration 10/31/20 Mcc Goal (LTG) Reduce lymphedema to stable level (no increase or decrease greater than 1 cm over the course of 1 week) and assure patient is fit with appropriate compression garment, and demonstrate good understanding and compliance with all aspects of self-care for lymphedema. Four Impairment decreased scar mobility Mcc Goal (LTG) Normal scar mobility of bilateral mastectomy scars. 08/28/20: some goal progress LTG Duration 11/03/20 Three Impairment postural dysfunction s/p mastectomies Short Term Goal (STG) Patient to be instructed in neutral postural alignment with postural exercises to help align her body for improved right shoulder function STG Duration goal met Mcc Goal (LTG) Patient to demonstrate improved postural alignment and ability to self-correct with minimal cues LTG Duration 11/03/20 Two Impairment Difficulty reaching overhead, behind her back, or across her body right UE Short Term Goal (STG) Patient to be independent in HEP for purposes of improving right UE ROM 08/28/20: goal mett STG Duration goal met Jointer Machine Goal (LTG) Patient to demonstrate full active use of her right UE including reaching overhead, behind her back, and across her body LTG Duration 11/03/20 One Impairment Quickdash UE disability index score 46% Short Term Goal (STG) Decrease score to no greater than 30% 08/28/20: goal progress STG Duration 09/06/20 Jointer Machine Goal (LTG) Decrease score to no greater than 10% as measure of improved right UE function LTG Duration 11/03/20 Assessment Summary Assessment Poor compliance to HEP, missed PT appointment last week due to feeling overwhelmed with cancer treatments. Limited progress toward goals due to lack of compliance. Patient showing signs and symptoms of lymphedema right UE today visually and circumferential measurements showed significant difference. Issued information on precautions and was given information on obtaining compression sleeve as she states she purchased one at drug [facility] last week and it is too small. Demonstrated good understanding of need to address lymphedema and resume her HEP and PT.Agreeable to adding lymphedema treatment to our PT POC if approved by physician. Physical Therapy Plan Frequency and Duration Frequency of Treatment 2x/Week Duration of Treatment 8 weeks Plan of Care Start Date 10/01/20 Plan of Care End Date 11/30/20 Therapeutic Interventions Therapeutic Interventions Aquatic Therapy,Home Exercise Program,Joint Mobilizations, Lymphedema Management,Manual Therapy,Patient/Caregiver Education,Self-Care/Home Management,Soft Tissue Mobilization,Taping, Therapeutic Activities, Therapeutic Exercises Next Visit Focus/Plan Next Note Type Treatment Note Next Visit Plan Lymphedema management, ROM, scar mobilization, progression of HEP as tolerated. Plan of Care Dates Plan of Care Start Date 10/01/20 Plan of Care End Date 11/30/20 Electronically Signed by: Audrey Cook, PT 10/01/20 [id number] Please Sign and Return: I have reviewed this Plan of Care and certify that the skilled therapy services above are required to meet the patient?s needs. Physician Signature Date Printed Name and Credentials Clinical Instructor Signature Printed Name and Credentials
--- NOTE | 2020-10-07 08:11 | PT-OP ANOTE ---
cancelled PT due to not feeling well
--- NOTE | 2020-10-09 10:33 | PT.OTN ---
Current Diagnoses Malignant neoplasm of unspecified site of right female breast (10/09/20) Physical Therapy Treatment Note PT-OP-A Visit Information Start: 07/28/20 08:06 Freq: Status: Active Protocol: Document 10/09/20 09:41 SP (Rec: 10/09/20 14:19 SP [id number]) Out-Patient Physical Therapy Visit Information Visit Information Visit Type Treatment Note Visit Start Time 09:41 Visit Stop Time 10:33 Total Visit Minutes 42 Visit Number 9 Number of TAR [employer] WORKER Visits 1 Evaluation Information Evaluation Date 07/31/20 Precautions Precautions breast cancer, osteopenia and osteoporosis PT-OP-B Current Condition Start: 07/28/20 08:06 Freq: Status: Active Protocol: Document 08/21/20 10:35 SAK (Rec: 08/21/20 11:04 SAK [id number]) Current Condition History of Current Condition Onset Date 09/03/19 Current Complaints decreased range of motion and tingling right UE. History of Current Condition modified radical mastectomy right, simple left mastectomy left 09/03/19. Hospitalized after due to infection in drain and into breast. End of November radiation x 5 weeks. Continues with chemotherapy at this time. Sees Dr. Duran tomorrow to look at lump in groin , has been on antibiotics; states lump decreased in size but persists . Finished the prescribed antibiotics. In March had full use of right UE, now limited motion and use plus constant tingling. Can't wear a bra with prosthesis because heavy and uncomfortable, has tender spots under arm and possibly swelling. 4 more sessions of chemo scheduled. States before diagnosis of cancer was noting weakness in arm. Has puppy 56 lbs, having difficulty in caring for him, he pulls so she isn't able to walk him. Prior Treatments and Tests On 09/03/2019, patient underwent right sided modified radical mastectomy and left sided simple mastectomy PT-OP-C Subjective Start: 07/28/20 08:06 Freq: Status: Active Protocol: Document 10/09/20 09:41 SP (Rec: 10/09/20 14:19 SP [id number]) OP-PT Subjective Patient Comments Patient Comments Pt reports contacted staff in cancer center and acquired compression sleeve but tried to wear it yesterday and was to tight so removed and called to get a less lb of compression and will get after today's tx. Pt stated has been really tired and low energy lately so hasn't performed any exercises. PT-OP-F Manual Assessment Start: 07/28/20 08:06 Freq: Status: Active Protocol: Document 07/31/20 11:15 SAK (Rec: 08/05/20 10:[address] [facility] [id number]) Manual Assessments Soft Tissue Assessment Soft Tissue Mobility Assessment well healed mastectomy scars with moderate decreased mobility right scar and subaxillary tissue. Fair mobility left scar. Joint Mobility Assessment Joint Mobility Assessment decreased inferior and posterior glide bilateral shoulders right greater than left PT-OP-H Neuro Start: 07/28/20 08:06 Freq: Status: Active Protocol: Document 07/31/20 11:15 SAK (Rec: 08/05/20 10:[address] [facility] [id number]) Sensation Evaluation Gross Sensation Gross Sensation Right UE Impaired Sensation Description Tingling PT-OP-J Posture/Palpation/Skin Start: 07/28/20 08:06 Freq: Status: Active Protocol: Document 07/31/20 11:[address] [facility] (Rec: 08/05/20 10:[address] [facility] [id number]) Posture Evaluation Position Sitting Head/C-Spine Posture Forward Head T-Spine Posture Increased Kyphosis Shoulder Posture (L) Rounded,(R) Rounded Scapula Posture (L) Protracted,(R) Protracted Arm Posture (L) Internally Rotated,(R) Internally Rotated Palpation Assessment Location One Palpation Location mastectomy scars Palpation Details decreased mobility right greater than left PT-OP-K Range of Motion Start: 07/28/20 08:06 Freq: Status: Active Protocol: Document 10/01/20 08:[address] [facility] (Rec: 10/01/20 09:[address] [facility] [id number]) Shoulder Goniometric Range of Motion Shoulder Right Shoulder ROM WFL No Testing Position Sitting Flexion 150 Extension 15 Abduction 137 Horizontal Abduction 75 Horizontal Adduction 20 External Rotation at 45 degrees 45 Abduction Internal Rotation Behind Back (text) L5 PT-OP-M Strength Start: 07/28/20 08:06 Freq: Status: Active Protocol: Document 07/31/20 11:15 SAK (Rec: 08/05/20 11:[address] [facility] [id number]) Shoulder Strength Shoulder Manual Muscle Testing Right Flexion 4- Good- Extension 4- Good- Abduction (C5) 4- Good- Adduction 4- Good- External Rotation 4- Good- Internal Rotation 4- Good- Horizontal Abduction 4- Good- Horizontal Adduction 4- Good- Left Flexion 4 Good Extension 4 Good Abduction (C5) 4 Good Adduction 4 Good External Rotation 4 Good Internal Rotation 4 Good Horizontal Abduction 4 Good Horizontal Adduction 4 Good PT-OP-N Lymphedema Start: 07/28/20 08:06 Freq: Status: Active Protocol: Document 07/31/20 11:15 SAK (Rec: 08/05/20 11:11 SAK [id number]) Lymphedema Measurements Comments Lymphedema Comments no signs or symptoms of lymphedema via observation or measurement. PT-OP-Q Treatments Start: 07/28/20 08:06 Freq: Status: Active Protocol: Document 10/09/20 09:41 SP (Rec: 10/09/20 14:19 SP [id number]) Therapeutic Exercises Supine Exercises shoulder flexion Resistance AROM Equipment Used wand Reps/Minutes 10x Comments cued awareness scap stab eccentric direction shoulder ER Equipment Used wand Reps/Minutes 10x Comments cued wrist and arm at side alignment chest press Resistance AROM Equipment Used wand Reps/Minutes 10x Comments cued scap stab deep breathing Reps/Minutes 5x ea with manual cues Comments abdominal, thoracic, chest lower trunk rotation Reps/Minutes 5x 10 Comments Arms modified T position, end- range deep breathing, painfree range TA facil Sidelying Exercises open book Comments Raul well painfree range, contact fac Manual Therapy Treatment Soft Tissue Mobilization right UT Body Location R UT, B SCM, BSOR, pec B Mobilization Type Myofascial Release Intensity/Depth Moderate Body Position Supine Comments good feedback response, instruction on self gentle STMs to L anterior shld around port. Joint Mobilizations scapulothoracic Joint right PNF Direction protraction, retraction, sup/ inf glide Grade III Body Position Sidelying right shoulder Joint GH Direction posterior, inferior Grade II Body Position Supine Reps/Duration 5 min Comments and PNF pain free range. PT-OP-T Assessment and Plan Start: 07/28/20 08:06 Freq: Status: Active Protocol: Document 10/09/20 09:41 SP (Rec: 10/09/20 14:19 SP [id number]) Physical Therapy Assessment Goals Five Impairment lymphedema right UE Short Term Goal (STG) Patient to be instructed in all aspects of self-care for lymphedema to include skin care, self-manual lymphatic drainage, compression and ther ex. STG Duration 10/31/20 Prison Goal (LTG) Reduce lymphedema to stable level (no increase or decrease greater than 1 cm over the course of 1 week) and assure patient is fit with appropriate compression garment, and demonstrate good understanding and compliance with all aspects of self-care for lymphedema. Four Impairment decreased scar mobility Specialty Trimmer Goal (LTG) Normal scar mobility of bilateral mastectomy scars. 08/28/20: some goal progress LTG Duration 11/03/20 Three Impairment postural dysfunction s/p mastectomies Short Term Goal (STG) Patient to be instructed in neutral postural alignment with postural exercises to help align her body for improved right shoulder function STG Duration goal met Specialty Trimmer Goal (LTG) Patient to demonstrate improved postural alignment and ability to self-correct with minimal cues LTG Duration 11/03/20 Two Impairment Difficulty reaching overhead, behind her back, or across her body right UE Short Term Goal (STG) Patient to be independent in HEP for purposes of improving right UE ROM 08/28/20: goal mett STG Duration goal met Specialty Trimmer Goal (LTG) Patient to demonstrate full active use of her right UE including reaching overhead, behind her back, and across her body LTG Duration 11/03/20 One Impairment Quickdash UE disability index score 46% Short Term Goal (STG) Decrease score to no greater than 30% 08/28/20: goal progress STG Duration 09/06/20 Prison Goal (LTG) Decrease score to no greater than 10% as measure of improved right UE function LTG Duration 11/03/20 Assessment Summary Assessment Pt responded well to manual and review of HEP. Instructed self STMs of connective tissue on LUE as improved post manual during open book scapulothoracic and TS rotation ROM ease. Physical Therapy Plan Frequency and Duration Frequency of Treatment 2x/Week Duration of Treatment 8 weeks Plan of Care Start Date 10/01/20 Plan of Care End Date 11/30/20 Therapeutic Interventions Therapeutic Interventions Aquatic Therapy,Home Exercise Program,Joint Mobilizations, Lymphedema Management,Manual Therapy,Patient/Caregiver Education,Self-Care/Home Management,Soft Tissue Mobilization,Taping, Therapeutic Activities, Therapeutic Exercises Next Visit Focus/Plan Next Note Type Treatment Note Next Visit Plan Assess response to manual and HEP supine. Next tx show self STMs using racquetball on wall UT/ interscap, initiate lymphedema tx (doesn't want wrappings but welcoming to use compressions socks), reassess goals. Future tx: POC: Lymphedema management, ROM, scar mobilization, progression of HEP as tolerated.
--- NOTE | 2021-11-23 14:25 | PT.OPDS ---
Current Diagnoses Malignant neoplasm of unspecified site of right female breast (10/09/20) Visit Care Team Role Provider Type Angelica Best MD Family Provider Physician Primary Care Provider Specialty: Family Practice Address: [facility], [address], [place], [address] Email: [email or web address] Torsten Coppola MD Attending Provider Physician Referring Provider Specialty: Oncology Address: [address] [place] [address], [place], [address] Email: [email or web address] Visit Number Visit Number 9 Discharge Summary PT-OP-B Current Condition Start: 07/28/20 08:06 Freq: Status: Active Protocol: Document 08/21/20 10:35 SAK (Rec: 08/21/20 11:04 SAK [id number]) Current Condition History of Current Condition Onset Date 09/03/19 Current Complaints decreased range of motion and tingling right UE. History of Current Condition modified radical mastectomy right, simple left mastectomy left 09/03/19. Hospitalized after due to infection in drain and into breast. End of November radiation x 5 weeks. Continues with chemotherapy at this time. Sees Dr. Duran tomorrow to look at lump in groin , has been on antibiotics; states lump decreased in size but persists . Finished the prescribed antibiotics. In March had full use of right UE, now limited motion and use plus constant tingling. Can't wear a bra with prosthesis because heavy and uncomfortable, has tender spots under arm and possibly swelling. 4 more sessions of chemo scheduled. States before diagnosis of cancer was noting weakness in arm. Has puppy 56 lbs, having difficulty in caring for him, he pulls so she isn't able to walk him. Prior Treatments and Tests On 09/03/2019, patient underwent right sided modified radical mastectomy and left sided simple mastectomy PT-OP-C Subjective Start: 07/28/20 08:06 Freq: Status: Active Protocol: Document 10/09/20 09:41 SP (Rec: 10/09/20 14:19 SP [id number]) OP-PT Subjective Patient Comments Patient Comments Pt reports contacted staff in cancer center and acquired compression sleeve but tried to wear it yesterday and was to tight so removed and called to get a less lb of compression and will get after today's tx. Pt stated has been really tired and low energy lately so hasn't performed any exercises. PT-OP-F Manual Assessment Start: 07/28/20 08:06 Freq: Status: Active Protocol: Document 07/31/20 11:15 SAK (Rec: 08/05/20 10:54 [facility] [id number]) Manual Assessments Soft Tissue Assessment Soft Tissue Mobility Assessment well healed mastectomy scars with moderate decreased mobility right scar and subaxillary tissue. Fair mobility left scar. Joint Mobility Assessment Joint Mobility Assessment decreased inferior and posterior glide bilateral shoulders right greater than left PT-OP-H Neuro Start: 07/28/20 08:06 Freq: Status: Active Protocol: Document 07/31/20 11:15 SAK (Rec: 08/05/20 10:54 [facility] [id number]) Sensation Evaluation Gross Sensation Gross Sensation Right UE Impaired Sensation Description Tingling PT-OP-J Posture/Palpation/Skin Start: 07/28/20 08:06 Freq: Status: Active Protocol: Document 07/31/20 11:15 SAK (Rec: 08/05/20 10:54 [facility] [id number]) Posture Evaluation Position Sitting Head/C-Spine Posture Forward Head T-Spine Posture Increased Kyphosis Shoulder Posture (L) Rounded,(R) Rounded Scapula Posture (L) Protracted,(R) Protracted Arm Posture (L) Internally Rotated,(R) Internally Rotated Palpation Assessment Location One Palpation Location mastectomy scars Palpation Details decreased mobility right greater than left PT-OP-K Range of Motion Start: 07/28/20 08:06 Freq: Status: Active Protocol: Document 10/01/20 08:20 SAK (Rec: 10/01/20 09:04 SAK [id number]) Shoulder Goniometric Range of Motion Shoulder Right Shoulder ROM WFL No Testing Position Sitting Flexion 150 Extension 15 Abduction 137 Horizontal Abduction 75 Horizontal Adduction 20 External Rotation at 45 degrees 45 Abduction Internal Rotation Behind Back (text) L5 PT-OP-M Strength Start: 07/28/20 08:06 Freq: Status: Active Protocol: Document 07/31/20 11:15 SAK (Rec: 08/05/20 11:11 SAK [id number]) Shoulder Strength Shoulder Manual Muscle Testing Right Flexion 4- Good- Extension 4- Good- Abduction (C5) 4- Good- Adduction 4- Good- External Rotation 4- Good- Internal Rotation 4- Good- Horizontal Abduction 4- Good- Horizontal Adduction 4- Good- Left Flexion 4 Good Extension 4 Good Abduction (C5) 4 Good Adduction 4 Good External Rotation 4 Good Internal Rotation 4 Good Horizontal Abduction 4 Good Horizontal Adduction 4 Good PT-OP-N Lymphedema Start: 07/28/20 08:06 Freq: Status: Active Protocol: Document 07/31/20 11:15 SAK (Rec: 08/05/20 11:11 [facility] [id number]) Lymphedema Measurements Comments Lymphedema Comments no signs or symptoms of lymphedema via observation or measurement. PT-OP-T Assessment and Plan Start: 07/28/20 08:06 Freq: Status: Active Protocol: Document 10/09/20 09:41 SP (Rec: 10/09/20 14:19 SP [id number]) Physical Therapy Assessment Goals Five Impairment lymphedema right UE Short Term Goal (STG) Patient to be instructed in all aspects of self-care for lymphedema to include skin care, self-manual lymphatic drainage, compression and ther ex. STG Duration 10/31/20 [employer] Goal (LTG) Reduce lymphedema to stable level (no increase or decrease greater than 1 cm over the course of 1 week) and assure patient is fit with appropriate compression garment, and demonstrate good understanding and compliance with all aspects of self-care for lymphedema. Four Impairment decreased scar mobility [employer] Goal (LTG) Normal scar mobility of bilateral mastectomy scars. 08/28/20: some goal progress LTG Duration 11/03/20 Three Impairment postural dysfunction s/p mastectomies Short Term Goal (STG) Patient to be instructed in neutral postural alignment with postural exercises to help align her body for improved right shoulder function STG Duration goal met [employer] Goal (LTG) Patient to demonstrate improved postural alignment and ability to self-correct with minimal cues LTG Duration 11/03/20 Two Impairment Difficulty reaching overhead, behind her back, or across her body right UE Short Term Goal (STG) Patient to be independent in HEP for purposes of improving right UE ROM 08/28/20: goal mett STG Duration goal met Residential Goal (LTG) Patient to demonstrate full active use of her right UE including reaching overhead, behind her back, and across her body LTG Duration 11/03/20 One Impairment Quickdash UE disability index score 46% Short Term Goal (STG) Decrease score to no greater than 30% 08/28/20: goal progress STG Duration 09/06/20 [employer] Goal (LTG) Decrease score to no greater than 10% as measure of improved right UE function LTG Duration 11/03/20 Assessment Summary Assessment Pt responded well to manual and review of HEP. Instructed self STMs of connective tissue on LUE as improved post manual during open book scapulothoracic and TS rotation ROM ease. Physical Therapy Plan Frequency and Duration Frequency of Treatment 2x/Week Duration of Treatment 8 weeks Plan of Care Start Date 10/01/20 Plan of Care End Date 11/30/20 Therapeutic Interventions Therapeutic Interventions Aquatic Therapy,Home Exercise Program,Joint Mobilizations, Lymphedema Management,Manual Therapy,Patient/Caregiver Education,Self-Care/Home Management,Soft Tissue Mobilization,Taping, Therapeutic Activities, Therapeutic Exercises Next Visit Focus/Plan Next Note Type Treatment Note Next Visit Plan Assess response to manual and HEP supine. Next tx show self STMs using racquetball on wall UT/ interscap, initiate lymphedema tx (doesn't want wrappings but welcoming to use compressions socks), reassess goals. Future tx: POC: Lymphedema management, ROM, scar mobilization, progression of HEP as tolerated.
== END | disposition home or self-care (01) ==
LOC: PHYS 07-31 10:56
PROVIDERS: Family Provider Student in an Organized Health Care Education/Training Program; PCP Student in an Organized Health Care Education/Training Program; Referring Provider Internal Medicine Hematology & Oncology; Visit Provider Internal Medicine Hematology & Oncology
DX: C50.911 Malignant neoplasm of unspecified site of right female breast (principal)
CPT/HCPCS: 97110; 97140; 97162; 97535

== ENCOUNTER → 2022-05-12 13:10 | Outpatient (CLI) | payer MEDICARE, MEDICAID, SELFPAY ==
[2020-07-29 16:39] VITALS: BMI 22.4
--- NOTE | 2022-05-12 13:11 | DI.US.S_ITS ---
PROCEDURE: US ABDOMEN LIMITED INDICATIONS: METASTATIC BREAST CANCER; TRANSAMINITIS TECHNIQUE: Real-time focused scanning was performed of the abdomen, with image documentation. COMPARISON: [facility], CT, CT CHEST ABD PEL W CON, 04/06/2022, 12:46. [facility], US, US ABDOMEN LIMITED, 05/07/2019, 12:21. FINDINGS: The liver is normal in size and demonstrates no focal lesions. No focal liver nodules are seen. No findings of gallstones or sludge are seen. The gallbladder wall is not thickened, measuring 3 mm or less. No specific pericholecystic fluid is seen. The sonographic Altman sign is negative. There is no biliary dilatation, the common bile duct measures 4 mm. No significant pancreatic abnormality is seen on these images. IMPRESSION: No ultrasound correlate is found for the previously seen liver nodule. Dictated by: Morales Chamorro M.D. on 05/12/2022 at 18:02 Approved by: Morales Chamorro M.D. on 05/12/2022 at 18:03
== END ==
PROVIDERS: Family Provider Family Medicine; PCP Family Medicine; Referring Provider Internal Medicine Hematology & Oncology; Visit Provider Internal Medicine Hematology & Oncology
DX: C50.911 Malignant neoplasm of unspecified site of right female breast (principal); R74.01 Elevation of levels of liver transaminase levels
CPT/HCPCS: 76705

== ENCOUNTER 2022-05-16 20:28 | Emergency (ER) | payer MEDICARE, MEDICAID, SELFPAY ==
[2020-07-29 16:39] VITALS: BMI 22.4
[2022-05-16 20:31] VITALS: BP 131/86; PULSE 88; RESP 16; TEMP 37; O2SAT 94
--- NOTE | 2022-05-16 20:57 | ED.GENADULT ---
HPI - General Adult General Chief complaint: Weakness Stated complaint: not much rt side body movement/cancer pt Time Seen by Provider: 05/16/22 20:33 Source: patient and family Mode of arrival: Wheelchair Limitations: no limitations History of Present Illness HPI narrative: Patient is a 62-year-old female. She is a known history of breast cancer. Is currently undergoing chemotherapy. Her last dose was on of last week. She also has known metastatic disease to the brain. She was seen here in the emergency department in March of last year where she had a CT scan which shows these metastasis and also vasogenic edema. She was on steroids for a period of time. Her symptoms that she had in March did seem to improve but now over the past several days/week they have noticed a decline at home. She has been sitting in a wheelchair. She is been choking on some of her food and also pills. She is also is having some confusion. There has been no falls. The family states that they are in discussion with hospice and they have contacted hospice and they have a meeting tomorrow with them. Because of her decline they contacted the on-call oncologist who advised they come to the emergency department. Patient is not able to provide much history or review of systems. Much this has come from the patient's daughters who are at bedside. Patient does not have any specific complaints although I am not on under % convinced that she is understanding what is being asked. Related Data Home Medications Medication Instructions Recorded Confirmed levothyroxine 50 mcg tablet 50 mcg PO DAILY 03/08/19 05/13/22 citalopram 10 mg tablet 10 mg PO DAILY 02/12/21 05/13/22 levetiracetam 1,000 mg tablet 1,000 mg PO BID 02/12/21 05/13/22 (Keppra) sennosides 8.6 mg capsule (senna) 8.6 mg PO BID 02/12/21 05/13/22 loperamide 2 mg capsule 2 mg PO QID PRN Diarrhea 04/16/21 05/13/22 multivitamin 1 tab PO DAILY 04/16/21 05/13/22 vitamin B complex 1 cap DAILY 04/16/21 05/13/22 elderberry fruit 200 mg capsule 200 mg PO DAILY 01/21/22 05/13/22 vitamin B12 1 mg-folic acid 0.8 mg 1 tab PO DAILY 01/21/22 05/13/22 tablet Previous Rx's Medication Instructions Recorded citalopram 20 mg tablet 20 mg PO DAILY #30 tabs 07/14/20 gabapentin 300 mg capsule 300 mg PO BID #60 caps 01/22/21 lorazepam 0.5 mg tablet (Ativan) 0.5 mg PO Q6HR PRN Nausea And 03/05/21 Vomiting #60 tabs memantine 5 mg tablet 10 mg PO BID whole brain radiation 10/15/21 #120 tabs dexamethasone 2 mg tablet 2 mg PO BID brain metastasis #30 02/04/22 tabs dexamethasone 4 mg tablet 4 mg PO BID #30 tabs 04/14/22 dexamethasone 2 mg tablet 2 mg PO BID #60 tabs 05/03/22 oxycodone 5 mg tablet 5 - 10 mg PO Q6H PRN cancer pain 05/06/22 #120 tabs Allergies Allergy/AdvReac Type Severity Reaction Status Date / Time chlorhexidine Allergy Mild Rash Verified 04/14/22 15:39 Review of Systems Constitutional Constitutional: Reports system reviewed and no additional complaints, except as documented Cardiovascular Cardiovascular: Reports system reviewed and no additional complaints, except as documented Respiratory Respiratory: Reports system reviewed and no additional complaints, except as documented Gastrointestinal Gastrointestinal: Reports system reviewed and no additional complaints, except as documented Integumentary/Breasts Skin/Breast: Reports system reviewed and no additional complaints, except as documented Hematologic/Lymphatic On Anticoagulants: No Patient History Medical History Arthritis Bowel obstruction Breast cancer Current every day smoker Eczema Hypothyroidism Sinus drainage Surgical History H/O: hysterectomy (1985) History of breast biopsy History of colonoscopy (2017) History of tonsillectomy Hx of oral surgery (02/24/19) S/P mastectomy, bilateral Family History Father Leukemia Family/Other Breast cancer Mother Uterine cancer Grandmother Diabetes mellitus Daughter Diabetes mellitus Sister Breast cancer Social History household members: none Smoking Status: Current some day smoker alcohol intake: current substance use type: does not use Smoking Status: Current some day smoker tobacco type: cigarettes alcohol intake frequency: holidays/special occasions only Substance Use Type: does not use Exam Initial Vital Signs Initial Vital Signs: Vital Signs Temperature 98.6 F 05/16/22 20:31 Pulse Rate 88 05/16/22 20:31 Respiratory Rate 16 05/16/22 20:31 Blood Pressure 131/86 05/16/22 20:31 Pulse Oximetry 94 05/16/22 20:31 Oxygen Delivery Method 05/16/22 20:31 Const General: cooperative and comfortable HENMT Head: normal to inspection and normocephalic Resp Effort & Inspection: normal respiratory effort Cardio Rate: regular rate Neuro General: patient alert, patient awake and moves all extremities Speech: speech normal Other: Alert to person and date but not to location Extrem General: normal to inspection Course Orders Ordered: ED Orders 05/16/22 21:04 CT head/brain wo con Stat XR chest 1V Stat 05/16/22 21:20 Complete Blood Count AUTO DIFF Stat Comprehensive Metabolic Panel Stat Lipase Stat Discontinued Medications Dexamethasone (Dexamethasone 4 Mg Tablet) 4 mg PO NOW ONE Stop: 05/16/22 23:26 Last Admin: 05/16/22 23:33 Dose: 4 mg Documented By: ROWENA Heparin Sodium (Porcine) (Heparin 500 Unit/5 Ml Port Flush) 500 unit IV PRN PRN PRN Reason: Flush Last Admin: 05/16/22 23:33 Dose: 500 unit Documented By: ROWENA Sodium Chloride (Normal Saline 0.9%) 1,000 mls @ 1,000 mls/hr IV BOLUS ONE Stop: 05/16/22 22:01 Last Infusion: 05/16/22 23:23 Dose: 0 mls/hr Documented By: Admin: 05/16/22 21:56 Dose: 1,000 mls/hr Documented By: ROWENA Vital Signs Vital signs: Vital Signs - 8 hr 05/16/22 20:31 05/16/22 23:27 Temperature 98.6 F 98.6 F Pulse Rate 88 70 Respiratory Rate 16 16 Blood Pressure 131/86 123/68 Pulse Oximetry 94 93 Oxygen Delivery Method Room Air Medical Decision Making Differential Diagnosis Differential Diagnosis: Meningitis, metastatic disease, CVA, TIA, electrolyte abnormality, and othe Condition is:: Well Controlled Chronic Condition is having:: Progression Condition is at treatment goal?: No Discussed with:: Family and Dr. Ricardo -oncology Medical Records Medical records reviewed: Yes I reviewed the patient's medical records. Medical records narrative: Metastatic breast cancer Lab Data Lab results reviewed: Yes I reviewed the patient's lab results. Result diagrams: 05/16/22 21:20 05/16/22 21:20 Labs: Lab Results 05/16/22 05/16/22 Range/Units 21:20 21:20 WBC 2.3 L (4.5-11.0) X10^3/uL RBC 4.51 (4.0-5.2) X10^6/uL Hgb 14.9 (12.0-16.0) g/dL Hct 43.1 (36-46) % MCV 95.6 (80-100) fL MCH 33.1 (26-34) PG MCHC 34.6 (30-36) % RDW 16.2 H (11.6-14.8) % Plt Count 142 L (150-400) X10^3/uL Neut % (Auto) 85.7 H (50-75) % Lymph % (Auto) 10.6 L (25-40) % Wilson % (Auto) 2.3 L (3-14) % Eos % (Auto) 1.0 L (2-4) % Baso % (Auto) 0.4 (0-2) % Neut # (Auto) 2000 (7799-9111) /uL Lymph # (Auto) 200 L (7996-0147) /uL Wilson # (Auto) 100 (0-900) /uL Eos # (Auto) 0 (0-450) /uL Baso # (Auto) 0 (0-100) /uL Sodium 138 (137-145) mmol/L Potassium 3.5 (3.4-5.1) mmol/L Chloride 106 (98-107) mmol/L Carbon Dioxide 27 (22-32) mmol/L BUN 40 H (7-17) mg/dL Creatinine 0.72 (0.52-1.04) mg/dL Estimated GFR > 60 (>60) mL/min BUN/Creatinine Ratio 55.6 H (6-22) Glucose 136 H (80-110) mg/dL Calcium 8.8 (8.4-10.2) mg/dL Total Bilirubin 0.7 (0.2-1.3) mg/dL AST 30 (14-36) IU/L ALT 45 H (<35) IU/L Alkaline Phosphatase 67 (38-126) U/L Total Protein 6.6 (6.3-8.2) g/dL Albumin 3.4 L (3.5-5.0) g/dL Globulin 3.2 (1.7-4.1) g/dL Albumin/Globulin Ratio 1.1 (1.0-2.8) Lipase 59 (23-300) U/L Imaging Data Chest x-ray: Radiologist's Impression: [address] [address] XRay Report Signed Patient: Chelo Ruiz MR#: [id number] : 1960 Acct:[id number] Age/Sex: 62 / F Date of Service: 05/16/22 Loc: ED Accession Number: [id number] ?? Procedure: XR chest 1V Ordering Provider: Justin Lazo D.O. PROCEDURE:? XR CHEST 1V ? INDICATIONS:? eval for PNA ? TECHNIQUE:? One view of the chest was acquired.? ? COMPARISON:? [facility], CT, CT CHEST ABD PEL W CON, 04/06/2022, 12:46.? [facility], CR, XR CHEST 1V, 04/14/2022, 16:19. ? FINDINGS:? ? Surgical changes and devices:? There is a left subclavian Port-A-Cath which appears stable in position.? Surgical clips redemonstrated within the right axilla.? ? Lungs and pleura:? No acute consolidation.? There are a few linear opacities redemonstrated within the upper lung zones likely representing scarring.? No pleural effusions or pneumothorax.? ? Mediastinum:? Mediastinal contours appear normal.? Heart size is normal.? ? Bones and chest wall:? No suspicious bony lesions.? Overlying soft tissues appear unremarkable.? ? IMPRESSION:? ? 1. No evidence of pneumonia.? ? ? Dictated by: Doug Montes M.D. on 05/16/2022 at 22:14 ? ? Approved by: Doug Montes M.D. on 05/16/2022 at 22:16? CT scan - head: Radiologist's Impression: [address] [place] [address] CT Scan Report Signed Patient: Chelo Ruiz MR#: [id number] : 1960 Acct:[id number] Age/Sex: 62 / F Date of Service: 05/16/22 Loc: ED Accession Number: [id number] ?? Procedure: CT head/brain wo con Ordering Provider: Justin Lazo D.O. PROCEDURE:? CT HEAD/BRAIN WO CON ? INDICATIONS:? hx of breast CA with mets ? TECHNIQUE:? Noncontrast 4.5 mm thick angled axial sections acquired from the foramen magnum to the vertex, with coronal and sagittal reformats.? For radiation dose reduction, the following was used:? automated exposure control, adjustment of mA and/or kV according to patient size.? ? COMPARISON:? [facility], MR, MR HEAD/BRAIN WO/W CON, 04/06/2022, 10:48.? [facility], CT, CT HEAD/BRAIN WO CON, 04/14/2022, 16:17. ? FINDINGS:? Image quality:? Excellent.? ? CSF spaces:? Basal cisterns are patent.? No extra-axial fluid collections.? Ventricles are similar in overall size and shape.? ? Brain:? No acute intracranial hemorrhage.? A right frontal lobe intraparenchymal lobulated partially calcified mass measures up to 3.6 x 2.9 cm, increased from 3.0 x 2.8 cm on the prior CT study.? A partially calcified left frontal lobe dural based partially calcified mass measures up to approximately 3.8 x 2.0 cm on series 2, image 21, increased from 3.3 x 1.8 cm on the prior CT study.? A dural-based left temporal lobe partially calcified mass measures up to approximately 1.4 x 1.1 cm in dimension, similar in size compared to the prior study.? Extensive vasogenic edema is demonstrated bilaterally associated with the mass lesions.? There is associated mild rightward midline shift of approximately 0.5 cm and mild effacement of the frontal horn of the left lateral ventricle.? These findings are similar to the prior study. ? Skull and face:? Calvarium and visualized facial bones demonstrate no acute fractures.? There are postsurgical changes redemonstrated consistent with prior right frontal temporal craniotomy.? A lucent lesion within the right parietal bone on series 3, image 19 is similar to the prior study and is suspicious for metastatic disease. ? Sinuses:? Visualized sinuses and mastoids are clear.? ? IMPRESSION:? ? 1. Partially calcified masses in the right frontal lobe and along the left frontal lobe demonstrate interval increase in size compared to the prior CT consistent with progression of metastatic disease. ? 2. Left upper lobe mass appears similar to the prior study.? ? 3. Extensive vasogenic edema associated with the mass lesions including mild rightward midline shift appear similar to the prior study. ? 4. Lucent lesion within the right parietal bone suggestive of metastatic disease.? ? Dictated by: Doug Montes M.D. on 05/16/2022 at 22:05 ? ? Approved by: Doug Montes M.D. on 05/16/2022 at 22:14?? [facility] Narrative Medical decision making narrative: It appears that the patient has had worsening of symptoms with the past couple days/weeks. She is unable to provide much HPI review of systems. Much of this has come from her family who was at bedside. I had a long discussion with him regarding her presentation today. We discussed options of what we could do today to include nothing and discharging home or obtaining lab work and head CT to see if we can come up with what was potentially causing her symptoms and maybe something that is reversible. They are very understanding of this. They understand that we most likely will not be able to cure her this evening. After this discussion everyone was in agreement with obtaining some lab work and also head CT. Her lab work was unremarkable. Her white blood cell count is low but this is expected given her recent chemotherapy. Her head CT is relatively unchanged and potentially slightly worsened from a CT that was done in March of last year. I suspect that the edema associated with these metastatic lesions are what is causing the patient's symptoms today. I did discuss the case with Dr. Ricardo who is on-call for Oncology. The plan will be is to increase her Decadron from 2 mg twice a day to 4 mg twice a day. This is what she was placed on in March when she had the symptoms. I then had discussion with the family regarding options to include admission to the hospital until they could get more home health set up at home versus discharge home. The family feels that they can take the patient home which I feel is very reasonable given her presentation today. An e-mail was sent to Dr. Coppola who is the patient's oncologist by myself to ask his office to contact them for follow-up. Family states they have enough Decadron at home to increase the dose as described above. They have a meeting with hospice tomorrow already scheduled. Everyone was okay with being discharged home. They were given return precautions. They expressed understanding and agreement. Discharge Plan Departure Patient Disposition: Home Clinical Impression: Metastatic breast cancer Activity Restrictions/Additional Instructions: She can continue to take all of her medications as directed. I recommend that tomorrow you contact both her primary doctor and also her oncologist for a follow-up. Oncology would like you to increase her dexamethasone/Decadron from 2 mg twice a day to 4 mg twice a day. Return to the emergency department for any new symptoms. Prescriptions: No Action dexamethasone 4 mg tablet 4 mg PO BID Qty: 30 0RF levothyroxine 50 mcg Tablet 50 mcg PO DAILY citalopram 20 mg Tablet 20 mg PO DAILY Qty: 30 11RF gabapentin 300 mg Capsule 300 mg PO BID Qty: 60 1RF citalopram 10 mg Tablet 10 mg PO DAILY senna 8.6 mg Capsule 8.6 mg PO BID levetiracetam [Keppra] 1,000 mg Tablet 1,000 mg PO BID lorazepam [Ativan] 0.5 mg Tablet 0.5 mg PO Q6HR PRN (Reason: Nausea And Vomiting) Qty: 60 0RF Rx Instructions: Take one tablet (0.5mg) every six hours as needed for nausea/vomiting. multivitamin Tablet 1 tab PO DAILY loperamide [Imodium] 2 mg Capsule 2 mg PO QID PRN (Reason: Diarrhea) vitamin B complex Capsule 1 cap DAILY memantine 5 mg Tablet 10 mg PO BID Qty: 120 5RF Elderberry 200 mg Capsule 200 mg PO DAILY vitamin [id number] acid 1-0.8 mg Tablet 1 tab PO DAILY dexamethasone 2 mg Tablet 2 mg PO BID Qty: 30 1RF dexamethasone 2 mg Tablet 2 mg PO BID Qty: 60 1RF oxycodone 5 mg Tablet 5 - 10 mg PO Q6H PRN (Reason: cancer pain) Qty: 120 0RF Referrals: Vahe Mota MD [Primary Care Provider] - Stand Alone Forms: Patient Portal/API
--- NOTE | 2022-05-16 21:04 | DI.CT.S_ITS ---
PROCEDURE: CT HEAD/BRAIN WO CON INDICATIONS: hx of breast CA with mets TECHNIQUE: Noncontrast 4.5 mm thick angled axial sections acquired from the foramen magnum to the vertex, with coronal and sagittal reformats. For radiation dose reduction, the following was used: automated exposure control, adjustment of mA and/or kV according to patient size. COMPARISON: [facility], MR, MR HEAD/BRAIN WO/W CON, 04/06/2022, 10:48. [facility], CT, CT HEAD/BRAIN WO CON, 04/14/2022, 16:17. FINDINGS: Image quality: Excellent. CSF spaces: Basal cisterns are patent. No extra-axial fluid collections. Ventricles are similar in overall size and shape. Brain: No acute intracranial hemorrhage. A right frontal lobe intraparenchymal lobulated partially calcified mass measures up to 3.6 x 2.9 cm, increased from 3.0 x 2.8 cm on the prior CT study. A partially calcified left frontal lobe dural based partially calcified mass measures up to approximately 3.8 x 2.0 cm on series 2, image 21, increased from 3.3 x 1.8 cm on the prior CT study. A dural-based left temporal lobe partially calcified mass measures up to approximately 1.4 x 1.1 cm in dimension, similar in size compared to the prior study. Extensive vasogenic edema is demonstrated bilaterally associated with the mass lesions. There is associated mild rightward midline shift of approximately 0.5 cm and mild effacement of the frontal horn of the left lateral ventricle. These findings are similar to the prior study. Skull and face: Calvarium and visualized facial bones demonstrate no acute fractures. There are postsurgical changes redemonstrated consistent with prior right frontal temporal craniotomy. A lucent lesion within the right parietal bone on series 3, image 19 is similar to the prior study and is suspicious for metastatic disease. Sinuses: Visualized sinuses and mastoids are clear. IMPRESSION: 1. Partially calcified masses in the right frontal lobe and along the left frontal lobe demonstrate interval increase in size compared to the prior CT consistent with progression of metastatic disease. 2. Left upper lobe mass appears similar to the prior study. 3. Extensive vasogenic edema associated with the mass lesions including mild rightward midline shift appear similar to the prior study. 4. Lucent lesion within the right parietal bone suggestive of metastatic disease. Dictated by: Doug Montes M.D. on 05/16/2022 at 22:05 Approved by: Doug Montes M.D. on 05/16/2022 at 22:14
--- NOTE | 2022-05-16 21:04 | DI.RAD.S_ITS ---
PROCEDURE: XR CHEST 1V INDICATIONS: eval for PNA TECHNIQUE: One view of the chest was acquired. COMPARISON: [facility], CT, CT CHEST ABD PEL W CON, 04/06/2022, 12:46. [facility], CR, XR CHEST 1V, 04/14/2022, 16:19. FINDINGS: Surgical changes and devices: There is a left subclavian Port-A-Cath which appears stable in position. Surgical clips redemonstrated within the right axilla. Lungs and pleura: No acute consolidation. There are a few linear opacities redemonstrated within the upper lung zones likely representing scarring. No pleural effusions or pneumothorax. Mediastinum: Mediastinal contours appear normal. Heart size is normal. Bones and chest wall: No suspicious bony lesions. Overlying soft tissues appear unremarkable. IMPRESSION: 1. No evidence of pneumonia. Dictated by: Doug Montes M.D. on 05/16/2022 at 22:14 Approved by: Doug Montes M.D. on 05/16/2022 at 22:16
[2022-05-16 21:27] LABS: Add Manual Diff / Slide Review NO; Basophils Absolute Auto 0 /uL (0-100); Basophils Percent Auto 0.4 % (0-2); Eosinophils Absolute Auto 0 /uL (0-450); Hematocrit 43.1 % (36-46); Hemoglobin 14.9 g/dL (12.0-16.0); Lymphocytes Absolute Auto 200 /uL (1100-4500); Lymphocytes Percent Auto 10.6 % (25-40); Mean Corpuscular HGB Conc 34.6 % (30-36); Mean Corpuscular Hemoglobin 33.1 PG (26-34); Mean Corpuscular Volume 95.6 fL (80-100); Monocytes Absolute Auto 100 /uL (0-900); Monocytes Percent Auto 2.3 % (3-14); Neutrophils Absolute Auto 2000 /uL (1500-7000); Neutrophils Percent Auto 85.7 % (50-75); Platelet Count 142 X10^3/uL (150-400); Red Blood Cell Count 4.51 X10^6/uL (4.0-5.2); Red Cell Distribution Width 16.2 % (11.6-14.8); White Blood Cell Count 2.3 X10^3/uL (4.5-11.0)
[2022-05-16 21:40] LABS: Alanine Aminotransferase 45 IU/L (<35); Albumin 3.4 g/dL (3.5-5.0); Albumin Globulin Ratio 1.1 (1.0-2.8); Alkaline Phosphatase 67 U/L (38-126); Aspartate Aminotransferase 30 IU/L (14-36); BUN Creatinine Ratio 55.6 (6-22); Bilirubin Total 0.7 mg/dL (0.2-1.3); Blood Urea Nitrogen 40 mg/dL (7-17); Calcium 8.8 mg/dL (8.4-10.2); Carbon Dioxide 27 mmol/L (22-32); Chloride 106 mmol/L (98-107); Estimated Glomerular Filt Rate > 60 mL/min (>60); Globulin 3.2 g/dL (1.7-4.1); Glucose 136 mg/dL (80-110); HEMOLYSIS < 15 (0-50); Lipase 59 U/L (23-300); Potassium 3.5 mmol/L (3.4-5.1); Sodium 138 mmol/L (137-145); Total Protein 6.6 g/dL (6.3-8.2)
[2022-05-16] MEDS: SODIUM CHLORIDE 0.9% 1,000 ML 1000 ML IV (21:56)
[2022-05-16 23:27] VITALS: BP 123/68; PULSE 70; RESP 16; TEMP 37; O2SAT 93
[2022-05-16] MEDS: dexAMETHasone 4 MG TABLET PO (23:33)
== END 2022-05-16 23:47 | disposition home or self-care (01) ==
PROVIDERS: Emergency Provider Emergency Medicine; Family Provider Family Medicine; PCP Family Medicine
DX: C50.911 Malignant neoplasm of unspecified site of right female breast (principal); C79.31 Secondary malignant neoplasm of brain; Z17.0 Estrogen receptor positive status [ER+]
CPT/HCPCS: 36415; 70450; 71045; 80053; 83690; 85025; 96374; 99284; J1642